=== PATIENT | male | born 1945 | race Caucasian/White ===

== ENCOUNTER 2020-10-23 10:10 | Emergency (ER) | payer MEDICARE, OTHER, SELFPAY ==
[2020-10-23 10:20] VITALS: BP 107/53; PULSE 76; RESP 18; TEMP 35.8; O2SAT 99
--- NOTE | 2020-10-23 10:57 | ED.EXTPRO ---
HPI - Extremity Problem General Chief complaint: Extremity Problem,Nontraumatic Stated complaint: rt foot toenail pain Time Seen by Provider: 10/23/20 10:32 Source: patient and RN notes reviewed Mode of arrival: ambulatory Limitations: no limitations History of Present Illness HPI Narrative: Patient presents today complaining of an injury to his right great toenail. States he noticed it bleeding this morning for a long period of time. He got into the shower and got it to stop bleeding. States his wrapped it and he came in for evaluation as she had told him that it had been torn mostly all the way off. States he believes he needs the toenail removed the rest of the way. When patient removes his socks, since he cannot reach his feet, he places his left heel on his right toes and pulls his right foot out of his sock. Since he has neuropathy, he cannot feel his feet, nor the amount of pressure he is placing on his toes. Patient also has history of diabetes. Related Data Home Medications Medication Instructions Recorded Confirmed aspirin [Aspirin Low Dose] 81 mg PO DAILY 01/21/19 01/21/19 atorvastatin 40 mg PO DAILY 01/21/19 01/21/19 cetirizine 10 mg PO DAILY 01/21/19 01/21/19 cholestyramine-aspartame 9 g PO DAILY 01/21/19 01/21/19 [Cholestyramine Light] furosemide 60 mg PO BID 01/21/19 01/21/19 gabapentin 300 mg PO TID 01/21/19 01/21/19 insulin glargine [Lantus U-100 45 unit SUBCUT HS 01/21/19 01/21/19 Insulin] insulin lispro [Humalog U-100 1 sliding scale dose SUBCUT 01/21/19 01/21/19 Insulin] USEASDIRECTD levothyroxine 75 mcg PO DAILY 01/21/19 01/21/19 lidocaine [Lidocaine Pain Relief] 1 patch TOPICAL BID 01/21/19 01/21/19 lisinopril 10 mg PO DAILY 01/21/19 01/21/19 metformin 1,000 mg PO BID 01/21/19 01/21/19 metoprolol tartrate 25 mg PO BID 01/21/19 01/21/19 taedirvg-kta-zhjrb-vit K-lycop 1 tablet PO DAILY 01/21/19 01/21/19 [Men's Multivitamin] nitroglycerin [Nitrostat] 0.4 mg SUBLINGUAL Q5-15M PRN 01/21/19 01/21/19 potassium chloride 20 meq PO DAILY 01/21/19 01/21/19 levothyroxine [Synthroid] 10/23/20 tramadol mg 10/23/20 Allergies Allergy/AdvReac Type Severity Reaction Status Date / Time No Known Allergies Allergy Verified 04/18/16 09:57 Review of Systems Review of Systems: CONSTITUTIONAL: Denies body aches, fever, chills, or sweats. EYES: Denies visual changes, redness, or discharge. ENT: Denies rhinorrhea, congestion, sore throat, or otalgia. CARDIOVASCULAR: Denies chest pain, palpitations, or edema. RESPIRATORY: Denies cough or dyspnea. GASTROINTESTINAL: Denies abdominal pain, nausea, vomiting, or diarrhea. GENITOURINARY: Denies dysuria or hematuria. SKIN: Denies rash, itching, or wounds. Right great toenail injury MUSCULOSKELETAL: Denies back pain, joint pain, or myalgia. NEUROLOGIC: Denies headache, numbness, tingling, or weakness. PSYCH: Denies depression or anxiety. [facility] Past Medical History Medical History (Updated 10/23/20 @ 12:30 by Hannah Gamboa, [facility], ) Diabetes Diabetic neuropathy Hypothyroidism Surgical History Surgical History (Updated 10/23/20 @ 12:30 by Hannah Gamboa, [facility], ) Hx of CABG Family History Family History (Updated 01/21/19 @ 11:55 by Mia Bustillo RN) Father Acute myocardial infarction Sibling Diabetes mellitus Sibling Diabetes mellitus Social History Social History Smoking status: Former smoker Tobacco type: cigarettes Second hand tobacco smoke exposure: No Alcohol intake: current Gender identity (if verbalized by the patient): Male Comments At time of signature, I have reviewed and agree with nursing past medical, surgical, social and family history unless otherwise noted. Please see nursing chart for further information. There is no relevant family history pertinent to the presenting complaint Exam Narrative: GENERAL: Well-appearing, well-nourished, and in no acute distress. HEAD: Normocephalic, atraum
== END 2020-10-23 11:23 | disposition home or self-care (01) ==
PROVIDERS: Emergency Provider Nurse Practitioner; PCP Emergency Medicine
DX: S99.921A Unspecified injury of right foot, initial encounter (principal); X58.XXXA Exposure to other specified factors, initial encounter; E11.42 Type 2 diabetes mellitus with diabetic polyneuropathy; E03.9 Hypothyroidism, unspecified
CPT/HCPCS: 99213; G0463

== ENCOUNTER 2020-12-18 14:26 | Emergency (ER) | payer MEDICARE, OTHER, SELFPAY ==
[2020-12-18 14:32] VITALS: BP 128/47; PULSE 101; RESP 16; TEMP 36.2; O2SAT 96
[2020-12-18 14:39] VITALS: BP 128/47; PULSE 101; RESP 16; TEMP 36.2; O2SAT 96
--- NOTE | 2020-12-18 14:47 | ED.ANIMALBIT ---
HPI - Animal Bite General Chief Complaint: Animal Bite Stated Complaint: dog bite Time Seen by Provider: 12/18/20 14:38 Source: patient, family and RN notes reviewed Mode of arrival: ambulatory Limitations: no limitations History of Present Illness HPI narrative: Patient presents today with a dog bite to his right hand 2 weeks ago. The puncture wound was to the dorsum of the hand, overlying the base of the right third finger. States he has the area covered and had been applying Neosporin. States the area was draining quite a bit of purulent discharge. He had been on several days of an antibiotic for his toe infection and reports that when he was on the antibiotic his hand had been improving, but since finishing the course, he feels that his hand is becoming worse and more reddened. Denies numbness or tingling in the hand or fingers. Increased pain with making a fist. MD complaint: animal bite Related Data Home Medications Medication Instructions Recorded Confirmed aspirin [Aspirin Low Dose] 81 mg PO DAILY 01/21/19 01/21/19 atorvastatin 40 mg PO DAILY 01/21/19 01/21/19 cetirizine 10 mg PO DAILY 01/21/19 01/21/19 cholestyramine-aspartame 9 g PO DAILY 01/21/19 01/21/19 [Cholestyramine Light] furosemide 60 mg PO BID 01/21/19 01/21/19 gabapentin 300 mg PO TID 01/21/19 01/21/19 insulin glargine [Lantus U-100 45 unit SUBCUT HS 01/21/19 01/21/19 Insulin] insulin lispro [Humalog U-100 1 sliding scale dose SUBCUT 01/21/19 01/21/19 Insulin] USEASDIRECTD levothyroxine 75 mcg PO DAILY 01/21/19 01/21/19 lidocaine [Lidocaine Pain Relief] 1 patch TOPICAL BID 01/21/19 01/21/19 lisinopril 10 mg PO DAILY 01/21/19 01/21/19 metformin 1,000 mg PO BID 01/21/19 01/21/19 metoprolol tartrate 25 mg PO BID 01/21/19 01/21/19 xjkizllb-ntv-ozpkn-vit K-lycop 1 tablet PO DAILY 01/21/19 01/21/19 [Men's Multivitamin] nitroglycerin [Nitrostat] 0.4 mg SUBLINGUAL Q5-15M PRN 01/21/19 01/21/19 potassium chloride 20 meq PO DAILY 01/21/19 01/21/19 levothyroxine [Synthroid] 10/23/20 tramadol mg 10/23/20 Allergies Allergy/AdvReac Type Severity Reaction Status Date / Time No Known Allergies Allergy Verified 04/18/16 09:57 Review of Systems Review of Systems: CONSTITUTIONAL: Denies body aches, fever, chills, or sweats. EYES: Denies visual changes, redness, or discharge. ENT: Denies rhinorrhea, congestion, sore throat, or otalgia. CARDIOVASCULAR: Denies chest pain, palpitations, or edema. RESPIRATORY: Denies cough or dyspnea. GASTROINTESTINAL: Denies abdominal pain, nausea, vomiting, or diarrhea. GENITOURINARY: Denies dysuria or hematuria. SKIN: Denies rash, itching. + Dog bite to right hand MUSCULOSKELETAL: Denies back pain, joint pain, or myalgia. NEUROLOGIC: Denies headache, numbness, tingling, or weakness. PSYCH: Denies depression or anxiety. [facility] Past Medical History Medical History Diabetes Diabetic neuropathy Hypothyroidism Surgical History Surgical History Hx of CABG Family History Family History Father Acute myocardial infarction Sibling Diabetes mellitus Sibling Diabetes mellitus Social History Social History Smoking status: Former smoker Tobacco type: cigarettes Second hand tobacco smoke exposure: No Alcohol intake: current Gender identity (if verbalized by the patient): Male Comments At time of signature, I have reviewed and agree with nursing past medical, surgical, social and family history unless otherwise noted. Please see nursing chart for further information. There is no relevant family history pertinent to the presenting complaint Exam Narrative: GENERAL: Well-appearing, well-nourished, and in no acute distress. HEAD: Normocephalic, atraumatic. EYES: EO
== END 2020-12-18 14:53 | disposition home or self-care (01) ==
PROVIDERS: Emergency Provider Nurse Practitioner
DX: L02.511 Cutaneous abscess of right hand (principal); S61.432A Puncture wound without foreign body of left hand, initial encounter; L08.9 Local infection of the skin and subcutaneous tissue, unspecified; W54.0XXA Bitten by dog, initial encounter; E11.42 Type 2 diabetes mellitus with diabetic polyneuropathy; E03.9 Hypothyroidism, unspecified; Z87.891 Personal history of nicotine dependence
CPT/HCPCS: 99213; G0463

== ENCOUNTER 2024-10-25 10:52 | Inpatient (IN) | payer MEDICARE, OTHER, SELFPAY ==
--- OUTSIDE RECORDS SUMMARY | 2020-09-19 06:20 | XMS_ITS | Continuity of Care Document ---
Author Organization [facility] Address [id number] [place] [address] [address] [place] [address] Phone Care Team Providers Care Camera Systems Engineer Name Role Phone Real FAIR MD, Jim fonseca Allergies, Adverse Reactions, Alerts Substance Reaction Status Criticality No Known Allergies Active No Inform ation Medications Medication Instructions Dosage Effective Dates (start - stop) Status Comments Restasis 0.05 % eye drops in a dropperette instill 1 gtt by opthalmic route into both eyes twice a day - Active Lantus 100 unit/mL subcutaneous solution inject by subcutaneous route as per insulin protocol 0.00 - Active Tirosint 75 mcg capsule take 1 capsule by oral route every day 75 MCG - Active Gralise 300 mg tablet,extended release TID - Active lidocaine BUCCAL ADH. PATCH every 12 hours - Active metformin 1,000 mg tablet take 1 tablet by oral route 2 times every day with morning and evening meals 1000 MG - Active lisinopril 10 mg tablet take 1 tablet by oral route every day 10 MG - Active HUMALOG KWIKPEN U-200 (unknown strength) inject by subcutaneous route per prescriber's instructions. Insulin dosing requires individualization. Not Available - Active TRAMADOL HCL ER (unknown strength) take 1 capsule by oral route every day Not Available - Active 325 Aspir-81 81 mg tablet,delayed release take 1 tablet by oral route every day - Active atorvastatin 40 mg tablet take 1 tablet by oral route every day 40 MG - Active cetirizine 10 mg tablet take 1 tablet by oral route every day 10 MG - Active METOPROLOL TARTRATE (unknown strength) inject 5 milliliter by intravenous route every 2 minutes for 3 doses Not Available - Active 25mg furosemide 40 mg tablet take 1 tablet by oral route every day 40 MG - Active POTASSIUM (unknown strength) Not Available - Active cholestyramine (bulk) powder - Active One-A-Day Men's Multivitamin 400 mcg-20 mcg-300 mcg tablet - Active nitroglycerin 0.4 mg/hr transdermal 24 hour patch apply 1 patch by transdermal route every day remove at night for 10-12 hours 1.00 patch - Active Procedures Procedure Date AFTER CATARACT LASER SURGERY OFFICE/OUTPATIENT VISIT, EST POSTOP FOLLOW-UP VISIT POSTOP FOLLOW-UP VISIT CATARACT SURG W/IOL, 1 STAGE POSTOP FOLLOW-UP VISIT GDX Retina POSTOP FOLLOW-UP VISIT CATARACT SURG W/IOL, 1 STAGE EYE EXAM, NEW PATIENT REFRACTION MEDICARE DILATED EXAM RIGHT EYE DILATED EXAM LEFT EYE OPHTHALMIC BIOMETRY OPHTHAL[facility] BIOMET[facility] PHARMACY 2 EYES OFFICE/OUTPATIENT VISIT, NEW DILATED EXAM RIGHT EYE DILATED EXAM LEFT EYE Advance Directives Directive Yes / No Effective Date File Name No Information Encounters Encounter Description Practice Location Reason(s) For Visit Diagnoses Date Provider Providers Copied on Encounter [facility], [address] [place] [address], [id number], [place] tel:[phone] [facility] No Information 1 Real Fernandez. [address], [place], [place], [id number], [place]. tel:[phone] Referring Provider: Jim Noble MD P, [address], [place], [address] . tel:[phone] OFFICE/OUTPA TIENT VISIT, EST [facility], [address] [place] [address], [id number], tel:[phone] [facility] MCNAMARA blurry vision (chief complaint) Type II DM (chief complaint) Proliferative diabetic retinopathy of both eyes with macular edema associated with type 2 diabetes mellitusPseudoa phakiaOther secondary cataract, left eyeOther vitreous opacities, right eyeDry eye syndrome of bilateral lacrimal glands 1 Derheimer OD Shira. [address], [address], [place], [place], [id number], [place]. tel:[phone] Referring Provider: Shira Joonalistair OD, [address], [place], [address] . tel:[phone] [facility], [address] [place] [address], [id number], tel:[phone] [facility] MC[facility] postop (chief complaint) Pseudoaphakia 9 Derheimer OD Shira. [address], [address], [address], [place]. tel:[phone] Referring Provider: Shira Joonalistair OD, [address], [place], [address] . tel:[phone] [facility], [address] [place] [address], [id number], tel:[phone] [facility] MCNAMARA Post-Op (chief complaint) Pseudoaphakia 9 Derheimer OD Shira. [address], [address], [place], [address], [place]. tel:[phone] Referring Provider: Shira Joonalistair OD, [address], [place], [address] . tel:[phone] [facility], [address] [place] [address], [id number], tel:[phone] [facility] [place] No Information 9 Karuna Odonnell. [address], [address], [place], [address], [place]. tel:[phone] Referring Provider: Blas Potter, [address], [place], [address] . tel:[phone] [facility], [address] [place] [address], [id number], tel:[phone] [facility] MCNAMARA Post-Op (chief complaint) Pseudoaphakia 9 Derheimer OD Shira. [address], [address], [id number], [place]. tel:[phone] Referring Provider: Shira Perry OD, [address], [place], [address] . tel:[phone] [facility], [address] [place] [address], [id number], tel:[phone] [facility] No Information 9 Karuna Odonnell. [address], [address], [address], [place]. tel:[phone] [facility], [address] [place] [address], [id number], tel:[phone] [facility] MCNAMARA Post-Op (chief complaint) Pseudoaphakia 9 Derheimer OD Shira. [address], [address], [place], [address], [place]. tel:[phone] Referring Provider: Shira Perry OD, [address], [place], [address] . tel:[phone] [facility], [address] [place] [address], [id number], tel:[phone] [facility] [place] No Information 9 Karuna Odonnell. [address], [address], [place], [address], [place]. tel:[phone] Referring Provider: Blas Beckman MD P, [address], [place], [address] . tel:[phone] [facility], [address] [place] [address], [id number], tel:[phone] [facility] MCNAMARA cataract eval (chief complaint) DM check (chief complaint) Age-related nuclear cataract, bilateralDermat ochalasis of right upper eyelidDermatoch alasis of left upper eyelidKeratocon junct sicca, not specified as Sjogren's, bilateralOther vitreous opacities, bilateralType 2 diab with severe nonp rtnop without macular edema, bi 9 Karuna Odonnell. [address], [address], [place], [place], [address], [place]. tel:[phone] Referring Provider: Blas Potter, [address], [place], [address] . tel:[phone] OFFICE/OUTPA TIENT VISIT, [facility], [address] [place] [address], [place], [place], [id number], tel:[phone] [facility] MCNAMARA Floater (chief complaint) Severe nonproliferativ e diabetic retinopathy without macular edema, associated with type 2 diabetes mellitusRetinal hemorrhage, leftSenile nuclear sclerosis, bilateralVitreo us floaters, bilateral 5 Vicky OD Shira. [address], [address], [place], [place], [address], [place]. tel:[phone] Referring Provider: Shira Perry OD, [address], [place], [address] . tel:[phone] Family History Family Member Type Diagnosis Age At Onset Problem No family history of Macular degeneration Problem No family history of Hyperte nsion Problem No family history of Diabete s mellitus Problem No family history of Glaucom a Payers Payer name Insurance type Covered constitution party ID Authoriza tion(s) [place] [id number] [facility] [id number] Social History Type Description Quantity Date Captured Comments Sex Male Smoking Status No Information Chief Complaint And Reason For Visit No Information Reason For Referral Reason For Referral No Information Plan Of Treatment Date Type Action Status Referral Ordered: Referrals: Ophthalmology ordered History Of Present Illness Encounter Date Complaint History Of Prese nt Illness blurry vision The 75 year old male presents for evaluation of blurry vision OS. Patient has been seeing [facility] for h/o PDR OU s/p PRP OU, with a h/o DME OU (persistent and recurrent OS) for which he has rec'd Focal laser/Avastin and more recently Kenalog (08/30/20). Pt has been referred back by [facility] for a PCO consultation OS. Patient reports vision OS keeps getting worse, especially OS, over the last month in particular. Pt has a h/o VH OS and he states he's noticed that the blurriness doesn't appear to be from blood, but the actual vision itself. Pt states vision OU was great immediately after surgery. s/p PC IOL OU (St, dist) summer 2018 Type II DM Patient has a lo ng h/o type II DM. Pt is managed on insulin and oral meds by Dr. Melendrez (PCP). A1c was recently 6.9, which is the lowest it's been in many years. postop Pt states vision is improved and happy with +2.00 OTC readers. Minimal discomfort, improves with sx gtts.Stand/Dist OURef by Dr. Zuluaga.Pt has an appt with Dr. Zuluaga in 2 weeks.h/o PDR w/ VH OS, NPDR OD and DME OUPt compliant with compound gtts. Post-Op The status of th e patient has improved. The patient reports no pain. Additional information: STND DVRef by Dr. Zuluaga.h/o PDR w/ VH OS, NPDR OD and DME OU. Post-Op Additional infor mation: Pt presents for a 1 week PC IOL (st, dist) PO OS. Patient reports vision OS seems to be improving since last exam. No pain or irritation. Compliant w/ compound gtts and AFT's. OD scheduled 07/30/18.Ref by Dr. Zuluaga.h/o PDR w/ VH OS, NPDR OD and DME OU. Mac OCT ordered today OU. Post-Op The status of th e patient has improved. The patient reports no pain. Additional information: 1st eye OS cat surg 07/16/18 with Gira. STND DIST IOL. 2nd eye scheduled 07/30/[address] Zuluaga- h/o PDR OS, NPDR OD, DME OU, and VH OS. cataract eval The 73 year old male presents for evaluation of cataract eval in the left > right. It started about 3 year(s) ago. The symptom is constant. The condition is significant. The pt was recently released by [facility] for cataract surgery. He states he wanted to update his glasses, but was advised to have his cataracts evaluated. DM check The patient is p resent for evaluation of DM check in the right eye and left eye. It started about 1 year(s) ago. The symptom is constant. The condition is significant. The pt is followed by Dr Salazar, Last A1C was 7.2, 04/2018, AVG AM BS: 70+Followed and Tx by [facility]. Floater The 69 year old male presents for evaluation of Floater in the left eye. It started about 1 day(s) ago. The onset was sudden. It affects OS. The symptom is constant. The condition is moderate. Pt reports yesterday evening he developed a blurry floater in vision OS distorted blurred iroquois. denies any flashes of light OU. [facility] maroon shade per patientH/O Diabetes, pt reports his BS runs high 200's, did not check BS today. Functional Status Date Functional Assessmen t No Information Instructions Date Instruction Additional Infor mation Impression/Plan Related to Proli ferative diabetic retinopathy of both eyes with macular edema associated with type 2 diabetes mellitus Impression/Plan Related to Pseud oaphakia Impression/Plan Related to Other secondary cataract, left eye Impression/Plan Related to Dry e ye syndrome of bilateral lacrimal glands Impression/Plan Related to Other vitreous opacities, right eye Impression/Plan Related to Pseud oaphakia Impression/Plan Related to Pseud oaphakia Impression/Plan Related to Pseud oaphakia Impression/Plan Related to Pseud oaphakia Impression/Plan Related to Type 2 diab with severe nonp rtnop without macular edema, bi Impression/Plan Related to Age-r elated nuclear cataract, bilateral Impression/Plan Related to [place] tochalasis of right upper eyelid Impression/Plan Related to [place] tochalasis of left upper eyelid Impression/Plan Related to Kerat oconjunct sicca, not specified as Sjogren's, bilateral Impression/Plan Related to Other vitreous opacities, bilateral Impression/Plan - Di scussed signs and symptoms of retinal detachment. Discussed signs and symptoms of PVD/floaters. Related to Vitreous floaters, bilateral Impression/Plan - Se condary to diabetic retinopathy. Discussed dx with pt today. Will refer patient for a retinal consult for further evaluation/treatment. Related to Retinal hemorrhage, left Impression/Plan - No treatment currently recommended. The patient will monitor vision changes and contact us with any decrease in vision. Related to Senile nuclear sclerosis, bilateral Impression/Plan - Di abetes type II: severe background diabetic retinopathy, with pre retinal heme OS. Will refer patient for a retinal consult for furthur evaluation and treatment. Discussed ocular and systemic benefits of maintaining blood sugar control. Related to Severe nonproliferative diabetic retinopathy without macular edema, associated with type 2 diabetes mellitus Assessments Type Assessment Date No Information Patient Care Teams Name Effective Dates (start - stop) Status Members No Information
--- OUTSIDE RECORDS SUMMARY | 2020-09-19 06:20 | XMS_ITS | Continuity of Care Document ---
Author Organization [facility] Address [id number] [place] [address] [address] [place] [address] Phone Care Team Providers Care Job Developer For Deaf Adults Name Role Phone Real FAIR MD, Jim [...] Providers Copied on Encounter [facility], [address] [place] [address], [id number], [place] tel:[phone] [facility] No Information 1 Real Fernandez. [address], [place], [place], [address], [place]. tel:[phone] Referring Provider: Jim Noble MD P, [address], [place], [address] . tel:[phone] OFFICE/OUTPA TIENT VISIT, EST [facility], [address] [place] [address], [id number], tel:[phone] [facility] MCNAMARA blurry vision (chief complaint) Type II DM (chief complaint) Proliferative diabetic retinopathy of both eyes with macular edema associated with type 2 diabetes mellitusPseudoa phakiaOther secondary cataract, left eyeOther vitreous opacities, right eyeDry eye syndrome of bilateral lacrimal glands 1 Derheimer OD Shira. [address], [place], [place], [address], [place]. tel:[phone] Referring Provider: Shira Joonalistair OD, [address], [place], [address] . tel:[phone] [facility], [address] [place] [address], [id number], tel:[phone] [facility] MCNAMARA postop (chief complaint) Pseudoaphakia 9 Derheimer OD Shira. [address], [address], [address], [place]. tel:[phone] Referring Provider: Shira Joonalistair OD, [address], [place], [address] . tel:[phone] [facility], [address] [place] [address], [id number], tel:[phone] [facility] LUIS MCNAMARA Post-Op (chief complaint) Pseudoaphakia 9 Derheimer OD Shira. [address], [address], [address], [place]. tel:[phone] Referring Provider: Shira Joonalistair OD, [address], [place], [address] . tel:[phone] [facility], [address] [place] [address], [id number], tel:[phone] [facility] [place] No Information 9 Karuna Odonnell. [address], [address], [address], [place]. tel:[phone] Referring Provider: Blas Potter, [address], [address] . tel:[phone] [facility], [address] [place] [address], [id number], tel:[phone] [facility] LUIS MCNAMARA Post-Op (chief complaint) Pseudoaphakia 9 Derheimer OD Shira. [address], [address], [address], [place]. tel:[phone] Referring Provider: Shira Perry OD, [address], [address] . tel:[phone] [facility], [address] [place] [address], [id number], tel:[phone] [facility] No Information 9 Karuna Odonnell. [address], [address], [address], [place]. tel:[phone] [facility], [address] [place] [address], [id number], tel:[phone] OPH CONSULT LUIS MCNAMARA Post-Op (chief complaint) Pseudoaphakia 9 Derheimer OD Shira. [address], [address], [address], [place]. tel:[phone] Referring Provider: Shira Perry OD, [address], [address] . tel:[phone] [facility], [address] [place] [address], [id number], tel:[phone] [facility] [place] No Information 9 Karuna Odonnell. [address], [address], [address], [place]. tel:[phone] Referring Provider: Blas Beckman MD P, [address], [place], [address] . tel:[phone] [facility], [address] [place] [address], [id number], tel:[phone] OPH CONSULT LUIS MCNAMARA cataract eval (chief complaint) DM check (chief complaint) Age-related nuclear cataract, bilateralDermat ochalasis of right upper eyelidDermatoch alasis of left upper eyelidKeratocon junct sicca, not specified as Sjogren's, bilateralOther vitreous opacities, bilateralType 2 diab with severe nonp rtnop without macular edema, bi 9 Karuna Odonnell. [address], [place], [place], [address], [place]. tel:[phone] Referring Provider: Blas Potter, [address], [place], [address] . tel:[phone] OFFICE/OUTPA TIENT VISIT, [facility], [address] [place] [address], [place], [place], [id number], tel:[phone] OPH CONSULT LUIS MCNAMARA Floater (chief complaint) Severe nonproliferativ e diabetic retinopathy without macular edema, associated with type 2 diabetes mellitusRetinal hemorrhage, leftSenile nuclear sclerosis, bilateralVitreo us floaters, bilateral 5 Vicky OD Shira. [address], [place], [place], [address], [place]. tel:[phone] Referring Provider: Shira Perry OD, [address], [place], [address] . tel:[phone] Family History Family Member Type Diagnosis Age At Onset Problem No family history of Macular degeneration Problem No family history of Hyperte nsion Problem No family history of Diabete s mellitus Problem No family history of Glaucom a Payers Payer name Insurance type Covered democrat ID Authoriza tion(s) [place] MB [id number] [facility] [id number] Social History Type Description Quantity Date Captured [...] blurry floater in vision OS distorted blurred ramona. denies any flashes of light OU. [facility] is maroon shade per patientH/O Diabetes, pt reports his BS runs high 200's, did not check BS today. Functional Status Date Functional Assessmen t No Information Instructions Date Instruction Additional Infor mation Impression/Plan Related to Other vitreous opacities, right eye Impression/Plan Related to Dry e ye syndrome of bilateral lacrimal glands Impression/Plan Related to Other secondary cataract, left eye Impression/Plan Related to Pseud oaphakia Impression/Plan Related to Proli ferative diabetic retinopathy of both eyes with macular edema associated with type 2 diabetes mellitus Impression/Plan Related to Pseud oaphakia Impression/Plan Related to Pseud oaphakia Impression/Plan Related to Pseud oaphakia Impression/Plan Related to Pseud oaphakia Impression/Plan Related to Other vitreous opacities, bilateral Impression/Plan Related to Kerat oconjunct sicca, not specified as Sjogren's, bilateral Impression/Plan Related to [place] tochalasis of left upper eyelid Impression/Plan Related to [place] tochalasis of right upper eyelid Impression/Plan Related to Age-r elated nuclear cataract, bilateral Impression/Plan Related to Type 2 diab with severe nonp rtnop without macular edema, bi Impression/Plan - Di abetes type II: severe background diabetic retinopathy, with pre retinal heme OS. Will refer patient for a retinal consult for furthur evaluation and treatment. Discussed ocular and systemic benefits of maintaining blood sugar control. Related to Severe nonproliferative diabetic retinopathy without macular edema, associated with type 2 diabetes mellitus Impression/Plan - No treatment currently recommended. The patient will monitor vision changes and contact us with any decrease in vision. Related to Senile nuclear sclerosis, bilateral Impression/Plan - Se condary to diabetic retinopathy. Discussed dx with pt today. Will refer patient for a retinal consult for further evaluation/treatment. Related to Retinal hemorrhage, left Impression/Plan - Di scussed signs and symptoms of retinal detachment. Discussed signs and symptoms of PVD/floaters. Related to Vitreous floaters, bilateral Assessments Type Assessment Date No Information Patient Care Teams Name Effective Dates (start - stop) Status Members No Information
--- OUTSIDE RECORDS SUMMARY | 2020-09-19 06:20 | XMS_ITS | Continuity of Care Document ---
Author Organization [facility] Address [id number] [place] [address] [address] [place] [address] Phone Care Team Providers Care Sports Book Server Name Role Phone Real FAIR MD, Jim [...] Providers Copied on Encounter [facility], [address] [place] [address], [id number], [place] tel:[phone] [facility] No Information 1 Real Fernandez. [address], [address], [place], [place], [id number], [place]. tel:[phone] Referring Provider: Jim Noble MD P, [address], [place], [address] . tel:[phone] OFFICE/OUTPA TIENT VISIT, EST [facility], [address] [place] [address], [id number], tel:[phone] [facility] LUIS MCNAMARA blurry vision (chief complaint) Type II DM (chief complaint) Proliferative diabetic retinopathy of both eyes with macular edema associated with type 2 diabetes mellitusPseudoa phakiaOther secondary cataract, left eyeOther vitreous opacities, right eyeDry eye syndrome of bilateral lacrimal glands 1 Derheimer OD Shira. [address], [address], [place], [place], [id number], [place]. tel:[phone] Referring Provider: Shira Joonalistair OD, [address], [place], [address] . tel:[phone] [facility], [address] [place] [address], [id number], tel:[phone] [facility] MCNAMARA postop (chief complaint) Pseudoaphakia 9 Derheimer OD Shira. [address], [address], [place], [id number], [place]. tel:[phone] Referring Provider: Shira Joonalistair OD, [address], [place], [address] . tel:[phone] [facility], [address] [place] [address], [id number], tel:[phone] [facility] LUIS MCNAMARA Post-Op (chief complaint) Pseudoaphakia 9 Derheimer OD Shira. [address], [address], [place], [id number], [place]. tel:[phone] Referring Provider: Shira Joonalistair OD, [address], [place], [address] . tel:[phone] [facility], [address] [place] [address], [id number], tel:[phone] [facility] [place] No Information 9 Karuna Odonnell. [address], [address], [place], [id number], [place]. tel:[phone] Referring Provider: Blas Potter, [address], [place], [address] . tel:[phone] [facility], [address] [place] [address], [id number], tel:[phone] [facility] LUIS MCNAMARA Post-Op (chief complaint) Pseudoaphakia 9 Derheimer OD Shira. [address], [address], [place], [id number], [place]. tel:[phone] Referring Provider: Shira Perry OD, [address], [place], [address] . tel:[phone] [facility], [address] [place] [address], [id number], tel:[phone] [facility] LUIS MCNAMARA No Information 9 Karuna Odonnell. [address], [address], [place], [id number], [place]. tel:[phone] [facility], [address] [place] [address], [id number], tel:[phone] [facility] LUIS MCNAMARA Post-Op (chief complaint) Pseudoaphakia 9 Derheimer OD Shira. [address], [address], [place], [id number], [place]. tel:[phone] Referring Provider: Shira Perry OD, [address], [place], [address] . tel:[phone] [facility], [address] [place] [address], [id number], tel:[phone] [facility] [place] No Information 9 Karuna Odonnell. [address], [address], [id number], [place]. tel:[phone] Referring Provider: Blas Beckman MD P, [address], [place], [address] . tel:[phone] [facility], [address] [place] [address], [id number], tel:[phone] [facility] LUIS MCNAMARA cataract eval (chief complaint) DM check (chief complaint) Age-related nuclear cataract, bilateralDermat ochalasis of right upper eyelidDermatoch alasis of left upper eyelidKeratocon junct sicca, not specified as Sjogren's, bilateralOther vitreous opacities, bilateralType 2 diab with severe nonp rtnop without macular edema, bi 9 Karuna Odonnell. [address], [address], [place], [place], [id number], [place]. tel:[phone] Referring Provider: Blas Potter, [address], [place], [address] . tel:[phone] OFFICE/OUTPA TIENT VISIT, [facility], [address] [place] [address], [place], [place], [id number], tel:[phone] [facility] LUIS MCNAMARA Floater (chief complaint) Severe nonproliferativ e diabetic retinopathy without macular edema, associated with type 2 diabetes mellitusRetinal hemorrhage, leftSenile nuclear sclerosis, bilateralVitreo us floaters, bilateral 5 Vicky OD Shira. [address], [address], [place], [place], [address], [place]. tel:[phone] Referring Provider: Shira Perry OD, [address], [place], [address] . tel:[phone] Family History Family Member Type Diagnosis Age At Onset Problem No family history of Macular degeneration Problem No family history of Hyperte nsion Problem No family history of Diabete s mellitus Problem No family history of [place] a Payers Payer name Insurance type Covered green party ID Authoriza tion(s) [place] MB [id number] [facility] [id number] Social History Type Description Quantity Date Captured [...] blurry floater in vision OS distorted blurred [place]. denies any flashes of light [facility]. [place] [...] elated nuclear cataract, bilateral Impression/Plan Related to [place] tochalasis of right upper eyelid Impression/Plan Related to [place] tochalasis of left upper eyelid Impression/Plan Related [...]
--- OUTSIDE RECORDS SUMMARY | 2024-10-23 14:12 | XMS_ITS | Encounter Summary ---
Author Organization [facility] Healthcare Address [address] [place] [address] Care Team Providers Care Education Dean Name Role Phone Yuli Ibarra MD Primary Care Provider [phone] Reason for Referral * MRI/CAT/PET Scan (Routine) - Closed Specialty Diagnoses / Procedures Referred By Barbaraac markus Referred To Contact Radiology Diagnoses Pain in joint involving right ankle and foot Procedures CT [place] [address] [place] [address] Phone: tel: fax: [facility] Referral ID Status Reason Start Date Expiration Date Visits Re quested Visits Authorized [id number] Closed 10/14/2024 11/13/2025 1 1 Reason for Visit * MRI/CAT/PET Scan (Routine) - Closed Specialty Diagnoses / Procedures Referred By Giovanni aparicio Referred To Contact Radiology Diagnoses Pain in joint involving right ankle and foot Procedures CT [place]le [place] [address] [place] [address] Phone: tel: fax: [facility] Referral ID Status Reason Start Date Expiration Date Visits Re quested Visits Authorized [id number] Closed 10/14/2024 11/13/2025 1 1 Encounter Details Date Type Department Care Team (Latest Contact Info) Description 10/23/2024 2:12 PM CDT - 10/23/2024 11:59 PM CDT Hospital Encounter [facility] Radiology at [facility] [address] [place] [address] Pain in joint involving right ankle and foot Discharge Disposition: Discharge to home or self care Social History Tobacco Use Types Packs/Day Years Used Date Smoking Tobacco: Former Cigarettes 1 12.1 0 07/30/1961 - 09/02/1973 Smokeless Tobacco: Never AUDIT-C Answer Date Recorded Q1: How often do you have a drink containing alc ohol? Monthly or less 06/26/2024 Q2: How many drinks containi ng alcohol do you have on a typical day when you are drinking? 1 or 2 06/26/2024 Q3: How often do you have si x or more drinks on one occasion? Never 06/26/2024 Personal Safety Answer Date Recorded Have you ever been in or are you currently in a harmful physical or emotional relationship or is someone making you feel afraid or unsafe? 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 Gender Identity Not on file Sexual Orientation Not on file documented as of this encounter Medications at Time of Discharge acetaminophen 500 mg capsule Take 2 capsules (1,000 mg total) by mouth every 8 (eight) hours 08/19/2024 albuterol HFA (PROVENTIL HFA,VENTOLIN HFA,PROAIR HFA) 90 mcg/actuation inhaler Inhale 2 puffs every 6 (six) hours as needed for wheezing aspirin 81 mg enteric coated tablet Take 1 tablet (81 mg total) by mouth daily atorvastatin (Lipitor) 40 mg tablet Take 1 tablet (40 mg total) by mouth daily bumetanide (BUMEX) 1 mg tablet Take 1 tablet (1 mg total) by mouth 3 (three) times a week 09/07/2024 cetirizine (ZyrTEC) 10 mg tablet Take 0.5 tablets (5 mg total) by mouth as needed for allergies 08/19/2024 cholestyramine (QUESTRAN) 4 gram packet Indications: Diarrhea MIX 1 PACKET AND DRINK DAILY NEEDED (USUALLY MID-DAY) 09/04/2024 dapagliflozin propanediol (FARXIGA) 10 mg tablet Take 1 tablet (10 mg total) by mouth daily 03/21/2024 dicyclomine (BENTYL) 10 mg capsule TAKE ONE CAPSULE BY MOUTH THREE TIMES DAILY NEEDED FOR CHANGE IN BOWEL HABITS famotidine (PEPCID) 40 mg tablet 06/30/2024 gabapentin (NEURONTIN) 600 mg tablet Take 1 tablet (600 mg total) by mouth 3 (three) times a day 08/19/2024 insulin glargine (LANTUS) 100 unit/mL (3 mL) pen for injection Inject 15 Units under the skin daily insulin lispro (HumaLOG, ADMELOG) 100 unit/mL vial for injection Inject 2-10 units under the skin 3 (three) times a day with meals. Blood glucose mg/dL 150-199: 2 units, 200-249: 4 units, 250-299: 6 units, 300-349: 8 units, 350 or greater: 10 units. Notify provider for blood glucose greater than 299 mg/dL. Refer to After Visit Summary for Sliding Scale Insulin Instructions. 08/19/2024 insulin lispro (HumaLOG, ADMELOG) 100 unit/mL vial for injection Inject 0-5 Units under the skin 3 (three) times a day with meals 08/19/2024 levothyroxine (Synthroid) 50 mcg tablet Take 1 tablet (50 mcg total) by mouth daily loperamide (IMODIUM) 2 mg capsuleIndications:d iarrhea Take 2 capsules (4 mg total) by mouth 4 (four) times a day 08/19/2024 metoprolol tartrate (LOPRESSOR) 25 mg immediate release tablet Take 0.5 tablets (12.5 mg total) by mouth 2 (two) times a day 02/25/2024 gjnknthf-hiu-yoglk-v it K-lycop 400-20-300 mcg tablet Take 1 tablet by mouth daily mupirocin (BACTROBAN) 2 % ointment APPLY TOPICALLY TO THE AFFECTED AREA DAILY FOR 7 DAYS 09/08/2024 nitroglycerin (NITROSTAT) 0.[address] 1 tablet (0.4 mg total) under the tongue every 5 (five) minutes as needed for chest pain 09/24/2023 ondansetron ODT (ZOFRAN-ODT) 4 mg disintegrating tablet Take 1 tablet (4 mg total) by mouth every 6 (six) hours as needed for nausea or vomiting oxyCODONE (ROXICODONE) 5 mg immediate release tabletIndications:Pa in Take 1 tablet (5 mg total) by mouth every 4 (four) hours as needed for pain 08/19/2024 oxyCODONE-acetaminop hen (PERCOCET) 5-325 mg per tablet Take 1 tablet by mouth 2 (two) times a day as needed 09/07/2024 sacubitriL-valsartan (ENTRESTO) 24-26 mg tablet Take 1 tablet by mouth 2 (two) times a day 09/07/2024 tamsulosin (FLOMAX) 0.4 mg extended release capsule Take 1 capsule (0.4 mg total) by mouth nightly 02/25/2024 documented as of this encounter Discharge Disposition Disposition Code Departure Means Destination Discharge to home or self care documented in this encounter Plan of Treatment Not on file documented as of this encounter Procedures Procedure Name Priority Date/Time Associated Diagnosis Comments CT ANKLE RIGHT WO CONTRAST Schedule Routine, Read Routine (OP Routine) 10/23/2024 2:56 PM CDT Pain in joint involving right ankle and foot documented in this encounter Results * CT Ankle Right WO Contrast (10/23/2024 2:56 PM CDT) Anatomical Region Laterality Modality Ankle Right Computed Tomogra phy 10/23/2024 3:45 PM CDT Impressions 10/23/2024 4:05 PM CDT Severe right Charcot arthropathy with progressive fragmentation, collapse and distraction of the right talar and distal tibial and fibular fractures and progressive valgus deformity at the ankle. Dictated by: Marko Scales MD The radiology attending physician has personally reviewed this study, and had reviewed and/or edited this written report and agrees with it. Electronically signed by: Aung Gregorio MD Narrative 10/23/2024 4:05 PM CDT EXAMINATION: CT ANKLE RIGHT WO CONTRAST HISTORY: Right ankle pain TECHNIQUE: Transaxial computed tomographic images of the right ankle were obtained without intravenous contrast. COMPARISON: Radiographs dated 10/05/2024, and CT 08/13/2024. FINDINGS: Progressive displacement of a comminuted distal right fibular fracture, with intra-articular extension. There is progressive bone loss involving the horizontally oriented fracture through the anterior tibial plafond. There is progressive ankle valgus and comminution of the talar dome fracture, with further destruction of the dominant fracture fragments, and extension into the posterior aspect of the talus. There is significant incongruity at the talar articulating surface, with multiple loose bodies within the talocrural space. There is extension of the fracture plane through the tibiotalar, and subtalar joint, with further comminution of the dominant talar fragments. Multiple loose bodies are seen within the joint space. There is severe osteopenia the imaged extremity. Further disruption of the subtalar joint. There is a large joint effusion, with synovitis. There is extensive nonbridging callus formation. The imaged tendons are intact. There is extensive soft tissue edema throughout the imaged extremity. There is Achilles tendinopathy without tear. There are severe atherosclerotic calcification. There is symmetric and intrinsic muscles. Calcaneal heel spur noted. Procedure Note Aung Gregorio MD - 10/23/2024 EXAMINATION: CT ANKLE RIGHT WO CONTRAST HISTORY: Right ankle pain TECHNIQUE: Transaxial computed tomographic images of the right ankle were obtained without intravenous contrast. COMPARISON: Radiographs dated 10/05/2024, and CT 08/13/2024. FINDINGS: Progressive displacement of a comminuted distal right fibular fracture, with intra-articular extension. There is progressive bone loss involving the horizontally oriented fracture through the anterior tibial plafond. There is progressive ankle valgus and comminution of the talar dome fracture, with further destruction of the dominant fracture fragments, and extension into the posterior aspect of the talus. There is significant incongruity at the talar articulating surface, with multiple loose bodies within the talocrural space. There is extension of the fracture plane through the tibiotalar, and subtalar joint, with further comminution of the dominant talar fragments. Multiple loose bodies are seen within the joint space. There is severe osteopenia the imaged extremity. Further disruption of the subtalar joint. There is a large joint effusion, with synovitis. There is extensive nonbridging callus formation. The imaged tendons are intact. There is extensive soft tissue edema throughout the imaged extremity. There is Achilles tendinopathy without tear. There are severe atherosclerotic calcification. There is symmetric and intrinsic muscles. Calcaneal heel spur noted. IMPRESSION: Severe right Charcot arthropathy with progressive fragmentation, collapse and distraction of the right talar and distal tibial and fibular fractures and progressive valgus deformity at the ankle. Dictated by: Marko Scales MD The radiology attending physician has personally reviewed this study, and had reviewed and/or edited this written report and agrees with it. Electronically signed by: Aung Gregorio MD Carlos Atwood MD IMG CT PROCEDURES Lashanda l Result documented in this encounter Visit Diagnoses Diagnosis Pain in joint involving right ankle and foot documented in this encounter Care Teams Education Dean Relationship Specialty Start Date End Date Yuli Ibarra MD [address] [place] [address] PCP - General Internal Medicine 06/25/24 documented as of this encounter
--- OUTSIDE RECORDS SUMMARY | 2024-10-23 14:12 | XMS_ITS | Encounter Summary ---
Author Organization [facility] Healthcare Address [address] [place] [address] Care Team Providers Care First Sampler Name Role Phone Yuli Ibarra MD Primary Care Provider [phone] Reason for Referral * MRI/CAT/PET Scan (Routine) - Closed Specialty Diagnoses / Procedures Referred By Barbaraac markus Referred To Contact Radiology Diagnoses Pain in joint involving right ankle and foot Procedures CT [place] [address] [place] [address] Phone: tel: fax: [facility] Referral ID Status Reason Start Date Expiration Date Visits Re quested Visits Authorized [id number] Closed 10/14/2024 11/13/2025 1 1 Reason for Visit * MRI/CAT/PET Scan (Routine) - Closed Specialty Diagnoses / Procedures Referred By Giovanni aparicio Referred To Contact Radiology Diagnoses Pain in joint involving right ankle and foot Procedures CT [place] [address] [place] [address] Phone: tel: fax: [facility] Referral ID Status Reason Start Date Expiration Date Visits Re quested Visits Authorized [id number] Closed 10/14/2024 11/13/2025 1 1 Encounter Details Date Type Department Care Team (Latest Contact Info) Description 10/23/2024 2:12 PM CDT - 10/23/2024 11:59 PM CDT Hospital Encounter 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
--- OUTSIDE RECORDS SUMMARY | 2024-10-23 14:12 | XMS_ITS | Encounter Summary ---
Author Organization [facility] Healthcare Address [address] [place] [address] Care Team Providers Care Glass Cleaning Machine Tender Name Role Phone Yuli Ibarra MD Primary Care Provider [phone] Reason for Referral * MRI/CAT/PET Scan (Routine) - Closed Specialty Diagnoses / Procedures Referred By Barbaraac markus Referred To Contact Radiology Diagnoses Pain in joint involving right ankle and foot Procedures CT [place] [address] [place] [address] Phone: tel: fax: [facility] Referral ID Status Reason Start Date Expiration Date Visits Re quested Visits Authorized [id number] Closed 10/14/2024 11/13/2025 1 1 Reason for Visit * MRI/CAT/PET Scan (Routine) - Closed Specialty Diagnoses / Procedures Referred By Giovanni aparicio Referred To Contact Radiology Diagnoses Pain in joint involving right ankle and foot Procedures CT [place] [address] [place] [address] Phone: tel: fax: [facility] Referral ID Status Reason Start Date Expiration Date Visits Re quested Visits Authorized [id number] Closed 10/14/2024 11/13/2025 1 1 Encounter Details Date Type Department Care Team (Latest Contact Info) Description 10/23/2024 2:12 PM CDT - 10/23/2024 11:59 PM CDT Hospital Encounter [facility] Radiology at [facility] [address] [place] [address] Pain in joint involving right ankle and [...] on file 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
[2024-10-25] VITALS (8 sets, daily range): BP systolic 120–158; BP diastolic 47–95; PULSE 74–83; RESP 18–27; TEMP 36.4; O2SAT 97–100; BMI 34.9
--- NOTE | ~2024-10-25 | XR_ITS ---
EXAMINATION: XR foot RT min 3V, 10/25/2024 13:00 CDT HISTORY: R foot diabetic ulcer COMPARISON: No comparisons available. Findings: Severe osteopenia limits evaluation. There are destructive changes questioned of the fifth metatarsal head and the proximal phalanx fifth digit. Age- indeterminate fracture proximal phalanx fifth digit. Moderate to severe degenerative changes also noted of the ankle joint, the talus appears abnormal, underlying osteonecrosis or osteomyelitis is not excluded. Soft tissues unremarkable. Impression: Osteomyelitis detailed above. Contrast-enhanced MRI is suggested to further evaluate. Reviewed, dictated and finalized at location A. Impression: Osteomyelitis detailed above. Contrast-enhanced MRI is suggested to further isabelle dayna.
--- OUTSIDE RECORDS SUMMARY | 2024-10-25 10:56 | XMS_ITS | Encounter Summary ---
Author Organization [facility] Address [address] [place] [address] Care Team Providers Care Newscast Director Name Role Phone Bereket Oquendo MD Unavailable [phone] Bettina Bansal PharmD Unavailable [phone] Yuli Ibarra MD Primary Care Provider [phone] Cesar Zuluaga MD Unavailable [phone] Alcides Molina MD Unavailable Unavailable LuisanaJim bowen MD Unavailable [phone] Olivia Olguin RN Unavailable [phone] Jose Espinal MD Unavailable Tayla Tolbert RN Unavailable [phone] Jaqueline Burden MD Unavailable [phone] Encounter Details Date Type Department Care Team (Latest Contact Info) Description 11/04/2020 MyCMetagenomixt Message Enc [facility] Medical Group Multispecialty Care - [address] [place] [address] Yuli Ibarra MD [address] [place] [address] [address] [place] [address] lab and medication change Social History Tobacco Use Types Packs/Day Years Used Date Smoking Tobacco: Former Cigarettes Smokeless Tobacco: Never Comments:smoked socially for 40 years Alcohol Use Standard Drinks/Week Comments No 0 (1 standard drink = 0.6 oz pur e alcohol) rare AUDIT-C Answer Date Recorded Frequency of Alcohol Consumption Never 01/06/2018 Average Number of Drinks Not on file 018 Frequency of Binge Drinking Not on file 12/19 PHQ-2 Answer Date Recorded PHQ-2 Score - If the patient scores above 3, please move on to questions 3-9 1 11/03/2020 Sex and Gender Information Value Date Recorded Sex Assigned at Male 07/01/2019 11:12 AM CDT Legal Sex Male 1:25 PM CDT Gender Identity Male 07/01/2019 11:12 AM CDT Sexual Orientation Straight 01/06/2018 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 No / Unsure 11/03/2020 8:04 AM CDT documented as of this encounter Plan of Treatment Upcoming Encounters Date Type Department Care Team (Late st Contact Info) Description 11/19/2024 9:40 AM CDT Office Visit [facility] [address] [facility], [address] [place] [address] Jamie Herrera DO [address] [facility] [address] [place] [address] 01/04/2025 10:30 AM UNIT REACTOR OPERATOR [facility] [address] [place] [address] Bereket Oquendo MD [facility] [place] [address] 02/01/2025 2:40 PM UNIT REACTOR OPERATOR Office Visit [facility] Multispecialty Care - [address] [place] [address] [address] [place] [address] [place] [address] [place] [address] documented as of this encounter Visit Diagnoses Not on filedocumented in this encounter Additional Health Concerns Infection Onset Date Last Indicated Resolved Time COVID-19 Rule Out 02/06/2024 02/06/2024 02/06/2024 2:41 PM UNIT REACTOR OPERATOR COVID-19 Confirmed 02/06/2024 02/06/2024 12:32 AM UNIT REACTOR OPERATOR Assessment Noted Time PHQ-9 Depression Total Score: 3 11/04/19 21 9:40 AM CDT documented as of this encounter Care Teams Newscast Director Relationship Specialty Start Date End Date Yuli Ibarra MD [address] [place] [address] PCP - General INTERNAL MEDICINE 11/03/20 Bereket Oquendo MD [facility] [address] [place], [place] [id number] [place] Nursing Support Worker CARDIOVASCULAR DISEASE 08/15/16 Bettina Bansal, PharmD [address] [place], [place] [id number] Pharmacist Pharmacist 02/28/18 01/10/21 Cesar Zuluaga MD [address] [address] Retina Ophthalmology 01/11/21 Alcides Molina MD [address] [address] Consulting Physician UROLOGY 01/11/21 04/29/22 [place] [address] [place] [address] [address] [address] SURGERY 01/11/21 Olivia Olguin RN [address] [place] [address] Senior Quality Engineer (Ambulatory) REGISTERED NURSE 03/14/22 03/28/22 Jose Espinal MD [address] [place] [address] Consulting Physician RADIATION ONCOLOGY 03/06/24 Tayla Tolbert RN [address] [place] [address] Senior Quality Engineer (Ambulatory) REGISTERED NURSE 07/20/24 09/20/24 Jaqueline Burden MD [address] [facility] [address] [place] [address] Referring Physician GASTROENTEROLOGY 07/28/24 documented as of this encounter
--- OUTSIDE RECORDS SUMMARY | 2024-10-25 10:56 | XMS_ITS | Encounter Summary ---
Author Organization [facility] Address [address] [place] [address] Care Team Providers Care Headmaster/Mistress Name Role Phone Onur Melendrez MD Primary Care Provider [phone] Bereket Oquendo MD Unavailable [phone] Bettina Bansal PharmD Unavailable [phone] Yuli Ibarra MD Primary Care Provider [phone] Cesar Zuluaga MD Unavailable [phone] Alcides Molina MD Unavailable Unavailable LuisanaJim MD Unavailable [phone] Olivia Olguin RN Unavailable [phone] Jose Espinal MD Unavailable Tayla Tolbert RN Unavailable [phone] Jaqueline Burden MD Unavailable [phone] Encounter Details Date Type Department Care Team (Late st Contact Info) Description 08/24/2016 Abstract [facility] AT [address] [id number] Cherelle Avila MA Social History Tobacco Use Types Packs/Day Years Used Date Smoking Tobacco: Former Cigarettes Smokeless Tobacco: Never Comments:smoked socially for 40 years Alcohol Use Standard Drinks/Week Comments Yes 0 (1 standard drink = 0.6 oz pur e alcohol) socially Sex and Gender Information Value Date Recorded Sex Assigned at Male 07/01/2019 11:12 AM CDT Legal Sex Male 1:25 PM CDT Gender Identity Male 07/01/2019 11:12 AM CDT Sexual Orientation Straight 01/06/2018 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 Occupation Industry Job Start Date Job End Date Not on file Not on file Not on file Not on file documented as of this encounter Plan of Treatment Upcoming Encounters Date Type Department Care Team (Late st Contact Info) Description 11/19/2024 9:40 AM CDT [facility] [address] [place] [address] Jamie Herrera DO [address] [place] [address] 01/04/2025 10:30 AM LASTING MACHINE OPERATOR [facility] [address] [place] [address] Bereket Oquendo MD [address] [facility] [address] [place] [address] 02/01/2025 2:40 PM LASTING MACHINE OPERATOR [facility] [place] [address] [address] [place] [address] [place] [address] [place] [address] [address] [place] [address] documented as of this encounter Procedures Procedure Name Priority Date/Time Associated Diagnosis Comments COMPREHENSIVE METABOLIC PANEL Routine 07/10/2017 CBC (OUTSIDE LAB) Routine 06/27/2017 HEMOGLOBIN, GLYCOSYLATED Routine 06/27/2017 CBC (OUTSIDE LAB) Routine 11/26/2016 COMPREHENSIVE METABOLIC PANEL Routine 11/26/2016 BASIC METABOLIC PANEL Routine 10/10/2016 HEPATIC FUNCTION PANEL Routine 10/10/2016 CBC (OUTSIDE LAB) Routine 10/08/2016 CBC (OUTSIDE LAB) Routine 08/07/2016 BNP Routine 08/07/2016 COMPREHENSIVE METABOLIC PANEL Routine 08/07/2016 MAGNESIUM Routine 08/07/2016 CK (CPK) Routine 08/07/2016 CBC (OUTSIDE LAB) Routine 07/09/2016 COMPREHENSIVE METABOLIC PANEL Routine 07/09/2016 documented in this encounter Results * (ABNORMAL) COMPREHENSIVE METABOLIC PANEL (07/10/2017) SODIUM S/P/B 145 POTASSIUM S/P/B 4.6 CO2 33.3 CHLORIDE S/P/B 108 GLUCOSE 82 mg/dL CALCIUM S/P/B 8.7 BUN 18 CREATININE S/P/B 0.84 0.7 - 1.3 EGFR AFR. AMER. >90 EGFR NON-AFR. AMER. 89 <=90 ALKALINE PHOSPHATASE S/P/B 61 ALT 30 AST 23 BILIRUBIN TOTAL S/P/B 0.5 ALBUMIN S/P/B 3.1(A) 3.5 - 5.0 TOTAL PROTEIN S/P/B 6.7 07/10/2017 [facility] Final Result * CBC (OUTSIDE LAB) (06/27/2017) WBC 8.1 HGB 12.4 HCT 38.8 PLT 256 06/27/2017 [facility] Abstract LAB-OUTSIDE/ABSTRACTED Final Result * HEMOGLOBIN, GLYCOSYLATED (06/27/2017) HGB A1C 7.8 06/27/2017 [facility] Final Result * COMPREHENSIVE METABOLIC PANEL (11/26/2016) SODIUM S/P/B 142 POTASSIUM S/P/B 4.4 CO2 25 CHLORIDE S/P/B 106 GLUCOSE 158 mg/dL CALCIUM S/P/B 8.9 BUN 17 CREATININE S/P/B 0.80 0.7 - 1.3 EGFR NON-AFR. AMER. >60 <=90 ALKALINE PHOSPHATASE S/P/B 78 ALT 22 AST 25 BILIRUBIN TOTAL S/P/B 0.6 ALBUMIN S/P/B 3.7 3.5 - 5.0 TOTAL PROTEIN S/P/B 6.6 11/26/2016 [facility] Edited Resul t - Final * CBC (OUTSIDE LAB) (11/26/2016) Pathologist [facility] WBC 9.5 HGB 12.1 HCT 38 PLT 290 11/26/2016 us Doc [facility] Abstract LAB-OUTSIDE/ABSTRACTED Edite d Result - Final * (ABNORMAL) BASIC METABOLIC PANEL (10/10/2016) SODIUM S/P/B 131 POTASSIUM S/P/B 4.5 CO2 25 CHLORIDE S/P/B 97 GLUCOSE 118 mg/dL CALCIUM S/P/B 7.7 BUN 19 CREATININE S/P/B 0.59(A) 0.7 - 1.3 EGFR AFR. AMER. >60 EGFR NON-AFR. AMER. >60 <=90 10/10/2016 us Doc [facility] Final Result * (ABNORMAL) HEPATIC FUNCTION PANEL (10/10/2016) Pathologist [facility] ALBUMIN S/P/B 2.9(A) 3.5 - 5.0 ALKALINE PHOSPHATASE S/P/B 58 ALT 24 AST 35 BILIRUBIN DIRECT S/P/B <0.20 BILIRUBIN TOTAL S/P/B 0.6 TOTAL PROTEIN S/P/B 5.4 10/10/2016 us Doc [facility] Final Result * CBC (OUTSIDE LAB) (10/08/2016) Pathologist [facility] WBC 11.8 HGB 10.5 HCT 31.6 PLT 284 10/08/2016 us Doc [facility] Abstract LAB-OUTSIDE/ABSTRACTED Final Result * BNP (08/07/2016) [facility] B TYPE NATRIURETIC PEPTIDE 84 08/07/2016 us Doc [facility] Final Result * CK (CPK) (08/07/2016) Pathologist [facility] CPK 147 08/07/2016 us Doc [facility] Final Result * MAGNESIUM (08/07/2016) Pathologist [facility] MAGNESIUM 1.8 08/07/2016 us Doc [facility] Final Result * COMPREHENSIVE METABOLIC PANEL (08/07/2016) Pathologist [facility] SODIUM S/P/B 137 POTASSIUM S/P/B 4.3 CO2 29 CHLORIDE S/P/B 100 GLUCOSE 105 mg/dL CALCIUM S/P/B 9.0 BUN 15 CREATININE S/P/B 0.83 0.7 - 1.3 EGFR NON-AFR. AMER. >60 <=90 ALKALINE PHOSPHATASE S/P/B 63 ALT 55 AST 49 BILIRUBIN TOTAL S/P/B 0.7 ALBUMIN S/P/B 3.8 3.5 - 5.0 TOTAL PROTEIN S/P/B 7.3 08/07/2016 [facility] Doc [facility] Final Result * CBC (OUTSIDE LAB) (08/07/2016) WBC 8.9 HGB 15.1 HCT 44.2 PLT 260 08/07/2016 us Doc [facility] Abstract LAB-OUTSIDE/ABSTRACTED Edite d Result - Final * COMPREHENSIVE METABOLIC PANEL (07/09/2016) SODIUM S/P/B 139 POTASSIUM S/P/B 4.6 CO2 31 CHLORIDE S/P/B 102 GLUCOSE 154 BUN 17 CREATININE S/P/B 0.74 0.7 - 1.3 EGFR NON-AFR. AMER. >60 <=90 ALKALINE PHOSPHATASE S/P/B 58 ALT 44 AST 39 BILIRUBIN TOTAL S/P/B 0.6 ALBUMIN S/P/B 3.8 3.5 - 5.0 TOTAL PROTEIN S/P/B 6.5 07/09/2016 us Doc [facility] Final Result * CBC (OUTSIDE LAB) (07/09/2016) WBC 8.3 HGB 14.4 HCT 43.7 PLT 249 07/09/2016 us Doc [facility] Abstract LAB-OUTSIDE/ABSTRACTED Final Result documented in this encounter Visit Diagnoses Not on filedocumented in this encounter Additional Health Concerns Infection Onset Date Last Indicated Resolved Time COVID-19 Rule Out 02/06/2024 02/06/2024 02/06/2024 2:41 PM LASTING MACHINE OPERATOR COVID-19 Confirmed 02/06/2024 02/06/2024 12:32 AM LASTING MACHINE OPERATOR documented as of this encounter Care Teams Headmaster/Mistress Relationship Specialty Start Date End Date Onur Melendrez MD PCP - General INTERNAL MEDICINE 07/19/16 11/02/20 Yuli Ibarra MD [address] [facility] [address] [place], [place] [id number] PCP - General INTERNAL MEDICINE 11/03/20 Bereket Oquendo MD Three [address] [address] [place] [employer] Hand CARDIOVASCULAR DISEASE 08/15/16 Bettina Bansal, PharmD [address] [place] [address] Pharmacist Pharmacist 02/28/18 01/10/21 Cesar Zuluaga MD [address] [place] [address] Retina Ophthalmology 01/11/21 Alcides Molina MD [address] [place] [address] Consulting Physician UROLOGY 01/11/21 04/29/22 Jim Lieberman MD [address] [place] [address] SURGERY 01/11/21 Olivia Olguin, RN [address] [place] [address] Electrical Repairer (Ambulatory) REGISTERED NURSE 03/14/22 03/28/22 Jose Espinal MD [address] [place] [address] Consulting Physician RADIATION ONCOLOGY 03/06/24 Tayla Tolbert, RN [address] [place] [address] Electrical Repairer (Ambulatory) REGISTERED NURSE 07/20/24 09/20/24 Jaqueline Burden MD [facility] [facility] [address] [place] [address] Referring Physician GASTROENTEROLOGY 07/28/24 documented as of this encounter
--- OUTSIDE RECORDS SUMMARY | 2024-10-25 10:56 | XMS_ITS | Clinical Summary ---
Author Organization [facility] Address [facility] [place] [address] Care Team Providers Care Printing Engineer Name Role Phone Bereket Oquendo MD Unavailable [phone] Yuli Ibarra MD Primary Care Provider [phone] Cesar Zuluaga MD Unavailable Jim Lieberman MD Unavailable [phone] Jose Espinal MD Unavailable Jaqueline Burden MD Unavailable [phone] Allergies No known active allergies Medications aspirin EC 81 MG EC tabletIndications: anticoag Take 1 tablet (81 mg total) by mouth daily. Indications: anticoag 10/30/19 17 Active Multiple Vitamin (ONE-A-DAY MENS) TabIndications:sup plememt Take 1 tablet by mouth daily. 90 tablet 1 07/12/19 21 Active nitroglycerin (NITROSTAT) 0.4 MG SL tabletIndications: heart Place 1 tablet (0.4 mg total) under the tongue every 5 (five) minutes as needed for Chest Pain (If taking the 3rd dose call 911). 25 tablet 1 09/24/19 24 Active albuterol sulfate HFA 108 (90 Base) MCG/ACT inhalerIndications :sob Inhale 2 puffs into the lungs every 4 (four) hours as needed. Indications: sob 02/18/20 24 Active insulin lispro, 1 Unit Dial, (HUMALOG KWIKPEN) 100 UNIT/ML injection (PEN)Indications:d m INJECT UNDER THE SKIN THREE TIMES A DAY FOLLOWS (10 UNITS WITH SMALL MEALS, 15 UNITS WITH LARGE MEALS) 15 mL 10 02/24/19 25 Active ondansetron (ZOFRAN-ODT) 4 MG disintegrating tabletIndications: nausea Take 1 tablet (4 mg total) by mouth every 6 (six) hours as needed for Nausea. 20 tablet 06/21/19 25 Active tamsulosin (FLOMAX) 0.4 MG CapIndications:uri nary TAKE 1 CAPSULE NIGHTLY 90 capsule 3 07/01/19 25 Active metoprolol tartrate (LOPRESSOR) 25 MG tabletIndications: htn Take 0.5 tablets (12.5 mg total) by mouth 2 (two) times daily. 180 tablet 2 07/01/19 25 Active levothyroxine (SYNTHROID) 50 MCG tabletIndications: thyroid Take 1 tablet (50 mcg total) by mouth every morning. 90 tablet 3 07/01/19 25 Active atorvastatin (LIPITOR) 40 MG tabletIndications: hld Take 1 tablet (40 mg total) by mouth nightly at bedtime. 90 tablet 3 07/01/19 25 Active Alcohol Swabs (ALCOHOL PREP) PadsIndications:Co ncomitant Disease-Modifying Anti-Rheumatic Drug Therapy Indications: DMARD Added to Enhance other treatment Use daily to wipe fingers prior to checking blood sugar 3 times daily 200 each 11 07/30/19 25 Active gabapentin (NEURONTIN) 600 MG tabletIndications: Neuropathy Take 1 tablet (600 mg total) by mouth 2 (two) times daily. Indications: Nerve Disease 180 tablet 1 07/30/19 25 Active loperamide (IMODIUM) 2 MG capsuleIndications :diarrhea Take 1 capsule by mouth 4 (four) times daily as needed for Diarrhea. Indications: diarrhea Active cholestyramine (QUESTRAN) 4 G packetIndications: Diarrhea Indications: Diarrhea MIX 1 PACKET AND DRINK DAILY NEEDED (USUALLY MID-DAY) 365 packet 3 09/05/19 25 Active cetirizine (ZYRTEC) 10 MG tabletIndications: allergies Take 1 tablet (10 mg total) by mouth daily. Indications: allergies 90 tablet 3 09/05/19 25 Active oxyCODONE-acetamin ophen (PERCOCET) 5-325 MG tabletIndications: Chronic Pain Take 1 tablet by mouth 2 (two) times daily as needed for Pain. Indications: Chronic Pain 60 tablet 09/08/19 25 Active dicyclomine (BENTYL) 10 MG capsuleIndications :Change in Bowel Habits Take 1 capsule (10 mg total) by mouth 3 (three) times daily as needed. Indications: Change in Bowel Habits 360 capsule 1 09/08/19 25 Active famotidine (PEPCID) 40 MG tablet 07/01/19 25 Active dapagliflozin (FARXIGA) 10 MG tabletIndications: dm Take 1 tablet (10 mg total) by mouth daily. Indications: dm 90 tablet 2 10/01/19 25 Active insulin glargine (LANTUS SOLOSTAR) 100 UNIT/ML injection (PEN)Indications:d m Inject 5 Units into the skin every morning. Indications: dm 5 Pen 1 10/01/19 25 Active ENTRESTO 24-26 MG tabletIndications: CHF Take 1 tablet by mouth 2 (two) times daily. Indications: CHF 90 tablet 1 10/13/19 25 Active insulin glargine (LANTUS SOLOSTAR) 100 UNIT/ML injection (PEN)Indications:d m Inject 15 Units into the skin every morning. MAY USE 2 UNITS TO PRIME BEFORE EACH INJECTION 5 Pen 1 02/24/19 25 025 Discontin ued(Reord er) bumetanide (BUMEX) 1 MG tabletIndications: edema Take 1 tablet (1 mg total) by mouth 3 (three) times a week. Indications: edema On // 270 tablet 1 09/08/19 25 025 Discontin ued(Order ing Physician ) sacubitril-valsart an (ENTRESTO) 24-26 MG tabletIndications: CHF Take 1 tablet by mouth 2 (two) times daily. Indications: CHF 90 tablet 1 09/08/19 25 025 Discontin ued(Reord er) dapagliflozin (FARXIGA) 10 MG tabletIndications: dm Take 1 tablet (10 mg total) by mouth daily. Indications: dm 90 tablet 2 09/12/19 25 025 Discontin ued(Reord er) ENTRESTO 24-26 MG tabletIndications: CHF Take 1 tablet by mouth 2 (two) times daily. Indications: CHF 90 tablet 1 10/01/19 25 025 Discontin ued(Reord er) ENTRESTO 24-26 MG tabletIndications: CHF Take 1 tablet by mouth 2 (two) times daily. Indications: CHF 90 tablet 1 10/13/19 25 025 Discontin ued(Reord er) Active Problems Problem Noted Date Diagnosed Date CHF (congestive heart failure) ([facility]) 07/19/2024 Diarrhea, unspecified type 06/19/2024 Acute on chronic diastolic c ongestive heart failure ([facility]) 03/26/2023 Congestive heart failure, un specified HF chronicity, unspecified heart failure type ([facility]) 03/26/2023 Severe aortic valve stenosis 03/01/2022 Assessment & Plan (05/04/2022 1:07 PM CDT): He is status post transfemoral TAVR. Continue antibiotic prophylaxis prior to dental procedures. His echocardiogram was not performed prior to today's visit and I will review it. He will need an echo in 1 year. Assessment & Plan (03/23/2022 10:51 AM EXCEPTIONAL STUDENT EDUCATION AIDE): He underwent Successful transcatheter aortic valve replacement with Medtronic Evolut Pro FX #29 mm on 03/14/22 Post op echo revealed mean gradient of 18mmHg Asa 81mg daily continued abx prior to any dental cleaning or procedure discussed Plan on repeating echo in 1 month with appt following Assessment & Plan (03/01/2022 8:17 AM EXCEPTIONAL STUDENT EDUCATION AIDE): He has symptomatic severe aortic valve stenosis. Since he has had prior bypass surgery, I recommended that he undergo transcatheter aortic valve replacement. We will discuss with radiation oncology regarding timing of aortic valve replacement. I did discuss the procedure of transcatheter aortic valve replacement to the patient. I explained the procedure in detail including transfemoral access with placement of a balloon mounted valve inside the existing aortic valve. I explained the risks and benefits that include but are not limited to: bleeding, infection, vascular complication (10%), cerebrovascular accident (3 to 5%), permanent pacemaker placement (10%), myocardial infarction (1 to 2%), aortic root rupture (1 2%), valve embolization (1-2%) and even (1 to 2%). I did explain to the patient that if we were to proceed with transcatheter aortic valve replacement, we would have to proceed with the TAVR work-up that includes cardiac catheterization, CT scan and surgical evaluation. Prostate cancer ([facility]) 02/23/2022 Chronic kidney disease, stage III (moderate) 07/2021 Pseudophakia of both eyes 03/12/2020 Onychogryphosis 04/07/2018 Assessment & Plan (05/04/2018 6:56 AM CDT): Recommend regular visits with podiatry for management of nails. Dusky feet 04/07/2018 Assessment & Plan (05/04/2018 6:57 AM CDT): Patient with known cardiovascular disease, with asymmetric duskiness of the right lower extremity. Will obtain vascular studies to rule out any significant peripheral vascular disease warranting intervention. 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 Continue current treatment. Acquired external rotation of foot 11/26/2016 Impairment of balance 11/26/2016 Gait abnormality 11/26/2016 Atherosclerotic heart diseas e of [place] coronary artery with other forms of angina pectoris 10/29/2016 Overview (11/03/2020): - stable - continue with ASA 81 mg daily - continue with Atorvastatin 40 mg daily - nitroglycerin as needed - manage DM and HTN - follow with cardiology Assessment & Plan (05/04/2022 1:07 PM CDT): He is not describing anginal symptoms. Continue medical management of coronary artery disease. He is status post bypass surgery. Assessment & Plan (03/01/2022 8:17 AM EXCEPTIONAL STUDENT EDUCATION AIDE): He has a history of coronary artery disease and is status post coronary artery bypass grafting. I recommended that he undergo cardiac catheterization. Continue medical management of coronary artery disease. Assessment & Plan (11/03/2020 1:28 PM CDT): - stable - continue with ASA 81 mg daily - continue with Atorvastatin 40 mg daily - nitroglycerin as needed - manage DM and HTN - follow with cardiology Assessment & Plan (05/04/2018 6:55 AM CDT): Stable, without anginal symptoms. Follows regularly with cardiology monitoring. Nitroglycerin tablets available as needed but not needing to use at this time. Assessment & Plan (03/06/2018 8:54 AM EXCEPTIONAL STUDENT EDUCATION AIDE): Patient with stable cardiovascular disease, with routine follow-up per cardiology. Has been using non-steroidal anti-inflammatory drugs for pain control. Encouraged to separate his antiplatelet therapy (ASA) in time from his non-steroidal anti-inflammatory drug use, so as to maintain the effectiveness of the former. S/P CABG (coronary artery bypass graft) 10/30/19 17 Dyslipidemia 09/25/2016 Assessment & Plan (05/04/2018 6:59 AM CDT): Patient due for repeat fasting lipid panel, his last was done in 2016. Taking medications without side effects or intolerances. Obtain fasting lipids today. Assessment & Plan (03/06/2018 9:10 AM EXCEPTIONAL STUDENT EDUCATION AIDE): Well-controlled at last fasting lipid panel 10/04. Continues on atorvastatin and cholestyramine without side effects or intolerances. Should get a repeat fasting lipid panel with next visit. Spondyloarthropathy 07/11/2016 Postlaminectomy syndrome of lumbar region 2016 Assessment & Plan (03/06/2018 9:13 AM EXCEPTIONAL STUDENT EDUCATION AIDE): Chronic low back pain relatively stable on current treatment. Seeing Dr. Son, using tramadol with reasonable effect. [place] Prescription Monitoring Program website reviewed, no indication of misuse or abuse. Myofascial pain 07/11/2016 Vitreous hemorrhage, left eye 05/18/2016 Overview (11/03/2020): Annotation - 18May2016: Lizandro Florez MD - [id number] Regular follow up with ophthalmology Stable proliferative diabeti c retinopathy of both eyes associated with type 2 diabetes mellitus ([facility]) 05/18/2016 Overview (11/03/2020): Cesar Zuluaga MD - [facility] Type 2 diabetes mellitus with proliferative diabetic retinopathy with macular edema, bilaterally Long-term use of insulin Other secondary cataract, left eye Vitreous hemorrhage, left eye [id number] 2-month follow-up. Diabetes controlled on insulin and metformin Following regularly with ophthalmology Neuropathic pain syndrome (non-herpetic) 017 Assessment & Plan (05/04/2018 6:53 AM CDT): Stable, on current dosing of gabapentin, as well as tramadol. No change to present treatment. Chronic pain 05/11/2016 Sensory peripheral neuropathy 03/13/2016 Controlled type 2 diabetes m ellitus with retinopathy, with long-term current use of insulin ([facility]) 02/14/2016 Overview (11/03/2020): - controlled - diabetic diet encouraged; exercise as tolerated with guarded fall precautions discussed - continue with Lantus 20 units daily and Humalog 10-15 units 3x daily - continue with metformin 1000 mg twice daily - Yearly Ophthalmology exam and follow up Assessment & Plan (05/04/2018 7:01 AM CDT): Continued improvement, with hemoglobin A1c basically in controlled range, given patient's comorbidities. Nevertheless, if he does tolerate it, improving to the target range of 6-7 is warranted. Foot exam today. Attempted to obtain urine microalbumin for assessment of renal impact. The patient has been unable to produce a specimen. Will obtain with his next visit. Due for eye exam this year. Morbid obesity with body mas s index (BMI) of 40.0 to 44.9 in adult 01/06/2016 Overview (11/03/2020): Lifestyle modification including dietary changes to include less saturated fats, lean meat, more vegetables and exercise at least 30 min every day. Male erectile disorder of organic origin 016 Chronic lower back pain 01/05/2016 Assessment & Plan (05/04/2018 6:54 AM CDT): Continues with consistent use of gabapentin, tramadol and follow-up with interventional pain management for injection therapy. Stable at present. Continue current treatment. Medication management 01/05/2016 Assessment & Plan (05/04/2018 7:02 AM CDT): Checking routine labs today (see orders) for ongoing medication monitoring. Assessment & Plan (03/06/2018 9:13 AM EXCEPTIONAL STUDENT EDUCATION AIDE): Checking routine labs at follow-up for ongoing medication monitoring. Allergic rhinitis 01/05/2016 Posterior vitreous detachment 02/01/2015 Acquired hypothyroidism 09/07/2013 Assessment & Plan (05/04/2018 6:59 AM CDT): No signs or symptoms of over or under replacement of thyroid hormone. Check TSH today and adjust medication as indicated. Assessment & Plan (03/06/2018 9:12 AM EXCEPTIONAL STUDENT EDUCATION AIDE): Mildly elevated thyroid stimulating hormone at last check, in 06/05. Repeat at follow-up. No overt signs or symptoms of over or under replacement. STACIE on CPAP Essential hypertension Assessment & Plan (05/04/2018 6:55 AM CDT): Well-controlled on present dosing of Toprol and metoprolol. Continues on furosemide as well for lower extremity edema. Check routine lab work today. No treatment change. Resolved Problems Problem Noted Date Diagnosed Date Resolved Date Status post incision and drainage 04/20/2019 07/01/2019 Perianal abscess 04/20/2019 07/01/2019 Wears glasses 07/10/2017 10/30/2019 Chronic gastritis without bl eeding, unspecified gastritis type 06/25/2017 03/12/2020 Overview (01/02/2018): Description: esophagastroduodenoscopy with biopsy; [id number] GERD (gastroesophageal reflux disease) 02/01/2017 06/27/2020 Assessment & Plan (03/06/2018 8:56 AM EXCEPTIONAL STUDENT EDUCATION AIDE): Diet-controlled at this time. Continue to monitor. Edema of right lower extremity 11/26/2016 03/12/2020 Arteriosclerotic cardiovascular disease 10/23/2016 07/13/2019 Abnormal EKG 09/25/2016 10/29/2016 Hernia of anterior abdominal wall 04/09/2013 06/27/2020 Encounters Date Type Department Care Team Description 10/12/2024 Telephone [facility] [address] [place] [address] Yuli Ibarra MD Medication Request 10/12/2024 Telephone [facility] [address] [facility] [place] [address] Yuli Ibarra MD Medication Information 10/09/2024 Telephone [facility] [place] [id number] [place] [address] Yuli Ibarra MD Medication 10/09/2024 Telephone [facility] [address] [facility] [facility] [place] [address] Luis Angel Mccurdy MD FYI 10/07/2024 Results Follow-Up [facility] [place] [address] [place] [address] Yuli Ibarra MD BASIC METABOLIC PANEL, CBC W/DIFF AUTOMATED, BASIC METABOLIC PANEL 10/06/2024 2:00 PM CDT Laboratory Only [facility] [place] [id number] [facility] [address] [place] [address] Yuli Ibarra MD 10/06/2024 Travel 10/05/2024 Scan [facility] SRVCS Scanned, [facility] 10/01/2024 12:15 PM CDT Telemedicine [facility] [address] [place] [id number] Bettina Marinelli, AVIONICS INSTALLER CHF; Hospital Follow Up 09/30/2024 11:00 AM CDT [facility]icine [facility] [address] [place] [address] [address] [place] [address] Yuli Ibarra MD Follow Up (Pt is having trouble getting farxiga, pt is requesting 90 days go to [facility]. Also states he needs pain meds. ); Diabetes (States ); Sleep Problem; Prostate Cancer; Diarrhea; Hyperlipidemia; Hypertension; CHF; Back Pain 09/30/2024 Orders Only [facility] [place] [id number] [address] [address] [place] [address] Yuli Ibarra MD 09/30/2024 Telephone [facility] [place] [address] [address] [address] [place] [address] Yuli Ibarra MD Medication Information 09/24/2024 Telephone [facility] [place] [address] [address] [address] [place] [address] Yuli Ibarra MD Information 09/23/2024 10:30 AM CDT Home Care Visit [facility] Home Care [address] [place] [address] [place] [address] Annabella Bernard LPN SN HOME VISIT 09/22/2024 Scan [facility] INFO SRVCS Scanned, [facility] 09/21/2024 Telephone [place] [address] [address] [place] [address] Yuli Ibarra MD Called To Cancel Office Appt. 09/21/2024 Patient Outreach [place] [address] [address] [address] [place] [address] Tayla Tolbert, SYD Hospital Follow Up (TCM #1) 09/15/2024 Scan [facility] INFO SRVCS Scanned, [facility] 09/14/2024 11:00 AM CDT Home Care Visit [address] [place] [address] [place] [address] Dyana Whatley RN SN HOME VISIT 09/10/2024 Telephone [place] [address] [address] [place] [address] Yuli Ibarra MD Medication 09/10/[address], [address] [place] [id number] Luis Angel Mccurdy MD Prior Authorization (Colonoscopy [id number]) 09/09/2024 Scan [facility] INFO SRVCS Scanned, [facility] 09/08/2024 Results Follow-Up [place] [address] [address] [place] [address] Yuli Ibarra MD COMPREHENSIVE METABOLIC PANEL, CBC W/DIFF AUTOMATED 09/07/2024 4:20 PM CDT Office Visit [place] [address] [address] [place] [address] Yuli Ibarra MD TCM (Needs refill on Dapagliflozin, norco, Zyrtec, Dicyclomine, tramadol) 09/07/2024 8:45 AM CDT Home Care Visit [facility] [address] [place] [address] [place] [address] Karla Love, SYD SN OASIS RESUMPTION OF CARE 09/07/2024 Travel 09/07/2024 Plan of Care Documentation [facility] [address] [place] [address] [place] [address] 09/04/2024 Telephone [place] [address] [place] [address] Yuli Ibarra MD Medication; Follow Up Call 09/04/2024 Patient Outreach [place] [address] [place] [address] Tayla Tolbert, SYD [facility] ([facility] 08/12-08/19, [facility] 08/19-09/03) 09/03/2024 Telephone [place] [address] [address] [place] [address] Yuli Ibarra MD Error 09/02/2024 Patient Outreach [place] [address] [place] [address] Tayla Tolbert, RN Hospital Follow Up 08/26/2024 Scan [facility] INFO SRVCS Scanned, [facility] 08/25/2024 Patient Outreach [place] [address] [address] [place] [address] Tayla Tolbert, RN Hospital Follow Up 08/20/2024 Patient Outreach [place] [address] [address] [address] [address] [place] [address] Tayla Tolbert, RN Hospital Follow Up (Admit to [facility]. ) 08/19/2024 Scan [facility] Between SRVCS Scanned, Doc Med Group 08/19/2024 [facility] [address] [address] [address] [place] [address] Tayla Tolbert, SYD Hospital Follow Up 08/19/2024 Home Care Visit [address] [place] [address] [place] [address] Zohra Rosas RN SN OASIS TRANSFER W/OUT DC 08/17/2024 10:15 AM CDT Home Care Visit [facility] [address] [place] [address] [place] [address] Krista Cesar CASE COMMUNICATION 08/13/2024 1:00 PM CDT Home Care Visit [address] [place] [address] [place] [address] Carissa Mtz, TRANSPORTATION BROKER CASE COMMUNICATION 08/12/2024 Scan [facility] INFO SRVCS Scanned, [facility] 08/10/2024 9:00 AM CDT Home Care Visit [facility] [address] [place] [address] [place] [address] Carissa Mtz, TRANSPORTATION BROKER AIDE HOME VISIT 08/07/2024 10:00 AM CDT Home Care Visit [facility] [address] [place] [address] [place] [address] Negra Gandhi LPN SN HOME VISIT 08/06/2024 2:00 PM CDT Home Care Visit [facility] [address] [place] [address] [place] [address] Carissa Mtz, TRANSPORTATION BROKER AIDE HOME VISIT 08/05/2024 Telephone [facility] Medical [facility] - [place] [address] [facility] [address] [place] [address] Yuli Ibarra MD Leg Pain 08/05/2024 Patient Outreach [facility] Medical [facility] - [place] [address] [facility] [address] [place] [address] Tayla Tolbert, RN Hospital Follow Up (TCM #1) 08/04/2024 12:00 PM CDT Home Care Visit [facility] Home Care [address] [place] [address] [place] [address] Dyana Whatley, RN SN HOME VISIT 08/03/2024 3:00 PM CDT Home Care Visit [facility] Home Care [address] [place] [address] [place] [address] aJyne Wick, PT PT INITIAL EVALUATION 08/03/2024 2:00 PM CDT Home Care Visit [facility] Home Care [address] [place] [address] [place] [address] Lyubov Camacho, OT OT INITIAL EVALUATION 08/03/2024 11:15 AM CDT Home Care Visit [facility] [address] [place] [address] [place] [address] Carissa Mtz, TRANSPORTATION BROKER AIDE HOME VISIT 08/03/2024 Telephone [facility] Medical Group Multispecialty Care - [address] [place] [address] Yuli Ibarra MD Results 07/31/2024 1:15 PM CDT Home Care Visit [facility] [address] [place] [address] [place] [address] Carissa Mtz, TRANSPORTATION BROKER AIDE HOME VISIT 07/31/2024 Telephone [facility], [address] [address] Bettina Marinelli, AVIONICS INSTALLER Follow Up; Results 07/30/2024 12:48 PM CDT - 07/30/2024 11:59 PM CDT Hospital Encounter [facility] [address] [place] [address] Bereket Oquendo MD Discharge Disposition: Home or Self Care (Routine Discharge) 07/30/2024 12:15 PM CDT Office Visit [facility] [address] [place] [address] Bettina Marinelli FNP Hospital Follow Up (syncope); Coronary Artery Disease; CHF 07/30/2024 Telephone [facility] [place] [address] [place] [address] [address] [place] [address] Yuli Ibarra MD Follow Up Call 07/30/2024 Results Follow-Up [facility] [place] [address] [address] [address] [place] [address] Yuli Ibarra MD CBC W/DIFF AUTOMATED, COMPREHENSIVE METABOLIC PANEL, C-REACTIVE PROTEIN, MAGNESIUM 07/30/2024 Plan of Care Documentation [facility] Home Care [address] [place] [address] [place] [address] 07/29/2024 2:00 PM CDT Office Visit [facility] [place] [address] [place] [address] Yuli Ibarra MD TCM (Pts has a question about diarrhea medication ) 07/29/2024 11:00 AM CDT Home Care Visit [address] [place] [address] [place] [address] Dyana Whatley RN SN OASIS START OF CARE 07/29/2024 Travel 07/29/2024 Telephone [facility] [place] [address] [place] [address] [place] [id number] Yuli Ibarra MD Follow Up Call 07/28/2024 Telephone [facility] Home [address] [place] [address] [place] [address] Yuli Ibarra MD Advise 07/28/2024 Telephone [facility] [place] [address] [place] [address] Yuli Ibarra MD Appointment Request 07/28/2024 Telephone [facility] [place] [address] [place] [address] [address] [place] [address] Yuli Ibarra MD Orders 07/28/2024 Telephone [facility] - [place] [address] [address] [facility] [address] [place] [address] Yuli Ibarra MD Referral 07/27/2024 Telephone [facility] [place] [address] [address] [facility] [address] [place] [address] Yuli Ibarra MD [facility] 07/27/2024 Telephone [facility] [place] [address] [address] [facility] [address] [place] [address] Yuli Ibarra MD Appointment Request 07/27/2024 Patient Outreach [facility] - [place] [address] [address] [facility] [address] [place] [address] Tayla Tolbert RN TCM ([facility] 07/19-07/25) 07/27/2024 Telephone [facility] [place] [address] [address] [facility] [address] [place] [address] Yuli Ibarra MD Follow Up Call 07/19/2024 3:54 PM CDT - 07/25/2024 12:46 PM CDT Hospital Encounter [facility] Med/Surg [address] [place] [address] Zack Christina MD Harris, Michael, MD Dodt, LISBETH Hughes Darcy L, Lalit Martínez MD Weakness; Syncope Discharge Disposition: Home or Self Care (Routine Discharge) from Last 3 Months Immunizations Immunization Administration Dates Next Due Abrysvo Respiratory Syncytia l Virus (RSV) 0.5 mL, PF 12/04/2023 Arexvy Respiratory Syncytial Virus (RSV, adjuvanted) 0.5 mL, PF 11/27/2023 Fluzone High Dose - >Age 65 (Prefilled Syringe) 11/23/2022,11/21/2021,11/03/2020,2019,11/19/2018,11/30/2017,11/26/2016 Influenza (Generic) 02/18/2014 Influenza Adult (Generic) 12/04/2023,11/30/2017, 01/20/2013 MODERNA COVID-19 (12+) MRNA, LNP-S, PF, 100 MCG/ 0.5 ML DOSE 04/29/2020,04/01/2020 MODERNA COVID-19 (GRAPPLER NATALIA ASTRID), MRNA, LNP-S, PF, 50 MCG/ 0.25 ML DOSE 10/13/2021,02/28/2021 Pneumococcal (Pneumovax 23) 08/07/2021, 3 Pneumococcal (Prevnar 13) 11/26/2016 Pneumococcal (Prevnar 20) 11/27/2023 Shingrix 12/06/2021,08/08/2021 Tdap (Adacel) 01/04/2021 Family History Medical History Relation Comments Cancer Brother prostate cancer Diabetes Brother Prostate Cancer Brother Early Father Heart Disease Father Alzheimer's Mother No Known Problems Sister 1 No Known Problems Sister 2 Relation Status Comments Brother Alive Daughter Alive Father Mother (Age 97) of old a ge Other Alive Sister 1 Alive Sister 2 Alive Son 1 Alive Son 2 Alive Social History Tobacco Use Types Packs/Day Years Used Date Smoking Tobacco: Former Cigarettes 0.5 8 1 972 - 1985 Smokeless Tobacco: Never Tobacco Cessation:Counseling Given: Yes Comments:smoked socially for 40 years; counseled by Dr Ibarra Alcohol Use Standard Drinks/Week Comments Not Currently 0 (1 standard drink = 0.6 oz pur e alcohol) rare, 2 drinks a year OASIS D0700: Social Isolation Answer Da te Recorded Frequency of experiencing loneliness or isolatio n Never 09/07/2024 OASIS A1250: Transportation Answer Date Recorded Lack of Transportation (Medical) No 09/07/2024 Lack of Transportation (Non-Medical) No 09/07/2024 Patient Unable or Declines to Respond No 09/07/2024 OASIS B1300: Health Literacy Answer El e Recorded Frequency of needing help to read materials from doctor or pharmacy Never 09/07/2024 [facility] Utilities Answer Date Recorded In the past 12 months has th e [employer], gas, oil, or water [employer] ([employer]) threatened to shut off services in your home? No 07/19/2024 Humiliation, Afraid, Rape, and Kick questionnair e Answer Date Recorded Within the last year, have y ou been afraid of your partner or ex-partner? No 07/19/2024 Within the last year, have y ou been humiliated or emotionally abused in other ways by your partner or ex-partner? No Within the last year, have y ou been kicked, hit, slapped, or otherwise physically hurt by your partner or ex-partner? No 07/19/2024 Within the last year, have y ou been raped or forced to have any kind of sexual activity by your partner or ex-partner? No 07/19/2024 AUDIT-C Answer Date Recorded Frequency of Alcohol Consumption Never 01/06/2018 Average Number of Drinks Not on file 018 Frequency of Binge Drinking Not on file 12/19 Overall Financial Resource Strain (CARDIA) Answe r Date Recorded How hard is it for you to pa y for the very basics like food, housing, medical care, and heating? Not hard at all 07/19/2024 PHQ-2 Answer Date Recorded Patient Health Questionnaire-2 Score 0 06/19/2024 Hunger Vital Sign Answer Date Recorded Within the past 12 months, y ou worried that your food would run out before you got the money to buy more. Never true 07/20/19 Within the past 12 months, t he food you bought just didn't last and you didn't have money to get more. Never true 07/19/2024 PRAPARE - Transportation Answer Date Re corded In the past 12 months, has l ack of transportation kept you from medical appointments or from getting medications? No 02/2024 In the past 12 months, has l ack of transportation kept you from meetings, work, or from getting things needed for daily living? No 07/19/2024 Housing Stability Vital Sign Answer El e Recorded In the last 12 months, was t here a time when you were not able to pay the mortgage or rent on time? No 03/14/2022 In the last 12 months, how many places have you lived? 1 03/14/2022 In the last 12 months, was t here a time when you did not have a steady place to sleep or slept in a long term (including now)? No 03/14/2022 Housing Stability Vital Sign Answer El e Recorded In the last 12 months, was t here a time when you were not able to pay the mortgage or rent on time? No 07/19/2024 In the past 12 months, how m any times have you moved where you were living? 0 07/19/2024 At any time in the past 12 m [facility], were you homeless or living in a long term (including now)? No 07/19/2024 Sex and Gender Information Value Date Recorded Sex Assigned at Male 07/01/2019 11:12 AM CDT Legal Sex Male 1:25 PM CDT Gender Identity Male 07/01/2019 11:12 AM CDT Sexual Orientation Straight 01/06/2018 12 :04 PM EXCEPTIONAL STUDENT EDUCATION AIDE Occupation Industry Job Start Date Job End Date Not on file Not on file Not on file Not on file Last Filed Vital Signs Vital Sign Reading Time Taken Comments Blood Pressure 160/90 10/01/2024 12:22 PM CDT Pulse 79 10/01/2024 12:22 PM CDT Temperature 36.4 C (97.5 F) 09/23/2024 11:11 AM CDT Respiratory Rate 17 09/23/2024 11:11 AM CDT Oxygen Saturation 96% 09/23/2024 11:11 AM CDT Inhaled Oxygen Concentration - - Weight 111.1 kg (245 lb) 10/01/2024 12:22 PM CDT Height 170.2 cm (5' 7) 10/01/2024 12:22 PM CDT Body Mass Index 38.37 10/01/2024 12:22 PM CDT Plan of Treatment Upcoming Encounters Date Type Department Care Team (Late st Contact Info) Description 11/19/2024 9:40 AM CDT Office Visit [facility] - [facility] [address] [place] [phone] Jamie Herrera DO [address] [facility] [address] [place], [place] [id number] 01/04/2025 10:30 AM EXCEPTIONAL STUDENT EDUCATION AIDE Office Visit [facility] [address] [place] [id number] Bereket Oquendo MD [facility]. [address] [address] 02/01/2025 2:40 PM EXCEPTIONAL STUDENT EDUCATION AIDE Office Visit [facility] [place] [address] [place] [address] [address] [place] [address] Yuli Ibarra MD [address] [facility] [address] [place], [place] [id number] Health Maintenance Due Date Last Done Comments COVID-19 Vaccine ( season) 2024 10/13/2021, 02/28/2021, 04/29/2020, Additional history exists Diabetes: Retinopathy Eye Exam 02/04/2025 02/05/2024, 01/24/2022, 12/21/2020, Additional history exists Hemoglobin A1C 02/11/2025 08/12/2024, 06/03/2024, 2024, Additional history exists Kidney Health Evaluation 2025 2024 Annual Medicare Wellness Visit 07/14/2025 01/11/2021 Postponed from 01/12/2022 (Patient Refused) Lipid Panel 07/21/2025 07/21/2024, 08/0 07/2023, 03/26/2023, Additional history exists DTaP, Tdap and Td Vaccines (2 - Td or Tdap) 01/04/2031 01/04/2021 Hepatitis C Completed 11/03/2020, 11/19/2018 Zoster Vaccines Completed 12/06/2021, 08/08/2021 Pneumococcal Vaccine: 50+ Years Completed 11/27/2023, 08/07/2021, 11/26/2016, Additional history exists RSV Immunization or 60+ Years Completed 12/04/2023, 11/27/2023 PHQ-2 (Physician Douglas) Completed 06/19/2024 Colorectal Cancer Screening Colonoscopy (10 Years) Discontinued 06/26/2024, 06/26/2024, 06/11/2017, Additional history exists Meningococcal B Vaccine Aged Out No l onger eligible based on patient's age to complete this topic Meningococcal Vaccine Aged Out No opal aristeo eligible based on patient's age to complete this topic RSV Immunizations Under 20 Months Aged Out No longer eligible based on patient's age to complete this topic Medical Devices Implanted Type Area Technical Support Representative Device Identifier Shelf Expiration Date Model / Serial / Lot Aortic Valve 29mm (Tavr) Implant-03/14 Implanted:Qt y: 1 on 03/14/2022 by Jeremy Pastor MD Valve Implant Aorta [employer] 10/10/2023 [id number] / [id number] / Space Oar Lewis System Implanted:Qt y: 1 on 01/12/2022 by Alban Cervantes MD at [facility] N/A: Prostate [employer] [id number] 06/08/2023 [id number] / / [id number] Visicoil Mr Gypsum Fudicial Marker Implanted:Qt y: 3 on 01/12/2022 by Alban Cervantes MD at [facility] N/A: Prostate [employer] [id number] 09/17/[id number] / / [id number] Procedures Procedure Name Priority Date/Time Associated Diagnosis Comments BASIC METABOLIC PANEL Routine 10/13/2024 1:33 PM CDT Drug therapy COLLECTION VENOUS BLOOD VENIPUNCTURE Routine 10/06/2024 2:11 PM CDT Acute on chronic diastolic congestive heart failure (CMS/HCC HHS/HCC) Prostate cancer (CMS/HCC HHS/HCC) CBC W/DIFF AUTOMATED Routine 10/06/2024 1:50 PM CDT Stage 3a chronic kidney disease (CMS/HCC) BASIC METABOLIC PANEL Routine 10/06/2024 1:50 PM CDT Stage 3a chronic kidney disease (CMS/HCC) COLLECTION VENOUS BLOOD VENIPUNCTURE Routine 09/30/2024 11:43 AM CDT Stage 3a chronic kidney disease (CMS/HCC) CBC W/DIFF AUTOMATED Routine 09/07/2024 5:28 PM CDT Stage 3a chronic kidney disease (CMS/HCC) COMPREHENSIVE METABOLIC PANEL Routine 09/07/2024 5:28 PM CDT Stage 3a chronic kidney disease (CMS/HCC) COLLECTION VENOUS BLOOD VENIPUNCTURE Routine 09/07/2024 5:14 PM CDT Stage 3a chronic kidney disease (CMS/HCC) XR CHEST PA+LAT Routine 07/30/2024 1:17 PM CDT Cough, unspecified type MAGNESIUM Routine 07/29/2024 2:48 PM CDT Drug therapy C-REACTIVE PROTEIN Routine 07/29/2024 2: 48 PM CDT Drug therapy COMPREHENSIVE METABOLIC PANEL Routine 07/29/2024 2:48 PM CDT Drug therapy CBC W/DIFF AUTOMATED Routine 07/29/2024 2:48 PM CDT Drug therapy COLLECTION VENOUS BLOOD VENIPUNCTURE Routine 07/29/2024 2:43 PM CDT Drug therapy POCT GLUCOSE - DOCKED DEVICE Routine 07/25/2024 7:33 AM CDT BASIC METABOLIC PANEL Routine 07/25/2024 7:12 AM CDT CBC W/DIFF AUTOMATED Routine 07/25/2024 7:12 AM CDT LIPID PANEL Routine 07/21/2024 5:26 AM CDT HEMOGLOBIN, GLYCOSYLATED Routine 07/20/2024 5:28 AM CDT COLONOSCOPY GENERIC (SCAN ORDER) 06/26/2024 DIABETIC RETINOPATHY EXAM (POSITIVE)(SCAN ORDER) Routine 02/05/2024 HEPATITIS C ANTIBODY Routine 11/03/2020 9:09 AM CDT Encounter to establish care Encounter for hepatitis C screening test for low risk patient from Last 3 Months or Most Recently Relevant to Health Maintenance Results * (ABNORMAL) BASIC METABOLIC PANEL (10/13/2024 1:33 PM CDT) Only the most recent of3 resultswithin the time period is included. GLUCOSE 214(H) 65 - 99 mg/dL [facility] [place] Comment: Fasting reference interval For someone without known diabetes, a glucose value >125 mg/dL indicates that they may have diabetes and this should be confirmed with a follow-up test. BUN 24 7 - 25 mg/dL [facility] [place] CREATININE S/P/B 1.24 0.70 - 1.28 mg/dL [facility] [place] GFR ESTIMATE 60 > OR = 60 mL/min/1.7 3m2 [facility] [place] BUN CREATININE RATIO SEE NOTE: 6 - 22 (calc) [facility] [place] Comment: Not Reported: BUN and Creatinine are within reference range. SODIUM S/P/B 142 135 - 146 mmol/L [facility] [place] POTASSIUM S/P/B 4.9 3.5 - 5.3 mmol/L [facility] [place] CHLORIDE S/P/B 105 98 - 110 mmol/L [facility] [place] CO2 30 20 - 32 mmol/L [facility] [place] CALCIUM S/P/B 8.9 8.6 - 10.3 mg/dL [facility] [place] 10/13/2024 1:33 PM CDT 10/13/2024 1:33 PM CDT Narrative Resulting Agency Comment Performing Organization Information: Site ID: [place] Name: [facility] Address: [address] [place] [address] Director: Oumou Cheek us Yuli Ibarra MD LABORATORY Final Result [facility] [place] [employer], [place] [address] [place] [address], * (ABNORMAL) CBC W/DIFF AUTOMATED (10/06/2024 1:50 PM CDT) Only the most recent of4 resultswithin the time period is included. WBC 5.7 3.8 - 10.8 Thousand/ uL [facility] RBC 4.53 4.20 - 5.80 Million/u L [facility] HGB 12.4(L) 13.2 - 17.1 g/dL [facility] HCT 40.5 38.5 - 50.0 % [facility] MCV 89.4 80.0 - 100.0 fL [facility] MCH 27.4 27.0 - 33.0 pg [facility] MCHC 30.6(L) 32.0 - 36.0 g/dL [facility] Comment: For adults, a slight decrease in the calculated MCHC value (in the range of 30 to 32 g/dL) is most likely not clinically significant; however, it should be interpreted with caution in correlation with other red cell parameters and the patient's clinical condition. RDW 14.7 11.0 - 15.0 % [facility] PLT 114(L) 140 - 400 Thousand/ uL [facility] MPV 12.7(H) 7.5 - 12.5 fL [facility] ABS. NEUTROPHILS 3,232 1,500 - 7,800 cells/uL [facility] ABS. LYMPHOCYTES 1,784 850 - 3,900 cells/uL [facility] ABS. MONOCYTES 467 200 - 950 cells/uL [facility] ABS. EOSINOPHILS 177 15 - 500 cells/uL [facility] ABS. BASOPHILS 40 0 - 200 cells/uL [facility] SEG NEUTROPHILS 56.7 % [facility] LYMPHOC[facility]TES 31.3 % [facility] MONOCYTES 8.2 % [facility] EOSINOPHILS 3.1 % [facility] BASOPHILS 0.7 % [facility] 10/06/2024 1:50 PM CDT 10/07/2024 4:08 AM CDT Narrative Resulting Agency Comment Performing Organization Information: Site ID: [place] Name: [facility] Address: [address] [place] [address] [place] [address] Director: Oumou Cheek MD Yuli Ibarra MD LABORATORY Final Result [facility] [place] [facility] [address] [place] [address], * (ABNORMAL) COMPREHENSIVE METABOLIC PANEL (09/07/2024 5:28 PM CDT) Only the most recent of2 resultswithin the time period is included. GLUCOSE 118(H) 65 - 99 mg/dL [facility] Comment: Fasting reference interval For someone without known diabetes, a glucose value between 100 and 125 mg/dL is consistent with prediabetes and should be confirmed with a follow-up test. BUN 38(H) 7 - 25 mg/dL [facility] [place] CREATININE S/P/B 1.59(H) 0.70 - 1.28 mg/dL [facility] GFR ESTIMATE 44(L) > OR = 60 mL/min/1. 73m2 [facility] BUN CREATININE RATIO 24(H) 6 - 22 (calc) [facility] SODIUM S/P/B 140 135 - 146 mmol/L [facility] POTASSIUM S/P/B 4.5 3.5 - 5.3 mmol/L [facility] CHLORIDE S/P/B 104 98 - 110 mmol/L [facility] CO2 27 20 - 32 mmol/L [facility] CALCIUM S/P/B 8.4(L) 8.6 - 10.3 mg/dL [facility] TOTAL PROTEIN S/P/B 5.8(L) 6.1 - 8.1 g/dL [facility] ALBUMIN S/P/B 3.4(L) 3.6 - 5.1 g/dL [facility] GLOBULIN 2.4 1.9 - 3.7 g/dL (calc) [facility] ALBUMIN/GLOBULIN RATIO 1.4 1.0 - 2.5 (calc) [facility] BILIRUBIN TOTAL S/P/B 1.1 0.2 - 1.2 mg/dL [facility] ALKALINE PHOSPHATASE S/P/B 122 35 - 144 U/L [facility] AST 20 10 - 35 U/L [facility] [place] ALT 12 9 - 46 U/L [facility] 09/07/2024 5:28 PM CDT 09/08/2024 6:30 AM CDT Narrative Resulting Agency Comment Performing Organization Information: Site ID: [id number] Name: [facility] Address: [address] [address] Director: Oumou Cheek MD Yuli Ibarra MD LABORATORY Final Result [facility] [place] [address] [place] [address], [place] * XR CHEST PA+LAT (07/30/2024 1:17 PM CDT) Anatomical Region Laterality Modality Chest Radiographic Criselda ging 07/30/2024 1:39 PM CDT Impressions 07/30/2024 1:39 PM CDT IMPRESSION: No acute findings Ordered By: BETTINA MARINELLI Interpreted By: Terrance Murdock MD, 07/30/2024 1:39 PM Narrative 07/30/2024 1:39 PM CDT [address] [place] [address] 2 VIEWS OF THE CHEST Clinical history: Dry cough Comparison: July 19, 2024 2 views of the chest demonstrate the cardiac silhouette to be mildly enlarged but stable. Sternotomy changes are again noted. Elevation of the right hemidiaphragm is unchanged. The Lungs are clear. No consolidations or effusions are seen. Procedure Note Terrance Murdock MD - 07/30/[address] [place] [id number] VIEWS OF THE CHEST Clinical history: Dry cough Comparison: July 19, 2024 2 views of the chest demonstrate the cardiac silhouette to be mildlyenlarged but stable. Sternotomy changes are again noted. Elevation of theright hemidiaphragm is unchanged. The Lungs are clear. No consolidationsor effusions are seen. IMPRESSION: No acute findings Ordered By: BETTINA MARINELLI Interpreted By: Terrance Murdock MD, 07/30/2024 1:39 PM Bettina Marinelli [facility] Final Result * (ABNORMAL) C-REACTIVE PROTEIN (07/29/2024 2:48 PM CDT) C-REACTIVE PROTEIN 10.4(H) <8.0 mg/L [facility] 07/29/2024 2:48 PM CDT 07/30/2024 4:24 AM CDT Narrative Resulting Agency Comment Performing Organization Information: Site ID: [id number] Name: [facility] Address: [address] [place] [id number] Director: Oumou Cheek MD Yuli Ibarra MD LABORATORY Final Result Performing Organization Address City/[facility]/[place] Co de Phone Number [employer] [facility] [employer] [address] [address], * MAGNESIUM (07/29/2024 2:48 PM CDT) [facility] MAGNESIUM 1.9 1.5 - 2.5 mg/dL [facility] 07/29/2024 2:48 PM CDT 07/30/2024 4:24 AM CDT Narrative Resulting Agency Comment Performing Organization Information: Site ID: [id number] Name: [facility] Address: [address] [place] [id number] Director: Oumou Cheek MD Yuli Ibarra MD LABORATORY Final Result Performing Organization Address [facility]/[place] Co de Phone Number [employer] [facility] [employer] [phone] [place] [address] * POCT glucose (07/25/2024 7:33 AM CDT) Pathologist [facility] GLUCOSE POC 103 70 - 110 mg/dL 07/25/2024 7:57 AM CDT [facility] 07/25/2024 7:33 AM CDT us Lalit Najera MD POCT ORDERABLES - DEVICE Fin al Result [facility] [address] [place] [address], * LIPID PANEL (07/21/2024 5:26 AM CDT) CHOLESTEROL 88 <200.0 MG/DL 07/21/2024 6:27 AM CDT [facility] TRIGLYCERIDES 42 <150 MG/DL 07/21/2024 6:27 AM CDT [facility] HDL 43 >40.0 MG/DL 07/21/2024 6:27 AM T [facility] LDL (CALCULATED) 37 <100 MG/DL 07/22/19 6:27 AM T [facility] NON HDL CHOLESTEROL 45 <130 MG/DL 07/21 6:27 AM T [facility] CHOL/HDL RATIO 2.0 0.0 - 4.5 07/21/2024 6:27 AM T [facility] VLDL CALCULATION 8 5 - 55 MG/DL 07/21/2024 6:27 AM T [facility] LIPID INTERPRETATION 07/21/2024 6:27 AM T [facility] Comment: NIH CONCENSUS REPORT RECOMMENDATIONS: ADULT CHILD LOW RISK: CHOLESTEROL <200 <170 TRIGLYCERIDE <150 --- HDL >=60 --- LDL <100 <110 BORDERLINE: CHOLESTEROL 200-239 170-199 TRIGLYCERIDE 150-199 --- HDL 40-59 --- LDL 100-159 110-129 HIGH RISK: CHOLESTEROL >=240 >=200 TRIGLYCERIDE >=200 --- HDL <40 --- LDL >=160 >=130 07/21/2024 5:26 AM CDT Eriberto Ricardo APRN LABORATORY Final Result Performing Organization Address City/[facility]/[place] Co de Phone Number [facility] [address] [facility] [place] [id number], * COLONOSCOPY GENERIC (SCAN ORDER) (06/26/2024) 06/26/2024 [facility] Scanned SCANNING Final Resu lt * DIABETIC RETINOPATHY EXAM (POSITIVE) (02/05/2024) [facility] Scanned SCANNING Final Resu lt Performing Organization Address [facility]/[place] Co de Phone Number [facility] * HEPATITIS C ANTIBODY (11/03/2020 9:09 AM CDT) HEPATITIS C AB NON-REACTI VE NON-REACT PARAS 11/03/2020 7:10 PM CDT [facility] Comment: ANTIBODIES TO HCV NOT DETECTED. DOES NOT EXCLUDE THE POSSIBILITY OF EXPOSURE TO HCV. 11/03/2020 9:09 AM CDT Yuli Ibarra MD LABORATORY Final Result Performing Organization Address City/[facility]/[place] Co de Phone Number [facility] [address] [place] [address], [place] [phone] [id number] from Last 3 Months or Most Recently Relevant to Health Maintenance [facility] MEDICARE Member Subscriber Plan / Payer (Ef fective 2012-Present) Name:John Mtz Relation to Subscriber:Self Name:John Mtz Payer ID:Not on file Group ID:Not on file Type:Indemnity Address: ATTN CLAIMS [address] Advance Directives * Full Code (Latest Code Status on File) Date Activated Date Inactivated Comments 08/25/2024 11:14 AM * Full Code Date Activated Date Inactivated Comments 07/19/2024 11:21 PM 07/25/2024 2:46 PM * Full Code Date Activated Date Inactivated Comments 03/14/2022 1:32 PM 03/15/2022 4:34 PM * Full Code Date Activated Date Inactivated Comments 03/14/2022 6:35 AM 03/14/2022 1:32 PM * Full Code Date Activated Date Inactivated Comments 03/01/2022 10:33 AM 03/01/2022 5:55 PM Care Teams Printing Engineer Relationship Specialty Start Date End Date Yuli Ibarra MD [address] [facility] [address] [place] [address] PCP - General INTERNAL MEDICINE 11/03/20 Bereket Oquendo MD Three [facility] [address] [place] [address] [employer] Reinstatement Clerk CARDIOVASCULAR DISEASE 08/15/16 Cesar Zuluaga MD [address] [place] [address] Retina Ophthalmology 01/11/21 Jim Lieberman MD [address] [facility] [address] [address] SURGERY 01/11/21 Jose Espinal MD [address] [place] [address] Consulting Physician RADIATION ONCOLOGY 03/06/24 Jaqueline Burden MD [address] [facility] [address] [place] [address] Referring Physician GASTROENTEROLOGY 07/28/24
--- OUTSIDE RECORDS SUMMARY | 2024-10-25 10:56 | XMS_ITS | Encounter Summary ---
Author Organization [facility] Address [address] [place] [address] Care Team Providers Care Director Of Special Events Name Role Phone Bereket Oquendo MD Unavailable [phone] Yuli Ibarra MD Primary Care Provider [phone] Cesar Zuluaga MD Unavailable [phone] Jim Lieberman MD Unavailable [phone] Jose Espinal MD Unavailable Tayla Tolbert RN Unavailable [phone] Jaqueline Burden MD Unavailable [phone] Encounter Details Date Type Department Care Team (Late st Contact Info) Description 06/26/2022 [employer] Message Enc [facility] - [address] [place] [address] Johanny, [facility] Provider lab results Social History Tobacco Use Types Packs/Day Years Used Date Smoking Tobacco: Former Cigarettes 0.5 8 1 972 - 1979 Smokeless Tobacco: Never Comments:smoked socially for 40 years; counseled by Dr Ibarra Alcohol Use Standard Drinks/Week Comments Yes 0 (1 standard drink = 0.6 oz pur e alcohol) rare, 2 drinks a year Humiliation, Afraid, Rape, and Kick questionnair e Answer Date Recorded Within the last year, have y ou been afraid of your partner or ex-partner? No 03/14/2022 Within the last year, have y ou been humiliated or emotionally abused in other ways by your partner or ex-partner? No Within the last year, have y ou been kicked, hit, slapped, or otherwise physically hurt by your partner or ex-partner? No 03/14/2022 Within the last year, have y ou been raped or forced to have any kind of sexual activity by your partner or ex-partner? No 03/14/2022 AUDIT-C Answer Date Recorded Frequency of Alcohol Consumption Never 01/06/2018 Average Number of Drinks Not on file 018 Frequency of Binge Drinking Not on file 12/19 Overall Financial Resource Strain (CARDIA) Answe r Date Recorded How hard is it for you to pa y for the very basics like food, housing, medical care, and heating? Not hard at all 03/14/2022 PHQ-2 Answer Date Recorded Patient Health Questionnaire-2 Score 0 03/22/2022 Hunger Vital Sign Answer Date Recorded Within the past 12 months, y ou worried that your food would run out before you got the money to buy more. Never true 03/14/19 23 Within the past 12 months, t he food you bought just didn't last and you didn't have money to get more. Never true 03/14/2022 PRAPARE - Transportation Answer Date Re corded In the past 12 months, has l ack of transportation kept you from medical appointments or from getting medications? No 02/19 In the past 12 months, has l ack of transportation kept you from meetings, work, or from getting things needed for daily living? No 03/14/2022 Housing Stability Vital Sign Answer [...] place to sleep or slept in a halfway (including now)? No 03/14/2022 Sex and Gender Information Value Date Recorded Sex Assigned at Male 07/01/2019 11:12 AM CDT Legal Sex Male 1:25 PM CDT Gender Identity Male 07/01/2019 11:12 AM CDT Sexual Orientation Straight 01/06/2018 12 :04 PM RADIO HOST Occupation Industry Job Start Date Job End Date Not on file Not on file Not on file Not on file COVID-19 Exposure Response Date Recorded In the last 10 days, have yo u been in contact with someone who was confirmed or suspected to have Coronavirus/COVID-19? No / Unsure 06/22/2022 10:54 AM CDT documented as of this encounter Functional Status * RETIRED Are you deaf or do you have serious difficulty hearing Answer Date of Assessment Author Status No 03/14/2022 4:27 PM RADIO HOST Activ e * RETIRED Are you blind or do you have serious difficulty seeing, even when wearing glasses? Answer Date of Assessment Author Status No 03/14/2022 4:27 PM RADIO HOST Activ e * Do you have serious difficulty walking or climbing stairs? Answer Date of Assessment Author Status Yes 03/14/2022 4:27 PM RADIO HOST Renetta Lama R N Active * Do you have difficulty dressing or bathing? Answer Date of Assessment Author Status No 03/14/2022 4:27 PM RADIO HOST Renetta Lama R N Active * Because of a physical, mental, or emotional condition, do you have difficulty doing errands alone such as visiting a doctor's office or shopping? Answer Date of Assessment Author Status Yes 03/14/2022 4:27 PM RADIO HOST Renetta Lama R N Active documented as of this encounter Mental Status * Because of a physical, mental, or emotional condition, do you have serious difficulty concentrating, remembering, or making decisions? Answer Entry Date Author Status No 03/14/2022 4:27 PM RADIO HOST Renetta Lama R N Active documented in this encounter Plan of Treatment Upcoming Encounters Date Type Department Care Team (Late st Contact Info) Description 11/19/2024 9:40 AM CDT Office Visit [facility] - [facility] [address] [facility] [place] [id number] Jamie Herrera DO [address] [facility] [address] [place] [address] 01/04/2025 10:30 AM RADIO HOST [facility] [address] [place] [address] Bereket Oquendo MD [address] [facility] [place] [address] 02/01/2025 2:40 PM RADIO HOST Office Visit [facility] Care - [place] [address] [address] [place] [address] Yuli Ibarra MD [address] [place] [address] documented as of this encounter Visit Diagnoses Not on filedocumented in this encounter Additional Health Concerns Infection Onset Date Last Indicated Resolved Time COVID-19 Rule Out 02/06/2024 02/06/2024 02/06/2024 2:41 PM RADIO HOST COVID-19 Confirmed 02/06/2024 02/06/2024 12:32 AM RADIO HOST Assessment Noted Time PHQ-9 Depression Total Score: 0 04/05/19 22 9:32 AM RADIO HOST documented as of this encounter Care Teams Director Of Special Events Relationship Specialty Start Date End Date Yuli Ibarra MD [address] [place] [address] PCP - General INTERNAL MEDICINE 11/03/20 Bereket [facility]quendo MD [address] [facility] [address] [place] [address] [employer] Laboratory Engineer CARDIOVASCULAR DISEASE 08/15/16 Cesar [place]ulu[place] [address] [place] [address] Retina Ophthalmology 01/11/21 Jim Lieberman MD [address] [facility] [address] [place] [address] SURGERY 01/11/21 oJse Espinal MD 1 [place] [address] Consulting Physician RADIATION ONCOLOGY 03/06/24 Tayla Tolbert, RN [address] [place] [address] Fax Machine Operator (Ambulatory) REGISTERED NURSE 07/20/24 09/20/24 Jaqueline Burden MD [address] [facility] [address] [place] [address] Referring Physician GASTROENTEROLOGY 07/28/24 documented as of this encounter
--- OUTSIDE RECORDS SUMMARY | 2024-10-25 10:56 | XMS_ITS | Encounter Summary ---
Author Organization [facility] Address [address] [place] [address] Care Team Providers Care Customer Account Technician Name Role Phone Bereket Oquendo MD Unavailable [phone] Yuli Ibarra MD Primary Care Provider [phone] Cesar Zuluaga MD Unavailable [phone] Alcides Molina MD Unavailable Unavailable Jim Lieberman MD Unavailable [phone] Olivia Olguin RN Unavailable [phone] Jose Espinal MD Unavailable Tayla Tolbert RN Unavailable [phone] Jaqueline Burden MD Unavailable [phone] Encounter Details Date Type Department Care Team (Late st Contact Info) Description 08/10/[address] [facility] Multispecialty Care - [address] [place] [address] Johanny [facility] Provider medication Social History Tobacco Use Types Packs/Day Years Used Date Smoking Tobacco: Former Cigarettes 0.5 8 1 972 - 1980 Smokeless Tobacco: Never Comments:smoked socially for 40 years Alcohol Use Standard Drinks/Week Comments Yes 0 (1 standard drink = 0.6 oz pur e alcohol) rare, 2 drinks a year AUDIT-C Answer Date Recorded Frequency of Alcohol Consumption Never 01/06/2018 Average Number of Drinks Not on file 018 Frequency of Binge Drinking Not on file 12/19 PHQ-2 Answer Date Recorded PHQ-2 Score - If the patient scores above 3, please move on to questions 3-9 0 07/05/2021 Sex and Gender Information Value Date Recorded Sex Assigned at Male 07/01/2019 11:12 AM CDT Legal Sex Male 1:25 PM CDT Gender Identity Male 07/01/2019 11:12 AM CDT Sexual Orientation Straight 01/06/2018 12 :04 PM [employer]SET EDGER Occupation Industry Job Start Date Job End Date Not on file Not on file Not on file Not on file COVID-19 Exposure Response Date Recorded In the last 10 days, have yo u been in contact with someone who was confirmed or suspected to have Coronavirus/COVID-19? Unable to assess 08/09/2021 12:08 PM CDT documented as of this encounter Plan of Treatment Upcoming Encounters Date Type Department Care Team (Late st Contact Info) Description 11/19/2024 9:40 AM CDT [facility] [address] [facility] [place] [phone] Jamie Herrera DO [address] [facility] [address] [place] [address] 01/04/2025 10:30 AM GUSSET EDGER [facility] [address] [place] [phone] Bereket Oquendo MD [address] [facility] [address] [place] [address] 02/01/2025 2:40 PM GUSSET EDGER Office Visit [facility] Multispecialty Care - [place] [address] [address] [place], [place] [phone] Yuli Ibarra MD [address] [place] [address] [address] [place] [address] documented as of this encounter Visit Diagnoses Not on filedocumented in this encounter Additional Health Concerns Infection Onset Date Last Indicated Resolved Time COVID-19 Rule Out 02/06/2024 02/06/2024 02/06/2024 2:41 PM GUSSET EDGER COVID-19 Confirmed 02/06/2024 02/06/2024 12:32 AM GUSSET EDGER Assessment Noted Time PHQ-9 Depression Total Score: 0 04/05/19 22 9:32 AM GUSSET EDGER documented as of this encounter Care Teams Customer Account Technician Relationship Specialty Start Date End Date Yuli Ibarra MD [address] [facility] [address] [place] [address] PCP - General INTERNAL MEDICINE 11/03/20 Bereket Oquendo MD [address] [address] [place] Deputy Sheriff Building Guard CARDIOVASCULAR DISEASE 08/15/16 Cesar Zuluaga MD [address] [place] [address] Retina Ophthalmology 01/11/21 Alcides Molina MD [address] [place] [address] Consulting Physician UROLOGY 01/11/21 04/29/22 Jim Lieberman MD [address] [facility] [address] [place] [address] SURGERY 01/11/21 Olivia Olguin, RN [address] [place] [address] Cytologist (Ambulatory) REGISTERED NURSE 03/14/22 03/28/22 Jose Espinal MD 1 [place] [address] Consulting Physician RADIATION ONCOLOGY 03/06/24 Tayla Tolbert, RN [address] [place] [address] Cytologist (Ambulatory) REGISTERED NURSE 07/20/24 09/20/24 Jaqueline Burden MD [address] [facility] [address] [place] [address] Referring Physician GASTROENTEROLOGY 07/28/24 documented as of this encounter
--- OUTSIDE RECORDS SUMMARY | 2024-10-25 10:56 | XMS_ITS ---
Author Organization [facility] - [facility] Address [address] [place] [address] Care Team Providers Care Medical Microbiologist Name Role Phone Bereket Oquendo MD Unavailable [phone] Yuli Ibarra MD Primary Care Provider [phone] Cesar Zuluaga MD Unavailable [phone] Jim Lieberman MD Unavailable [phone] Jose Espinal MD Unavailable Jaqueline Burden MD Unavailable [phone] Active Problems Problem Noted Date Diagnosed Date CHF (congestive heart failure) ([facility]) 07/19/2024 Diarrhea, unspecified type 06/19/2024 Acute on chronic diastolic c ongestive heart failure ([facility]) 03/26/2023 Congestive heart failure, un specified HF chronicity, unspecified heart failure type ([facility]) 03/26/2023 Severe aortic valve stenosis 03/01/2022 Assessment & Plan (05/04/2022 1:07 PM CDT): He is status post transfemoral TAVR. Continue antibiotic prophylaxis prior to dental procedures. His echocardiogram was not performed prior to today's visit and I will review it. He will need an echo in 1 year. Assessment & Plan (03/23/2022 10:51 AM LOGGING CONTRACTOR): He underwent Successful transcatheter aortic valve replacement with Medtronic Evolut Pro FX #29 mm on 03/14/22 Post op echo revealed mean gradient of 18mmHg Asa 81mg daily continued abx prior to any dental cleaning or procedure discussed Plan on repeating echo in 1 month with appt following Assessment & Plan (03/01/2022 8:17 AM LOGGING CONTRACTOR): He has symptomatic severe aortic valve stenosis. [...] CT scan and surgical evaluation. Prostate cancer ([facility]) 02/23/2022 Chronic kidney disease, stage III (moderate) [...] with circu latory disorder causing erectile dysfunction ([facility]) 07/17/2017 Overview (11/03/2020): - controlled - diabetic diet encouraged; exercise as tolerated with guarded fall precautions discussed - continue with Lantus 20 units daily and Humalog 10-15 units 3x daily - continue with metformin 1000 mg twice daily 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 Continue current treatment. Acquired external rotation of foot 11/26/2016 Impairment of balance 11/26/2016 Gait abnormality 11/26/2016 Atherosclerotic heart diseas e of [place] coronary artery with other forms of angina [...] surgery. Assessment & Plan (03/01/2022 8:17 AM LOGGING CONTRACTOR): He has a history of coronary artery [...] time. Assessment & Plan (03/06/2018 8:54 AM LOGGING CONTRACTOR): Patient with stable cardiovascular disease, with routine [...] lipid panel, his last was done in 2017. Taking medications without side effects or intolerances. Obtain fasting lipids today. Assessment & Plan (03/06/2018 9:10 AM LOGGING CONTRACTOR): Well-controlled at last fasting lipid panel 10/04. Continues on atorvastatin and cholestyramine without side effects or intolerances. Should get a repeat fasting lipid panel with next visit. 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 Seeing Dr. Son, using tramadol with reasonable effect. [place] Prescription Monitoring Program website reviewed, no indication of misuse or abuse. Myofascial pain 07/11/2016 Vitreous hemorrhage, left eye 05/18/2016 Overview (11/03/2020): Annotation - 18May2016: Lizandro Florez MD - [id number] Regular follow up with ophthalmology Stable proliferative diabeti c retinopathy of both eyes associated with type 2 diabetes mellitus ([facility]CC) 05/18/2016 Overview (11/03/2020): Cesar Zuluaga MD - [facility] Type 2 diabetes mellitus with proliferative diabetic retinopathy with macular edema, bilaterally Long-term use of insulin Other secondary cataract, left eye Vitreous hemorrhage, left eye [id number] 2-month follow-up. Diabetes controlled on insulin and metformin Following regularly with ophthalmology Neuropathic pain syndrome (non-herpetic) 017 Assessment & Plan (05/04/2018 6:53 AM CDT): Stable, on current dosing of gabapentin, as well as tramadol. No change to present treatment. Chronic pain 05/11/2016 Sensory peripheral neuropathy 03/13/2016 Controlled type 2 diabetes m kate with retinopathy, with long-term current use of insulin ([facility]) 02/14/2016 Overview (11/03/2020): - controlled - diabetic [...] monitoring. Assessment & Plan (03/06/2018 9:13 AM LOGGING CONTRACTOR): Checking routine labs at follow-up for ongoing medication monitoring. Allergic rhinitis 01/05/2016 Posterior vitreous detachment 02/01/2015 Acquired hypothyroidism 09/07/2013 Assessment & Plan (05/04/2018 6:59 AM CDT): No signs or symptoms of over or under replacement of thyroid hormone. Check TSH today and adjust medication as indicated. Assessment & Plan (03/06/2018 9:12 AM LOGGING CONTRACTOR): Mildly elevated thyroid stimulating hormone at last check, in 06/05. Repeat at follow-up. No overt signs or symptoms of over or under replacement. STACIE on CPAP Essential hypertension Assessment & Plan (05/04/2018 6:55 AM CDT): Well-controlled on present dosing of Toprol and metoprolol. Continues on furosemide as well for lower extremity edema. Check routine lab work today. No treatment change. Current Treatment and Therapy Plans No current plan information found. Past Treatment and Therapy Plans No past plan information found. Radiation Treatments * Course C1 02/01/2022 - 03/21/2022 Treatment Period Energy Fraction Dose Fractions Total Dose Plans Planned Prostate 02/01/2022 - 03/21/2022 28 of 28 / Reference Points Delivered Prostate 02/01/2022 - 03/21/2022 70 Treatment Summaries Prostate cancer ([facility])* Images from the original note were not included. Survivorship Care Plan Patient Name John Mtz Date of 1945 Plan Completed By Yasmin VELARDE on 08/16/[address] Molina [phone] Lowery [phone] Primary Care Physician YULI IBARRA MD [phone] Nurse Navigator Yasmin VELARDE [phone] Diagnosis Prostate cancer ([facility]) Age at diagnosis 76-year-old Pertinent past medical history Past Medical History: Diagnosis Date Allergic rhinitis Aortic stenosis, moderate Chronic gastritis without bleeding, unspecified gastritis type 06/25/2017 Description: esophagastroduodenoscopy with biopsy; [id number] Chronic kidney disease (CKD), stage III (moderate) (CMS/HCC) Chronic lower back pain Coronary artery disease Diabetes mellitus type 2, uncontrolled, with complications Dyslipidemia Dyspepsia Edema of right lower extremity 11/26/2016 Elevated PSA Essential hypertension GERD (gastroesophageal reflux disease) Hypothyroidism Male erectile dysfunction 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 (CMS/HCC) Morbid obesity (CMS/HCC) STACIE on CPAP Perianal abscess 04/20/2019 Proliferative diabetic retinopathy of left eye (CMS/HCC) Prostate cancer (CMS/HCC) 2021 s/p radiation PVD (peripheral vascular disease) (CMS/HCC) Sensory peripheral neuropathy Varicella Vitreous hemorrhage, left eye (CMS/HCC) Wears glasses Diagnostic Procedures PSA on 11/03/20 MRI Pelvis on 03/13/21 Surgery Biopsy of Prostate on 06/15/21 Family History Family History Problem Relation Name Age of Onset Other (Alzheimer's) Mother Diabetes Brother Antonio Cancer Brother Antonio prostate cancer Prostate Cancer Brother Antonio Early Father 73 Heart Disease Father 73 No Known Problems Sister Ynes No Known Problems Sister [place] Chemotherapy and Other Treatments N/A Treatment on clinical trial? No Pre-operative chemotherapy administered? No Radiation Treatment Site: Prostate Total Dose: 7000 cGy Treatment Dates: 02/01/22- 03/21/22 Ongoing Toxicities and Side Effects Potential long-term effects associated with radiation treatment Radiation bladder inflammation <5% Radiation Rectal inflammation <5% Urethral stenosis ( narrowing of passage way) requiring dilatation <1% Fistula formation <1% Small bowel obstruction Secondary malignancy Persistent erectile dysfunction After completing external beam radiation treatment for prostate carcinoma, the acute effects of treatment such as increased urinary and stool frequency as well as fatigue should resolve within 2-4 weeks after completion. superintendent terminal side effects may include a mild increase in stool and urinary frequency and potentially urgency. These symptoms are often intermittent and occur in 25-30% of men who receive radiation treatment for prostate carcinoma. In frequent prison side effects can include blood in the stool or urine. If you develop these symptoms you should notify your urologist or primary care provider. The risk of severe side effects such as urinary incontinence is remote, Some studies indicate a very slight increase in the risk of secondary cancers such as colon, rectal or bladder carcinoma in patients who receive radiation for prostate carcinoma. No additional screening tests are indicated as the actual risk is very low. Common Issues and Needs Men Have After Prostate Cancer Treatments You may need support for treatments that you have already had including surgery, hormone treatmentsand chemotherapy. After prostate cancer treatments common issues that may arise include: physical symptoms including incontinence, urinary retention or voiding difficulties and bladder outlet obstruction, pain and fatigue erectile dysfunction, ejaculation dysfunction and impotence as a result of treatment rectal complications emotional distress arising from fear of disease recurrence, changes in body image, returning to work, anxiety/depression, interpersonal problems and sexuality concerns a need for increased community supports as patients recover from treatment financial and employment issues (such as loss of income and assistance with returning to work and the cost of treatment, travel and accommodation) legal issues (including advance care planning, appointing a power of real estate attorney and completing a will) Please discuss on going needs and concerns with your primary care physician and with follow up visits with your urologist. Most men experience some form of adjustments during recovery from prostate cancer treatment. Some issues that may continue to need to be addressed in follow up visits include: urinary and bowel function sexual function managing cancer-related fatigue Recommended health practices: A number of lifestyle/behaviors can affect your ongoing health, including the risk for the cancer coming back or developing another cancer. Recommended health practices: Maintenance of body weight as weight gain is associated with recurrence Regular physical activity (e.g., walking 20 minutes daily) Avoidance of smoking/smoking cessation counseling, if appropriate Limitation of alcohol intake to less than 1 drink, 2-3x per week NCCN Guidelines for Follow UP Visit your urologist for routine follow care with PSA every 6-12 months for 5 years and then every year. Digital rectal exam every year but may be omitted if PSA undetectable. Every 3 month PSA may be necessary to clarify disease status. Preventive Measures per Primary Care Physician Bone marissa- Bone density testing as appropriate Cholesterol monitoring and management Diet Exercise Hypertenson control Mental Health monitoring Smoking cessation Vaccines- Annual Influenza vaccination -Pneumococcal vaccination with revaccination Weight management Maintenance of body weight as weight gain is associated with recurrence Body Mass Index or BMI is one way to determine if a person???s weight places them at risk for disease such as diabetes, heart disease and cancer. Below 18.5-underweight 18.5-24.9-normal or healthy weight 25-29.9-overweight 30-39.9-obese 40 and above-morbidly obese Your Body mass index is 38.69 kg/m??. Routine cancer screening as indicated If over 50 years: Colonoscopy every 10 years if first one is normal, every year if abnormal. Additional Web Resources National USTOO for Prostate cancer https://www.ustoo.org https://www.cancer.org/cancer/prostate-cancer/about/vuuy-st-aeajtroq-cancer.html Go to Our Services on this site, then Support You can join a Phone Support group Join an Online Support Group Get one to one support Helpline Financial assistance help National Comprehensive Cancer Network https://www.cancer.org/cancer/prostate-cancer/about/rpjs-fz-rabsytbc-cancer.html Prostate cancer National Comprehensive Cancer Network https://www.nccn.org/patients/guidelines/prostate/index.html National Cancer Eleva www.cancer.gov [place] Society of Clinical Oncology (ASCO) www.cancer.net National Coalition for Cancer Survivorship (NCCS) www.canceradvocacy.org Needy Meds www.Gizmox.InfoVista Urology http://urologyhealth.org/educational-materials Visit Cancer.Net's survivorship section provides helpful information for cancer survivors and theirfriends and family. Download the ASCO Answers Guide to Cancer Survivorship for free as a printable pdf National Coalition for Cancer Survivorship (NCCS) www.canceradvocacy.org Survivorship: What Happens After Active Treatment Ends (View Video) https://youtu.be/EDNz7Ir6K7n Guidelines for Prostate cancer Treatment Patient Booklet https://www.nccn.org/patients/guidelines/prostate/index.html Urology http://urologyhealth.org/educational-materials www.Gymtrackation.org Traveler | VIP Information and resources, and suport,plus access to helpful forums and chat rooms. www.TravelTriangle Aging and Disability Resource Center https://www.dhs.[place].gov/adrc/consumer/index.htm (ADRC) [place] Cancer Society www.cancer.org Cancer Care, Inc www.cancercare.org Cancer Support Community www.cancersupportcommunity.org Livestrong http://www.livestrong.org/what-we-do/our-actions/livestrong-programs/ymca/ Resolved Problems Problem Noted Date Diagnosed Date Resolved Date Status post incision and drainage 04/20/2019 07/01/2019 Perianal abscess 04/20/2019 07/01/2019 Wears glasses 07/10/2017 10/30/2019 Chronic gastritis without bl eeding, unspecified gastritis type 06/25/2017 03/12/2020 Overview (01/02/2018): Description: esophagastroduodenoscopy with biopsy; [id number] GERD (gastroesophageal reflux disease) 02/01/2017 06/27/2020 Assessment & Plan (03/06/2018 8:56 AM LOGGING CONTRACTOR): Diet-controlled at this time. Continue to monitor. Edema of right lower extremity 11/26/2016 03/12/2020 Arteriosclerotic cardiovascular disease 10/23/2016 07/13/2019 Abnormal EKG 09/25/2016 10/29/2016 Hernia of anterior abdominal wall 04/09/2013 06/27/2020"
--- OUTSIDE RECORDS SUMMARY | 2024-10-25 10:56 | XMS_ITS | Encounter Summary ---
Author Organization [facility] - [facility] Address [address] [place] [address] Care Team Providers Care Quality Control Inspector Name Role Phone Bereket Oquendo MD Unavailable [phone] Yuli Ibarra MD Primary Care Provider [phone] Cesar Zuluaga MD Unavailable [phone] Alcides Molina MD Unavailable Unavailable LuisanaJim bowen MD Unavailable [phone] Olivia Olguin RN Unavailable [phone] Jose Epsinal MD Unavailable Tayla Tolbert RN Unavailable [phone] Jaqueline Burden MD Unavailable [phone] Encounter Details Date Type Department Care Team (Late st Contact Info) Description 05/23/2021 ProBindert Message Enc [facility] - [place] [address] [address] [place] [address] [place] [address] [place] [address] [address] [place] [address] Refill Social History Tobacco Use Types Packs/Day Years Used Date Smoking Tobacco: Former Cigarettes 0.5 8 1 972 - 3232 Smokeless Tobacco: Never Comments:smoked socially for 40 [...] please move on to questions 3-9 0 04/05/2021 Sex and Gender Information Value Date Recorded Sex Assigned at Male 07/01/2019 11:12 AM CDT Legal Sex Male 1:25 PM CDT Gender Identity Male 07/01/2019 11:12 AM CDT Sexual Orientation Straight 01/06/2018 12 :04 PM DRUM HANDLER Occupation Industry Job Start Date Job End Date Not on file Not on file Not on file Not on file COVID-19 Exposure Response Date Recorded In the last 10 days, have yo u been in contact with someone who was confirmed or suspected to have Coronavirus/COVID-19? No / Unsure 05/22/2021 8:35 AM CDT documented as of this encounter Plan of Treatment Upcoming Encounters Date Type Department Care Team (Late st Contact Info) Description 11/19/2024 9:40 AM CDT [facility] [address] [facility] [place] [address] Jamie Herrera DO [address] [facility] [address] [place] [address] 01/04/2025 10:30 AM DRUM HANDLER Office Visit [facility] [address] [place] [address] Bereket Oquendo MD [facility] [place] [address] 02/01/2025 2:40 PM DRUM HANDLER Office Visit [facility] Care - [address] [place] [address] Yuli Ibarra MD [address] [facility] [address] [place] [address] documented as of this encounter Visit Diagnoses Not on filedocumented in this encounter Additional Health Concerns Infection Onset Date Last Indicated Resolved Time COVID-19 Rule Out 02/06/2024 02/06/2024 02/06/2024 2:41 PM DRUM HANDLER COVID-19 Confirmed 02/06/2024 02/06/2024 12:32 AM DRUM HANDLER Assessment Noted Time PHQ-9 Depression Total Score: 0 04/05/19 9:32 AM DRUM HANDLER documented as of this encounter Care Teams Quality Control Inspector Relationship Specialty Start Date End Date Yuli Ibarra MD [address] [facility] [address] [place] [address] PCP - General INTERNAL MEDICINE 11/03/20 Bereket Oquendo MD [address] [address] [place] [employer] CARDIOVASCULAR DISEASE 08/15/16 Cesar Zuluaga MD [address] [place] [address] Retina Ophthalmology 01/11/21 Alcides Molina MD [address] [place] [address] Consulting Physician UROLOGY 01/11/21 04/29/22 Jim Lieberman MD [address] [facility] [address] [address] SURGERY 01/11/21 Olivia Olguin RN [address] [place] [address] Measurement Psychologist (Ambulatory) REGISTERED NURSE 03/14/22 03/28/22 Jose Espinal MD [address] [place] [address] Consulting Physician RADIATION ONCOLOGY 03/06/24 Tayla Tolbert RN [address] [place] [address] Measurement Psychologist (Ambulatory) REGISTERED NURSE 07/20/24 09/20/24 Jaqueline Burden MD [address] [facility] [address] [place] [address] Referring Physician GASTROENTEROLOGY 07/28/24 documented as of this encounter
--- OUTSIDE RECORDS SUMMARY | 2024-10-25 10:56 | XMS_ITS | Clinical Summary ---
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 Name Role Phone Yuli Ibarra MD Primary Care Provider [phone] Allergies No known active allergies Medications aspirin 81 mg enteric coated tablet Take 1 tablet (81 mg total) by mouth daily Active atorvastatin (Lipitor) 40 mg tablet Take 1 tablet (40 mg total) by mouth daily Active insulin glargine (LANTUS) 100 unit/mL (3 mL) pen for injection Inject 15 Units under the skin daily Active levothyroxine (Synthroid) 50 mcg tablet Take 1 tablet (50 mcg total) by mouth daily Active metoprolol tartrate (LOPRESSOR) 25 mg immediate release tablet Take 0.5 tablets (12.5 mg total) by mouth 2 (two) times a day 5 Active dapagliflozin propanediol (FARXIGA) 10 mg tablet Take 1 tablet (10 mg total) by mouth daily 5 Active tamsulosin (FLOMAX) 0.4 mg extended release capsule Take 1 capsule (0.4 mg total) by mouth nightly 5 Active nitroglycerin (NITROSTAT) 0.[address] 1 tablet (0.4 mg total) under the tongue every 5 (five) minutes as needed for chest pain 4 Active albuterol HFA (PROVENTIL HFA,VENTOLIN HFA,PROAIR HFA) 90 mcg/actuation inhaler Inhale 2 puffs every 6 (six) hours as needed for wheezing Active miebffjl-qtc-dfvrd -vit K-lycop 400-20-300 mcg tablet Take 1 tablet by mouth daily Active ondansetron ODT (ZOFRAN-ODT) 4 mg disintegrating tablet Take 1 tablet (4 mg total) by mouth every 6 (six) hours as needed for nausea or vomiting Active acetaminophen 500 mg capsule Take 2 capsules (1,000 mg total) by mouth every 8 (eight) hours 5 Active loperamide (IMODIUM) 2 mg capsuleIndications :diarrhea Take 2 capsules (4 mg total) by mouth 4 (four) times a day 5 Active oxyCODONE (ROXICODONE) 5 mg immediate release tabletIndications: Pain Take 1 tablet (5 mg total) by mouth every 4 (four) hours as needed for pain 5 Active gabapentin (NEURONTIN) 600 mg tablet Take 1 tablet (600 mg total) by mouth 3 (three) times a day 5 08/20/19 26 Active insulin lispro (HumaLOG, ADMELOG) 100 unit/mL vial for injection Inject 2-10 units under the skin 3 (three) times a day with meals. Blood glucose mg/dL 150-199: 2 units, 200-249: 4 units, 250-299: 6 units, 300-349: 8 units, 350 or greater: 10 units. Notify provider for blood glucose greater than 299 mg/dL. Refer to After Visit Summary for Sliding Scale Insulin Instructions. 5 Active insulin lispro (HumaLOG, ADMELOG) 100 unit/mL vial for injection Inject 0-5 Units under the skin 3 (three) times a day with meals 5 Active cetirizine (ZyrTEC) 10 mg tablet Take 0.5 tablets (5 mg total) by mouth as needed for allergies 5 Active bumetanide (BUMEX) 1 mg tablet Take 1 tablet (1 mg total) by mouth 3 (three) times a week 5 Active cholestyramine (QUESTRAN) 4 gram packet Indications: Diarrhea MIX 1 PACKET AND DRINK DAILY NEEDED (USUALLY MID-DAY) 5 Active dicyclomine (BENTYL) 10 mg capsule TAKE ONE CAPSULE BY MOUTH THREE TIMES DAILY NEEDED FOR CHANGE IN BOWEL HABITS Active famotidine (PEPCID) 40 mg tablet 5 Active mupirocin (BACTROBAN) 2 % ointment APPLY TOPICALLY TO THE AFFECTED AREA DAILY FOR 7 DAYS 5 Active oxyCODONE-acetamin ophen (PERCOCET) 5-325 mg per tablet Take 1 tablet by mouth 2 (two) times a day as needed 5 Active sacubitriL-valsart an (ENTRESTO) 24-26 mg tablet Take 1 tablet by mouth 2 (two) times a day 5 Active Active Problems Problem Noted Date Diagnosed Date Cellulitis of right lower extremity 08/13/2024 Assessment & Plan (08/19/2024 6:42 AM CDT): - Possible cellulitis associated with T2DM and neuropathy Plan: - Vanc/cefe/metronidazole (08/12 - 08/17) - 08/16: hold vanc iso elevated trough - 08/17: discontinue abx Assessment & Plan (08/18/2024 6:33 AM CDT): - Possible cellulitis associated with T2DM and neuropathy Plan: - Vanc/cefe/metronidazole (08/12 - 08/17) - 08/16: hold vanc iso elevated trough - 08/17: discontinue abx Assessment & Plan (08/17/2024 11:20 AM CDT): - Possible cellulitis associated with T2DM and neuropathy Plan: - Vanc/cefe/metronidazole (08/12 - 08/17) - 08/16: hold vanc iso elevated trough - 08/17: discontinue abx Assessment & Plan (08/16/2024 10:44 AM CDT): - Possible cellulitis associated with T2DM and neuropathy Plan: - Vanc/cefe/metronidazole (08/12 - 08/17) - 08/16: hold vanc iso elevated trough, recheck 2300 - 08/17: discontinue abx Assessment & Plan (08/15/2024 8:41 AM CDT): - Possible cellulitis associated with T2DM and neuropathy Plan: - Vanc/cefe/metronidazole Assessment & Plan (08/14/2024 4:06 PM CDT): No DVT. Likely multifactorial: active problems (possible RLE cellulitis, subacute fracture) on chronic (contributions from CHF, CKD, Charcot arthropathy). On chart review: remote hx of swelling after CABG 2016, possible venous insufficiency from vein graft. Ortho consulted, appreciate recs: Planning hindfoot fusion nail after Charcot abates, likely o/p Diuresis: 40mg IV lasix 08/13, 08/14 Strict I/O's, daily BMP, Mg, P IV vancomycin, cefepime, metronidazole to cover polymicrobial source given T2DM Pain control: APAP 1000mg TID, oxycodone 5mg q4h prn Assessment & Plan (08/13/2024 6:55 PM CDT): No DVT. Likely multifactorial: active problems (possible RLE cellulitis, subacute fracture) on chronic (contributions from CHF, CKD, Charcot arthropathy). On chart review: remote hx of swelling after CABG 2017, possible venous insufficiency from vein graft. Ortho consulted, appreciate recs: Planning hindfoot fusion nail after Charcot abates, likely o/p Given 40mg IV lasix 08/13/24 1437; no UOP Given T2DM, covering for polymicrobial infection, smiley Pseudomonas IV vancomycin IV cefepime Pain control: APAP 1000mg TID, oxycodone 5mg q4h prn Swelling of lower leg 08/13/2024 Assessment & Plan (08/19/2024 6:42 AM CDT): - US DVT negative - Most likely due to HFrEF, venous insuficiency after CABG vein harvesting - Management as elsewhere Assessment & Plan (08/18/2024 6:33 AM CDT): - US DVT negative - Most likely due to HFrEF, venous insuficiency after CABG vein harvesting - Management as elsewhere Assessment & Plan (08/17/2024 7:11 AM CDT): - US DVT negative - Most likely due to HFrEF, venous insuficiency after CABG vein harvesting - Management as elsewhere Assessment & Plan (08/16/2024 10:44 AM CDT): - US DVT negative - Most likely due to HFrEF, venous insuficiency after CABG vein harvesting - Management as elsewhere Assessment & Plan (08/15/2024 8:41 AM CDT): - US DVT negative - Most likely due to HFrEF, venous insuficiency after CABG vein harvesting - Management as elsewhere Assessment & Plan (08/14/2024 4:06 PM CDT): No DVT. Likely multifactorial: active problems (possible RLE cellulitis, subacute fracture) on chronic (contributions from CHF, CKD, Charcot arthropathy). On chart review: remote hx of swelling after CABG 2016, possible venous insufficiency from vein graft. Ortho consulted, appreciate recs: Planning hindfoot fusion nail after Charcot abates, likely o/p Diuresis: 40mg IV lasix 08/13, 08/14 Strict I/O's, daily BMP, Mg, P IV vancomycin, cefepime, metronidazole to cover polymicrobial source given T2DM Pain control: APAP 1000mg TID, oxycodone 5mg q4h prn Assessment & Plan (08/13/2024 6:55 PM CDT): No DVT. Likely multifactorial: active problems (possible RLE cellulitis, subacute fracture) on chronic (contributions from CHF, CKD, Charcot arthropathy). On chart review: remote hx of swelling after CABG 2016, possible venous insufficiency from vein graft. Ortho consulted, appreciate recs: Planning hindfoot fusion nail after Charcot abates, likely o/p Given 40mg IV lasix 08/13/24 1437; no UOP Given T2DM, covering for polymicrobial infection, smiley Pseudomonas IV vancomycin IV cefepime Pain control: APAP 1000mg TID, oxycodone 5mg q4h prn Charcot arthropathy 08/13/2024 Assessment & Plan (08/19/2024 9:14 AM CDT): - Ortho eval: outpatient follow-up Plan: - Tylenol 1000 mg TID - Oxycodone 5 mg q4h PRN - boot for right heel protection from compensation Assessment & Plan (08/18/2024 10:34 AM CDT): - Ortho eval: outpatient follow-up and possible intervention Plan: - Tylenol 1000 mg TID - Oxycodone 5 mg q4h PRN - boot for right heel protection from compensation Assessment & Plan (08/17/2024 2:52 PM CDT): - Ortho eval: outpatient follow-up and possible intervention Plan: - Tylenol 1000 mg TID - Oxycodone 5 mg q4h PRN - Messaged PT regarding potential exercises/measures to alleviate pain from LLE compensation Assessment & Plan (08/16/2024 10:44 AM CDT): - Ortho eval: outpatient follow-up and possible intervention Plan: - Tylenol 1000 mg TID - Oxycodone 5 mg q4h PRN Assessment & Plan (08/15/2024 8:41 AM CDT): - Ortho eval: outpatient follow-up and possible intervention Plan: - Tylenol 1000 mg TID - Oxycodone 5 mg q4h PRN Assessment & Plan (08/14/2024 4:06 PM CDT): No DVT. Likely multifactorial: active problems (possible RLE cellulitis, subacute fracture) on chronic (contributions from CHF, CKD, Charcot arthropathy). On chart review: remote hx of swelling after CABG 2017, possible venous insufficiency from vein graft. Ortho consulted, appreciate recs: Planning hindfoot fusion nail after Charcot abates, likely o/p Diuresis: 40mg IV lasix 08/13, 08/14 Strict I/O's, daily BMP, Mg, P IV vancomycin, cefepime, metronidazole to cover polymicrobial source given T2DM Pain control: APAP 1000mg TID, oxycodone 5mg q4h prn Assessment & Plan (08/13/2024 6:55 PM CDT): No DVT. Likely multifactorial: active problems (possible RLE cellulitis, subacute fracture) on chronic (contributions from CHF, CKD, Charcot arthropathy). On chart review: remote hx of swelling after CABG 2016, possible venous insufficiency from vein graft. Ortho consulted, appreciate recs: Planning hindfoot fusion nail after Charcot abates, likely o/p Given 40mg IV lasix 08/13/24 1437; no UOP Given T2DM, covering for polymicrobial infection, smiley Pseudomonas IV vancomycin IV cefepime Pain control: APAP 1000mg TID, oxycodone 5mg q4h prn HTN (hypertension) 08/13/2024 Assessment & Plan (08/19/2024 10:30 AM CDT): - Home farxiga 10 mg daily, HCTZ 12.5 mg daily, metoprolol 12.5 mg BID - TTE Jul 21 EF 35-40% - NM MPI SPECT Jul 23 with possible ischemia - Most likely due to ischemic cardiomyopathy Plan: - 950 UOP with 2mg PO bumex BID -Cr has risen to 2.0. Possible that intravascularly depleted and lower extremity edema is 2/2 venous insufficiency. Will hold bumex for today and reassess tomorrow. - Continue dapaglifozin 10 mg daily - Continue metoprolol 12.5 mg BID - Will start Entresto at discharge - Consider GLP-1 agonist outpatient - Strict IO, daily weights, K > 4 Mg > 2 Assessment & Plan (08/18/2024 10:34 AM CDT): - Home farxiga 10 mg daily, HCTZ 12.5 mg daily, metoprolol 12.5 mg BID - TTE Wil 3 EF 35-40% - NM MPI SPECT Wil 5 with possible ischemia - Most likely due to ischemic cardiomyopathy Plan: -1500 UOP with furosemide 80mg IV BID, will need to be off IV lasix for 24 hours prior to discharge to [facility] -Will switch to bumex 2mg PO PID - Continue dapaglifozin 10 mg daily - Continue metoprolol 12.5 mg BID - Pending masters check Entresto - Consider GLP-1 agonist outpatient - Strict IO, daily weights, K > 4 Mg > 2 Assessment & Plan (08/17/2024 11:20 AM CDT): - Home farxiga 10 mg daily, HCTZ 12.5 mg daily, metoprolol 12.5 mg BID - TTE Wil 3 EF 35-40% - NM MPI SPECT Wil 5 with possible ischemia - Most likely due to ischemic cardiomyopathy Plan: - Will increase to furosemide 80 mg IV BID, assess UOP - Continue dapaglifozin 10 mg daily - Continue metoprolol 12.5 mg BID - Pending masters check Entresto - Consider GLP-1 agonist outpatient - Strict IO, daily weights, K > 4 Mg > 2 Assessment & Plan (08/16/2024 10:44 AM CDT): - Home farxiga 10 mg daily, HCTZ 12.5 mg daily, metoprolol 12.5 mg BID - TTE Wil 3 EF 35-40% - NM MPI SPECT Wil 5 with possible ischemia - Most likely due to ischemic cardiomyopathy Plan: - Try furosemide 40mg IV BID; assess UOP and compare with 80mg IV once - Continue dapaglifozin 10 mg daily - Continue metoprolol 12.5 mg BID - Pending masters check Entresto - Consider GLP-1 agonist outpatient - Strict IO, daily weights, K > 4 Mg > 2 Assessment & Plan (08/15/2024 1:27 PM CDT): - Home farxiga 10 mg daily, HCTZ 12.5 mg daily, metoprolol 12.5 mg BID - TTE Wil 3 EF 35-40% - NM MPI SPECT Wil 5 with possible ischemia - Most likely due to ischemic cardiomyopathy Plan: - Furosemide 80 mg IV - Dapaglifozin 10 mg daily - Metoprolol 12.5 mg BID - Masters check Entresto - Consider GLP-1 agonist outpatient - Strict IO, daily weights, K > 4 Mg > 2 Assessment & Plan (08/14/2024 8:28 AM CDT): HCTZ 12.5mg Assessment & Plan (08/13/2024 6:55 PM CDT): HCTZ 12.5mg BPH (benign prostatic hyperplasia) 08/13/2024 Assessment & Plan (08/19/2024 6:42 AM CDT): Home tamsulosin 0.4mg daily Assessment & Plan (08/18/2024 6:33 AM CDT): Home tamsulosin 0.4mg daily Assessment & Plan (08/17/2024 7:11 AM CDT): Home tamsulosin 0.4mg daily Assessment & Plan (08/16/2024 6:41 AM CDT): Home tamsulosin 0.4mg daily Assessment & Plan (08/15/2024 8:41 AM CDT): Home tamsulosin 0.4mg daily Assessment & Plan (08/14/2024 8:28 AM CDT): Tamsulosin 0.4mg daily Assessment & Plan (08/13/2024 6:55 PM CDT): Tamsulosin 0.4mg daily Neuropathy 08/13/2024 Assessment & Plan (08/19/2024 6:42 AM CDT): Home gabapentin 600 mg PO TID - continue Assessment & Plan (08/18/2024 6:33 AM CDT): Home gabapentin 600 mg PO TID - continue Assessment & Plan (08/17/2024 7:11 AM CDT): Home gabapentin 600 mg PO TID - continue Assessment & Plan (08/16/2024 6:41 AM CDT): Home gabapentin 600 mg PO TID - continue Assessment & Plan (08/15/2024 8:41 AM CDT): Home gabapentin 600 mg PO TID - continue Assessment & Plan (08/14/2024 8:28 AM CDT): SSI GBP 600mg PO TID Assessment & Plan (08/13/2024 6:55 PM CDT): SSI GBP 600mg PO TID CAD (coronary artery disease) 08/13/2024 Assessment & Plan (08/19/2024 6:42 AM CDT): Home atorvastatin 50mg PO daily, aspirin 81mg daily Assessment & Plan (08/18/2024 6:33 AM CDT): Home atorvastatin 50mg PO daily, aspirin 81mg daily Assessment & Plan (08/17/2024 7:11 AM CDT): Home atorvastatin 50mg PO daily, aspirin 81mg daily Assessment & Plan (08/16/2024 6:41 AM CDT): Home atorvastatin 50mg PO daily, aspirin 81mg daily Assessment & Plan (08/15/2024 8:41 AM CDT): Home atorvastatin 50mg PO daily, aspirin 81mg daily Assessment & Plan (08/14/2024 8:28 AM CDT): Metoprolol tartrate 12.5mg PO BID Atorvastatin 50mg PO daily Aspirin 81mg daily Assessment & Plan (08/13/2024 6:55 PM CDT): Metoprolol tartrate 12.5mg PO BID Atorvastatin 50mg PO daily Aspirin 81mg daily HFrEF (heart failure with reduced ejection fract ion) 08/13/2024 Assessment & Plan (08/19/2024 10:30 AM CDT): - Home farxiga 10 mg daily, HCTZ 12.5 mg daily, metoprolol 12.5 mg BID - TTE Wil 3 EF 35-40% - NM MPI SPECT Wil 5 with possible ischemia - Most likely due to ischemic cardiomyopathy Plan: - 950 UOP with 2mg PO bumex BID -Cr has risen to 2.0. Possible that intravascularly depleted and lower extremity edema is 2/2 venous insufficiency. Will hold bumex for today and reassess tomorrow. - Continue dapaglifozin 10 mg daily - Continue metoprolol 12.5 mg BID - Will start Entresto at discharge - Consider GLP-1 agonist outpatient - Strict IO, daily weights, K > 4 Mg > 2 Assessment & Plan (08/18/2024 10:34 AM CDT): - Home farxiga 10 mg daily, HCTZ 12.5 mg daily, metoprolol 12.5 mg BID - TTE Wil 3 EF 35-40% - NM MPI SPECT Wli 5 with possible ischemia - Most likely due to ischemic cardiomyopathy Plan: -1500 UOP with furosemide 80mg IV BID, will need to be off IV lasix for 24 hours prior to [facility] -Will switch to bumex 2mg PO PID - Continue dapaglifozin 10 mg daily - Continue metoprolol 12.5 mg BID - Pending masters check Entresto - Consider GLP-1 agonist outpatient - Strict IO, daily weights, K > 4 Mg > 2 Assessment & Plan (08/17/2024 11:20 AM CDT): - Home farxiga 10 mg daily, HCTZ 12.5 mg daily, metoprolol 12.5 mg BID - TTE Wil 3 EF 35-40% - NM MPI SPECT Wil 5 with possible ischemia - Most likely due to ischemic cardiomyopathy Plan: - Will increase to furosemide 80 mg IV BID, assess UOP - Continue dapaglifozin 10 mg daily - Continue metoprolol 12.5 mg BID - Pending masters check Entresto - Consider GLP-1 agonist outpatient - Strict IO, daily weights, K > 4 Mg > 2 Assessment & Plan (08/16/2024 10:44 AM CDT): - Home farxiga 10 mg daily, HCTZ 12.5 mg daily, metoprolol 12.5 mg BID - TTE Wil 3 EF 35-40% - NM MPI SPECT Wil 5 with possible ischemia - Most likely due to ischemic cardiomyopathy Plan: - Try furosemide 40mg IV BID; assess UOP and compare with 80mg IV once - Continue dapaglifozin 10 mg daily - Continue metoprolol 12.5 mg BID - Pending masters check Entresto - Consider GLP-1 agonist outpatient - Strict IO, daily weights, K > 4 Mg > 2 Assessment & Plan (08/15/2024 1:27 PM CDT): - Home farxiga 10 mg daily, HCTZ 12.5 mg daily, metoprolol 12.5 mg BID - TTE Jul 3 EF 35-40% - NM MPI SPECT Jul 23 with possible ischemia - Most likely due to ischemic cardiomyopathy Plan: - Furosemide 80 mg IV - Dapaglifozin 10 mg daily - Metoprolol 12.5 mg BID - Masters check Entresto - Consider GLP-1 agonist outpatient - Strict IO, daily weights, K > 4 Mg > 2 Assessment & Plan (08/14/2024 8:28 AM CDT): Farxiga 10mg PO daily Assessment & Plan (08/13/2024 6:55 PM CDT): Farxiga 10mg PO daily Chronic diarrhea 08/13/2024 Assessment & Plan (08/19/2024 6:42 AM CDT): - Chronic with subacute worsening - EGD and colonoscopy unremarkable - C diff negative - Anti-gliadin IgA IgG negative -Cryptosporidium & Giardia antigen stool assay negative Plan: - Fecal calprotectin pending - Stool electrolyte and osmolality gap pending Assessment & Plan (08/18/2024 6:33 AM CDT): - Chronic with subacute worsening - EGD and colonoscopy unremarkable - C diff negative - Anti-gliadin IgA IgG negative -Cryptosporidium & Giardia antigen stool assay negative Plan: - Fecal calprotectin pending - Stool electrolyte and osmolality gap pending Assessment & Plan (08/17/2024 11:20 AM CDT): - Chronic with subacute worsening - EGD and colonoscopy unremarkable - C diff negative - Anti-gliadin IgA IgG negative -Cryptosporidium & Giardia antigen stool assay negative Plan: - Fecal calprotectin pending - Stool electrolyte and osmolality gap pending Assessment & Plan (08/16/2024 10:44 AM CDT): - Chronic with subacute worsening - EGD and colonoscopy unremarkable - C diff negative - Anti-gliadin IgA IgG negative Plan: - Cryptosporidium & Giardia antigen stool assay pending - Fecal calprotectin pending - Stool electrolyte and osmolality gap pending Assessment & Plan (08/15/2024 8:41 AM CDT): - Chronic with subacute worsening - EGD and colonoscopy unremarkable - C diff negative - Anti-gliadin IgA IgG negative Plan: - Cryptosporidium & Giardia antigen stool assay pending - Fecal calprotectin pending - Stool electrolyte and osmolality gap pending Assessment & Plan (08/14/2024 8:28 AM CDT): New chronic diarrhea that began 2 months ago and is markedly more frequent Denies any recent travel outside of country Pt's baseline diarrhea began after cholecystectomy ~1999; has tried cholestyramine to varying success Worked with outpatient GI doctor and PCP in 06/2024 to get EGD and colonoscopy; largely unremarkable Recently finished PO vanc; states no diarrhea during course, but symptoms resumed afterwards Plan: GI work-up: C. Diff PCR Cryptosporidium & Giardia antigen stool assay Gliadin IgG, IgA for celiac Fecal calprotectin for IBD Stool electrolyte and osmolality gap - sent as misc lab test to [facility] for processing CTM volume status Assessment & Plan (08/13/2024 7:05 PM CDT): New chronic diarrhea that began 2 months ago and is markedly more frequent Denies any recent travel outside of country Pt's baseline diarrhea began after cholecystectomy ~1999; has tried cholestyramine to varying success Worked with outpatient GI doctor and PCP in 06/2024 to get EGD and colonoscopy; largely unremarkable Recently finished PO vanc; states no diarrhea during course, but symptoms resumed afterwards Plan: GI work-up: C. Diff PCR Cryptosporidium & Giardia antigen stool assay Gliadin IgG, IgA for celiac Fecal calprotectin for IBD Stool electrolyte and osmolality gap - sent as misc lab test to [facility] for processing CTM volume status Fibula fracture 08/13/2024 Assessment & Plan (08/19/2024 9:14 AM CDT): - Ortho eval: outpatient follow-up Plan: - Tylenol 1000 mg TID - Oxycodone 5 mg q4h PRN - boot for right heel protection from compensation Assessment & Plan (08/18/2024 10:34 AM CDT): - Ortho eval: outpatient follow-up and possible intervention Plan: - Tylenol 1000 mg TID - Oxycodone 5 mg q4h PRN - boot for right heel protection from compensation Assessment & Plan (08/17/2024 2:52 PM CDT): - Ortho eval: outpatient follow-up and possible intervention Plan: - Tylenol 1000 mg TID - Oxycodone 5 mg q4h PRN - Messaged PT regarding potential exercises/measures to alleviate pain from LLE compensation Assessment & Plan (08/16/2024 10:44 AM CDT): - Ortho eval: outpatient follow-up and possible intervention Plan: - Tylenol 1000 mg TID - Oxycodone 5 mg q4h PRN Assessment & Plan (08/15/2024 8:41 AM CDT): - Ortho eval: outpatient follow-up and possible intervention Plan: - Tylenol 1000 mg TID - Oxycodone 5 mg q4h PRN Assessment & Plan (08/14/2024 4:06 PM CDT): No DVT. Likely multifactorial: active problems (possible RLE cellulitis, subacute fracture) on chronic (contributions from CHF, CKD, Charcot arthropathy). On chart review: remote hx of swelling after CABG 2017, possible venous insufficiency from vein graft. Ortho consulted, appreciate recs: Planning hindfoot fusion nail after Charcot abates, likely o/p Diuresis: 40mg IV lasix 08/13, 08/14 Strict I/O's, daily BMP, Mg, P IV vancomycin, cefepime, metronidazole to cover polymicrobial source given T2DM Pain control: APAP 1000mg TID, oxycodone 5mg q4h prn Assessment & Plan (08/13/2024 6:55 PM CDT): No DVT. Likely multifactorial: active problems (possible RLE cellulitis, subacute fracture) on chronic (contributions from CHF, CKD, Charcot arthropathy). On chart review: remote hx of swelling after CABG 2016, possible venous insufficiency from vein graft. 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 Postlaminectomy syndrome of lumbar region 2016 Myofascial pain 07/11/2016 Pain of upper abdomen 05/11/2016 Neuropathic pain syndrome (non-herpetic) 017 Chronic pain 05/11/2016 Steatosis of liver 09/07/2013 Obesity with body mass index 30 or greater 09/07 T2DM (type 2 diabetes mellitus) 09/07/2013 Assessment & Plan (08/19/2024 6:42 AM CDT): Plan: - SSI Assessment & Plan (08/18/2024 6:33 AM CDT): Plan: - SSI Assessment & Plan (08/17/2024 7:11 AM CDT): Plan: - SSI Assessment & Plan (08/16/2024 10:44 AM CDT): Plan: - SSI Assessment & Plan (08/15/2024 8:41 AM CDT): Plan: - SSI Assessment & Plan (08/14/2024 8:28 AM CDT): SSI GBP 600mg PO TID Assessment & Plan (08/13/2024 6:55 PM CDT): SSI GBP 600mg PO TID Hypothyroidism, unspecified 09/07/2013 Assessment & Plan (08/19/2024 6:42 AM CDT): Home LT4 50mcg PO daily Assessment & Plan (08/18/2024 6:33 AM CDT): Home LT4 50mcg PO daily Assessment & Plan (08/17/2024 7:11 AM CDT): Home LT4 50mcg PO daily Assessment & Plan (08/16/2024 6:41 AM CDT): Home LT4 50mcg PO daily Assessment & Plan (08/15/2024 8:41 AM CDT): Home LT4 50mcg PO daily Assessment & Plan (08/14/2024 8:28 AM CDT): LT4 50mcg PO daily Assessment & Plan (08/13/2024 6:55 PM CDT): LT4 50mcg PO daily Lumbago 09/07/2013 Hernia of anterior abdominal wall 04/09/2013 Right upper quadrant abdominal pain 04/09/2013 Encounters Date Type Department Care Team Description 10/23/2024 2:12 PM CDT - 10/23/2024 11:59 PM CDT Hospital Encounter [facility] Radiology at [facility] [address] [place] [address] Pain in joint involving right ankle and foot Discharge Disposition: Discharge to home or self care 10/15/2024 9:00 AM CDT Office Visit [facility] Medicine Orthopaedic Surgery [address] [facility] 2nd Floor [address] [place] [address] Soraya Wong NP Pain in right foot (Primary Dx); Charcot's joint of right ankle 10/14/[address] [facility] Medicine Orthopaedic Surgery [address] [facility] 1st Floor [address] [place] [address] Carlos Atwood MD Pain in joint involving right ankle and foot (Primary Dx) 10/06/[address] [facility] Medicine Orthopaedic Surgery [address] [facility] [address] [place] [address] Deb Todd RMA 10/05/2024 12:34 PM CDT - 10/05/2024 11:59 PM CDT Hospital Encounter [facility] [address] [place] [id number] Pain in joint involving right ankle and foot Discharge Disposition: Discharge to home or self care 10/05/2024 12:30 PM CDT - 10/05/2024 11:59 PM CDT Hospital Encounter [facility] [address] [place] [id number] Pain in right foot Discharge Disposition: Discharge to home or self care 10/05/2024 12:20 PM CDT Office Visit [facility] Medicine Orthopaedic Surgery [address] [place] [address] 2[address] Floor [address] [place] [phone] Carlos Atwood MD Pain in joint involving right ankle and foot (Primary Dx); Pain in right foot 09/22/2024 2:45 PM CDT Office Visit [facility] Orth[facility] [address] [place] [address] 2nd Floor [address] [place] [phone] Soraya Wong NP Charcot's joint of right ankle (Primary Dx) 09/09/2024 8:40 AM CDT Office Visit [facility] Medicine Orthopaedic Surgery [address] [place] [address] 2nd Floor [address] [place] [address] Carlos Atwood MD Charcot joint of right foot (Primary Dx) 08/26/2024 10:15 AM CDT Office Visit [facility] Medicine Orthopaedic Surgery [address] [facility] Medical Office Building 4 [address] [place] [address] Drake Ariza NP Pain in joint involving right ankle and foot (Primary Dx) 08/14/[address] [facility] Medicine Orthopaedic Surgery [address] Medical Office Building [address] [place] [phone] Kelley Devine RN 08/13/2024 11:40 AM CDT Ancillary Procedure [facility] IP [address] [facility] [address] [place] [address] 08/13/2024 Orders Only [facility] Orthopaedic Surgery [address] [facility] 6th [place] [address] [place] [phone] Annabella Barrera MD Charcot joint of right foot (Primary Dx) 08/12/2024 8:33 PM CDT - 08/19/2024 6:30 PM CDT Hospital Encounter [facility] [address] [place] [address] Dany Parker MD Serpe, MD Asa Menjivar, MD Fadumo Nolen, MD Naveen Levin, MD Jamar Luna, Flornetino Vu MD Cellulitis of right lower extremity (Primary Dx); Closed fracture of distal end of right fibula, unspecified fracture morphology, initial encounter Discharge Disposition: Discharge to an IP Rehab facility from Last 3 Months Immunizations Immunization Administration Dates Next Due Influenza, Trivalent, Preservative Free, Intramu scular 02/18/2014 Pneumococcal Polysaccharide PPV23 02/19/2012 Surgical History Surgery Date Site/Laterality Comments BACK SURGERY Back Surgery - (Added by TW Conv) [place] UNLISTED PROCEDURE ABDOME N PERITONEUM & OMENTUM 1999 11 inches of colon removed, cyst formed and removed. [place] CHOLECYSTECTOMY Cholecystectomy - (Added by TW Conv) CHOLECYSTECTOMY Jul 1999 Cholecystectomy - (Added by TW Conv) HERNIA REPAIR Oct 1997 Hernia Repair - (Added by TW Conv)- mesh replaced AORTIC VALVE REPLACEMENT 2022 BYPASS GRAFT CYST REMOVAL Anal cyst removed 2000 COLON SURGERY Jul 1999 VASECTOMY Mar 1973 CARDIAC VALVE REPLACEMENT Nov 07 Medical History Medical History Date Comments Chronic diarrhea Coronary artery disease Type 2 diabetes mellitus Sleep apnea Aug 2014 Heart disease Nov 2012 Family History Medical History Relation Name Comments Colon cancer Brother Diabetes type II Brother Family hist ory of type 2 diabetes mellitus - (Added by TW Conv) Heart disease Father Family history of cardiac disorder - (Added by TW Conv) Diabetes type II Other 1 Type 2 Diab etes Mellitus - (Added by TW Conv) Stroke Other 2 Stroke Syndrome - (Added by TW Conv) Relation Name Status Comments Brother Father Other 1 Other 2 Social History Tobacco Use Types Packs/Day Years Used Date Smoking Tobacco: Former Cigarettes 1 12.1 0 07/30/1961 - 09/02/1973 Smokeless Tobacco: Never Tobacco Cessation:Counseling Given: Not Answered AUDIT-C Answer Date Recorded Q1: How often [...] on file Legal Sex Male 6:32 AM [employer] Gender Identity Not on file Sexual Orientation Not on file Obstetrics History Last Filed Vital Signs Vital Sign Reading Time Taken Comments Blood Pressure 105/49 08/19/2024 4:44 PM CDT Pulse 79 08/19/2024 4:44 PM CDT Temperature 36.3 C (97.3 F) 08/19/2024 4:44 PM CDT Respiratory Rate 17 08/19/2024 4:44 PM CDT Oxygen Saturation 99% 08/19/2024 4:44 PM CDT Inhaled Oxygen Concentration - - Weight 117.9 kg (260 lb) 09/22/2024 2:49 PM CDT Height 170.2 cm (5' 7) 09/22/2024 2:49 PM CDT Body Mass Index 40.72 09/22/2024 2:49 PM CDT Plan of Treatment Health Maintenance Due Date Last Done Comments Albumin Creatinine Ratio, Urine 1947 Depression Screening 1945 Dilated Eye Exam 1947 Foot Exam 1947 Hepatitis B Screening 1965 Well Visit 65+ 2012 Covid-19 Vaccine (2024-2 6 season) 2024 10/13/2021, 02/28/2021, 04/29/2020, Additional history exists Influenza Vaccine (#1) 2024 , 11/23/2022, 11/21/2021, Additional history exists Hemoglobin A1C 02/12/2025 08/13/2024, 08/12/2024 Lipid Panel 08/12/2025 08/12/2024, 06/0 04/2024, 09/24/2023, Additional history exists eGFR 08/18/2025 08/18/2024, 07/21, 08/16/2024, Additional history exists Fall Risk Assessment 08/19/2025 08/19/2024 DTaP/Tdap/Td Vaccine (2 - Td or Tdap) 01/04/2031 01/04/2021 Hepatitis C Screening Completed 09/07/2013 Zoster Vaccine Completed 12/06/2021, 08/08/2021 Pneumococcal vaccine 65+ Completed 024, 08/07/2021, 11/26/2016, Additional history exists Colon Cancer Screening-CT Colonography Discontinued 06/26/2024 Colon Cancer Screening-Colonoscopy Discontinued 06/26/2024 Colon Cancer Screening-DNA Stool Discontinued 06/27/19 Colon Cancer Screening-FIT Discontinued 06/26/2024 Colon Cancer Screening-FOBT Discontinued 06/26/2024 Colon Cancer Screening-Sigmoidoscopy Discontinued 06/26/2024 Colorectal Cancer Screening Discontinued Procedures Procedure Name Priority Date/Time Associated Diagnosis Comments CT ANKLE RIGHT WO CONTRAST Schedule Routine, Read Routine (OP Routine) 10/23/2024 2:56 PM CDT Pain in joint involving right ankle and foot ORTHO CASTING/SPLINTING Routine 10/15/2024 10:07 AM CDT Pain in right foot [place] CAST SUP SHRT LEG FIBERGLASS Routine 10/05/2024 1:44 PM CDT Pain in joint involving right ankle and foot [place] APPLICATION RIGID TOTAL CONTACT LEG CAST Routine 10/05/2024 1:44 PM CDT Pain in joint involving right ankle and foot XR FOOT RIGHT 3 OR MORE VIEWS Schedule Routine, Read Routine (OP Routine) 10/05/2024 12:55 PM CDT Pain in right foot XR ANKLE RIGHT 3 OR MORE VIEWS Schedule Routine, Read Routine (OP Routine) 10/05/2024 12:55 PM CDT Pain in joint involving right ankle and foot [place] CAST SUP SHRT LEG FIBERGLASS Routine 09/22/2024 6:56 PM CDT Charcot's joint of right ankle [place] APPLICATION RIGID TOTAL CONTACT LEG CAST Routine 09/22/2024 6:56 PM CDT Charcot's joint of right ankle [place] CAST SUP SHRT LEG FIBERGLASS Routine 09/09/2024 10:06 AM CDT Charcot joint of right foot [place] APPLICATION RIGID TOTAL CONTACT LEG CAST Routine 09/09/2024 10:06 AM CDT Charcot joint of right foot [place] CAST SUP SHT LEG SPLNT PLSTR Routine 08/26/2024 11:00 AM CDT Pain in joint involving right ankle and foot [place] APPLICATION SHORT LEG SPLINT CALF FOOT Routine 08/26/2024 11:00 AM CDT Pain in joint involving right ankle and foot POCT GLUCOSE DEVICE Routine 08/19/2024 1 1:54 AM CDT POCT GLUCOSE DEVICE Routine 08/19/2024 7 :55 AM CDT EGFR Routine 08/18/2024 8:28 PM CDT DIFFERENTIAL AUTO Routine 08/18/2024 8:2 8 PM CDT CBC WITH AUTO DIFFERENTIAL Routine 08/18/2024 8:28 PM CDT BASIC METABOLIC PANEL Routine 08/18/2024 8:28 PM CDT POCT GLUCOSE DEVICE Routine 08/18/2024 7 :56 PM CDT POCT GLUCOSE DEVICE Routine 08/18/2024 5 :10 PM CDT POCT GLUCOSE DEVICE Routine 08/18/2024 1 1:45 AM CDT POCT GLUCOSE DEVICE Routine 08/18/2024 7 :31 AM CDT MAGNESIUM Routine 08/17/2024 8:30 PM CDT EGFR Routine 08/17/2024 8:30 PM CDT DIFFERENTIAL AUTO Routine 08/17/2024 8:3 0 PM CDT CBC WITH AUTO DIFFERENTIAL Routine 08/17/2024 8:30 PM CDT BASIC METABOLIC PANEL Routine 08/17/2024 8:30 PM CDT POCT GLUCOSE DEVICE Routine 08/17/2024 7 :52 PM CDT POCT GLUCOSE DEVICE Routine 08/17/2024 4 :58 PM CDT POCT GLUCOSE DEVICE Routine 08/17/2024 1 1:49 AM CDT POCT GLUCOSE DEVICE Routine 08/17/2024 7 :43 AM CDT CRITICAL RESULT CALLBACK CHEMISTRY Routine 08/16/2024 9:26 PM CDT VANCOMYCIN LEVEL TROUGH Routine 08/16/2024 9:26 PM CDT MAGNESIUM Routine 08/16/2024 9:26 PM CDT EGFR Routine 08/16/2024 9:26 PM CDT DIFFERENTIAL AUTO Routine 08/16/2024 9:2 6 PM CDT CBC WITH AUTO DIFFERENTIAL Routine 08/16/2024 9:26 PM CDT BASIC METABOLIC PANEL Routine 08/16/2024 9:26 PM CDT POCT GLUCOSE DEVICE Routine 08/16/2024 8 :05 PM CDT POCT GLUCOSE DEVICE Routine 08/16/2024 4 :38 PM CDT POCT GLUCOSE DEVICE Routine 08/16/2024 1 1:21 AM CDT POCT GLUCOSE DEVICE Routine 08/16/2024 8 :07 AM CDT EGFR Routine 08/15/2024 11:08 PM CDT CRITICAL RESULT CALLBACK CHEMISTRY Timed 08/15/2024 11:08 PM CDT DIFFERENTIAL AUTO Routine 08/15/2024 11: 08 PM CDT VANCOMYCIN LEVEL TROUGH Timed 08/15/2024 11:08 PM CDT CBC WITH AUTO DIFFERENTIAL Routine 08/15/2024 11:08 PM CDT BASIC METABOLIC PANEL Routine 08/15/2024 11:08 PM CDT POCT GLUCOSE DEVICE Routine 08/15/2024 7 :55 PM CDT POCT GLUCOSE DEVICE Routine 08/15/2024 4 :35 PM CDT CALPROTECTIN, FECAL Routine 08/15/2024 3 :49 PM CDT CRYPTOSPORIDIUM AND GIARDIA ANTIGEN ASSAY Routine 08/15/2024 3:49 PM CDT POCT GLUCOSE DEVICE Routine 08/15/2024 1 2:05 PM CDT POCT GLUCOSE DEVICE Routine 08/15/2024 8 :19 AM CDT EGFR Routine 08/15/2024 3:56 AM CDT DIFFERENTIAL AUTO Routine 08/15/2024 3:5 6 AM CDT BASIC METABOLIC PANEL Routine 08/15/2024 3:56 AM CDT CBC WITH AUTO DIFFERENTIAL Routine 08/15/2024 3:56 AM CDT SODIUM, URINE, RANDOM Timed 08/15/2024 3:56 AM CDT POCT GLUCOSE DEVICE Routine 08/14/2024 8 :20 PM CDT POCT GLUCOSE DEVICE Routine 08/14/2024 6 :09 PM CDT POCT GLUCOSE DEVICE Routine 08/14/2024 2 :08 PM CDT POCT GLUCOSE DEVICE Routine 08/14/2024 8 :22 AM CDT EGFR Routine 08/13/2024 8:24 PM CDT DIFFERENTIAL AUTO Routine 08/13/2024 8:2 4 PM CDT GLIADIN ANTIBODY, IGG Routine 08/13/2024 8:24 PM CDT GLIADIN ANTIBODY, IGA Routine 08/13/2024 8:24 PM CDT BASIC METABOLIC PANEL Routine 08/13/2024 8:24 PM CDT CBC WITH AUTO DIFFERENTIAL Routine 08/13/2024 8:24 PM CDT POCT GLUCOSE DEVICE Routine 08/13/2024 8 :05 PM CDT C. DIFFICILE TESTING Routine 08/13/2024 6:32 PM CDT POCT GLUCOSE DEVICE Routine 08/13/2024 4 :43 PM CDT POCT GLUCOSE DEVICE Routine 08/13/2024 1 :10 PM CDT US VEIN DUPLEX LOWER EXTREMITY BILATERAL COMPLETE IP Routine 08/13/2024 12:54 PM CDT ERYTHROCYTE SEDIMENTATION RATE Timed 08/13/2024 9:30 AM CDT CRP (ACUTE PHASE) Timed 08/13/2024 9:3 0 AM CDT POCT GLUCOSE DEVICE Routine 08/13/2024 8 :31 AM CDT POCT GLUCOSE DEVICE Routine 08/13/2024 5 :06 AM CDT XR ANKLE RIGHT 3 OR MORE VIEWS ED 08/13/2024 2:07 AM CDT XR TIBIA FIBULA RIGHT2 VIEWS ED 08/13/2024 2:06 AM CDT POTASSIUM, WHOLE BLOOD STAT 12:26 AM CDT POCT GLUCOSE DEVICE Routine 08/13/2024 1 2:[address] ENTIRE LOWER EXTREMITY RIGHT W CONTRAST ED 08/13/2024 12:15 AM CDT XR FOOT RIGHT 3 OR MORE VIEWS ED 08/12/2024 11:41 PM CDT POCT CREATININE - DEVICE Routine 08/12/2024 11:33 PM CDT HEMOGLOBIN A1C STAT 08/12/2024 9:59 PM CDT LIPID PANEL STAT 08/12/2024 9:59 PM CDT EGFR STAT 08/12/2024 9:59 PM CDT DIFFERENTIAL AUTO STAT 08/12/2024 9:5 9 PM CDT COMPREHENSIVE METABOLIC PANEL STAT 08/12/2024 9:59 PM CDT CBC WITH AUTO DIFFERENTIAL STAT 08/12/2024 9:59 PM CDT POCT KETONE, BLOOD Routine 08/12/2024 9: 17 PM CDT POCT GLUCOSE DEVICE Routine 08/12/2024 8 :51 PM CDT COLONOSCOPY 06/26/2024 11:50 AM CDT SERUM HEPATITIS C AB Routine 09/07/2013 5:17 AM CDT from Last 3 Months or Most Recently Relevant to Health Maintenance Results * CT Ankle Right WO Contrast [...] MD IMG CT PROCEDURES Lashanda l Result * Ortho Casting/Splinting Documentation (10/15/2024 10:07 AM CDT) Narrative Juan Carlos Maciel BS - 10/15/2024 10:07 AM CDT Juan Carlos Maciel BS 10/15/2024 11:12 AM Ortho Casting/Splinting Documentation Date/Time: 10/15/2024 10:07 AM Performed by: Juan Carlos Maciel BS Authorized by: Soraya Wong NP Sensation: Normal Skin Condition: Clean, dry, and intact Cast Removed: Yes Location: Foot Foot: R foot Supplies: Cast removal only Capillary Refill: Normal Patient tolerance of procedure: Tolerated well, no immediate complications Soraya Wong WASTE AND BATTING WASTE CHOPPER IN CLINIC/BEDSIDE ORDERABLES F inal Result * [place] APPLICATION RIGID TOTAL CONTACT LEG CAST, [place] CAST SUP SHRT LEG FIBERGLASS (10/05/2024 1:44 PM CDT) Narrative Carlos Atwood MD - 10/05/2024 1:44 PM CDT Carlos Atwood MD 10/11/2024 10:17 PM Ortho Casting/Splinting Documentation Date/Time: 10/05/2024 1:44 PM Performed by: Jennifer Dean, MS Authorized by: Carlos Atwood MD Sensation: Normal Skin Condition: Clean, dry, and intact Gloria/Sutures Removed: No Pin Pulled: No Cast Removed: Yes Cast Applied: Yes Overwrap: No Location: Ankle Ankle: R ankle Cast type: Total contact non weightbearing cast Supplies: Fiberglass Additional Supplies: Cotton padding, cotton stocking/sleeve, felt malleolar pads and felt tibia pads Number of fiberglass rolls used: 6 Capillary Refill: Normal Patient tolerance of procedure: Tolerated well, no immediate complications us Carlos Atwood MD IN CLINIC/BEDSIDE NAMRATA TAYLOR Edited Result - Final * XR Foot Right 3+ View (10/05/2024 12:55 PM CDT) Anatomical Region Laterality Modality Lower Extremities, Foot Right Computed Radiography 10/05/2024 3:00 PM CDT Impressions 10/05/2024 3:03 PM CDT 1. Severe right ankle/hindfoot neuropathic arthropathy with severe pes planus and hindfoot valgus and articulation of the distal fibula and tibia with the lateral talus and calcaneus, with mildly displaced distal right fibular fracture in unchanged alignment and associated hypertrophic callus formation. The known comminuted fracture of the talus is better demonstrated on prior CT. 2. Unchanged medial clear space widening. Dictated by: Jim Rosas MD The radiology attending physician has personally reviewed this study, and had reviewed and/or edited this written report and agrees with it. Electronically signed by: Andres Lua M.D. Narrative 10/05/2024 3:03 PM CDT EXAMINATION: XR ANKLE RIGHT 3 OR MORE VIEWS, XR FOOT RIGHT 3 OR MORE VIEWS HISTORY: Right ankle and foot pain FINDINGS: Comparison is made with radiographs and CT dated 08/13/2024. There is a mildly displaced distal right fibular fracture, in unchanged alignment, with hypertrophic callus formation. Unchanged medial clear space widening measuring up to 1.0 cm. The known comminuted fracture of the talus is better demonstrated on prior CT. There are findings of severe right ankle/hindfoot neuropathic arthropathy with severe pes planus and hindfoot valgus. The distal fibula and tibia articulate with the lateral talus and calcaneus. No new acute fracture is identified. There is unchanged diffuse soft tissue swelling about the right ankle and foot. Extensive vascular atherosclerotic calcifications. Procedure Note Andres Lua MD PhD - 10/05/2024 EXAMINATION: XR ANKLE RIGHT 3 OR MORE VIEWS, XR FOOT RIGHT 3 OR MORE VIEWS HISTORY: Right ankle and foot pain FINDINGS: Comparison is made with radiographs and CT dated 08/13/2024. There is a mildly displaced distal right fibular fracture, in unchanged alignment, with hypertrophic callus formation. Unchanged medial clear space widening measuring up to 1.0 cm. The known comminuted fracture of the talus is better demonstrated on prior CT. There are findings of severe right ankle/hindfoot neuropathic arthropathy with severe pes planus and hindfoot valgus. The distal fibula and tibia articulate with the lateral talus and calcaneus. No new acute fracture is identified. There is unchanged diffuse soft tissue swelling about the right ankle and foot. Extensive vascular atherosclerotic calcifications. IMPRESSION: 1. Severe right ankle/hindfoot neuropathic arthropathy with severe pes planus and hindfoot valgus and articulation of the distal fibula and tibia with the lateral talus and calcaneus, with mildly displaced distal right fibular fracture in unchanged alignment and associated hypertrophic callus formation. The known comminuted fracture of the talus is better demonstrated on prior CT. 2. Unchanged medial clear space widening. Dictated by: Jim Rosas MD The radiology attending physician has personally reviewed this study, and had reviewed and/or edited this written report and agrees with it. Electronically signed by: Andres Lua M.D. Carlos Atwood MD IMG XR PROCEDURES Lashanda l Result * XR Ankle Right 3+ View (10/05/2024 12:55 PM CDT) Anatomical Region Laterality Modality Lower Extremities, Ankle Right Compute d Radiography 10/05/2024 3:00 PM CDT Impressions 10/05/2024 3:03 PM CDT 1. Severe right ankle/hindfoot neuropathic arthropathy with severe pes planus and hindfoot valgus and articulation of the distal fibula and tibia with the lateral talus and calcaneus, with mildly displaced distal right fibular fracture in unchanged alignment and associated hypertrophic callus formation. The known comminuted fracture of the talus is better demonstrated on prior CT. 2. Unchanged medial clear space widening. Dictated by: Jim Rosas MD The radiology attending physician has personally reviewed this study, and had reviewed and/or edited this written report and agrees with it. Electronically signed by: Andres Lua M.D. Narrative 10/05/2024 3:03 PM CDT EXAMINATION: XR ANKLE RIGHT 3 OR MORE VIEWS, XR FOOT RIGHT 3 OR MORE VIEWS HISTORY: Right ankle and foot pain FINDINGS: Comparison is made with radiographs and CT dated 08/13/2024. There is a mildly displaced distal right fibular fracture, in unchanged alignment, with hypertrophic callus formation. Unchanged medial clear space widening measuring up to 1.0 cm. The known comminuted fracture of the talus is better demonstrated on prior CT. There are findings of severe right ankle/hindfoot neuropathic arthropathy with severe pes planus and hindfoot valgus. The distal fibula and tibia articulate with the lateral talus and calcaneus. No new acute fracture is identified. There is unchanged diffuse soft tissue swelling about the right ankle and foot. Extensive vascular atherosclerotic calcifications. Procedure Note Andres Lua MD PhD - 10/05/2024 EXAMINATION: XR ANKLE RIGHT 3 OR MORE VIEWS, XR FOOT RIGHT 3 OR MORE VIEWS HISTORY: Right ankle and foot pain FINDINGS: Comparison is made with radiographs and CT dated 08/13/2024. There is a mildly displaced distal right fibular fracture, in unchanged alignment, with hypertrophic callus formation. Unchanged medial clear space widening measuring up to 1.0 cm. The known comminuted fracture of the talus is better demonstrated on prior CT. There are findings of severe right ankle/hindfoot neuropathic arthropathy with severe pes planus and hindfoot valgus. The distal fibula and tibia articulate with the lateral talus and calcaneus. No new acute fracture is identified. There is unchanged diffuse soft tissue swelling about the right ankle and foot. Extensive vascular atherosclerotic calcifications. IMPRESSION: 1. Severe right ankle/hindfoot neuropathic arthropathy with severe pes planus and hindfoot valgus and articulation of the distal fibula and tibia with the lateral talus and calcaneus, with mildly displaced distal right fibular fracture in unchanged alignment and associated hypertrophic callus formation. The known comminuted fracture of the talus is better demonstrated on prior CT. 2. Unchanged medial clear space widening. Dictated by: Jim Rosas MD The radiology attending physician has personally reviewed this study, and had reviewed and/or edited this written report and agrees with it. Electronically signed by: Andres Lua M.D. us Carlos Atwood MD IMG XR PROCEDURES Lashanda l Result * [place] APPLICATION RIGID TOTAL CONTACT LEG CAST, [place] CAST SUP SHRT LEG FIBERGLASS (09/22/2024 6:56 PM CDT) Narrative Zachary Barrera - 09/22/2024 6:56 PM CDT Zachary Barrera 09/22/2024 6:56 PM Ortho Casting/Splinting Documentation Date/Time: 09/22/2024 6:56 PM Performed by: Zachary Barrera Authorized by: Soraya Wong NP Sensation: Normal Skin Condition: Clean, dry, and intact Gloria/Sutures Removed: No Pin Pulled: No Cast Removed: Yes Cast Applied: Yes Location: Ankle Ankle: R ankle Cast type: Total contact non weightbearing cast Supplies: Fiberglass Additional Supplies: Cotton padding, cotton stocking/sleeve, felt tibia pads, felt malleolar pads and gauze Number of fiberglass rolls used: 5 Capillary Refill: Normal Patient tolerance of procedure: Tolerated well, no immediate complications us Soraya Wong NP IN CLINIC/BEDSIDE ORDERABLES F inal Result * [place] APPLICATION RIGID TOTAL CONTACT LEG CAST, [place] CAST SUP SHRT LEG FIBERGLASS (09/09/2024 10:06 AM CDT) Narrative Carlos Atwood MD - 09/09/2024 10:06 AM CDT Carlos Atwood MD 09/11/2024 1:11 AM Ortho Casting/Splinting Documentation Date/Time: 09/09/2024 10:06 AM Performed by: Gm Shaver Authorized by: Carlos Atwood MD Sensation: Normal Skin Condition: Clean, dry, and intact Gloria/Sutures Removed: No Pin Pulled: No Cast Removed: Yes Cast Applied: Yes Location: Ankle Ankle: R ankle Cast type: Total contact non weightbearing cast Supplies: Fiberglass Additional Supplies: Cotton padding, cotton stocking/sleeve and felt padding Number of fiberglass rolls used: 3 Capillary Refill: Normal Patient tolerance of procedure: Tolerated well, no immediate complications us Carlos Atwood MD IN CLINIC/BEDSIDE NAMRATA TAYLOR Edited Result - Final * [place] APPLICATION SHORT LEG SPLINT CALF FOOT, [place] CAST SUP SHT LEG SPLNT PLSTR (08/26/2024 11:00 AM CDT) Narrative Kishore Arevalo - 08/26/2024 11:00 AM CDT Kishore Arevalo 08/26/2024 11:02 AM Ortho Casting/Splinting Documentation Date/Time: 08/26/2024 11:00 AM Performed by: Kishore Arevalo Authorized by: Drake Ariza, WASTE AND BATTING WASTE CHOPPER Sensation: Normal Skin Condition: Clean, dry, and intact Gloria/Sutures Removed: No Pin Pulled: No Cast Removed: Yes (BULKY SANTOS) Overwrap: No Location: Ankle Ankle: R ankle Splint type: Bulky santos splint Supplies: Plaster Additional Supplies: Cotton padding, cotton stocking/sleeve and elastic bandage(s) Capillary Refill: Normal Patient tolerance of procedure: Tolerated well, no immediate complications Drake Ariza NP IN CLINIC/BEDSIDE ORDERABL ES Final Result * (ABNORMAL) POCT glucose (08/19/2024 11:54 AM CDT) Glucose, POC 208(H) 70 - 199 mg/dL Blood 08/19/2024 11:5 4 AM CDT 08/19/2024 11:54 AM CDT Florentino Roldan MD LAB POCT ORDERABLES - DEV ICE Final Result [facility] [place] [address] * POCT glucose (08/19/2024 7:55 AM CDT) Glucose, POC 135 70 - 199 mg/dL Blood 08/19/2024 7:55 AM CDT 08/19/2024 7:55 AM CDT Florentino Roldan MD LAB POCT ORDERABLES - DEV ICE Final Result Performing Organization Address [facility] Co de Phone Number [facility] Department [place] [address] * (ABNORMAL) eGFR (08/18/2024 8:28 PM CDT) eGFR 34(L) >=60 mL/min/1. 73 m2 Comment: Interpretive Data Reference Interval Normal >/= 90 mL/min/1.73m2 Mildly decreased* 60 - 89 mL/min/1.73m2 Mildly to moderately decreased 45 - 59 mL/min/1.73m2 Moderately to severely decreased 30 - 44 mL/min/1.73m2 Severely decreased 15 - 29 mL/min/1.73m2 Kidney Failure < 15 mL/min/1.73m2 *Relative to young adult level Estimated glomerular filtration rate is determined by the 2020 CKD-EPI equation recommended by the National Kidney Foundation (A Unifying Approach to GFR Estimation: Recommendations of the NKF-ASK Task Force on Reassessing the Inclusion of Race in Diagnosing Kidney Disease, JASN 2020). The CKD-EPI equation should not be used for patients with unstable renal function and has not been validated in children and those over 70. Current interpretive data was last reviewed 2020. Blood 08/18/2024 8:28 PM CDT 08/18/2024 9:18 PM CDT us Shira Hodge MD LAB BLOOD ORDERABLES Final Result Performing Organization Address City/[facility] Co de Phone Number [facility] [address] * Differential, auto (08/18/2024 8:28 PM CDT) Neutrophil abs 3.45 1.50 - 6.50 K/cumm Imm gran abs 0.06 0.00 - 0.10 K/cumm [facility] Lymphocyte abs 1.66 0.80 - 3.30 K/cumm [facility] Monocyte abs 0.70 0.20 - 0.80 K/cumm [facility] Eosinophil abs 0.30 0.00 - 0.50 K/cumm [facility] Basophil abs 0.05 0.00 - 0.10 K/cumm [facility] Neutrophil pct 55.4 % [facility] Comment: Interpretive Data Percent cell count reference ranges are not reported, since discordance with absolute values may lead to misinterpretation of CBC data. Current Interpretive Data was last revised on 2017. Imm gran pct 1.0 % [facility] Comment: Interpretive Data Percent cell count reference ranges are not reported, since discordance with absolute values may lead to misinterpretation of CBC data. Current Interpretive Data was last revised on 2017. Lymphocyte pct 26.7 % [facility] Comment: Interpretive Data Percent cell count reference ranges are not reported, since discordance with absolute values may lead to misinterpretation of CBC data. Current Interpretive Data was last revised on 2017. Monocyte pct 11.3 % [facility] Comment: Interpretive Data Percent cell count reference ranges are not reported, since discordance with absolute values may lead to misinterpretation of CBC data. Current Interpretive Data was last revised on 2017. Eosinophil pct 4.8 % [facility] Comment: Interpretive Data Percent cell count reference ranges are not reported, since discordance with absolute values may lead to misinterpretation of CBC data. Current Interpretive Data was last revised on 2017. Basophil pct 0.8 % [facility] Comment: Interpretive Data Percent cell count reference ranges are not reported, since discordance with absolute values may lead to misinterpretation of CBC data. Current Interpretive Data was last revised on 2017. Blood 08/18/2024 8:28 PM CDT 08/18/2024 9:18 PM CDT us Shira Hodge MD LAB BLOOD ORDERABLES Final Result TABATHA [facility] [place] [address] * (ABNORMAL) CBC with auto differential (08/18/2024 8:28 PM CDT) WBC 6.22 3.80 - 9.90 K/cumm Hgb 11.6(L) 13.0 - 17.5 g/dL [facility] Hct 37.5(L) 38.9 - 50.3 % [facility] Plt 183 150 - 400 K/cumm [facility] MPV 10.2 9.1 - 12.3 fL [facility] RBC 4.21(L) 4.30 - 5.80 M/cumm [facility] MCV 89.1 81.3 - 96.4 fL [facility] MCH 27.6 27.1 - 33.3 pg [facility] MCHC 30.9(L) 32.3 - 35.7 g/dL [facility] RDW CV 16.3(H) 11.1 - 14.9 % [facility] RDW SD 52.3(H) 35.7 - 48.1 fL [facility] NRBC abs 0.00 0.00 - 0.01 K/cumm [facility] Blood 08/18/2024 8:28 PM CDT 08/18/2024 9:18 PM CDT us Shira Hodge MD LAB BLOOD ORDERABLES Final Result [facility] Department [place] [address] * (ABNORMAL) Basic metabolic panel (08/18/2024 8:28 PM CDT) [facility] Sodium 140 135 - 145 mmol/L Potassium, pl 4.0 3.3 - 4.9 mmol/L [facility] Chloride 104 97 - 110 mmol/L [facility] CO2 26 22 - 32 mmol/L [facility] Anion gap 10 2 - 15 mmol/L [facility] BUN 33(H) 6 - 25 mg/dL [facility] Creatinine 2.00(H) 0.80 - 1.30 mg/dL [facility] Glucose 211(H) 70 - 199 mg/dL [facility] Comment: Interpretive Data Fasting glucose >/= 126 mg/dl is diagnostic for diabetes. Fasting is defined as no caloric intake for at least 8 hours. Fasting glucose between 100 mg/dl to 125 mg/dl is diagnostic of prediabetes. In a patient with classic symptoms of hyperglycemia or hyperglycemic crisis, a random glucose >/= 200 mg/dl is diagnostic for diabetes. In the absence of unequivocal hyperglycemia, results should be confirmed by repeat testing. The classification and Diagnosis of Diabetes Diabetes Care 2021; 46: S19-S40. Current interpretive data was last revised 2022. Calcium 8.7 8.5 - 10.3 mg/dL [facility] Blood 08/18/2024 8:28 PM CDT 08/18/2024 9:18 PM CDT Shira Hodge MD LAB BLOOD ORDERABLES Final Result Performing Organization Address [facility] de Phone Number [facility] [place] [address] * (ABNORMAL) POCT glucose (08/18/2024 7:56 PM CDT) Glucose, POC 226(H) 70 - 199 mg/dL Blood 08/18/2024 7:56 PM CDT 08/18/2024 7:56 PM CDT Florentino Roldan MD LAB POCT ORDERABLES - DEV ICE Final Result Performing Organization Address [facility] de Phone Number [facility] [place] [address] * POCT glucose (08/18/2024 5:10 PM CDT) Glucose, POC 153 70 - 199 mg/dL Blood 08/18/2024 5:10 PM CDT 08/18/2024 5:10 PM CDT Florentino Roldan MD LAB POCT ORDERABLES - DEV ICE Final Result Performing Organization Address [facility] Co de Phone Number TABATHA [facility] Department [place] [address] * POCT glucose (08/18/2024 11:45 AM CDT) Glucose, POC 184 70 - 199 mg/dL Blood 08/18/2024 11:4 5 AM CDT 08/18/2024 11:45 AM CDT Florentino Roldan MD LAB POCT ORDERABLES - DEV ICE Final Result Performing Organization Address City/[facility] Co de Phone Number TABATHA [facility] [place] [address] * POCT glucose (08/18/2024 7:31 AM CDT) Glucose, POC 145 70 - 199 mg/dL Blood 08/18/2024 7:31 AM CDT 08/18/2024 7:31 AM CDT Florentino Roldan MD LAB POCT ORDERABLES - DEV ICE Final Result Performing Organization Address City/[facility] Co de Phone Number TABATHA [facility] Department [place] [address] * (ABNORMAL) eGFR (08/17/2024 8:30 PM CDT) eGFR 35(L) >=60 mL/min/1. 73 m2 Comment: Interpretive Data Reference Interval Normal >/= 90 mL/min/1.73m2 Mildly decreased* 60 - 89 mL/min/1.73m2 Mildly to moderately decreased 45 - 59 mL/min/1.73m2 Moderately to severely decreased 30 - 44 mL/min/1.73m2 Severely decreased 15 - 29 mL/min/1.73m2 Kidney Failure < 15 mL/min/1.73m2 *Relative to young adult level Estimated glomerular filtration rate is determined by the 2020 CKD-EPI equation recommended by the National Kidney Foundation (A Unifying Approach to GFR Estimation: Recommendations of the NKF-ASK Task Force on Reassessing the Inclusion of Race in Diagnosing Kidney Disease, JASN 2020). The CKD-EPI equation should not be used for patients with unstable renal function and has not been validated in children and those over 70. Current interpretive data was last reviewed 2020. Blood 08/17/2024 8:30 PM CDT 08/17/2024 8:43 PM CDT us Shira Hodge MD LAB BLOOD ORDERABLES Final Result [facility] Department [place] [address] * Differential, auto (08/17/2024 8:30 PM CDT) Neutrophil abs 3.97 1.50 - 6.50 K/cumm Imm gran abs 0.04 0.00 - 0.10 K/cumm [facility] Lymphocyte abs 1.79 0.80 - 3.30 K/cumm [facility] Monocyte abs 0.67 0.20 - 0.80 K/cumm [facility] Eosinophil abs 0.29 0.00 - 0.50 K/cumm [facility] Basophil abs 0.07 0.00 - 0.10 K/cumm [facility] Neutrophil pct 58.2 % [facility] Comment: Interpretive Data Percent cell count reference ranges are not reported, since discordance with absolute values may lead to misinterpretation of CBC data. Current Interpretive Data was last revised on 2017. Imm gran pct 0.6 % [facility] Comment: Interpretive Data Percent cell count reference ranges are not reported, since discordance with absolute values may lead to misinterpretation of CBC data. Current Interpretive Data was last revised on 2017. Lymphocyte pct 26.2 % [facility] Comment: Interpretive Data Percent cell count reference ranges are not reported, since discordance with absolute values may lead to misinterpretation of CBC data. Current Interpretive Data was last revised on 2017. Monocyte pct 9.8 % [facility] Comment: Interpretive Data Percent cell count reference ranges are not reported, since discordance with absolute values may lead to misinterpretation of CBC data. Current Interpretive Data was last revised on 2017. Eosinophil pct 4.2 % [facility] Comment: Interpretive Data Percent cell count reference ranges are not reported, since discordance with absolute values may lead to misinterpretation of CBC data. Current Interpretive Data was last revised on 2017. Basophil pct 1.0 % [facility] Comment: Interpretive Data Percent cell count reference ranges are not reported, since discordance with absolute values may lead to misinterpretation of CBC data. Current Interpretive Data was last revised on 2017. Blood 08/17/2024 8:30 PM CDT 08/17/2024 8:45 PM CDT us Shira Hodge MD LAB BLOOD ORDERABLES Final Result [facility] Department [place] [address] * (ABNORMAL) CBC with auto differential (08/17/2024 8:30 PM CDT) WBC 6.83 3.80 - 9.90 K/cumm Hgb 11.5(L) 13.0 - 17.5 g/dL [facility] Hct 37.2(L) 38.9 - 50.3 % [facility] Plt 184 150 - 400 K/cumm [facility] MPV 9.9 9.1 - 12.3 fL [facility] RBC 4.12(L) 4.30 - 5.80 M/cumm [facility] MCV 90.3 81.3 - 96.4 fL [facility] MCH 27.9 27.1 - 33.3 pg [facility] MCHC 30.9(L) 32.3 - 35.7 g/dL [facility] RDW CV 16.1(H) 11.1 - 14.9 % [facility] RDW SD 52.6(H) 35.7 - 48.1 fL [facility] NRBC abs 0.00 0.00 - 0.01 K/cumm [facility] Blood 08/17/2024 8:30 PM CDT 08/17/2024 8:45 PM CDT Shira Hodge MD LAB BLOOD ORDERABLES Final Result Performing Organization Address City/[facility]/ZIP Co de Phone Number [facility] [place] [address] * Magnesium (08/17/2024 8:30 PM CDT) [facility] Magnesium 2.0 1.4 - 2.5 mg/dL Blood 08/17/2024 8:30 PM CDT 08/17/2024 8:43 PM CDT Shiar Hodge MD LAB BLOOD ORDERABLES Final Result Performing Organization Address [facility] de Phone Number [facility] [place] [address] * (ABNORMAL) Basic metabolic panel (08/17/2024 8:30 PM CDT) [facility] Sodium 141 135 - 145 mmol/L Potassium, pl 4.3 3.3 - 4.9 mmol/L [facility] Chloride 107 97 - 110 mmol/L [facility] CO2 26 22 - 32 mmol/L [facility] Anion gap 8 2 - 15 mmol/L [facility] BUN 33(H) 6 - 25 mg/dL [facility] Creatinine 1.92(H) 0.80 - 1.30 mg/dL [facility] Glucose 184 70 - 199 mg/dL [facility] Comment: Interpretive Data Fasting glucose >/= 126 mg/dl is diagnostic for diabetes. Fasting is defined as no caloric intake for at least 8 hours. Fasting glucose between 100 mg/dl to 125 mg/dl is diagnostic of prediabetes. In a patient with classic symptoms of hyperglycemia or hyperglycemic crisis, a random glucose >/= 200 mg/dl is diagnostic for diabetes. In the absence of unequivocal hyperglycemia, results should be confirmed by repeat testing. The classification and Diagnosis of Diabetes Diabetes Care 2021; 46: S19-S40. Current interpretive data was last revised 2022. Calcium 8.7 8.5 - 10.3 mg/dL [facility] Blood 08/17/2024 8:30 PM CDT 08/17/2024 8:43 PM CDT Shira Hodge MD LAB BLOOD ORDERABLES Final Result [facility] [place] [address] * POCT glucose (08/17/2024 7:52 PM CDT) Glucose, POC 178 70 - 199 mg/dL Blood 08/17/2024 7:52 PM CDT 08/17/2024 7:52 PM CDT us Shira Hodge MD LAB POCT ORDERABLES - DEVICE Final Result Performing Organization Address City/[facility]/ZIP Co de Phone Number [facility] [place] [address] * POCT glucose (08/17/2024 4:58 PM CDT) Glucose, POC 174 70 - 199 mg/dL Blood 08/17/2024 4:58 PM CDT 08/17/2024 4:58 PM CDT Shira Hodge MD LAB POCT ORDERABLES - DEVICE Final Result Performing Organization Address City/[facility] Co de Phone Number [facility] [place] [address] * POCT glucose (08/17/2024 11:49 AM CDT) Glucose, POC 142 70 - 199 mg/dL Blood 08/17/2024 11:4 9 AM CDT 08/17/2024 11:49 AM CDT us Shira Hodge MD LAB POCT ORDERABLES - DEVICE Final Result Performing Organization Address City/State/[facility] Co de Phone Number [facility] Department [place] [address] * POCT glucose (08/17/2024 7:43 AM CDT) Glucose, POC 112 70 - 199 mg/dL Blood 08/17/2024 7:43 AM CDT 08/17/2024 7:43 AM CDT Shira Hodge MD LAB POCT ORDERABLES - DEVICE Final Result Performing Organization Address [facility] de Phone Number [facility] Department [place] [address] * (ABNORMAL) eGFR (08/16/2024 9:26 PM CDT) eGFR 37(L) >=60 mL/min/1. 73 m2 Comment: Interpretive Data Reference Interval Normal >/= 90 mL/min/1.73m2 Mildly decreased* 60 - 89 mL/min/1.73m2 Mildly to moderately decreased 45 - 59 mL/min/1.73m2 Moderately to severely decreased 30 - 44 mL/min/1.73m2 Severely decreased 15 - 29 mL/min/1.73m2 Kidney Failure < 15 mL/min/1.73m2 *Relative to young adult level Estimated glomerular filtration rate is determined by the 2020 CKD-EPI equation recommended by the National Kidney Foundation (A Unifying Approach to GFR Estimation: Recommendations of the NKF-ASK Task Force on Reassessing the Inclusion of Race in Diagnosing Kidney Disease, JASN 2020). The CKD-EPI equation should not be used for patients with unstable renal function and has not been validated in children and those over 70. Current interpretive data was last reviewed 2020. Blood 08/16/2024 9:26 PM CDT 08/16/2024 9:47 PM CDT us Shira Hodge MD LAB BLOOD ORDERABLES Final Result [facility] Department [place] [address] * Differential, auto (08/16/2024 9:26 PM CDT) Neutrophil abs 4.52 1.50 - 6.50 K/cumm Imm gran abs 0.03 0.00 - 0.10 K/cumm [facility] Lymphocyte abs 1.55 0.80 - 3.30 K/cumm [facility] Monocyte abs 0.65 0.20 - 0.80 K/cumm [facility] Eosinophil abs 0.28 0.00 - 0.50 K/cumm [facility] Basophil abs 0.06 0.00 - 0.10 K/cumm [facility] Neutrophil pct 63.8 % [facility] Comment: Interpretive Data Percent cell count reference ranges are not reported, since discordance with absolute values may lead to misinterpretation of CBC data. Current Interpretive Data was last revised on 2017. Imm gran pct 0.4 % [facility] Comment: Interpretive Data Percent cell count reference ranges are not reported, since discordance with absolute values may lead to misinterpretation of CBC data. Current Interpretive Data was last revised on 2017. Lymphocyte pct 21.9 % [facility] Comment: Interpretive Data Percent cell count reference ranges are not reported, since discordance with absolute values may lead to misinterpretation of CBC data. Current Interpretive Data was last revised on 2017. Monocyte pct 9.2 % [facility] Comment: Interpretive Data Percent cell count reference ranges are not reported, since discordance with absolute values may lead to misinterpretation of CBC data. Current Interpretive Data was last revised on 2017. Eosinophil pct 3.9 % [facility] Comment: Interpretive Data Percent cell count reference ranges are not reported, since discordance with absolute values may lead to misinterpretation of CBC data. Current Interpretive Data was last revised on 2017. Basophil pct 0.8 % [facility] Comment: Interpretive Data Percent cell count reference ranges are not reported, since discordance with absolute values may lead to misinterpretation of CBC data. Current Interpretive Data was last revised on 2017. Blood 08/16/2024 9:26 PM CDT 08/16/2024 9:48 PM CDT Shira Hodge MD LAB BLOOD ORDERABLES Final Result Performing Organization Address [facility] Co de Phone Number [facility] [place] [address] * Critical Result Callback Chemistry (08/16/2024 9:26 PM CDT) Date Notified [id number] Time Notified 807 [facility] TestName Vancomycin Dirk [facility] Called/Read Back Anita [facility] Credentials RN [facility] Called [facility] Blood 08/16/2024 9:26 PM CDT 08/16/2024 9:47 PM CDT Shira Hodge MD LAB BLOOD ORDERABLES Final Result Performing Organization Address City/[facility] Co de Phone Number [facility] [place] [address] * (ABNORMAL) CBC with auto differential (08/16/2024 9:26 PM CDT) WBC 7.09 3.80 - 9.90 K/cumm Hgb 11.9(L) 13.0 - 17.5 g/dL [facility] Hct 39.6 38.9 - 50.3 % [facility] Plt 196 150 - 400 K/cumm [facility] MPV 10.3 9.1 - 12.3 fL [facility] RBC 4.35 4.30 - 5.80 M/cumm [facility] MCV 91.0 81.3 - 96.4 fL [facility] MCH 27.4 27.1 - 33.3 pg [facility] MCHC 30.1(L) 32.3 - 35.7 g/dL [facility] RDW CV 16.0(H) 11.1 - 14.9 % [facility] RDW SD 52.4(H) 35.7 - 48.1 fL [facility] NRBC abs 0.00 0.00 - 0.01 K/cumm [facility] Blood 08/16/2024 9:26 PM CDT 08/16/2024 9:48 PM CDT Shira Hodge MD LAB BLOOD ORDERABLES Final Result Performing Organization Address [facility] Co de Phone Number [facility] Department [place] [address] * Magnesium (08/16/2024 9:26 PM CDT) Magnesium 1.7 1.4 - 2.5 mg/dL Blood 08/16/2024 9:26 PM CDT 08/16/2024 9:47 PM CDT Shira Hodge MD LAB BLOOD ORDERABLES Final Result Performing Organization Address [facility] Co de Phone Number [facility] [place] [address] * (ABNORMAL) Vancomycin level trough (08/16/2024 9:26 PM CDT) Vancomycin trough 29.2(C) 10.0 - 20.0 mcg/mL Blood 08/16/2024 9:26 PM CDT 08/16/2024 9:47 PM CDT Shira Hodge MD LAB BLOOD ORDERABLES Final Result Performing Organization Address City/[facility] Co de Phone Number [facility] [place] [address] * (ABNORMAL) Basic metabolic panel (08/16/2024 9:26 PM CDT) [facility] Sodium 141 135 - 145 mmol/L Potassium, pl 4.7 3.3 - 4.9 mmol/L [facility] Comment:Hemolyzed; Potassium value may be falsely elevated by as much as 0.3-0.5 mmol/L. Suggest redraw and reanalysis. Chloride 107 97 - 110 mmol/L [facility] CO2 25 22 - 32 mmol/L [facility] Anion gap 9 2 - 15 mmol/L [facility] BUN 31(H) 6 - 25 mg/dL [facility] Creatinine 1.87(H) 0.80 - 1.30 mg/dL [facility] Glucose 145 70 - 199 mg/dL [facility] Comment: Interpretive Data Fasting glucose >/= 126 mg/dl is diagnostic for diabetes. Fasting is defined as no caloric intake for at least 8 hours. Fasting glucose between 100 mg/dl to 125 mg/dl is diagnostic of prediabetes. In a patient with classic symptoms of hyperglycemia or hyperglycemic crisis, a random glucose >/= 200 mg/dl is diagnostic for diabetes. In the absence of unequivocal hyperglycemia, results should be confirmed by repeat testing. The classification and Diagnosis of Diabetes Diabetes Care 202; 46: S19-S40. Current interpretive data was last revised 2022. Calcium 8.4(L) 8.5 - 10.3 mg/dL [facility] Blood 08/16/2024 9:26 PM CDT 08/16/2024 9:47 PM CDT us Shira Hodge MD LAB BLOOD ORDERABLES Final Result TAB[facility]HA [facility] [place] [address] * POCT glucose (08/16/2024 8:05 PM CDT) [facility] Glucose, POC 148 70 - 199 mg/dL Blood 08/16/2024 8:05 PM CDT 08/16/2024 8:05 PM CDT us Shira Hodge MD LAB POCT ORDERABLES - DEVICE Final Result Performing Organization Address [facility] de Phone Number [facility] [place] [address] * POCT glucose (08/16/2024 4:38 PM CDT) Glucose, POC 165 70 - 199 mg/dL Blood 08/16/2024 4:38 PM CDT 08/16/2024 4:38 PM CDT us Shira Hodge MD LAB POCT ORDERABLES - DEVICE Final Result Performing Organization Address [facility] de Phone Number [facility] [place] [address] * POCT glucose (08/16/2024 11:21 AM CDT) Glucose, POC 138 70 - 199 mg/dL Blood 08/16/2024 11:2 1 AM CDT 08/16/2024 11:21 AM CDT us Shira Hodge MD LAB POCT ORDERABLES - DEVICE Final Result Performing Organization Address [facility] [place] [address] * POCT glucose (08/16/2024 8:07 AM CDT) Glucose, POC 113 70 - 199 mg/dL Blood 08/16/2024 8:07 AM CDT 08/16/2024 8:07 AM CDT us Shira Hodge MD LAB POCT ORDERABLES - DEVICE Final Result Performing Organization Address City/[facility]/ZIP Co de Phone Number [facility] [address] * (ABNORMAL) eGFR (08/15/2024 11:08 PM CDT) Pathologist [facility] eGFR 37(L) >=60 mL/min/1. 73 m2 Comment: Interpretive Data Reference Interval Normal >/= 90 mL/min/1.73m2 Mildly decreased* 60 - 89 mL/min/1.73m2 Mildly to moderately decreased 45 - 59 mL/min/1.73m2 Moderately to severely decreased 30 - 44 mL/min/1.73m2 Severely decreased 15 - 29 mL/min/1.73m2 Kidney Failure < 15 mL/min/1.73m2 *Relative to young adult level Estimated glomerular filtration rate is determined by the 2020 CKD-EPI equation recommended by the National Kidney Foundation (A Unifying Approach to GFR Estimation: Recommendations of the NKF-ASK Task Force on Reassessing the Inclusion of Race in Diagnosing Kidney Disease, JASN 2020). The CKD-EPI equation should not be used for patients with unstable renal function and has not been validated in children and those over 70. Current interpretive data was last reviewed 2020. Blood 08/15/2024 11:0 8 PM CDT 08/16/2024 us Shira Hodge MD LAB BLOOD ORDERABLES Final Result Performing Organization Address City/[facility]/ZIP Co de Phone Number TABATHA POSEY [facility] Department [place] [address] * Differential, auto (08/15/2024 11:08 PM CDT) Neutrophil abs 3.92 1.50 - 6.50 K/cumm Imm gran abs 0.05 0.00 - 0.10 K/cumm [facility] Lymphocyte abs 1.86 0.80 - 3.30 K/cumm [facility] Monocyte abs 0.58 0.20 - 0.80 K/cumm [facility] Eosinophil abs 0.33 0.00 - 0.50 K/cumm [facility] Basophil abs 0.04 0.00 - 0.10 K/cumm [facility] Neutrophil pct 57.8 % [facility] Comment: Interpretive Data Percent cell count reference ranges are not reported, since discordance with absolute values may lead to misinterpretation of CBC data. Current Interpretive Data was last revised on 2017. Imm gran pct 0.7 % [facility] Comment: Interpretive Data Percent cell count reference ranges are not reported, since discordance with absolute values may lead to misinterpretation of CBC data. Current Interpretive Data was last revised on 2017. Lymphocyte pct 27.4 % [facility] Comment: Interpretive Data Percent cell count reference ranges are not reported, since discordance with absolute values may lead to misinterpretation of CBC data. Current Interpretive Data was last revised on 2017. Monocyte pct 8.6 % [facility] Comment: Interpretive Data Percent cell count reference ranges are not reported, since discordance with absolute values may lead to misinterpretation of CBC data. Current Interpretive Data was last revised on 2017. Eosinophil pct 4.9 % [facility] Comment: Interpretive Data Percent cell count reference ranges are not reported, since discordance with absolute values may lead to misinterpretation of CBC data. Current Interpretive Data was last revised on 2017. Basophil pct 0.6 % [facility] Comment: Interpretive Data Percent cell count reference ranges are not reported, since discordance with absolute values may lead to misinterpretation of CBC data. Current Interpretive Data was last revised on 2017. Blood 08/15/2024 11:0 8 PM CDT 08/16/2024 12:00 AM CDT us Shira Hodge MD LAB BLOOD ORDERABLES Final Result TABATHA EMANUEL [facility] Department [place] [address] * Critical Result Callback Chemistry (08/15/2024 11:08 PM CDT) Date Notified [id number] Time Notified 30 [facility] TestName Vancomycin [facility] Called/Read Back Lillian Maguire [facility] Credentials RN [facility] Called By JUDY [facility] Blood 08/15/2024 11:0 8 PM CDT 08/16/2024 us Shira Hodge MD LAB BLOOD ORDERABLES Final Result [facility] Department [place] [address] * (ABNORMAL) CBC with auto differential (08/15/2024 11:08 PM CDT) [facility] WBC 6.78 3.80 - 9.90 K/cumm Hgb 11.8(L) 13.0 - 17.5 g/dL [facility] Hct 38.6(L) 38.9 - 50.3 % [facility] Plt 198 150 - 400 K/cumm [facility] MPV 10.0 9.1 - 12.3 fL [facility] RBC 4.22(L) 4.30 - 5.80 M/cumm [facility] MCV 91.5 81.3 - 96.4 fL [facility] MCH 28.0 27.1 - 33.3 pg [facility] MCHC 30.6(L) 32.3 - 35.7 g/dL [facility] RDW CV 15.9(H) 11.1 - 14.9 % [facility] RDW SD 52.7(H) 35.7 - 48.1 fL [facility] NRBC abs 0.00 0.00 - 0.01 K/cumm [facility] Blood 08/15/2024 11:0 8 PM CDT 08/16/2024 12:00 AM CDT us Shira Hodge MD LAB BLOOD ORDERABLES Final Result [facility] [place] [address] * (ABNORMAL) Vancomycin level trough Draw before the next vancomycin dose. (08/15/2024 11:08 PM CDT) [facility] Vancomycin trough 25.6(C) 10.0 - 20.0 mcg/mL Blood 08/15/2024 11:0 8 PM CDT 08/16/2024 12:00 AM CDT Narrative [facility] - 08/16/2024 12:28 AM CDT Draw before the next vancomycin dose. us Shira Hodge MD LAB BLOOD ORDERABLES Final Result [facility] [place] [address] * (ABNORMAL) Basic metabolic panel (08/15/2024 11:08 PM CDT) [facility] Sodium 141 135 - 145 mmol/L Potassium, pl 4.0 3.3 - 4.9 mmol/L [facility] Chloride 106 97 - 110 mmol/L [facility] CO2 24 22 - 32 mmol/L [facility] Anion gap 11 2 - 15 mmol/L [facility] BUN 29(H) 6 - 25 mg/dL [facility] Creatinine 1.84(H) 0.80 - 1.30 mg/dL [facility] Glucose 140 70 - 199 mg/dL [facility] Comment: Interpretive Data Fasting glucose >/= 126 mg/dl is diagnostic for diabetes. Fasting is defined as no caloric intake for at least 8 hours. Fasting glucose between 100 mg/dl to 125 mg/dl is diagnostic of prediabetes. In a patient with classic symptoms of hyperglycemia or hyperglycemic crisis, a random glucose >/= 200 mg/dl is diagnostic for diabetes. In the absence of unequivocal hyperglycemia, results should be confirmed by repeat testing. The classification and Diagnosis of Diabetes Diabetes Care 202; 46: S19-S40. Current interpretive data was last revised 2022. Calcium 8.6 8.5 - 10.3 mg/dL [facility] Blood 08/15/2024 11:0 8 PM CDT 08/16/2024 12:00 AM CDT Shira Hodge MD LAB BLOOD ORDERABLES Final Result Performing Organization Address [facility] Co de Phone Number [facility] [place] [address] * POCT glucose (08/15/2024 7:55 PM CDT) Glucose, POC 140 70 - 199 mg/dL Blood 08/15/2024 7:55 PM CDT 08/15/2024 7:55 PM CDT Shira Hodge MD LAB POCT ORDERABLES - DEVICE Final Result Performing Organization Address [facility] Co de Phone Number [facility] Department [place] [address] * POCT glucose (08/15/2024 4:35 PM CDT) Glucose, POC 147 70 - 199 mg/dL Blood 08/15/2024 4:35 PM CDT 08/15/2024 4:35 PM CDT Result [facility] Shira Hodge MD LAB POCT ORDERABLES - DEVICE Final Result Performing Organization Address [facility] [place] [address] * (ABNORMAL) Calprotectin, fecal (08/15/2024 3:49 PM CDT) Calprotectin, fecal 63.6(H) <50.0 (Normal) mcg/g [facility] Comment: Interpretation: Borderline (50.0-120 mcg/g) Test Performed by: [facility] [place][Note 2] [address] [place] [address] Coper Hand: Liz Sarmiento Ph.D.; IA# [id number] Stool 08/15/2024 3:49 PM CDT 08/15/2024 5:42 PM CDT Vale Thorne MD LAB BODY FLUIDS AND STOOLS ORDERABLES Final Result Performing Organization Address City/[facility]/ZIP Co de Phone Number [facility] [place] [address] [facility] * Cryptosporidium and Giardia antigen assay Stool (08/15/2024 3:49 PM CDT) Giardia Ag Negative Negative Cryptosporidium Ag Negative Negative [facility] Comment: Interpretive data: Testing performed by the [facility] using an immunoassay that detects Cryptosporidium and Giardia antigens in stool specimens. If comprehensive examination for ova and parasites is required, please request Ova and Parasite Examination. Stool 08/15/2024 3:49 PM CDT 08/15/2024 5:17 PM CDT Vale Thorne MD LAB MICROBIOLOGY - GENERAL ORDERABLES Final Result Performing Organization Address [facility] Co de Phone Number [facility] [place] [address] * POCT glucose (08/15/2024 12:05 PM CDT) Glucose, POC 135 70 - 199 mg/dL Blood 08/15/2024 12:0 5 PM CDT 08/15/2024 12:05 PM CDT Shira Hodge MD LAB POCT ORDERABLES - [place] [address] * POCT glucose (08/15/2024 8:19 AM CDT) Glucose, POC 90 70 - 199 mg/dL Blood 08/15/2024 8:19 AM CDT 08/15/2024 8:19 AM CDT us Shira Hodge MD LAB POCT ORDERABLES - DEVICE Final Result Performing Organization Address City/[facility]/ZIP Co de Phone Number TABATHA [facility] Department [place] [address] * (ABNORMAL) eGFR (08/15/2024 3:56 AM CDT) eGFR 44(L) >=60 mL/min/1. 73 m2 Comment: Interpretive Data Reference Interval Normal >/= 90 mL/min/1.73m2 Mildly decreased* 60 - 89 mL/min/1.73m2 Mildly to moderately decreased 45 - 59 mL/min/1.73m2 Moderately to severely decreased 30 - 44 mL/min/1.73m2 Severely decreased 15 - 29 mL/min/1.73m2 Kidney Failure < 15 mL/min/1.73m2 *Relative to young adult level Estimated glomerular filtration rate is determined by the 2020 CKD-EPI equation recommended by the National Kidney Foundation (A Unifying Approach to GFR Estimation: Recommendations of the NKF-ASK Task Force on Reassessing the Inclusion of Race in Diagnosing Kidney Disease, JASN 2020). The CKD-EPI equation should not be used for patients with unstable renal function and has not been validated in children and those over 70. Current interpretive data was last reviewed 2020. Blood 08/15/2024 3:56 AM CDT 08/15/2024 4:21 AM CDT us Christy Bray MD LAB BLOOD ORDERABLES Fin al Result Performing Organization Address City/[facility]/ZIP Co de Phone Number TABATHA [facility] [place] [address] * Differential, auto (08/15/2024 3:56 AM CDT) Pathologist [facility] Neutrophil abs 3.36 1.50 - 6.50 K/cumm Imm gran abs 0.02 0.00 - 0.10 K/cumm [facility] Lymphocyte abs 2.34 0.80 - 3.30 K/cumm [facility] Monocyte abs 0.56 0.20 - 0.80 K/cumm [facility] Eosinophil abs 0.28 0.00 - 0.50 K/cumm [facility] Basophil abs 0.07 0.00 - 0.10 K/cumm [facility] Neutrophil pct 50.7 % [facility] Comment: Interpretive Data Percent cell count reference ranges are not reported, since discordance with absolute values may lead to misinterpretation of CBC data. Current Interpretive Data was last revised on 2017. Imm gran pct 0.3 % [facility] Comment: Interpretive Data Percent cell count reference ranges are not reported, since discordance with absolute values may lead to misinterpretation of CBC data. Current Interpretive Data was last revised on 2017. Lymphocyte pct 35.3 % [facility] Comment: Interpretive Data Percent cell count reference ranges are not reported, since discordance with absolute values may lead to misinterpretation of CBC data. Current Interpretive Data was last revised on 2017. Monocyte pct 8.4 % [facility] Comment: Interpretive Data Percent cell count reference ranges are not reported, since discordance with absolute values may lead to misinterpretation of CBC data. Current Interpretive Data was last revised on 2017. Eosinophil pct 4.2 % [facility] Comment: Interpretive Data Percent cell count reference ranges are not reported, since discordance with absolute values may lead to misinterpretation of CBC data. Current Interpretive Data was last revised on 2017. Basophil pct 1.1 % [facility] Comment: Interpretive Data Percent cell count reference ranges are not reported, since discordance with absolute values may lead to misinterpretation of CBC data. Current Interpretive Data was last revised on 2017. Blood 08/15/2024 3:56 AM CDT 08/15/2024 4:22 AM CDT us Christy Bray MD LAB BLOOD ORDERABLES Fin al Result Performing Organization Address [facility] de Phone Number [facility] Department [place] [address] * (ABNORMAL) CBC with auto differential (08/15/2024 3:56 AM CDT) [facility] WBC 6.63 3.80 - 9.90 K/cumm Hgb 12.0(L) 13.0 - 17.5 g/dL [facility] Hct 39.5 38.9 - 50.3 % [facility] Plt 195 150 - 400 K/cumm [facility] MPV 10.1 9.1 - 12.3 fL [facility] RBC 4.32 4.30 - 5.80 M/cumm [facility] MCV 91.4 81.3 - 96.4 fL [facility] MCH 27.8 27.1 - 33.3 pg [facility] MCHC 30.4(L) 32.3 - 35.7 g/dL [facility] RDW CV 15.9(H) 11.1 - 14.9 % [facility] RDW SD 52.1(H) 35.7 - 48.1 fL [facility] NRBC abs 0.00 0.00 - 0.01 K/cumm [facility] Blood 08/15/2024 3:56 AM CDT 08/15/2024 4:22 AM CDT Christy Bray MD LAB BLOOD ORDERABLES Fin al Result Performing Organization Address [facility] Co de Phone Number [facility] [place] [address] * Sodium, urine, random (08/15/2024 3:56 AM CDT) Pathologist [facility] Sodium, ur 126 mmol/L Comment: Interpretive Data No reference range established. Current interpretive data was last revised 2018. Urine 08/15/2024 3:56 AM CDT 08/15/2024 4:21 AM CDT Narrative [facility] - 08/15/2024 4:41 AM CDT Please draw 2 hours after administering IV Lasix Vale Thorne MD LAB URINE ORDERABLES Final Result Performing Organization Address [facility]/ZIP Co de Phone Number [facility] [place] [address] * (ABNORMAL) Basic metabolic panel (08/15/2024 3:56 AM CDT) [facility] Sodium 141 135 - 145 mmol/L Potassium, pl 4.1 3.3 - 4.9 mmol/L [facility] Chloride 109 97 - 110 mmol/L [facility] CO2 22 22 - 32 mmol/L [facility] Anion gap 10 2 - 15 mmol/L [facility] BUN 25 6 - 25 mg/dL [facility] Creatinine 1.61(H) 0.80 - 1.30 mg/dL [facility] Glucose 99 70 - 199 mg/dL [facility] Comment: Interpretive Data Fasting glucose >/= 126 mg/dl is diagnostic for diabetes. Fasting is defined as no caloric intake for at least 8 hours. Fasting glucose between 100 mg/dl to 125 mg/dl is diagnostic of prediabetes. In a patient with classic symptoms of hyperglycemia or hyperglycemic crisis, a random glucose >/= 200 mg/dl is diagnostic for diabetes. In the absence of unequivocal hyperglycemia, results should be confirmed by repeat testing. The classification and Diagnosis of Diabetes Diabetes Care 2021; 46: S19-S40. Current interpretive data was last revised 2022. Calcium 8.1(L) 8.5 - 10.3 mg/dL [facility] Blood 08/15/2024 3:56 AM CDT 08/15/2024 4:21 AM CDT us Christy Bray MD LAB BLOOD ORDERABLES Fin al Result Performing Organization Address [facility] Co de Phone Number [facility] [place] [address] * POCT glucose (08/14/2024 8:20 PM CDT) Glucose, POC 131 70 - 199 mg/dL Blood 08/14/2024 8:20 PM CDT 08/14/2024 8:20 PM CDT Shira Hodge MD LAB POCT ORDERABLES - DEVICE Final Result Performing Organization Address City/[facility] Co de Phone Number [facility] [place] [address] * POCT glucose (08/14/2024 6:09 PM CDT) Glucose, POC 115 70 - 199 mg/dL Blood 08/14/2024 6:09 PM CDT 08/14/2024 6:09 PM CDT Shira Hodge MD LAB POCT ORDERABLES - DEVICE Final Result Performing Organization Address [facility] Co de Phone Number [facility] [place] [address] * POCT glucose (08/14/2024 2:08 PM CDT) Glucose, POC 128 70 - 199 mg/dL Blood 08/14/2024 2:08 PM CDT 08/14/2024 2:08 PM CDT Vale Thorne MD LAB POCT ORDERABLES - DEVIC E Final Result Performing Organization Address City/[facility] Co de Phone Number [facility] [place] [address] * POCT glucose (08/14/2024 8:22 AM CDT) Glucose, POC 124 70 - 199 mg/dL Blood 08/14/2024 8:22 AM CDT 08/14/2024 8:22 AM CDT us Vale Thorne MD LAB POCT ORDERABLES - DEVIC E Final Result Performing Organization Address [facility] Co de Phone Number [facility] [place] [address] * (ABNORMAL) eGFR (08/13/2024 8:24 PM CDT) eGFR 49(L) >=60 mL/min/1. 73 m2 Comment: Interpretive Data Reference Interval Normal >/= 90 mL/min/1.73m2 Mildly decreased* 60 - 89 mL/min/1.73m2 Mildly to moderately decreased 45 - 59 mL/min/1.73m2 Moderately to severely decreased 30 - 44 mL/min/1.73m2 Severely decreased 15 - 29 mL/min/1.73m2 Kidney Failure < 15 mL/min/1.73m2 *Relative to young adult level Estimated glomerular filtration rate is determined by the 2020 CKD-EPI equation recommended by the National Kidney Foundation (A Unifying Approach to GFR Estimation: Recommendations of the NKF-ASK Task Force on Reassessing the Inclusion of Race in Diagnosing Kidney Disease, JASN 2020). The CKD-EPI equation should not be used for patients with unstable renal function and has not been validated in children and those over 70. Current interpretive data was last reviewed 2020. Blood 08/13/2024 8:24 PM CDT 08/13/2024 8:44 PM CDT us Christy Bray MD LAB BLOOD ORDERABLES Fin al Result Performing Organization Address City/[facility]/ZIP Co de Phone Number [facility] [place] [address] * Differential, auto (08/13/2024 8:24 PM CDT) Pathologist [facility] Neutrophil abs 4.18 1.50 - 6.50 K/cumm Imm gran abs 0.04 0.00 - 0.10 K/cumm [facility] Lymphocyte abs 0.95 0.80 - 3.30 K/cumm [facility] Monocyte abs 0.61 0.20 - 0.80 K/cumm [facility] Eosinophil abs 0.08 0.00 - 0.50 K/cumm [facility] Basophil abs 0.03 0.00 - 0.10 K/cumm [facility] Neutrophil pct 70.9 % [facility] Comment: Interpretive Data Percent cell count reference ranges are not reported, since discordance with absolute values may lead to misinterpretation of CBC data. Current Interpretive Data was last revised on 2017. Imm gran pct 0.7 % [facility] Comment: Interpretive Data Percent cell count reference ranges are not reported, since discordance with absolute values may lead to misinterpretation of CBC data. Current Interpretive Data was last revised on 2017. Lymphocyte pct 16.1 % [facility] Comment: Interpretive Data Percent cell count reference ranges are not reported, since discordance with absolute values may lead to misinterpretation of CBC data. Current Interpretive Data was last revised on 2017. Monocyte pct 10.4 % [facility] Comment: Interpretive Data Percent cell count reference ranges are not reported, since discordance with absolute values may lead to misinterpretation of CBC data. Current Interpretive Data was last revised on 2017. Eosinophil pct 1.4 % [facility] Comment: Interpretive Data Percent cell count reference ranges are not reported, since discordance with absolute values may lead to misinterpretation of CBC data. Current Interpretive Data was last revised on 2017. Basophil pct 0.5 % [facility] Comment: Interpretive Data Percent cell count reference ranges are not reported, since discordance with absolute values may lead to misinterpretation of CBC data. Current Interpretive Data was last revised on 2017. Blood 08/13/2024 8:24 PM CDT 08/13/2024 8:44 PM CDT us Christy Bray MD LAB BLOOD ORDERABLES Fin al Result [facility] [place] [address] * (ABNORMAL) CBC with auto differential (08/13/2024 8:24 PM CDT) [facility] WBC 5.89 3.80 - 9.90 K/cumm Hgb 10.9(L) 13.0 - 17.5 g/dL [facility] Hct 35.5(L) 38.9 - 50.3 % [facility] Plt 181 150 - 400 K/cumm [facility] MPV 9.9 9.1 - 12.3 fL [facility] RBC 3.90(L) 4.30 - 5.80 M/cumm [facility] MCV 91.0 81.3 - 96.4 fL [facility] MCH 27.9 27.1 - 33.3 pg [facility] MCHC 30.7(L) 32.3 - 35.7 g/dL [facility] RDW CV 15.9(H) 11.1 - 14.9 % [facility] RDW SD 52.6(H) 35.7 - 48.1 fL [facility] NRBC abs 0.00 0.00 - 0.01 K/cumm [facility] Blood 08/13/2024 8:24 PM CDT 08/13/2024 8:44 PM CDT us Christy Bray MD LAB BLOOD ORDERABLES Fin al Result [facility] [place] [address] * Gliadin antibody, IgG (08/13/2024 8:24 PM CDT) [facility] Anti-gliadin, IgG <0.4 <=14.9 units/mL Comment: Interpretive data Negative: <15 units/mL Positive: > or equal to 15 units/mL Current interpretive data was last revised on 2016. Blood 08/13/2024 8:24 PM CDT 08/13/2024 8:44 PM CDT us Vale Thorne MD LAB BLOOD ORDERABLES Final Result Performing Organization Address [facility] Co de Phone Number [facility] [place] [address] * Gliadin antibody, IgA (08/13/2024 8:24 PM CDT) Anti-gliadin, IgA <0.5 <=14.9 units/mL Comment: Interpretive data Negative: <15 units/mL Positive: > or equal to 15 units/mL Current interpretive data was last revised on 2016. Blood 08/13/2024 8:24 PM CDT 08/13/2024 8:44 PM CDT Vale Thorne MD LAB BLOOD ORDERABLES Final Result Performing Organization Address [facility] de Phone Number [facility] [place] [address] * (ABNORMAL) Basic metabolic panel (08/13/2024 8:24 PM CDT) Pathologist [facility] Sodium 143 135 - 145 mmol/L Potassium, pl 4.6 3.3 - 4.9 mmol/L [facility] Comment:Repeated and Verifie d Chloride 111(H) 97 - 110 mmol/L [facility] CO2 22 22 - 32 mmol/L [facility] Anion gap 10 2 - 15 mmol/L [facility] BUN 25 6 - 25 mg/dL [facility] Creatinine 1.47(H) 0.80 - 1.30 mg/dL [facility] Glucose 122 70 - 199 mg/dL [facility] Comment: Interpretive Data Fasting glucose >/= 126 mg/dl is diagnostic for diabetes. Fasting is defined as no caloric intake for at least 8 hours. Fasting glucose between 100 mg/dl to 125 mg/dl is diagnostic of prediabetes. In a patient with classic symptoms of hyperglycemia or hyperglycemic crisis, a random glucose >/= 200 mg/dl is diagnostic for diabetes. In the absence of unequivocal hyperglycemia, results should be confirmed by repeat testing. The classification and Diagnosis of Diabetes Diabetes Care 2021; 46: S19-S40. Current interpretive data was last revised 2022. Calcium 8.5 8.5 - 10.3 mg/dL [facility] Blood 08/13/2024 8:24 PM CDT 08/13/2024 8:44 PM CDT Christy Bray MD LAB BLOOD ORDERABLES Fin al Result Performing Organization Address City/[facility]/ZIP Co de Phone Number [facility] [place] [address] * POCT glucose (08/13/2024 8:05 PM CDT) Pathologist [facility] Glucose, POC 117 70 - 199 mg/dL Blood 08/13/2024 8:05 PM CDT 08/13/2024 8:05 PM CDT Vale Thorne MD LAB POCT ORDERABLES - DEVIC E Final Result Performing Organization Address [facility] de Phone Number [facility] [place] [address] * C. difficile testing Stool (08/13/2024 6:32 PM CDT) Pathologist [facility] Result Negative Negative Toxin Result Negative Negative [facility] C. diff result Negative, free toxin Negative, free toxin [facility] C. diff interp Negative for toxigenic Clostridioides (Clostridium) difficile. Analysis was performed using a glutamate dehydrogenase antigen detection assay combined with a C. difficile toxin detection assay. [facility] Stool 08/13/2024 6:32 PM CDT 08/13/2024 6:40 PM CDT Christy Bray MD LAB MICROBIOLOGY - GENER AL ORDERABLES Final Result Performing Organization Address [facility] Co de Phone Number [facility] [place] [address] * POCT glucose (08/13/2024 4:43 PM CDT) Glucose, POC 119 70 - 199 mg/dL Blood 08/13/2024 4:43 PM CDT 08/13/2024 4:43 PM CDT Vale Thorne MD LAB POCT ORDERABLES - DEVIC E Final Result Performing Organization Address [facility] [place] [address] * POCT glucose (08/13/2024 1:10 PM CDT) Glucose, POC 137 70 - 199 mg/dL Blood 08/13/2024 1:10 PM CDT 08/13/2024 1:10 PM CDT us Christy Bray MD LAB POCT ORDERABLES - DE VICE Final Result Performing Organization Address [facility] [place] [address] * US Vein Duplex Lower Extremity Bilateral Complete (08/13/2024 12:54 PM CDT) Anatomical Region Laterality Modality Vascular Bilateral Ultrasound 08/13/2024 12:0 0 PM CDT Narrative 08/13/2024 2:42 PM CDT [facility] - Department of Vascular Surgery, Vascular Laboratory [address] [place] [id number] Lower Extremity Venous Ultrasound Report Patient Name: JOHN MTZ : 1945 (79y 4m) Study Date: 08/13/2024 12:00:35 PM Gender: M Tech: TP Location: Ref Provider: CHRISTY BRAY Quality: Limited Order Provider: CHRISTY BRAY PROCEDURES: Vascular Report: Venous Duplex imaging was performed bilaterally in the lower extremities. The common femoral, femoral, popliteal, posterior tibial, peroneal veins were evaluated for patency, spontaneity and phasicity with Doppler, compression and augmentation maneuvers. Great saphenous vein proximal at the junction was evaluated with compression maneuvers. INDICATIONS: Localized edema. FINDINGS: Performing Diving Supervisor: Vesta Ventura RDMS, RVT. Bilateral: Venous Doppler signals in the bilateral lower extremity are pulsatile, this finding is consistent with increased intravascular pressure. No evidence of deep vein thrombus by duplex, proximal to the calf. Comments: Patient is unable to fully tolerate compression maneuvers - exam was modified in specific areas to include only color and doppler images. Limited assessment of the right calf due to extensive edema. CONCLUSIONS: 1. There is no evidence of acute deep vein thrombosis in the lower extremities bilaterally. Noninvasive venous studies cannot rule out isolated calf vein obstruction. 2. Pulsatile venous Doppler signals are consistent with increased intravascular volume. HISTORY: R ankle fracture. PREVIOUS STUDIES: Previous study performed on 07/21/24 - negative for DVT. DISCLAIMER: The study images and the final report will be retained in the patient chart by the Vascular Laboratory for the legally required time period. This chart constitutes the legal record of any testing performed. ATTESTATION: I have reviewed and interpreted the pertinent images and measurements of this study. I attest to the conclusions in the final report that is provided above. Electronically Signed By: Kishore Alvarenga MD [facility] [phone] 08/13/2024 1:28:32 PM CDT Procedure Note Kishore Alvarenga MD - 08/13/2024 [facility] - Department of Vascular Surgery,Vascular Laboratory [address] [place] [id number] Lower Extremity Venous Ultrasound Report Patient Name: JOHN MTZ : 1945 (79y 4m) Study Date: 08/13/2024 12:00:35 PM Gender: M Tech: Location: ED2- Ref Provider: CHRISTY BRAY Quality: Limited Order Provider: CHRISTY BRAY PROCEDURES: Vascular Report: Venous Duplex imaging was performed bilaterally in the lower extremities.The common femoral, femoral, popliteal, posterior tibial, peroneal veins wereevaluated for patency, spontaneity and phasicity with Doppler, compression and augmentationmaneuvers. Great saphenous vein proximal at the junction was evaluated with compressionmaneuvers. INDICATIONS: Localized edema. FINDINGS: Performing Diving Supervisor: Vesta Ventura RDMS, INDRA. Bilateral: Venous Doppler signals in the bilateral lower extremity are pulsatile,this finding is consistent with increased intravascular pressure. No evidence of deep veinthrombus by duplex, proximal to the calf. Comments: Patient is unable to fully tolerate compression maneuvers - exam wasmodified in specific areas to include only color and doppler images. Limited assessment of theright calf due to extensive edema. CONCLUSIONS: 1. There is no evidence of acute deep vein thrombosis in the lowerextremities bilaterally. Noninvasive venous studies cannot rule out isolated calf veinobstruction. 2. Pulsatile venous Doppler signals are consistent with increasedintravascular volume. HISTORY: R ankle fracture. PREVIOUS STUDIES: Previous study performed on 07/21/24 - negative for DVT. DISCLAIMER: The study images and the final report will be retained in the patientchart by the Vascular Laboratory for the legally required time period. This chartconstitutes the legal record of any testing performed. ATTESTATION: I have reviewed and interpreted the pertinent images and measurements ofthis study. I attest to the conclusions in the final report that is provided above. Electronically Signed By: Kishore Alvarenga MD [facility] [phone] 08/13/2024 1:28:32 PM CDT Christy Bray MD [facility] [place] PROCEDURES Final Result * (ABNORMAL) Erythrocyte sedimentation rate (08/13/2024 9:30 AM CDT) Erythrocyte sedimentation rate 21(H) 1 - 20 mm/hr Blood 08/13/2024 9:30 AM CDT 08/13/2024 9:44 AM CDT Christy Bray MD LAB BLOOD ORDERABLES [place] fl Result Performing Organization Address City/State/[facility] Co de Phone Number [facility] One [facility] [place] [address] * (ABNORMAL) CRP (acute phase) (08/13/2024 9:30 AM CDT) Pathologist [facility] CRP 43.6(H) <=10.0 mg/L Blood 08/13/2024 9:30 AM CDT 08/13/2024 9:44 AM CDT Christy Bray MD LAB BLOOD ORDERABLES Fin al Result Performing Organization Address [facility] Co de Phone Number [facility] [place] [address] * POCT glucose (08/13/2024 8:31 AM CDT) Glucose, POC 112 70 - 199 mg/dL Blood 08/13/2024 8:31 AM CDT 08/13/2024 8:31 AM CDT us Christy Bray MD LAB POCT ORDERABLES - DE VICE Final Result Performing Organization Address [facility] Co de Phone Number [facility] [place] [address] * POCT glucose (08/13/2024 5:06 AM CDT) Glucose, POC 116 70 - 199 mg/dL Blood 08/13/2024 5:06 AM CDT 08/13/2024 5:06 AM CDT us Luz Maria Vicente MD LAB POCT ORDERABLES - DEVICE Final Result Performing Organization Address [facility] Co de Phone Number [facility] [place] [address] * XR Ankle Right 3 or More Views (08/13/2024 2:07 AM CDT) Anatomical Region Laterality Modality Lower Extremities, Ankle Right Compute d Radiography 08/13/2024 3:50 AM CDT Impressions 08/13/2024 8:11 AM CDT Tibia and fibula: There is a mildly displaced fracture of the distal fibula. Vascular calcifications and soft tissue swelling are noted throughout the leg. Diffuse osteopenia is noted. Ankle: There is cortical irregularity and sclerosis surrounding the talus with medial subluxation, in keeping with neuropathic arthropathy. No additional discrete fracture is identified. Dictated by: Bassem Hussein MD The radiology attending physician has personally reviewed this study, and had reviewed and/or edited this written report and agrees with it. Electronically signed by: Carmela Mendoza M.D. Narrative 08/13/2024 8:11 AM CDT EXAMINATION: XR TIBIA FIBULA RIGHT2 VIEWS, XR ANKLE RIGHT 3 OR MORE VIEWS HISTORY: distal fibula fx COMPARISON: Same day CT Procedure Note Carmela Mendoza MD - 08/13/2024 EXAMINATION: XR TIBIA FIBULA RIGHT2 VIEWS, XR ANKLE RIGHT 3 OR MORE VIEWS HISTORY: distal fibula fx COMPARISON: Same day CT IMPRESSION: Tibia and fibula: There is a mildly displaced fracture of the distal fibula. Vascular calcifications and soft tissue swelling are noted throughout the leg. Diffuse osteopenia is noted. Ankle: There is cortical irregularity and sclerosis surrounding the talus with medial subluxation, in keeping with neuropathic arthropathy. No additional discrete fracture is identified. Dictated by: Bassem Hussein MD The radiology attending physician has personally reviewed this study, and had reviewed and/or edited this written report and agrees with it. Electronically signed by: Carmela Mendoza M.D. Iwona Goldberg MD IMG XR PROCEDURES Fin al Result * XR Tibia Fibula Right 2 Views (08/13/2024 2:06 AM CDT) Anatomical Region Laterality Modality Lower Extremities, Lower Leg Right Com puted Radiography 08/13/2024 3:50 AM CDT Impressions 08/13/2024 8:11 AM CDT Tibia and fibula: There is a mildly displaced fracture of the distal fibula. Vascular calcifications and soft tissue swelling are noted throughout the leg. Diffuse osteopenia is noted. Ankle: There is cortical irregularity and sclerosis surrounding the talus with medial subluxation, in keeping with neuropathic arthropathy. No additional discrete fracture is identified. Dictated by: Bassem Hussein MD The radiology attending physician has personally reviewed this study, and had reviewed and/or edited this written report and agrees with it. Electronically signed by: Carmela Mendoza M.D. Narrative 08/13/2024 8:11 AM CDT EXAMINATION: XR TIBIA FIBULA RIGHT2 VIEWS, XR ANKLE RIGHT 3 OR MORE VIEWS HISTORY: distal fibula fx COMPARISON: Same day CT Procedure Note Carmela Mendoza MD - 08/13/2024 EXAMINATION: XR TIBIA FIBULA RIGHT2 VIEWS, XR ANKLE RIGHT 3 OR MORE VIEWS HISTORY: distal fibula fx COMPARISON: Same day CT IMPRESSION: Tibia and fibula: There is a mildly displaced fracture of the distal fibula. Vascular calcifications and soft tissue swelling are noted throughout the leg. Diffuse osteopenia is noted. Ankle: There is cortical irregularity and sclerosis surrounding the talus with medial subluxation, in keeping with neuropathic arthropathy. No additional discrete fracture is identified. Dictated by: Bassem Hussein MD The radiology attending physician has personally reviewed this study, and had reviewed and/or edited this written report and agrees with it. Electronically signed by: Carmela Mendoza M.D. us Iwona Goldberg MD IMG XR PROCEDURES Fin al Result * Potassium, whole blood (08/13/2024 12:26 AM CDT) Potassium, bld 4.9 3.3 - 4.9 mmol/L Blood 08/13/2024 12:2 6 AM CDT 08/13/2024 12:34 AM CDT Iwona Goldberg MD LAB BLOOD ORDERABLES Final Result [facility] One [facility] [place] [address] * POCT glucose (08/13/2024 12:25 AM CDT) Glucose, POC 109 70 - 199 mg/dL Blood 08/13/2024 12:2 5 AM CDT 08/13/2024 12:25 AM CDT us Luz Maria Vicente MD LAB POCT ORDERABLES - DEVICE Final Result [facility] One [facility] [place] [address] * CT Entire Lower Extremity Right W Contrast (08/13/2024 12:15 AM CDT) Anatomical Region Laterality Modality Lower Extremities Right Computed Tomog naomi 08/13/2024 1:15 AM CDT Impressions 08/13/2024 6:32 AM CDT 1. Mildly displaced fracture of the distal fibula and comminuted fracture of the talus. Recommend dedicated ankle radiographs. 2. Skin thickening and soft tissue stranding throughout the right lower extremity possibly representing edema or cellulitis in the correct clinical context. No drainable fluid collection. Dictated by: Bassem Hussein MD The radiology attending physician has personally reviewed this study, and had reviewed and/or edited this written report and agrees with it. Electronically signed by: Jose Raymond M.D. Narrative 08/13/2024 6:32 AM CDT EXAMINATION: CT ENTIRE LOWER EXTREMITY RIGHT W CONTRAST HISTORY: Soft tissue infection TECHNIQUE: Transaxial computed tomographic images of the entire right lower extremity were obtained with intravenous contrast according to the standard protocol after the uneventful administration of 93 mL Opti-Ray 350 intravenous contrast. COMPARISON: None FINDINGS: There is a mildly displaced fracture of the distal fibula and comminuted fracture of the talus. Recommend dedicated ankle radiographs. There is skin thickening and soft tissue stranding throughout the right lower extremity, worst on the anterolateral aspect of the lower leg, possibly representing edema or cellulitis in the correct clinical context. No drainable fluid collection. There are vascular calcifications throughout the thigh. No lymphadenopathy. No suspicious osseous lesion. Procedure Note Jose Raymond MD - 08/13/2024 EXAMINATION: CT ENTIRE LOWER EXTREMITY RIGHT W CONTRAST HISTORY: Soft tissue infection TECHNIQUE: Transaxial computed tomographic images of the entire right lower extremity were obtained with intravenous contrast according to the standard protocol after the uneventful administration of 93 mL Opti-Ray 350 intravenous contrast. COMPARISON: None FINDINGS: There is a mildly displaced fracture of the distal fibula and comminuted fracture of the talus. Recommend dedicated ankle radiographs. There is skin thickening and soft tissue stranding throughout the right lower extremity, worst on the anterolateral aspect of the lower leg, possibly representing edema or cellulitis in the correct clinical context. No drainable fluid collection. There are vascular calcifications throughout the thigh. No lymphadenopathy. No suspicious osseous lesion. IMPRESSION: 1. Mildly displaced fracture of the distal fibula and comminuted fracture of the talus. Recommend dedicated ankle radiographs. 2. Skin thickening and soft tissue stranding throughout the right lower extremity possibly representing edema or cellulitis in the correct clinical context. No drainable fluid collection. Dictated by: Bassem Hussein MD The radiology attending physician has personally reviewed this study, and had reviewed and/or edited this written report and agrees with it. Electronically signed by: Jose Raymond M.D. Dany Parker MD IMG CT PROCEDURES Final R esult * XR Foot Right 3 or More Views (08/12/2024 11:41 PM CDT) Anatomical Region Laterality Modality Lower Extremities, Foot Right Computed Radiography 08/12/2024 11:4 7 PM CDT Impressions 08/13/2024 8:13 AM CDT Diffuse soft tissue swelling of the foot. Vascular calcifications are noted throughout the ankle. An osseous fragment is seen anterior to the tibia, favored to represent an old fracture or heterotopic ossification. No acute fracture is seen. Osseous alignment cannot be evaluated on these nonweightbearing films. Dictated by: Bassem Hussein MD The radiology attending physician has personally reviewed this study, and had reviewed and/or edited this written report and agrees with it. Electronically signed by: Carmela Mendoza M.D. Narrative 08/13/2024 8:13 AM CDT EXAMINATION: XR FOOT RIGHT 3 OR MORE VIEWS HISTORY: swollen, painful, erythematous right lower limb COMPARISON: None Procedure Note Carmela Mendoza MD - 08/13/2024 EXAMINATION: XR FOOT RIGHT 3 OR MORE VIEWS HISTORY: swollen, painful, erythematous right lower limb COMPARISON: None IMPRESSION: Diffuse soft tissue swelling of the foot. Vascular calcifications are noted throughout the ankle. An osseous fragment is seen anterior to the tibia, favored to represent an old fracture or heterotopic ossification. No acute fracture is seen. Osseous alignment cannot be evaluated on these nonweightbearing films. Dictated by: Bassem Hussein MD The radiology attending physician has personally reviewed this study, and had reviewed and/or edited this written report and agrees with it. Electronically signed by: Carmela Mendoza M.D. us Juliet Chin MD IMG XR PROCEDURES Final Result * POCT creatinine (08/12/2024 11:33 PM CDT) Creatinine POC 1.3 0.8 - 1.3 mg/dL Blood 08/12/2024 11:3 3 PM CDT 08/12/2024 11:33 PM CDT us Dany Parker MD LAB POCT ORDERABLES - DEV ICE Final Result [facility] One [facility] [place] [address] * (ABNORMAL) eGFR (08/12/2024 9:59 PM CDT) eGFR 50(L) >=60 mL/min/1. 73 m2 Comment: Interpretive Data Reference Interval Normal >/= 90 mL/min/1.73m2 Mildly decreased* 60 - 89 mL/min/1.73m2 Mildly to moderately decreased 45 - 59 mL/min/1.73m2 Moderately to severely decreased 30 - 44 mL/min/1.73m2 Severely decreased 15 - 29 mL/min/1.73m2 Kidney Failure < 15 mL/min/1.73m2 *Relative to young adult level Estimated glomerular filtration rate is determined by the 2020 CKD-EPI equation recommended by the National Kid[employer] (A Unifying Approach to GFR Estimation: Recommendations of the NKF-ASK Task Force on Reassessing the Inclusion of Race in Diagnosing Kidney Disease, JASN 202). The CKD-EPI equation should not be used for patients with unstable renal function and has not been validated in children and those over 70. Current interpretive data was last reviewed 2020. Blood 08/12/2024 9:59 PM CDT 08/12/2024 10:10 PM CDT us Juliet Chin MD LAB BLOOD ORDERABLES Fin al Result [facility] One [facility] [place] [address] * Differential, auto (08/12/2024 9:59 PM CDT) Neutrophil abs 5.44 1.50 - 6.50 K/cumm Imm gran abs 0.04 0.00 - 0.10 K/cumm [facility] Lymphocyte abs 1.48 0.80 - 3.30 K/cumm [facility] Monocyte abs 0.53 0.20 - 0.80 K/cumm [facility] Eosinophil abs 0.03 0.00 - 0.50 K/cumm [facility] Basophil abs 0.06 0.00 - 0.10 K/cumm [facility] Neutrophil pct 71.8 % [facility] Comment: Interpretive Data Percent cell count reference ranges are not reported, since discordance with absolute values may lead to misinterpretation of CBC data. Current Interpretive Data was last revised on 2017. Imm gran pct 0.5 % [facility] Comment: Interpretive Data Percent cell count reference ranges are not reported, since discordance with absolute values may lead to misinterpretation of CBC data. Current Interpretive Data was last revised on 2017. Lymphocyte pct 19.5 % [facility] Comment: Interpretive Data Percent cell count reference ranges are not reported, since discordance with absolute values may lead to misinterpretation of CBC data. Current Interpretive Data was last revised on 2017. Monocyte pct 7.0 % [facility] Comment: Interpretive Data Percent cell count reference ranges are not reported, since discordance with absolute values may lead to misinterpretation of CBC data. Current Interpretive Data was last revised on 2017. Eosinophil pct 0.4 % [facility] Comment: Interpretive Data Percent cell count reference ranges are not reported, since discordance with absolute values may lead to misinterpretation of CBC data. Current Interpretive Data was last revised on 2017. Basophil pct 0.8 % [facility] Comment: Interpretive Data Percent cell count reference ranges are not reported, since discordance with absolute values may lead to misinterpretation of CBC data. Current Interpretive Data was last revised on 2017. Blood 08/12/2024 9:59 PM CDT 08/12/2024 10:10 PM CDT us Juliet Chin MD LAB BLOOD ORDERABLES Fin al Result [facility] One [facility] [place] [address] * (ABNORMAL) CBC with auto differential (08/12/2024 9:59 PM CDT) WBC 7.58 3.80 - 9.90 K/cumm Hgb 12.4(L) 13.0 - 17.5 g/dL [facility] Hct 39.8 38.9 - 50.3 % [facility] Plt 249 150 - 400 K/cumm [facility] MPV 11.5 9.1 - 12.3 fL [facility] RBC 4.38 4.30 - 5.80 M/cumm [facility] MCV 90.9 81.3 - 96.4 fL [facility] MCH 28.3 27.1 - 33.3 pg [facility] MCHC 31.2(L) 32.3 - 35.7 g/dL [facility] RDW CV 15.9(H) 11.1 - 14.9 % [facility] RDW SD 52.3(H) 35.7 - 48.1 fL [facility] NRBC abs 0.00 0.00 - 0.01 K/cumm [facility] Blood 08/12/2024 9:59 PM CDT 08/12/2024 10:10 PM CDT us Juliet Chin MD LAB BLOOD ORDERABLES Fin al Result Performing Organization Address [facility] de Phone Number [facility] [place] [address] * (ABNORMAL) Hemoglobin A1c (08/12/2024 9:59 PM CDT) Hgb A1C 7.0(H) 4.0 - 5.6 % Estimated Average Glucose 154 mg/dL [facility] Comment: The ADA recommends reporting an estimated Average Glucose (eAG) with all Hemoglobin A1c results using the equation derived from a study of 507 normal and diabetic adults. Minority populations were underrepresented and children were not included. (Diabetes Care 2020; 43(S1): S66-S76). The eAG is not equivalent to a fasting glucose. Blood 08/12/2024 9:59 PM CDT 08/12/2024 10:14 PM CDT us Christy Bray MD LAB BLOOD ORDERABLES Fin al Result Performing Organization Address [facility] de Phone Number [facility] [place] [address] * (ABNORMAL) Lipid panel (08/12/2024 9:59 PM CDT) Cholesterol 70 30 - 199 mg/dL Comment: Interpretive Data Ages < or = 19 years Acceptable: <170 mg/dL Borderline high: 170-199 mg/dL High: >or= 200 mg/dL Ages > or = 20 years Desirable: <200 mg/dL Borderline high: 200-239 mg/dL High: >or= 240 mg/dL Literature References: 1. Expert Panel on Integrated Guidelines for Cardiovascular Health and Risk Reduction in Children and Adolescents. Pediatrics 2011;128:S213 2. NCEP Expert Panel. Circulation 2004;110:227 Current Interpretive Data was last revised on 2017. Triglycerides 77 <=149 mg/dL [facility] Comment: Hemolyzed; result may be falsely elevated Interpretive Data Ages < or = 9 years Acceptable: <75 mg/dL Borderline high: 75-99 mg/dL High: >or= 100 mg/dL Ages 10 to 20 years Acceptable: <90 mg/dL Borderline high: 90-129 mg/dL High: >or= 130 mg/dL Ages > or = 20 years Desirable: <150 mg/dL Borderline high: 150-199 mg/dL High: 200-499 mg/dL Very high: >or= 499 mg/dL Literature References: 1. Expert Panel on Integrated Guidelines for Cardiovascular Health and Risk Reduction in Children and Adolescents. Pediatrics 2011;128:S213 2. NCEP Expert Panel. Circulation 2004;110:227 Current Interpretive Data was last revised on 2017. HDL 38(L) >=40 mg/dL [facility] Comment: Interpretive Data Ages < or = 19 years Acceptable: >45 mg/dL Borderline low: 40-45 mg/dL Low: <40 mg/dL Ages > or = 20 years Desirable: >or= 60 mg/dL Low: <40 mg/dL Literature References: 1. Expert Panel on Integrated Guidelines for Cardiovascular Health and Risk Reduction in Children and Adolescents. Pediatrics 2011;128:S213 2. NCEP Expert Panel. Circulation 2004;110:227 Current Interpretive Data was last revised on 2017. LDL, calculated 16 <=129 mg/dL [facility] EMANU[facility] Comment: Interpretive Data Ages < or = 19 years Acceptable: <110 mg/dL Borderline high: 110-129 mg/dL High: >or= 130 mg/dL Ages > or = 20 years Optimal: <100 mg/dL Near optimal: 100-129 mg/dL Borderline high: 130-159 mg/dL High: >160 mg/dL Calculated using the Carlito LDL-C estimating equation. This equation was implemented on 2023. Prior to this date LDL-C was estimated using the Friedewald equation. Literature References: 1. Expert Panel on Integrated Guidelines for Cardiovascular Health and Risk Reduction in Children and Adolescents. Pediatrics 2011;128:S213 2. NCEP Expert Panel. Circulation 2004;110:227 3. Carlito Atkins et al. PREM Cardiol. 2020 June 18;5(5):540-548. doi: 10.1001/jamacardio.2020.0013 Current Interpretive Data was last revised on 2023. Non-HDL Cholesterol 32 mg/dL [facility] Comment: Interpretive Data Ages < or = 19 years Acceptable: <120 mg/dL Borderline high: 120-144 mg/dL High: >145 mg/dL Ages > or = 20 years When triglycerides are >200 mg/dL, Non-HDL cholesterol is a secondary target of therapy with treatment goals that are 30 mg/dL greater than the LDL cholesterol target. Literature References: 1. Expert Panel on Integrated Guidelines for Cardiovascular Health and Risk Reduction in Children and Adolescents. Pediatrics 2011;128:S213 2. NCEP Expert Panel. Circulation 2004;110:227 Current Interpretive Data was last revised on 2017. Chol/HDL ratio 2 [facility] Blood 08/12/2024 9:59 PM CDT 08/12/2024 10:10 PM CDT Christy Bray MD LAB BLOOD ORDERABLES Fin al Result [facility] One [facility] [place] [address] * (ABNORMAL) Comprehensive metabolic panel (08/12/2024 9:59 PM CDT) Sodium 141 135 - 145 mmol/L Potassium, pl See Comment 3.3 - 4.9 mmol/L [facility] Comment:Credited; Hemolyzed Specimen Chloride 110 97 - 110 mmol/L [facility] CO2 22 22 - 32 mmol/L [facility] Anion gap 9 2 - 15 mmol/L [facility] BUN 26(H) 6 - 25 mg/dL [facility] Creatinine 1.43(H) 0.80 - 1.30 mg/dL [facility] Glucose 121 70 - 199 mg/dL [facility] Comment: Interpretive Data Fasting glucose >/= 126 mg/dl is diagnostic for diabetes. Fasting is defined as no caloric intake for at least 8 hours. Fasting glucose between 100 mg/dl to 125 mg/dl is diagnostic of prediabetes. In a patient with classic symptoms of hyperglycemia or hyperglycemic crisis, a random glucose >/= 200 mg/dl is diagnostic for diabetes. In the absence of unequivocal hyperglycemia, results should be confirmed by repeat testing. The classification and Diagnosis of Diabetes Diabetes Care 202; 46: S19-S40. Current interpretive data was last revised 2022. Calcium 8.7 8.5 - 10.3 mg/dL [facility] Bilirubin, total 0.9 0.1 - 1.2 mg/dL [facility] Protein, pl 6.8 6.5 - 8.5 g/dL [facility] Albumin 3.5 3.5 - 5.0 g/dL [facility] Alk phos 148(H) 40 - 130 Units/L [facility] Comment:Hemolyzed; result ma y be falsely decreased ALT See Comment 7 - 55 Units/L [facility] Comment:Credited; Hemolyzed Specimen AST See Comment 10 - 50 Units/L [facility] Comment:Credited; Hemolyzed Specimen Blood 08/12/2024 9:59 PM CDT 08/12/2024 10:10 PM CDT us Juliet Chin MD LAB BLOOD ORDERABLES Fin al Result [facility] [place] [address] * (ABNORMAL) POCT ketone, blood (08/12/2024 9:17 PM CDT) Beta-Hydroxybut yrate, POC 2.3(H) 0.0 - 0.5 mmol/L Blood 08/12/2024 9:17 PM CDT 08/12/2024 9:17 PM CDT us Vale Thorne MD LAB POCT ORDERABLES - DEVIC E Final Result [facility] [place] [address] * POCT glucose (08/12/2024 8:51 PM CDT) Glucose, POC 113 70 - 199 mg/dL Blood 08/12/2024 8:51 PM CDT 08/12/2024 8:51 PM CDT us Notinfile Unknown LAB POCT ORDERABLES - DEVICE F inal Result [facility] Department [place] [address] * Colonoscopy (06/26/2024 11:50 AM CDT) Anatomical Region Laterality Modality Other Narrative Procedure Note Jaqueline Burden MD - 06/26/2024 11:50 AM CDT [facility] Patient Name: John Mtz Procedure Date: 06/26/2024 11:50 AM Date of : 1945 Admit Type: Outpatient Age: 79 Gender: Male Attending MD: Jaqueline Burden M.D. Room: [facility] ENDOSCOPY ROOM 05 Note Status: Finalized Procedure: Colonoscopy Indications: Chronic diarrhea Referring MD: Providers: Jaqueline Burden M.D. Medicines: See the Anesthesia note for documentation of the administered medications Complications: No immediate complications. Estimated Blood Loss: Estimated blood loss: none. Procedure: Pre-Anesthesia Assessment: - Prior to the procedure, a History and Physicalwas performed, and patient medications, allergies and sensitivities were reviewed. The patient'stolerance of previous anesthesia was reviewed. - The risks and benefits of the procedure and the sedation options and risks were discussed with the patient. All questions were answered and informed consent was obtained. The benefits, risks and alternatives of theprocedure and sedation were discussed and informed consentwas obtained. All questions were answered. Please referto the signed informed consent document in the medical record. The scope was passed under direct vision.The [id number]-ES408T colonoscope was introduced through theanus and advanced to the ileocolonic anastomosis. The colonoscopy was performed without difficulty. The patient tolerated the procedure well. The qualityof the bowel preparation was good. The rectum was photographed. Prep was administered in a singledose. Findings: The perianal and digital rectal examinations were normal. Pertinent negatives include normal sphincter tone. Many small-mouthed diverticula were found in the left colon. There was evidence of a prior end-to-side ileo-colonic anastomosis in the ascending colon. This was patent and was characterized by healthy appearing mucosa. Biopsies were taken with a cold forceps forhistology. The retroflexed view of the distal rectum and anal verge was normaland showed no anal or rectal abnormalities. Impression: - Diverticulosis in the left colon. - Patent end-to-side ileo-colonic anastomosis, characterized by healthy appearing mucosa.Biopsied. - The distal rectum and anal verge are normal on retroflexion view. Recommendation: - Resume previous diet. - Continue present medications. - Await pathology results. Jaqueline Burden M.D. Jaqueline Burden M.D. 06/26/2024 12:25:17 PM . Number of Addenda: 0 Note Initiated On: 06/26/2024 11:50 AM Recognized by the [employer] for promoting quality in endoscopy Jaqueline Burden MD ENDOSCOPY PROCEDURES Lashanda l Result * Serum Hepatitis C ab (09/07/2013 5:17 AM CDT) HCV ab Negative NEG HISTORICAL RESULTS Comment: Interpretive Data If confirmation is required, call Laboratory Customer Service to request sample to be sent to [facility] for Hepatitis C Virus (HCV) RNA Detection and Quantitation by Real-Time Reverse Production Superintendent-PCR (RT-PCR). Current interpretive data was last revised on 2011 Serum 09/07/2013 5:17 AM CDT Narrative HISTORICAL RESULTS - 09/08/2013 7:15 AM CDT Test performed at [facility], [address] [facility],, [place], [place], [facility], [address]. 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
--- OUTSIDE RECORDS SUMMARY | 2024-10-25 10:56 | XMS_ITS | Encounter Summary ---
Author Organization [facility] - [facility] Address [address] [place] [address] Care Team Providers Care Car Wash Manager Name Role Phone Bereket Oquendo MD Unavailable [phone] Yuli Ibarra MD Primary Care Provider [phone] Cesar Zuluaga MD Unavailable [phone] Alcides Molina MD Unavailable Unavailable LuisanaJim bowen MD Unavailable [phone] Olivia Olguin RN Unavailable [phone] Jose Espinal MD Unavailable Tayla Tolbert RN Unavailable [phone] Jaqueline Burden MD Unavailable [phone] Encounter Details Date Type Department Care Team (Latest Contact Info) Description 11/08/2021 Peakos Message Enc [facility] Medical Group Multispecialty Care - [place] [address] [address] [place] [address] [place] [address] [place] [address] [address] [place] [address] Medication refill Social History Tobacco Use Types Packs/Day Years Used Date Smoking Tobacco: Former Cigarettes 0.5 8 1 572 - 1908 Smokeless Tobacco: Never Comments:smoked socially for 40 [...] Sexual Orientation Straight 01/06/2018 12 :04 PM COMPOUND MIXER Occupation Industry Job Start Date Job End Date Not on file Not on file Not on file Not on file COVID-19 Exposure Response Date Recorded In the last 10 days, have yo u been in contact with someone who was confirmed or suspected to have Coronavirus/COVID-19? No / Unsure 10/24/2021 1:47 PM CDT documented as of this encounter Plan of Treatment Upcoming Encounters Date Type Department Care Team (Late st Contact Info) Description 11/19/2024 9:40 AM CDT [facility] - [facility] [address] [facility], [address] [place] [address] Jamie Herrera DO [address] [facility] [address] [place] [address] 01/04/2025 10:30 AM COMPOUND MIXER Office Visit [facility] [address] [place] [id number] Bereket Oquendo MD [address] [facility] [address] [place] [address] 02/01/2025 2:40 PM COMPOUND MIXER [facility] - [place] [address] [address] [place] [address] [place] [address] [place] [address] documented as of this encounter Visit Diagnoses Not on filedocumented in this encounter Additional Health Concerns Infection Onset Date Last Indicated Resolved Time COVID-19 Rule Out 02/06/2024 02/06/2024 02/06/2024 2:41 PM COMPOUND MIXER COVID-19 Confirmed 02/06/2024 02/06/2024 12:32 AM COMPOUND MIXER Assessment Noted Time PHQ-9 Depression Total Score: 0 04/05/19 22 9:32 AM COMPOUND MIXER documented as of this encounter Care Teams Car Wash Manager Relationship Specialty Start Date End Date Yuli Ibarra MD [address] [place] [address] PCP - General INTERNAL MEDICINE 11/03/20 Bereket Oquendo MD [facility] [address] [place] [address] [place] Sample Grinder CARDIOVASCULAR DISEASE 08/15/16 Cesar Zuluaga MD [address] [place] [address] Retina Ophthalmology 01/11/21 Alcides Molina MD [address] [place] [address] Consulting Physician UROLOGY 01/11/21 04/29/22 Jim Lieberman MD [address] [facility] [address] [place] [address] SURGERY 01/11/21 Olivia Olguin RN [address] [place] [address] Ethics Instructor (Ambulatory) REGISTERED NURSE 03/14/22 03/28/22 Jose Espinal MD 1 [place] [address] Consulting Physician RADIATION ONCOLOGY 03/06/24 Tayla Tolbert, RN [address] [place] [address] Ethics Instructor (Ambulatory) REGISTERED NURSE 07/20/24 09/20/24 Jaqueline Burden MD [address] [facility] [address] [place] [address] Referring Physician GASTROENTEROLOGY 07/28/24 documented as of this encounter
--- OUTSIDE RECORDS SUMMARY | 2024-10-25 10:56 | XMS_ITS | Encounter Summary ---
Author Organization [facility] Address [address] [place] [address] Care Team Providers Care Defensive Secondary Coach Name Role Phone Bereket Oquendo MD Unavailable [phone] Yuli Ibarra MD Primary Care Provider [phone] Cesar Zuluaga MD Unavailable [phone] Alcides Molina MD Unavailable Unavailable LuisanaJim bowen MD Unavailable [phone] Olivia Olguin RN Unavailable [phone] Jose Espinal MD Unavailable Tayla Tolbert RN Unavailable [phone] Jaqueline Burden MD Unavailable [phone] Encounter Details Date Type Department Care Team (Late st Contact Info) Description 12/12/2021 Squrl Message Enc [facility] [facility], [id number] [facility] Provider Blood pressure Social History Tobacco Use Types Packs/Day Years Used Date Smoking Tobacco: Former Cigarettes 0.5 8 1 972 - 7720 Smokeless Tobacco: Never Comments:smoked socially for 40 [...] please move on to questions 3-9 0 12/12/2021 Sex and Gender Information Value Date Recorded Sex Assigned at Male 07/01/2019 11:12 AM CDT Legal Sex Male 1:25 PM CDT Gender Identity Male 07/01/2019 11:12 AM CDT Sexual Orientation Straight 01/06/2018 12 :04 PM CARGO AND CONTAINER INSPECTOR Occupation Industry Job Start Date Job End Date Not on file Not on file Not on file Not on file COVID-19 Exposure Response Date Recorded In the last 10 days, have yo u been in contact with someone who was confirmed or suspected to have Coronavirus/COVID-19? No / Unsure 12/12/2021 2:44 PM CDT documented as of this encounter Plan of Treatment Upcoming Encounters Date Type Department Care Team (Late st Contact Info) Description 11/19/2024 9:40 AM CDT [facility] [address] [facility] [address] [place] [phone] Jamie Herrera DO [address] [facility] [address] [place] [address] 01/04/2025 10:30 AM CARGO AND CONTAINER INSPECTOR [facility] [address] [place] [address] Bereket Oquendo MD [address] [facility] [address] [place] [address] 02/01/2025 2:40 PM CARGO AND CONTAINER INSPECTOR Office Visit [facility] Multispecialty Care - [address] [place] [address] Yuli Ibarra MD [address] [facility] [address] [place] [address] documented as of this encounter Visit Diagnoses Not on filedocumented in this encounter Additional Health Concerns Infection Onset Date Last Indicated Resolved Time COVID-19 Rule Out 02/06/2024 02/06/2024 02/06/2024 2:41 PM CARGO AND CONTAINER INSPECTOR COVID-19 Confirmed 02/06/2024 02/06/2024 12:32 AM CARGO AND CONTAINER INSPECTOR Assessment Noted Time PHQ-9 Depression Total Score: 0 04/05/19 9:32 AM CARGO AND CONTAINER INSPECTOR documented as of this encounter Care Teams Defensive Secondary Coach Relationship Specialty Start Date End Date Yuli Ibarra MD [address] [address] PCP - General INTERNAL MEDICINE 11/03/20 Bereket Oquendo MD [facility] [address] [place] [address] [place] Director Of Software Development CARDIOVASCULAR DISEASE 08/15/16 Cesar Zuluaga MD [address] [place] [address] Retina Ophthalmology 01/11/21 Alcides Molina MD [address] [place] [address] Consulting Physician UROLOGY 01/11/21 04/29/22 Jim Lieberman MD [address] [facility] [address] [place] [address] SURGERY 01/11/21 Olivia Olguin, RN [address] [place] [address] Sales Service Rep (Ambulatory) REGISTERED NURSE 03/14/22 03/28/22 Jose Espinal MD 1 [place] [address] Consulting Physician RADIATION ONCOLOGY 03/06/24 Tayla Tolbert, RN [address] [place] [address] Sales Service Rep (Ambulatory) REGISTERED NURSE 07/20/24 09/20/24 Jaqueline Burden MD [address] [facility] [address] [place], [place] [address] Referring Physician GASTROENTEROLOGY 07/28/24 documented as of this encounter
--- OUTSIDE RECORDS SUMMARY | 2024-10-25 10:57 | XMS_ITS | Encounter Summary ---
Author Organization [facility] Address [address] [place] [address] Care Team Providers Care Hosiery Mater Name Role Phone Onur Melendrez MD Primary Care Provider [phone] Bereket Oquendo MD Unavailable [phone] Bettina Bansal PharmD Unavailable [phone] Yuli Ibarra MD Primary Care Provider [phone] Cesar Zuluaga MD Unavailable [phone] Alcides Molina MD Unavailable Unavailable LuisanaJim MD Unavailable [phone] Olivia Olguin RN Unavailable [phone] Jose Espinal MD Unavailable Tayla Tolbert RN Unavailable [phone] Jaqueline Burden MD Unavailable [phone] Reason for Referral * Surgical (Routine) - Closed Specialty Diagnoses / Procedures Referred By Giovanni t Referred To Contact Procedures Case request operating room: RADIOFREQUENCY LUMBAR l2, 3, 4 Aicha Son MD [facility] [address] [place] [address] Phone: tel: fax: Referral ID Status Reason Start Date Expiration Date Visits Re quested Visits Authorized [id number] Closed 10/18/2017 11/17/2018 1 1 Encounter Details Date Type Department Care Team (Late Contact Info) Description 10/18/2017 Prep for Procedure [facility] [address] [id number] Aicha Son MD [facility] [address] [place] [address] Social History Tobacco Use Types Packs/Day Years [...] Sexual Orientation Straight 01/06/2018 12 :04 PM TOOTH CLERK Occupation Industry Job Start Date Job End Date Not on file Not on file Not on file Not on file documented as of this encounter Plan of Treatment Upcoming Encounters Date Type Department Care Team (Late Contact Info) Description 11/19/2024 9:40 AM CDT Office Visit [facility] Multispecialty Care - [facility] [address] [facility] [address] [place] [address] Jamie Herrera DO [address] [facility] [address] [place] [address] 01/04/2025 10:30 AM TOOTH CLERK Office Visit [facility] [address] [place] [address] Bereket Oquendo MD [facility] [address] [place] [address] 02/01/2025 2:40 PM TOOTH CLERK Office Visit [facility] Multispecialty Care - [place] [address] [address] [place] [address] Yuli Ibarra MD [address] [address] Scheduled Orders Name Type Priority Associated Diagnoses Order Schedule Case request operating room: RADIOFREQUENCY LUMBAR l2, 3, 4 Case Request Routine Once for 1 Occurrences starting 10/18/2017 until 10/18/2017 documented as of this encounter Visit Diagnoses Not on filedocumented in this encounter Additional Health Concerns Infection Onset Date Last Indicated Resolved Time COVID-19 Rule Out 02/06/2024 02/06/2024 02/06/2024 2:41 PM TOOTH CLERK COVID-19 Confirmed 02/06/2024 02/06/2024 12:32 AM TOOTH CLERK documented as of this encounter Care Teams Hosiery Mater Relationship Specialty Start Date End Date Onur Melendrez MD PCP - General INTERNAL MEDICINE 07/19/16 11/02/20 Yuli Ibarra MD [address] [place] [address] PCP - General INTERNAL MEDICINE 11/03/20 Bereket Oquendo MD [address] [facility] [address] [place] [address] M[place]hon [place] Soaping Machine Operator CARDIOVASCULAR DISEASE 08/15/16 Bettina Bansal, PharmD [address] [place] [address] Pharmacist Pharmacist 02/28/18 01/10/21 Cesar Zuluaga MD [address] [place] [address] Retina Ophthalmology 01/11/21 Alcides Molina MD [address] [place] [place] [address] Consulting Physician UROLOGY 01/11/21 04/29/22 Jim Lieberman MD [address] [place] [address] SURGERY 01/11/21 Olivia Olguin RN [address] [place], [place] [address] Lugger (Ambulatory) REGISTERED NURSE 03/14/22 03/28/22 Jose Espinal MD 1 [place] [address] Consulting Physician RADIATION ONCOLOGY 03/06/24 Tayla Tolbert RN [address] [place] [address] Lugger (Ambulatory) REGISTERED NURSE 07/20/24 09/20/24 Jaqueline Burden MD [facility] [place] [address] Referring Physician GASTROENTEROLOGY 07/28/24 documented as of this encounter
--- OUTSIDE RECORDS SUMMARY | 2024-10-25 10:57 | XMS_ITS | Encounter Summary ---
Author Organization [facility] Address [address] [place] [address] Care Team Providers Care Male Impersonator Name Role Phone Bereket Oquendo MD Unavailable [phone] Yuli Ibarra MD Primary Care Provider [phone] Cesar Zuluaga MD Unavailable [phone] Alcides Molina MD Unavailable Unavailable LuisanaJim bowen MD Unavailable [phone] Olivia Olguin RN Unavailable [phone] Jose Espinal MD Unavailable Tayla Tolbert RN Unavailable [phone] Jaqueline Burden MD Unavailable [phone] Encounter Details Date Type Department Care Team (Late st Contact Info) Description 02/09/2022 Algorithmia Message Enc [facility] [address] [place] [id number] Bereket Oquendo MD [address] [address] Lisinopril Social History Tobacco Use Types Packs/Day Years Used Date Smoking Tobacco: Former Cigarettes 0.5 8 1 [phone] - 0759 Smokeless Tobacco: Never Comments:smoked socially for 40 years; counseled by Dr Ibarra Alcohol Use Standard Drinks/Week Comments Yes 0 (1 standard drink = 0.6 oz pur e alcohol) rare, 2 drinks a year AUDIT-C Answer Date Recorded Frequency of Alcohol Consumption Never 01/06/2018 Average Number of Drinks Not on file 018 Frequency of Binge Drinking Not on file 12/19 PHQ-2 Answer Date Recorded Patient Health Questionnaire-2 Score 0 01/29/2022 Sex and Gender Information Value Date Recorded Sex Assigned at Male 07/01/2019 11:12 AM CDT Legal Sex Male 1:25 PM CDT Gender Identity Male 07/01/2019 11:12 AM CDT Sexual Orientation Straight 01/06/2018 12 :04 PM [employer]CHMAN Occupation Industry Job Start Date Job End Date Not on file Not on file Not on file Not on file COVID-19 Exposure Response Date Recorded In the last 10 days, have yo u been in contact with someone who was confirmed or suspected to have Coronavirus/COVID-19? No / Unsure 02/02/2022 12:31 PM LAUNCHMAN documented as of this encounter Plan of Treatment Upcoming Encounters Date Type Department Care Team (Late st Contact Info) Description 11/19/2024 9:40 AM CDT [facility] [address] [facility] [address] [place] [address] Jamie Herrera DO [address] [facility] [place] [address] 01/04/2025 10:30 AM LAUNCHMAN Office Visit [facility] [address] [place] [phone] Bereket Oquendo MD [facility] [address] [place] [address] 02/01/2025 2:40 PM LAUNCHMAN Office Visit [facility] - [address] [place] [address] Yuli Ibarra MD [address] [address] documented as of this encounter Visit Diagnoses Not on filedocumented in this encounter Additional Health Concerns Infection Onset Date Last Indicated Resolved Time COVID-19 Rule Out 02/06/2024 02/06/2024 02/06/2024 2:41 PM LAUNCHMAN COVID-19 Confirmed 02/06/2024 02/06/2024 12:32 AM LAUNCHMAN Assessment Noted Time PHQ-9 Depression Total Score: 0 04/05/19 22 9:32 AM LAUNCHMAN documented as of this encounter Care Teams Male Impersonator Relationship Specialty Start Date End Date Yuli Ibarra MD [facility] [address] PCP - General INTERNAL MEDICINE 11/03/20 Bereket Oquendo MD [facility] [address] [place], [place] [address] [place] [employer] CARDIOVASCULAR DISEASE 08/15/16 Cesar Zuluaga MD [address] [place] [address] Retina Ophthalmology 01/11/21 Alcides Molina MD [address] [place] [address] Consulting Physician UROLOGY 01/11/21 04/29/22 Jim Lieberman MD [address] [facility] [address] [place] [address] SURGERY 01/11/21 Olivia Olguin RN [address] [place] [address] [place] (Ambulatory) REGISTERED NURSE 03/14/22 03/28/22 Jose Espinal MD [address] [place] [address] Consulting Physician RADIATION ONCOLOGY 03/06/24 Tayla Tolbert, RN [address] [place] [address] [place] (Ambulatory) REGISTERED NURSE 07/20/24 09/20/24 Jaqueline Burden MD [facility] [address] [place] [address] Referring Physician GASTROENTEROLOGY 07/28/24 documented as of this encounter
--- OUTSIDE RECORDS SUMMARY | 2024-10-25 10:57 | XMS_ITS | Clinical Summary ---
Author Organization [facility] Address [address] [facility] [place] [address] Care Team Providers Care Wildlife Refuge Manager Name Role Phone Unavailable Primary Care Provider Unavailabl e Source Comments [facility],non-owned Affiliates and Associated Physician Practices is amultiple site organization consisting of ambulatory clinics and hospital sitesin [place], [place], [place] and [place]. This disclosure is being madepursuant to the Care Everywhere program and may not contain all information available regarding this patient. Last updated 17.[facility] Immunizations Immunization Administration Dates Next Due INFLUENZA VACCINE, HIGH-DOSE , QUADR. (FLUZONE HIGH-DOSE QUADRIVALENT; 65Y+), 0.7 ML (HD-[id number]) 12/03/2019 Social History Tobacco Use Types Packs/Day Years Used Date Smoking Tobacco: Never Assessed Sex and Gender Information Value Date Recorded Sex Assigned at Not on file Legal Sex Male 6:22 AM JAVASCRIPT PROGRAMMER Gender Identity Not on file Sexual Orientation Not on file Plan of Treatment Health Maintenance Due Date Last Done Comments MEDICARE AWV 12 MONTHS 1945 DTAP/TDAP/TD VACCINES (1 - Tdap) 1966 PNEUMOCOCCAL VACCINE 50+ (1 of 1 - PCV) 1997 ZOSTER VACCINE (1 of 2) 1997 Respiratory Syncytial Virus (RSV) Vaccine Pt: or over 60 yrs (1 - 1-dose 75+ series) 2022 DEPRESSION SCREENING 02/19/2024 COVID-19 VACCINE ( - 2024- season) 2024 10/13/2021, 02/28/2021, 04/29/2020, Additional history exists INFLUENZA VACCINE (#1) 2024 , 12/03/2019, 11/30/2017, Additional history exists HEPATITIS C SCREENING Completed 11/03/2020 HEPATITIS B VACCINE Aged Out No longe r eligible based on patient's age to complete this topic HIB VACCINE Aged Out No longer eligi ble based on patient's age to complete this topic HPV VACCINE Aged Out No longer eligi ble based on patient's age to complete this topic MENINGOCOCCAL (Group B) VACCINE SHARED DECISION-MAKING Aged Out No longer eligible based on patient's age to complete this topic MENINGOCOCCAL GROUPS A/C/Y/W VACCINE Aged Out No longer eligible based on patient's age to complete this topic Insurance MEDICARE
--- OUTSIDE RECORDS SUMMARY | 2024-10-25 12:03 | XMS_ITS | Clinical Summary ---
Author Organization [facility] Address [address] [place] [address] Care Team Providers Care Accounts Payable Supervisor Name Role Phone Yuli Ibarra MD Primary Care Provider [phone] Allergies No known active allergies Medications aspirin [...] (six) hours as needed for wheezing Active ukgexkfe-acl-ooxhi -vit K-lycop 400-20-300 mcg tablet Take 1 [...] for 24 hours prior to discharge to [facility] -Will switch to bumex 2mg PO [...] [facility]Will switch to bumex 2mg PO [...] - sent as misc lab test to [facility] for processing CTM volume status Assessment & [...] - sent as misc lab test to [facility] for processing CTM volume status Fibula fracture [...] - 10/23/2024 11:59 PM CDT Hospital Encounter [facility] Radiology at [facility] [address] [place] [address] Pain in joint involving right ankle and foot Discharge Disposition: Discharge to home or self care 10/15/2024 9:00 AM CDT Office Visit [facility] Medicine Orthopaedic Surgery [address] 2nd Floor [address] [place] [address] Soraya Wong NP Pain in right foot (Primary Dx); Charcot's joint of right ankle 10/14/2024 Orders Only [facility] Medicine Orthopaedic Surgery [address] [facility] 1st Floor [address] [place] [address] Carlos Atwood MD Pain in joint involving right ankle and foot (Primary Dx) 10/06/2024 Orders Only [facility] Medicine Orthopaedic Surgery [address] [facility] 1[address] [place] [address] Deb Todd RMA 10/05/2024 12:34 PM CDT - 10/05/2024 11:59 PM CDT Hospital Encounter [facility] [address] [place] [address] Pain in joint involving right ankle and foot Discharge Disposition: Discharge to home or self care 10/05/2024 12:30 PM CDT - 10/05/2024 11:59 PM CDT Hospital Encounter [facility] [address] [place] [address] Pain in right foot Discharge Disposition: Discharge to home or self care 10/05/2024 12:20 PM CDT Office Visit [facility] Medicine Orthopaedic Surgery [address] [place] [address] 2nd Floor [address] [place] [address] Carlos Atwood MD Pain in joint involving right ankle and foot (Primary Dx); Pain in right foot 09/22/2024 2:45 PM CDT Office Visit [facility] Orthopaedic Surgery [address] [place] [address] 2nd Floor [address] [place] [phone] Soraya Wong NP Charcot's joint of right ankle (Primary Dx) 09/09/2024 8:40 AM CDT Office Visit [facility] Medicine Orthopaedic Surgery [address] [place] [address] 2nd Floor [address] [place] [address] Carlos Atwood MD Charcot joint of right foot (Primary Dx) 08/26/2024 10:15 AM CDT Office Visit [facility] Medicine Orthopaedic Surgery [address] [facility] Medical Office Building 4 [address] [place] [address] Drake Ariza NP Pain in joint involving right ankle and foot (Primary Dx) 08/14/2024 Telephone [facility] Medicine Orthopaedic Surgery [address] Medical Office Building [address] [place] [phone] Kelley Devine RN 08/13/2024 11:40 AM CDT Ancillary Procedure [facility] Vascular [facility] IP [address] [facility] [address] [place] [address] 08/13/2024 Orders Only [facility] Orthopaedic Surgery [address] [facility] 6th [place] [address] [place] [phone] Annabella Barrera MD Charcot joint of right foot (Primary Dx) 08/12/2024 8:33 PM CDT - 08/19/2024 6:30 PM CDT Hospital Encounter [facility] [address] [place] [address] Dany Parker MD Serpe, MD Asa Menjivar, MD Fadumo Nolen, MD Naveen Levin, MD Jamar Luna, Florentino Vu MD Cellulitis of right lower extremity [...] Back Surgery - (Added by TW Conv) [place] UNLISTED PROCEDURE ABDOME N PERITONEUM & OMENTUM 1999 11 inches of colon removed, cyst formed and removed. 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 Gender Identity Not on file Sexual Orientation [...] 10:07 AM CDT Pain in right foot [place] CAST SUP SHRT LEG FIBERGLASS Routine 10/05/2024 1:44 PM CDT Pain in joint involving right ankle and foot [place] APPLICATION RIGID TOTAL CONTACT LEG CAST Routine [...] in joint involving right ankle and foot [place] CAST SUP SHRT LEG FIBERGLASS Routine 09/22/2024 6:56 PM CDT Charcot's joint of right ankle [place] APPLICATION RIGID TOTAL CONTACT LEG CAST Routine 09/22/2024 6:56 PM CDT Charcot's joint of right ankle [place] CAST SUP SHRT LEG FIBERGLASS Routine 09/09/2024 10:06 AM CDT Charcot joint of right foot [place] APPLICATION RIGID TOTAL CONTACT LEG CAST Routine 09/09/2024 10:06 AM CDT Charcot joint of right foot [place] CAST SUP SHT LEG SPLNT PLSTR Routine 08/26/2024 11:00 AM CDT Pain in joint involving right ankle and foot [place] APPLICATION SHORT LEG SPLINT CALF FOOT Routine [...] Tolerated well, no immediate complications Soraya Wong PAYROLL EXAMINER IN CLINIC/BEDSIDE ORDERABLES F inal Result * [place] APPLICATION RIGID TOTAL CONTACT LEG CAST, [place] CAST SUP SHRT LEG FIBERGLASS (10/05/2024 1:44 [...] IMG XR PROCEDURES Lashanda l Result * [place] APPLICATION RIGID TOTAL CONTACT LEG CAST, [place] CAST SUP SHRT LEG FIBERGLASS (09/22/2024 6:56 [...] IN CLINIC/BEDSIDE ORDERABLES F inal Result * [place] APPLICATION RIGID TOTAL CONTACT LEG CAST, [place] CAST SUP SHRT LEG FIBERGLASS (09/09/2024 10:06 [...] NAMRATA TAYLOR Edited Result - Final * [place] APPLICATION SHORT LEG SPLINT CALF FOOT, [place] CAST SUP SHT LEG SPLNT PLSTR (08/26/2024 11:00 AM CDT) Narrative Kishore Arevalo - 08/26/2024 11:00 AM CDT Kishore Arevalo 08/26/2024 11:02 AM Ortho Casting/Splinting Documentation Date/Time: 08/26/2024 11:00 AM Performed by: Kishore Arevalo Authorized by: Drake Ariza, PAYROLL EXAMINER Sensation: Normal Skin Condition: Clean, dry, and [...] POCT ORDERABLES - DEV ICE Final Result [facility] Department [place] [address] * POCT glucose (08/19/2024 7:55 AM CDT) Glucose, POC 135 70 - 199 mg/dL Blood 08/19/2024 7:55 AM CDT 08/19/2024 7:55 AM CDT Florentino Roldan MD LAB POCT ORDERABLES - DEV ICE Final Result Performing Organization Address [facility] Co de Phone Number TAB[facility] Department [place] [address] * (ABNORMAL) eGFR (08/18/2024 8:28 PM CDT) [...] BLOOD ORDERABLES Final Result Performing Organization Address City/[facility] Co de Phone Number [facility] Department [place] [address] * Differential, auto (08/18/2024 8:28 PM CDT) Neutrophil abs 3.45 1.50 - 6.50 K/cumm Imm gran abs 0.06 0.00 - 0.10 K/cumm [facility] Lymphocyte abs 1.66 0.80 - 3.30 K/cumm [facility] Monocyte abs 0.70 0.20 - 0.80 K/cumm [facility] Eosinophil abs 0.30 0.00 - 0.50 K/cumm [facility] Basophil abs 0.05 0.00 - 0.10 K/cumm [facility] Neutrophil pct 55.4 % [facility] Comment: Interpretive Data Percent cell count reference ranges are not reported, since discordance with absolute values may lead to misinterpretation of CBC data. Current Interpretive Data was last revised on 2017. Imm gran pct 1.0 % [facility] Comment: Interpretive Data Percent cell count reference ranges are not reported, since discordance with absolute values may lead to misinterpretation of CBC data. Current Interpretive Data was last revised on 2017. Lymphocyte pct 26.7 % [facility] Comment: Interpretive Data Percent cell count reference ranges are not reported, since discordance with absolute values may lead to misinterpretation of CBC data. Current Interpretive Data was last revised on 2017. Monocyte pct 11.3 % [facility] Comment: Interpretive Data Percent cell count reference ranges are not reported, since discordance with absolute values may lead to misinterpretation of CBC data. Current Interpretive Data was last revised on 2017. Eosinophil pct 4.8 % [facility] Comment: Interpretive Data Percent cell count reference ranges are not reported, since discordance with absolute values may lead to misinterpretation of CBC data. Current Interpretive Data was last revised on 2017. Basophil pct 0.8 % [facility] Comment: Interpretive Data Percent cell count reference ranges are not reported, since discordance with absolute values may lead to misinterpretation of CBC data. Current Interpretive Data was last revised on 2017. Blood 08/18/2024 8:28 PM CDT 08/18/2024 9:18 PM CDT us Shira Hodge MD LAB BLOOD ORDERABLES Final Result [facility] Department [place] [address] * (ABNORMAL) CBC with auto differential (08/18/2024 8:28 PM CDT) WBC 6.22 3.80 - 9.90 K/cumm Hgb 11.6(L) 13.0 - 17.5 g/dL [facility] Hct 37.5(L) 38.9 - 50.3 % [facility] Plt 183 150 - 400 K/cumm [facility] MPV 10.2 9.1 - 12.3 fL [facility] RBC 4.21(L) 4.30 - 5.80 M/cumm [facility] MCV 89.1 81.3 - 96.4 fL [facility] MCH 27.6 27.1 - 33.3 pg [facility] MCHC 30.9(L) 32.3 - 35.7 g/dL [facility] RDW CV 16.3(H) 11.1 - 14.9 % [facility] RDW SD 52.3(H) 35.7 - 48.1 fL [facility] NRBC abs 0.00 0.00 - 0.01 K/cumm [facility] Blood 08/18/2024 8:28 PM CDT 08/18/2024 9:18 PM CDT us Shira Hodge MD LAB BLOOD ORDERABLES Final Result [facility] Department [place] [address] * (ABNORMAL) Basic metabolic panel (08/18/2024 8:28 PM CDT) [facility] Sodium 140 135 - 145 mmol/L Potassium, pl 4.0 3.3 - 4.9 mmol/L [facility] Chloride 104 97 - 110 mmol/L [facility] CO2 26 22 - 32 mmol/L [facility] Anion gap 10 2 - 15 mmol/L [facility] BUN 33(H) 6 - 25 mg/dL [facility] Creatinine 2.00(H) 0.80 - 1.30 mg/dL [facility] Glucose 211(H) 70 - 199 mg/dL [facility] Comment: Interpretive Data Fasting glucose >/= 126 [...] 2022. Calcium 8.7 8.5 - 10.3 mg/dL [facility] Blood 08/18/2024 8:28 PM CDT 08/18/2024 9:18 PM CDT Shira Hodge MD LAB BLOOD ORDERABLES Final Result Performing Organization Address [facility] de Phone Number [facility] Department [place] [address] * (ABNORMAL) POCT glucose (08/18/2024 7:56 PM CDT) Glucose, POC 226(H) 70 - 199 mg/dL Blood 08/18/2024 7:56 PM CDT 08/18/2024 7:56 PM CDT Florentino Roldan MD LAB POCT ORDERABLES - DEV ICE Final Result Performing Organization Address [facility] de Phone Number [facility] Department [place] [address] * POCT glucose (08/18/2024 5:10 PM CDT) Glucose, POC 153 70 - 199 mg/dL Blood 08/18/2024 5:10 PM CDT 08/18/2024 5:10 PM CDT Florentino Roldan MD LAB POCT ORDERABLES - DEV ICE Final Result Performing Organization Address [facility] Co de Phone Number [facility] Department [place] [address] * POCT glucose (08/18/2024 11:45 AM CDT) Glucose, POC 184 70 - 199 mg/dL Blood 08/18/2024 11:4 5 AM CDT 08/18/2024 11:45 AM CDT Florentino Roldan MD LAB POCT ORDERABLES - DEV ICE Final Result Performing Organization Address City/[facility] Co de Phone Number TABAT[facility] [place] [address] * POCT glucose (08/18/2024 7:31 AM CDT) Glucose, POC 145 70 - 199 mg/dL Blood 08/18/2024 7:31 AM CDT 08/18/2024 7:31 AM CDT Florentino Roldan MD LAB POCT ORDERABLES - DEV ICE Final Result Performing Organization Address City/[facility] Co de Phone Number [facility] Department [place] [address] * (ABNORMAL) eGFR (08/17/2024 8:30 PM CDT) [...] Hodge MD LAB BLOOD ORDERABLES Final Result [facility] Department [place] [address] * Differential, auto (08/17/2024 8:30 PM CDT) Neutrophil abs 3.97 1.50 - 6.50 K/cumm Imm gran abs 0.04 0.00 - 0.10 K/cumm [facility] Lymphocyte abs 1.79 0.80 - 3.30 K/cumm [facility] Monocyte abs 0.67 0.20 - 0.80 K/cumm [facility] Eosinophil abs 0.29 0.00 - 0.50 K/cumm [facility] Basophil abs 0.07 0.00 - 0.10 K/cumm [facility] Neutrophil pct 58.2 % [facility] Comment: Interpretive Data Percent cell count reference ranges are not reported, since discordance with absolute values may lead to misinterpretation of CBC data. Current Interpretive Data was last revised on 2017. Imm gran pct 0.6 % [facility] Comment: Interpretive Data Percent cell count reference ranges are not reported, since discordance with absolute values may lead to misinterpretation of CBC data. Current Interpretive Data was last revised on 2017. Lymphocyte pct 26.2 % [facility] Comment: Interpretive Data Percent cell count reference ranges are not reported, since discordance with absolute values may lead to misinterpretation of CBC data. Current Interpretive Data was last revised on 2017. Monocyte pct 9.8 % [facility] Comment: Interpretive Data Percent cell count reference ranges are not reported, since discordance with absolute values may lead to misinterpretation of CBC data. Current Interpretive Data was last revised on 2017. Eosinophil pct 4.2 % [facility] Comment: Interpretive Data Percent cell count reference ranges are not reported, since discordance with absolute values may lead to misinterpretation of CBC data. Current Interpretive Data was last revised on 2017. Basophil pct 1.0 % [facility] Comment: Interpretive Data Percent cell count reference ranges are not reported, since discordance with absolute values may lead to misinterpretation of CBC data. Current Interpretive Data was last revised on 2017. Blood 08/17/2024 8:30 PM CDT 08/17/2024 8:45 PM CDT us Shira Hodge MD LAB BLOOD ORDERABLES Final Result [facility] Department [place] [address] * (ABNORMAL) CBC with auto differential (08/17/2024 8:30 PM CDT) WBC 6.83 3.80 - 9.90 K/cumm Hgb 11.5(L) 13.0 - 17.5 g/dL [facility] Hct 37.2(L) 38.9 - 50.3 % [facility] Plt 184 150 - 400 K/cumm [facility] MPV 9.9 9.1 - 12.3 fL [facility] RBC 4.12(L) 4.30 - 5.80 M/cumm [facility] MCV 90.3 81.3 - 96.4 fL [facility] MCH 27.9 27.1 - 33.3 pg [facility] MCHC 30.9(L) 32.3 - 35.7 g/dL [facility] RDW CV 16.1(H) 11.1 - 14.9 % [facility] RDW SD 52.6(H) 35.7 - 48.1 fL [facility] NRBC abs 0.00 0.00 - 0.01 K/cumm [facility] Blood 08/17/2024 8:30 PM CDT 08/17/2024 8:45 PM CDT Shira Hodeg MD LAB BLOOD ORDERABLES Final Result Performing Organization Address City/[facility]/ZIP Co de Phone Number [facility] [place] [address] * Magnesium (08/17/2024 8:30 PM CDT) [facility] Magnesium 2.0 1.4 - 2.5 mg/dL Blood 08/17/2024 8:30 PM CDT 08/17/2024 8:43 PM CDT Shira Hodge MD LAB BLOOD ORDERABLES Final Result Performing Organization Address [facility] de Phone Number [facility] [place] [address] * (ABNORMAL) Basic metabolic panel (08/17/2024 8:30 PM CDT) [facility] Sodium 141 135 - 145 mmol/L Potassium, pl 4.3 3.3 - 4.9 mmol/L [facility] Chloride 107 97 - 110 mmol/L [facility] CO2 26 22 - 32 mmol/L [facility] Anion gap 8 2 - 15 mmol/L [facility] BUN 33(H) 6 - 25 mg/dL [facility] Creatinine 1.92(H) 0.80 - 1.30 mg/dL [facility] Glucose 184 70 - 199 mg/dL [facility] Comment: Interpretive Data Fasting glucose >/= 126 [...] 2022. Calcium 8.7 8.5 - 10.3 mg/dL [facility] Blood 08/17/2024 8:30 PM CDT 08/17/2024 8:43 PM CDT Shira Hodge MD LAB BLOOD ORDERABLES Final Result [facility] [place] [address] * POCT glucose (08/17/2024 7:52 PM CDT) Glucose, POC 178 70 - 199 mg/dL Blood 08/17/2024 7:52 PM CDT 08/17/2024 7:52 PM CDT us Shira Hodge MD LAB POCT ORDERABLES - DEVICE Final Result Performing Organization Address City/[facility]/ZIP Co de Phone Number [facility] [place] [address] * POCT glucose (08/17/2024 4:58 PM CDT) Glucose, POC 174 70 - 199 mg/dL Blood 08/17/2024 4:58 PM CDT 08/17/2024 4:58 PM CDT Shira Hodge MD LAB POCT ORDERABLES - DEVICE Final Result Performing Organization Address City/[facility] Co de Phone Number [facility] [place] [address] * POCT glucose (08/17/2024 11:49 AM CDT) Glucose, POC 142 70 - 199 mg/dL Blood 08/17/2024 11:4 9 AM CDT 08/17/2024 11:49 AM CDT us Shira Hodge MD LAB POCT ORDERABLES - DEVICE Final Result Performing Organization Address City/State/[facility] Co de Phone Number [facility] Department [place] [address] * POCT glucose (08/17/2024 7:43 AM CDT) Glucose, POC 112 70 - 199 mg/dL Blood 08/17/2024 7:43 AM CDT 08/17/2024 7:43 AM CDT Shira Hodge MD LAB POCT ORDERABLES - DEVICE Final Result Performing Organization Address [facility] de Phone Number [facility] Department [place] [address] * (ABNORMAL) eGFR (08/16/2024 9:26 PM CDT) [...] Hodge MD LAB BLOOD ORDERABLES Final Result [facility] [place] [address] * Differential, auto (08/16/2024 9:26 PM CDT) Neutrophil abs 4.52 1.50 - 6.50 K/cumm Imm gran abs 0.03 0.00 - 0.10 K/cumm [facility] Lymphocyte abs 1.55 0.80 - 3.30 K/cumm [facility] Monocyte abs 0.65 0.20 - 0.80 K/cumm [facility] Eosinophil abs 0.28 0.00 - 0.50 K/cumm [facility] Basophil abs 0.06 0.00 - 0.10 K/cumm [facility] Neutrophil pct 63.8 % [facility] Comment: Interpretive Data Percent cell count reference ranges are not reported, since discordance with absolute values may lead to misinterpretation of CBC data. Current Interpretive Data was last revised on 2017. Imm gran pct 0.4 % [facility] Comment: Interpretive Data Percent cell count reference ranges are not reported, since discordance with absolute values may lead to misinterpretation of CBC data. Current Interpretive Data was last revised on 2017. Lymphocyte pct 21.9 % [facility] Comment: Interpretive Data Percent cell count reference ranges are not reported, since discordance with absolute values may lead to misinterpretation of CBC data. Current Interpretive Data was last revised on 2017. Monocyte pct 9.2 % [facility] Comment: Interpretive Data Percent cell count reference ranges are not reported, since discordance with absolute values may lead to misinterpretation of CBC data. Current Interpretive Data was last revised on 2017. Eosinophil pct 3.9 % [facility] Comment: Interpretive Data Percent cell count reference ranges are not reported, since discordance with absolute values may lead to misinterpretation of CBC data. Current Interpretive Data was last revised on 2017. Basophil pct 0.8 % [facility] Comment: Interpretive Data Percent cell count reference ranges are not reported, since discordance with absolute values may lead to misinterpretation of CBC data. Current Interpretive Data was last revised on 2017. Blood 08/16/2024 9:26 PM CDT 08/16/2024 9:48 PM CDT Shira Hodge MD LAB BLOOD ORDERABLES Final Result Performing Organization Address [facility] Co de Phone Number [facility] [place] [address] * Critical Result Callback Chemistry (08/16/2024 9:26 PM CDT) Date Notified [id number] Time Notified 807 [facility] TestName Vancomycin Dirk [facility] Called/Read Back Anita [facility] Credentials RN [facility] Called By TP [facility] Blood 08/16/2024 9:26 PM CDT 08/16/2024 9:47 PM CDT Shira Hodge MD LAB BLOOD ORDERABLES Final Result Performing Organization Address City/[facility] Co de Phone Number [facility] [place] [address] * (ABNORMAL) CBC with auto differential (08/16/2024 9:26 PM CDT) WBC 7.09 3.80 - 9.90 K/cumm Hgb 11.9(L) 13.0 - 17.5 g/dL [facility] Hct 39.6 38.9 - 50.3 % [facility] Plt 196 150 - 400 K/cumm [facility] MPV 10.3 9.1 - 12.3 fL [facility] RBC 4.35 4.30 - 5.80 M/cumm [facility] MCV 91.0 81.3 - 96.4 fL [facility] MCH 27.4 27.1 - 33.3 pg [facility] MCHC 30.1(L) 32.3 - 35.7 g/dL [facility] RDW CV 16.0(H) 11.1 - 14.9 % [facility] RDW SD 52.4(H) 35.7 - 48.1 fL [facility] NRBC abs 0.00 0.00 - 0.01 K/cumm [facility] Blood 08/16/2024 9:26 PM CDT 08/16/2024 9:48 PM CDT Shira Hodge MD LAB BLOOD ORDERABLES Final Result Performing Organization Address [facility] Co de Phone Number [facility] [place] [address] * Magnesium (08/16/2024 9:26 PM CDT) Magnesium 1.7 1.4 - 2.5 mg/dL Blood 08/16/2024 9:26 PM CDT 08/16/2024 9:47 PM CDT Shira Hodge MD LAB BLOOD ORDERABLES Final Result Performing Organization Address [facility] Co de Phone Number [facility] [place] [address] * (ABNORMAL) Vancomycin level trough (08/16/2024 9:26 PM CDT) Vancomycin trough 29.2(C) 10.0 - 20.0 mcg/mL Blood 08/16/2024 9:26 PM CDT 08/16/2024 9:47 PM CDT Shira Hodge MD LAB BLOOD ORDERABLES Final Result Performing Organization Address City/[facility] Co de Phone Number CERNER [facility] [place] [address] * (ABNORMAL) Basic metabolic panel (08/16/2024 9:26 PM CDT) [facility] Sodium 141 135 - 145 mmol/L Potassium, pl 4.7 3.3 - 4.9 mmol/L [facility] Comment:Hemolyzed; Potassium value may be falsely elevated by as much as 0.3-0.5 mmol/L. Suggest redraw and reanalysis. Chloride 107 97 - 110 mmol/L [facility] CO2 25 22 - 32 mmol/L [facility] Anion gap 9 2 - 15 mmol/L [facility] BUN 31(H) 6 - 25 mg/dL [facility] Creatinine 1.87(H) 0.80 - 1.30 mg/dL [facility] Glucose 145 70 - 199 mg/dL [facility] Comment: Interpretive Data Fasting glucose >/= 126 [...] 2022. Calcium 8.4(L) 8.5 - 10.3 mg/dL [facility] Blood 08/16/2024 9:26 PM CDT 08/16/2024 9:47 PM CDT us Shira Hodge MD LAB BLOOD ORDERABLES Final Result TABATHA [facility] Department [place] [address] * POCT glucose (08/16/2024 8:05 PM CDT) [facility] Glucose, POC 148 70 - 199 mg/dL Blood 08/16/2024 8:05 PM CDT 08/16/2024 8:05 PM CDT us Shira Hodge MD LAB POCT ORDERABLES - DEVICE Final Result Performing Organization Address [facility] de Phone Number [facility] [place] [address] * POCT glucose (08/16/2024 4:38 PM CDT) Glucose, POC 165 70 - 199 mg/dL Blood 08/16/2024 4:38 PM CDT 08/16/2024 4:38 PM CDT us Shira Hodge MD LAB POCT ORDERABLES - DEVICE Final Result Performing Organization Address [facility] de Phone Number [facility] [place] [address] * POCT glucose (08/16/2024 11:21 AM CDT) Glucose, POC 138 70 - 199 mg/dL Blood 08/16/2024 11:2 1 AM CDT 08/16/2024 11:21 AM CDT us Shira Hodge MD LAB POCT ORDERABLES - DEVICE Final Result Performing Organization Address [facility] [place] [address] * POCT glucose (08/16/2024 8:07 AM CDT) Glucose, POC 113 70 - 199 mg/dL Blood 08/16/2024 8:07 AM CDT 08/16/2024 8:07 AM CDT us Shira Hodge MD LAB POCT ORDERABLES - DEVICE Final Result Performing Organization Address City/[facility]/ZIP Co de Phone Number [facility] [place] [address] * (ABNORMAL) eGFR (08/15/2024 11:08 PM CDT) Pathologist [facility] eGFR 37(L) >=60 mL/min/1. 73 m2 Comment: [...] BLOOD ORDERABLES Final Result Performing Organization Address City/[facility]/ZIP Co de Phone Number TABATHA POSEY [facility] Department [place] [address] * Differential, auto (08/15/2024 11:08 PM CDT) Neutrophil abs 3.92 1.50 - 6.50 K/cumm Imm gran abs 0.05 0.00 - 0.10 K/cumm [facility] Lymphocyte abs 1.86 0.80 - 3.30 K/cumm [facility] Monocyte abs 0.58 0.20 - 0.80 K/cumm [facility] Eosinophil abs 0.33 0.00 - 0.50 K/cumm [facility] Basophil abs 0.04 0.00 - 0.10 K/cumm [facility] Neutrophil pct 57.8 % [facility] Comment: Interpretive Data Percent cell count reference ranges are not reported, since discordance with absolute values may lead to misinterpretation of CBC data. Current Interpretive Data was last revised on 2017. Imm gran pct 0.7 % [facility] Comment: Interpretive Data Percent cell count reference ranges are not reported, since discordance with absolute values may lead to misinterpretation of CBC data. Current Interpretive Data was last revised on 2017. Lymphocyte pct 27.4 % [facility] Comment: Interpretive Data Percent cell count reference ranges are not reported, since discordance with absolute values may lead to misinterpretation of CBC data. Current Interpretive Data was last revised on 2017. Monocyte pct 8.6 % [facility] Comment: Interpretive Data Percent cell count reference ranges are not reported, since discordance with absolute values may lead to misinterpretation of CBC data. Current Interpretive Data was last revised on 2017. Eosinophil pct 4.9 % [facility] Comment: Interpretive Data Percent cell count reference ranges are not reported, since discordance with absolute values may lead to misinterpretation of CBC data. Current Interpretive Data was last revised on 2017. Basophil pct 0.6 % [facility] Comment: Interpretive Data Percent cell count reference ranges are not reported, since discordance with absolute values may lead to misinterpretation of CBC data. Current Interpretive Data was last revised on 2017. Blood 08/15/2024 11:0 8 PM CDT 08/16/2024 12:00 AM CDT us Shira Hodge MD LAB BLOOD ORDERABLES Final Result TABATHA EMANUEL [facility] Department [place] [address] * Critical Result Callback Chemistry (08/15/2024 11:08 PM CDT) Date Notified [id number] Time Notified 30 [facility] TestName Vancomycin Dirk [facility] Called/Read Back Lillian Maguire [facility] Credentials RN [facility] Called By JUDY [facility] Blood 08/15/2024 11:0 8 PM CDT 08/16/2024 us Shira Hodge MD LAB BLOOD ORDERABLES Final Result [facility] Department [place] [address] * (ABNORMAL) CBC with auto differential (08/15/2024 11:08 PM CDT) [facility] WBC 6.78 3.80 - 9.90 K/cumm Hgb 11.8(L) 13.0 - 17.5 g/dL [facility] Hct 38.6(L) 38.9 - 50.3 % [facility] Plt 198 150 - 400 K/cumm [facility] MPV 10.0 9.1 - 12.3 fL [facility] RBC 4.22(L) 4.30 - 5.80 M/cumm [facility] MCV 91.5 81.3 - 96.4 fL [facility] MCH 28.0 27.1 - 33.3 pg [facility] MCHC 30.6(L) 32.3 - 35.7 g/dL [facility] RDW CV 15.9(H) 11.1 - 14.9 % [facility] RDW SD 52.7(H) 35.7 - 48.1 fL [facility] NRBC abs 0.00 0.00 - 0.01 K/cumm [facility] Blood 08/15/2024 11:0 8 PM CDT 08/16/2024 12:00 AM CDT us Shira Hodge MD LAB BLOOD ORDERABLES Final Result [facility] Department [place] [address] * (ABNORMAL) Vancomycin level trough Draw before the next vancomycin dose. (08/15/2024 11:08 PM CDT) [facility] Vancomycin trough 25.6(C) 10.0 - 20.0 mcg/mL Blood 08/15/2024 11:0 8 PM CDT 08/16/2024 12:00 AM CDT Narrative [facility] - 08/16/2024 12:28 AM CDT Draw before the next vancomycin dose. us Shira Hodge MD LAB BLOOD ORDERABLES Final Result [facility] Department [place] [address] * (ABNORMAL) Basic metabolic panel (08/15/2024 11:08 PM CDT) [facility] Sodium 141 135 - 145 mmol/L Potassium, pl 4.0 3.3 - 4.9 mmol/L [facility] Chloride 106 97 - 110 mmol/L [facility] CO2 24 22 - 32 mmol/L [facility] Anion gap 11 2 - 15 mmol/L [facility] BUN 29(H) 6 - 25 mg/dL [facility] Creatinine 1.84(H) 0.80 - 1.30 mg/dL [facility] Glucose 140 70 - 199 mg/dL [facility] Comment: Interpretive Data Fasting glucose >/= 126 [...] 2022. Calcium 8.6 8.5 - 10.3 mg/dL [facility] Blood 08/15/2024 11:0 8 PM CDT 08/16/2024 12:00 AM CDT Shira Hodge MD LAB BLOOD ORDERABLES Final Result Performing Organization Address [facility] Co de Phone Number [facility] [place] [address] * POCT glucose (08/15/2024 7:55 PM CDT) Glucose, POC 140 70 - 199 mg/dL Blood 08/15/2024 7:55 PM CDT 08/15/2024 7:55 PM CDT Shira Hodge MD LAB POCT ORDERABLES - DEVICE Final Result Performing Organization Address [facility] Co de Phone Number [facility] Department [place] [address] * POCT glucose (08/15/2024 4:35 PM CDT) Glucose, POC 147 70 - 199 mg/dL Blood 08/15/2024 4:35 PM CDT 08/15/2024 4:35 PM CDT Result [facility] Shira Hodge MD LAB POCT ORDERABLES - DEVICE Final Result Performing Organization Address [facility] [place] [address] * (ABNORMAL) Calprotectin, fecal (08/15/2024 3:49 PM CDT) Calprotectin, fecal 63.6(H) <50.0 (Normal) mcg/g [facility] Comment: Interpretation: Borderline (50.0-120 mcg/g) Test Performed by: [facility] [address] [place] [address] Laundry Helper: Liz Sarmiento Ph.D.; IA# [id number] Stool 08/15/2024 3:49 PM CDT 08/15/2024 5:42 PM CDT Vale Thorne MD LAB BODY FLUIDS AND STOOLS ORDERABLES Final Result Performing Organization Address City/[facility]/ZIP Co de Phone Number [facility] [place] [address] [facility]ly [facility] * Cryptosporidium and Giardia antigen assay Stool (08/15/2024 3:49 PM CDT) Giardia Ag Negative Negative Cryptosporidium Ag Negative Negative [facility] Comment: Interpretive data: Testing performed by the [facility] using an immunoassay that detects Cryptosporidium and Giardia antigens in stool specimens. If comprehensive examination for ova and parasites is required, please request Ova and Parasite Examination. Stool 08/15/2024 3:49 PM CDT 08/15/2024 5:17 PM CDT Vale Thorne MD LAB MICROBIOLOGY - GENERAL ORDERABLES Final Result Performing Organization Address [facility] Co de Phone Number [facility] [place] [address] * POCT glucose (08/15/2024 12:05 PM CDT) Glucose, POC 135 70 - 199 mg/dL Blood 08/15/2024 12:0 5 PM CDT 08/15/2024 12:05 PM CDT Shira Hodge MD LAB POCT ORDERABLES - [place] [address] * POCT glucose (08/15/2024 8:19 AM CDT) Glucose, POC 90 70 - 199 mg/dL Blood 08/15/2024 8:19 AM CDT 08/15/2024 8:19 AM CDT us Shira Hodge MD LAB POCT ORDERABLES - DEVICE Final Result Performing Organization Address City/[facility]/ZIP Co de Phone Number TABATHA [facility] Department [place] [address] * (ABNORMAL) eGFR (08/15/2024 3:56 AM CDT) [...] ORDERABLES Fin al Result Performing Organization Address City/[facility]/ZIP Co de Phone Number TABATHA [facility] Department [place] [address] * Differential, auto (08/15/2024 3:56 AM CDT) Pathologist [facility] Neutrophil abs 3.36 1.50 - 6.50 K/cumm Imm gran abs 0.02 0.00 - 0.10 K/cumm [facility] Lymphocyte abs 2.34 0.80 - 3.30 K/cumm [facility] Monocyte abs 0.56 0.20 - 0.80 K/cumm [facility] Eosinophil abs 0.28 0.00 - 0.50 K/cumm [facility] Basophil abs 0.07 0.00 - 0.10 K/cumm [facility] Neutrophil pct 50.7 % [facility] Comment: Interpretive Data Percent cell count reference ranges are not reported, since discordance with absolute values may lead to misinterpretation of CBC data. Current Interpretive Data was last revised on 2017. Imm gran pct 0.3 % [facility] Comment: Interpretive Data Percent cell count reference ranges are not reported, since discordance with absolute values may lead to misinterpretation of CBC data. Current Interpretive Data was last revised on 2017. Lymphocyte pct 35.3 % [facility] Comment: Interpretive Data Percent cell count reference ranges are not reported, since discordance with absolute values may lead to misinterpretation of CBC data. Current Interpretive Data was last revised on 2017. Monocyte pct 8.4 % [facility] Comment: Interpretive Data Percent cell count reference ranges are not reported, since discordance with absolute values may lead to misinterpretation of CBC data. Current Interpretive Data was last revised on 2017. Eosinophil pct 4.2 % [facility] Comment: Interpretive Data Percent cell count reference ranges are not reported, since discordance with absolute values may lead to misinterpretation of CBC data. Current Interpretive Data was last revised on 2017. Basophil pct 1.1 % [facility] Comment: Interpretive Data Percent cell count reference ranges are not reported, since discordance with absolute values may lead to misinterpretation of CBC data. Current Interpretive Data was last revised on 2017. Blood 08/15/2024 3:56 AM CDT 08/15/2024 4:22 AM CDT us Christy Bray MD LAB BLOOD ORDERABLES Fin al Result Performing Organization Address [facility] de Phone Number [facility] [place] [address] * (ABNORMAL) CBC with auto differential (08/15/2024 3:56 AM CDT) [facility] WBC 6.63 3.80 - 9.90 K/cumm Hgb 12.0(L) 13.0 - 17.5 g/dL [facility] Hct 39.5 38.9 - 50.3 % [facility] Plt 195 150 - 400 K/cumm [facility] MPV 10.1 9.1 - 12.3 fL [facility] RBC 4.32 4.30 - 5.80 M/cumm [facility] MCV 91.4 81.3 - 96.4 fL [facility] MCH 27.8 27.1 - 33.3 pg [facility] MCHC 30.4(L) 32.3 - 35.7 g/dL [facility] RDW CV 15.9(H) 11.1 - 14.9 % [facility] RDW SD 52.1(H) 35.7 - 48.1 fL [facility] NRBC abs 0.00 0.00 - 0.01 K/cumm [facility] Blood 08/15/2024 3:56 AM CDT 08/15/2024 4:22 AM CDT Christy Bray MD LAB BLOOD ORDERABLES Fin al Result Performing Organization Address [facility] Co de Phone Number [facility] [place] [address] * Sodium, urine, random (08/15/2024 3:56 AM CDT) Pathologist [facility] Sodium, ur 126 mmol/L Comment: Interpretive Data No reference range established. Current interpretive data was last revised 2018. Urine 08/15/2024 3:56 AM CDT 08/15/2024 4:21 AM CDT Narrative [facility] - 08/15/2024 4:41 AM CDT Please draw 2 hours after administering IV Lasix Vale Thorne MD LAB URINE ORDERABLES Final Result Performing Organization Address [facility]/ZIP Co de Phone Number [facility] [place] [address] * (ABNORMAL) Basic metabolic panel (08/15/2024 3:56 AM CDT) [facility] Sodium 141 135 - 145 mmol/L Potassium, pl 4.1 3.3 - 4.9 mmol/L [facility] Chloride 109 97 - 110 mmol/L [facility] CO2 22 22 - 32 mmol/L [facility] Anion gap 10 2 - 15 mmol/L [facility] BUN 25 6 - 25 mg/dL [facility] Creatinine 1.61(H) 0.80 - 1.30 mg/dL [facility] Glucose 99 70 - 199 mg/dL [facility] Comment: Interpretive Data Fasting glucose >/= 126 [...] 2022. Calcium 8.1(L) 8.5 - 10.3 mg/dL [facility] Blood 08/15/2024 3:56 AM CDT 08/15/2024 4:21 AM CDT us Christy Bray MD LAB BLOOD ORDERABLES Fin al Result Performing Organization Address [facility] Co de Phone Number [facility] [place] [address] * POCT glucose (08/14/2024 8:20 PM CDT) Glucose, POC 131 70 - 199 mg/dL Blood 08/14/2024 8:20 PM CDT 08/14/2024 8:20 PM CDT Shira Hodge MD LAB POCT ORDERABLES - DEVICE Final Result Performing Organization Address City/[facility] Co de Phone Number [facility] [place] [address] * POCT glucose (08/14/2024 6:09 PM CDT) Glucose, POC 115 70 - 199 mg/dL Blood 08/14/2024 6:09 PM CDT 08/14/2024 6:09 PM CDT Shira Hodge MD LAB POCT ORDERABLES - DEVICE Final Result Performing Organization Address [facility] Co de Phone Number [facility] [place] [address] * POCT glucose (08/14/2024 2:08 PM CDT) Glucose, POC 128 70 - 199 mg/dL Blood 08/14/2024 2:08 PM CDT 08/14/2024 2:08 PM CDT Vale Thorne MD LAB POCT ORDERABLES - DEVIC E Final Result Performing Organization Address City/[facility] Co de Phone Number [facility] [place] [address] * POCT glucose (08/14/2024 8:22 AM CDT) Glucose, POC 124 70 - 199 mg/dL Blood 08/14/2024 8:22 AM CDT 08/14/2024 8:22 AM CDT us Vale Thorne MD LAB POCT ORDERABLES - DEVIC E Final Result Performing Organization Address [facility] Co de Phone Number [facility] Department [place] [address] * (ABNORMAL) eGFR (08/13/2024 8:24 PM CDT) [...] ORDERABLES Fin al Result Performing Organization Address City/[facility]/ZIP Co de Phone Number [facility] [place] [address] * Differential, auto (08/13/2024 8:24 PM CDT) Pathologist [facility] Neutrophil abs 4.18 1.50 - 6.50 K/cumm Imm gran abs 0.04 0.00 - 0.10 K/cumm [facility] Lymphocyte abs 0.95 0.80 - 3.30 K/cumm [facility] Monocyte abs 0.61 0.20 - 0.80 K/cumm [facility] Eosinophil abs 0.08 0.00 - 0.50 K/cumm [facility] Basophil abs 0.03 0.00 - 0.10 K/cumm [facility] Neutrophil pct 70.9 % [facility] Comment: Interpretive Data Percent cell count reference ranges are not reported, since discordance with absolute values may lead to misinterpretation of CBC data. Current Interpretive Data was last revised on 2017. Imm gran pct 0.7 % [facility] Comment: Interpretive Data Percent cell count reference ranges are not reported, since discordance with absolute values may lead to misinterpretation of CBC data. Current Interpretive Data was last revised on 2017. Lymphocyte pct 16.1 % [facility] Comment: Interpretive Data Percent cell count reference ranges are not reported, since discordance with absolute values may lead to misinterpretation of CBC data. Current Interpretive Data was last revised on 2017. Monocyte pct 10.4 % [facility] Comment: Interpretive Data Percent cell count reference ranges are not reported, since discordance with absolute values may lead to misinterpretation of CBC data. Current Interpretive Data was last revised on 2017. Eosinophil pct 1.4 % [facility] Comment: Interpretive Data Percent cell count reference ranges are not reported, since discordance with absolute values may lead to misinterpretation of CBC data. Current Interpretive Data was last revised on 2017. Basophil pct 0.5 % [facility] Comment: Interpretive Data Percent cell count reference ranges are not reported, since discordance with absolute values may lead to misinterpretation of CBC data. Current Interpretive Data was last revised on 2017. Blood 08/13/2024 8:24 PM CDT 08/13/2024 8:44 PM CDT us Christy Bray MD LAB BLOOD ORDERABLES Fin al Result [facility] [place] [address] * (ABNORMAL) CBC with auto differential (08/13/2024 8:24 PM CDT) [facility] WBC 5.89 3.80 - 9.90 K/cumm Hgb 10.9(L) 13.0 - 17.5 g/dL [facility] Hct 35.5(L) 38.9 - 50.3 % [facility] Plt 181 150 - 400 K/cumm [facility] MPV 9.9 9.1 - 12.3 fL [facility] RBC 3.90(L) 4.30 - 5.80 M/cumm [facility] MCV 91.0 81.3 - 96.4 fL [facility] MCH 27.9 27.1 - 33.3 pg [facility] MCHC 30.7(L) 32.3 - 35.7 g/dL [facility] RDW CV 15.9(H) 11.1 - 14.9 % [facility] RDW SD 52.6(H) 35.7 - 48.1 fL [facility] NRBC abs 0.00 0.00 - 0.01 K/cumm [facility] Blood 08/13/2024 8:24 PM CDT 08/13/2024 8:44 PM CDT us Christy Bray MD LAB BLOOD ORDERABLES Fin al Result [facility] [place] [address] * Gliadin antibody, IgG (08/13/2024 8:24 PM CDT) [facility] Anti-gliadin, IgG <0.4 <=14.9 units/mL Comment: Interpretive data Negative: <15 units/mL Positive: > or equal to 15 units/mL Current interpretive data was last revised on 2016. Blood 08/13/2024 8:24 PM CDT 08/13/2024 8:44 PM CDT us Vale Thorne MD LAB BLOOD ORDERABLES Final Result Performing Organization Address [facility] Co de Phone Number [facility] [place] [address] * Gliadin antibody, IgA (08/13/2024 8:24 PM CDT) Anti-gliadin, IgA <0.5 <=14.9 units/mL Comment: Interpretive data Negative: <15 units/mL Positive: > or equal to 15 units/mL Current interpretive data was last revised on 2016. Blood 08/13/2024 8:24 PM CDT 08/13/2024 8:44 PM CDT Vale Thorne MD LAB BLOOD ORDERABLES Final Result Performing Organization Address [facility] de Phone Number [facility] [place] [address] * (ABNORMAL) Basic metabolic panel (08/13/2024 8:24 PM CDT) Pathologist [facility] Sodium 143 135 - 145 mmol/L Potassium, pl 4.6 3.3 - 4.9 mmol/L [facility] Comment:Repeated and Verifie d Chloride 111(H) 97 - 110 mmol/L [facility] CO2 22 22 - 32 mmol/L [facility] Anion gap 10 2 - 15 mmol/L [facility] BUN 25 6 - 25 mg/dL [facility] Creatinine 1.47(H) 0.80 - 1.30 mg/dL [facility] Glucose 122 70 - 199 mg/dL [facility] Comment: Interpretive Data Fasting glucose >/= 126 [...] 2022. Calcium 8.5 8.5 - 10.3 mg/dL [facility] Blood 08/13/2024 8:24 PM CDT 08/13/2024 8:44 PM CDT Christy Bray MD LAB BLOOD ORDERABLES Fin al Result Performing Organization Address City/[facility]/ZIP Co de Phone Number [facility] [place] [address] * POCT glucose (08/13/2024 8:05 PM CDT) Pathologist [facility] Glucose, POC 117 70 - 199 mg/dL Blood 08/13/2024 8:05 PM CDT 08/13/2024 8:05 PM CDT Vale Thorne MD LAB POCT ORDERABLES - DEVIC E Final Result Performing Organization Address [facility] de Phone Number [facility] [place] [address] * C. difficile testing Stool (08/13/2024 6:32 PM CDT) Pathologist [facility] Result Negative Negative Toxin Result Negative Negative [facility] C. diff result Negative, free toxin Negative, free toxin [facility] C. diff interp Negative for toxigenic Clostridioides (Clostridium) difficile. Analysis was performed using a glutamate dehydrogenase antigen detection assay combined with a C. difficile toxin detection assay. [facility] Stool 08/13/2024 6:32 PM CDT 08/13/2024 6:40 PM CDT Christy Bray MD LAB MICROBIOLOGY - GENER AL ORDERABLES Final Result Performing Organization Address [facility] Co de Phone Number [facility] [place] [address] * POCT glucose (08/13/2024 4:43 PM CDT) Glucose, POC 119 70 - 199 mg/dL Blood 08/13/2024 4:43 PM CDT 08/13/2024 4:43 PM CDT Vale Thorne MD LAB POCT ORDERABLES - DEVIC E Final Result Performing Organization Address [facility] [place] [address] * POCT glucose (08/13/2024 1:10 PM CDT) Glucose, POC 137 70 - 199 mg/dL Blood 08/13/2024 1:10 PM CDT 08/13/2024 1:10 PM CDT us Christy Bray MD LAB POCT ORDERABLES - DE VICE Final Result Performing Organization Address [facility] [place] [address] * US Vein Duplex Lower Extremity Bilateral Complete (08/13/2024 12:54 PM CDT) Anatomical Region Laterality Modality Vascular Bilateral Ultrasound 08/13/2024 12:0 0 PM CDT Narrative 08/13/2024 2:42 PM CDT [facility] - Department of Vascular Surgery, Vascular Laboratory [address] [place] [address] Lower Extremity Venous Ultrasound Report Patient Name: [...] compression maneuvers. INDICATIONS: Localized edema. FINDINGS: Performing Commercial Or Institutional Cleaner: Vesta Ventura RDMS, RVT. Bilateral: Venous Doppler [...] above. Electronically Signed By: Kishore Alvarenga MD [facility] [phone] 08/13/2024 1:28:32 PM CDT Procedure Note Kishore Alvarenga MD - 08/13/2024 [facility] - Department of Vascular Surgery,Vascular Laboratory [address] [place] [id number] Lower Extremity Venous Ultrasound Report Patient Name: [...] with compressionmaneuvers. INDICATIONS: Localized edema. FINDINGS: Performing Commercial Or Institutional Cleaner: Vesta Ventura RDMS, INDRA. Bilateral: Venous Doppler [...] above. Electronically Signed By: Kishore Alvarenga MD [facility] [phone] 08/13/2024 1:28:32 PM CDT Christy Bray MD [facility] US PROCEDURES Final Result * (ABNORMAL) Erythrocyte sedimentation rate (08/13/2024 9:30 AM CDT) Erythrocyte sedimentation rate 21(H) 1 - 20 mm/hr Blood 08/13/2024 9:30 AM CDT 08/13/2024 9:44 AM CDT Christy Bray MD LAB BLOOD ORDERABLES Hunter pr Result Performing Organization Address City/State/[facility] Co de Phone Number [facility] [place] [address] * (ABNORMAL) CRP (acute phase) (08/13/2024 9:30 AM CDT) Pathologist [facility] CRP 43.6(H) <=10.0 mg/L Blood 08/13/2024 9:30 AM CDT 08/13/2024 9:44 AM CDT Christy Bray MD LAB BLOOD ORDERABLES Fin al Result Performing Organization Address [facility] Co de Phone Number [facility] [place] [address] * POCT glucose (08/13/2024 8:31 AM CDT) Glucose, POC 112 70 - 199 mg/dL Blood 08/13/2024 8:31 AM CDT 08/13/2024 8:31 AM CDT us Christy Bray MD LAB POCT ORDERABLES - DE VICE Final Result Performing Organization Address [facility] Co de Phone Number [facility] [place] [address] * POCT glucose (08/13/2024 5:06 AM CDT) Glucose, POC 116 70 - 199 mg/dL Blood 08/13/2024 5:06 AM CDT 08/13/2024 5:06 AM CDT us Luz Maria Vicente MD LAB POCT ORDERABLES - DEVICE Final Result Performing Organization Address [facility] Co de Phone Number [facility] [place] [address] * XR Ankle Right 3 or More [...] Electronically signed by: Carmela Mendoza M.D. Iwona Godlberg MD IMG XR PROCEDURES Fin al Result [...] Goldberg MD LAB BLOOD ORDERABLES Final Result [facility] [place] [address] * POCT glucose (08/13/2024 12:25 AM CDT) Glucose, POC 109 70 - 199 mg/dL Blood 08/13/2024 12:2 5 AM CDT 08/13/2024 12:25 AM CDT us Luz Maria Vicente MD LAB POCT ORDERABLES - DEVICE Final Result TABATHA POSEY [facility] [place] [address] * CT Entire Lower Extremity Right W [...] No suspicious osseous lesion. Procedure Note Jose Raymnod MD - 08/13/2024 EXAMINATION: CT ENTIRE LOWER [...] POCT ORDERABLES - DEV ICE Final Result [facility] [place] [address] * (ABNORMAL) eGFR (08/12/2024 9:59 PM CDT) [...] MD LAB BLOOD ORDERABLES Fin al Result [facility] [place] [address] * Differential, auto (08/12/2024 9:59 PM CDT) Neutrophil abs 5.44 1.50 - 6.50 K/cumm Imm gran abs 0.04 0.00 - 0.10 K/cumm [facility] Lymphocyte abs 1.48 0.80 - 3.30 K/cumm [facility] Monocyte abs 0.53 0.20 - 0.80 K/cumm [facility] Eosinophil abs 0.03 0.00 - 0.50 K/cumm [facility] Basophil abs 0.06 0.00 - 0.10 K/cumm [facility] Neutrophil pct 71.8 % [facility] Comment: Interpretive Data Percent cell count reference ranges are not reported, since discordance with absolute values may lead to misinterpretation of CBC data. Current Interpretive Data was last revised on 2017. Imm gran pct 0.5 % [facility] Comment: Interpretive Data Percent cell count reference ranges are not reported, since discordance with absolute values may lead to misinterpretation of CBC data. Current Interpretive Data was last revised on 2017. Lymphocyte pct 19.5 % [facility] Comment: Interpretive Data Percent cell count reference ranges are not reported, since discordance with absolute values may lead to misinterpretation of CBC data. Current Interpretive Data was last revised on 2017. Monocyte pct 7.0 % [facility] Comment: Interpretive Data Percent cell count reference ranges are not reported, since discordance with absolute values may lead to misinterpretation of CBC data. Current Interpretive Data was last revised on 2017. Eosinophil pct 0.4 % [facility] Comment: Interpretive Data Percent cell count reference ranges are not reported, since discordance with absolute values may lead to misinterpretation of CBC data. Current Interpretive Data was last revised on 2017. Basophil pct 0.8 % [facility] Comment: Interpretive Data Percent cell count reference ranges are not reported, since discordance with absolute values may lead to misinterpretation of CBC data. Current Interpretive Data was last revised on 2017. Blood 08/12/2024 9:59 PM CDT 08/12/2024 10:10 PM CDT us Juliet Chin MD LAB BLOOD ORDERABLES Fin al Result [facility] [place] [address] * (ABNORMAL) CBC with auto differential (08/12/2024 9:59 PM CDT) WBC 7.58 3.80 - 9.90 K/cumm Hgb 12.4(L) 13.0 - 17.5 g/dL [facility] Hct 39.8 38.9 - 50.3 % [facility] Plt 249 150 - 400 K/cumm [facility] MPV 11.5 9.1 - 12.3 fL [facility] RBC 4.38 4.30 - 5.80 M/cumm [facility] MCV 90.9 81.3 - 96.4 fL [facility] MCH 28.3 27.1 - 33.3 pg [facility] MCHC 31.2(L) 32.3 - 35.7 g/dL [facility] RDW CV 15.9(H) 11.1 - 14.9 % [facility] RDW SD 52.3(H) 35.7 - 48.1 fL [facility] NRBC abs 0.00 0.00 - 0.01 K/cumm [facility] Blood 08/12/2024 9:59 PM CDT 08/12/2024 10:10 PM CDT us Juliet Chin MD LAB BLOOD ORDERABLES Fin al Result Performing Organization Address [facility] de Phone Number [facility] [place] [address] * (ABNORMAL) Hemoglobin A1c (08/12/2024 9:59 PM CDT) Hgb A1C 7.0(H) 4.0 - 5.6 % Estimated Average Glucose 154 mg/dL [facility] Comment: The ADA recommends reporting an estimated [...] ORDERABLES Fin al Result Performing Organization Address [facility] de Phone Number [facility] [place] [address] * (ABNORMAL) Lipid panel (08/12/2024 9:59 PM [...] revised on 2017. Triglycerides 77 <=149 mg/dL [facility] Comment: Hemolyzed; result may be falsely elevated [...] revised on 2023. Non-HDL Cholesterol 32 mg/dL [facility] Comment: Interpretive Data Ages < or = [...] last revised on 2017. Chol/HDL ratio 2 [facility] Blood 08/12/2024 9:59 PM CDT 08/12/2024 10:10 PM CDT Christy Bray MD LAB BLOOD ORDERABLES Fin al Result [facility] [place] [address] * (ABNORMAL) Comprehensive metabolic panel (08/12/2024 9:59 PM CDT) Sodium 141 135 - 145 mmol/L Potassium, pl See Comment 3.3 - 4.9 mmol/L [facility] Comment:Credited; Hemolyzed Specimen Chloride 110 97 - 110 mmol/L [facility] CO2 22 22 - 32 mmol/L [facility] Anion gap 9 2 - 15 mmol/L [facility] BUN 26(H) 6 - 25 mg/dL [facility] Creatinine 1.43(H) 0.80 - 1.30 mg/dL [facility] Glucose 121 70 - 199 mg/dL [facility] Comment: Interpretive Data Fasting glucose >/= 126 [...] 2022. Calcium 8.7 8.5 - 10.3 mg/dL [facility] Bilirubin, total 0.9 0.1 - 1.2 mg/dL [facility] Protein, pl 6.8 6.5 - 8.5 g/dL [facility] Albumin 3.5 3.5 - 5.0 g/dL [facility] Alk phos 148(H) 40 - 130 Units/L [facility] Comment:Hemolyzed; result ma y be falsely decreased ALT See Comment 7 - 55 Units/L [facility] Comment:Credited; Hemolyzed Specimen AST See Comment 10 - 50 Units/L [facility] Comment:Credited; Hemolyzed Specimen Blood 08/12/2024 9:59 PM CDT 08/12/2024 10:10 PM CDT us Juliet Chin MD LAB BLOOD ORDERABLES Fin al Result [facility] [place] [address] * (ABNORMAL) POCT ketone, blood (08/12/2024 9:17 PM CDT) Beta-Hydroxybut yrate, POC 2.3(H) 0.0 - 0.5 mmol/L Blood 08/12/2024 9:17 PM CDT 08/12/2024 9:17 PM CDT us Vale Thorne MD LAB POCT ORDERABLES - DEVIC E Final Result [facility] [place] [address] * POCT glucose (08/12/2024 8:51 PM CDT) Glucose, POC 113 70 - 199 mg/dL Blood 08/12/2024 8:51 PM CDT 08/12/2024 8:51 PM CDT us Notinfile Unknown LAB POCT ORDERABLES - DEVICE F inal Result [facility] [place] [address] * Colonoscopy (06/26/2024 11:50 AM CDT) Anatomical Region Laterality Modality Other Narrative Procedure Note Jaqueline Burden MD - 06/26/2024 11:[address] [facility] GI ENDOSCOPY Patient Name: John Mtz Procedure Date: 06/26/2024 11:50 AM Date of : 1945 Admit Type: Outpatient Age: 79 Gender: Male Attending MD: Jaqueline Burden M.D. Room: [facility] ENDOSCOPY ROOM 05 Note Status: Finalized Procedure: [...] The scope was passed under direct vision.The [id number]-[id number] colonoscope was introduced through theanus and advanced [...] On: 06/26/2024 11:50 AM Recognized by the [employer] for promoting quality in endoscopy Jaqueline Burden MD ENDOSCOPY PROCEDURES Lashanda l Result * Serum Hepatitis C ab (09/07/2013 5:17 AM CDT) HCV ab Negative NEG HISTORICAL RESULTS Comment: Interpretive Data If confirmation is required, call Laboratory Customer Service to request sample to be sent to [facility] for Hepatitis C Virus (HCV) RNA Detection and Quantitation by [employer] Consultant-PCR (RT-PCR). Current interpretive data was last revised on 2011 Serum 09/07/2013 5:17 AM CDT Narrative HISTORICAL RESULTS - 09/08/2013 7:15 AM CDT Test performed at [facility], [address] [facility],, [place], [place], [facility], [address]. Chris Montemayor MD LAB BLOOD ORDERABLES F inal Result HISTORICAL RESULTS from Last 3 Months or Most Recently Relevant to Health Maintenance Insurance MEDICARE [employer] MEDICARE [facility] Address: [address] [address] [place] [address] FOR LIFE Advance Directives For more information, please contact: [phone] * Full Code (Latest Code Status on File) Date Activated Date Inactivated Comments 08/13/2024 12:51 PM 08/19/2024 10:37 PM Care Teams Accounts Payable Supervisor Relationship Specialty Start Date End Date Yuli Ibarra MD [address] [place] [address] PCP - General Internal Medicine 06/25/24
--- OUTSIDE RECORDS SUMMARY | 2024-10-25 12:03 | XMS_ITS | Encounter Summary ---
Author Organization [facility] Address [address] [place] [address] Care Team Providers Care Manager Fire Name Role Phone Bereket Oquendo MD Unavailable [phone] Yuli Ibarra MD Primary Care Provider [phone] Cesar Zuluaga MD Unavailable [phone] Jim Lieberman MD Unavailable [phone] Jose Espinal MD Unavailable Tayla Tolbert RN Unavailable [phone] Jaqueline Burden MD Unavailable [phone] Encounter Details Date Type Department Care Team (Late st Contact Info) Description 06/26/2022 [employer] Message Enc [facility] Medical [facility] Multispecialty Care - [address] [place] [address] Johanny, [facility] Provider lab results Social History Tobacco Use [...] place to sleep or slept in a detention (including now)? No 03/14/2022 Sex and Gender Information Value Date Recorded Sex Assigned at Male 07/01/2019 11:12 AM CDT Legal Sex Male 1:25 PM CDT Gender Identity Male 07/01/2019 11:12 AM CDT Sexual Orientation Straight 01/06/2018 12 :04 PM INFORMATICS COORDINATOR Occupation Industry Job Start Date Job End [...] Assessment Author Status No 03/14/2022 4:27 PM INFORMATICS COORDINATOR Activ e * RETIRED Are you blind or do you have serious difficulty seeing, even when wearing glasses? Answer Date of Assessment Author Status No 03/14/2022 4:27 PM INFORMATICS COORDINATOR Activ e * Do you have serious difficulty walking or climbing stairs? Answer Date of Assessment Author Status Yes 03/14/2022 4:27 PM INFORMATICS COORDINATOR Renetta Lama R N Active * Do you have difficulty dressing or bathing? Answer Date of Assessment Author Status No 03/14/2022 4:27 PM INFORMATICS COORDINATOR Renetta Lama R N Active * Because of a physical, mental, or emotional condition, do you have difficulty doing errands alone such as visiting a doctor's office or shopping? Answer Date of Assessment Author Status Yes 03/14/2022 4:27 PM INFORMATICS COORDINATOR Renetta Lama R N Active documented as of this encounter Mental Status * Because of a physical, mental, or emotional condition, do you have serious difficulty concentrating, remembering, or making decisions? Answer Entry Date Author Status No 03/14/2022 4:27 PM INFORMATICS COORDINATOR Renetta Lama R N Active documented in this encounter Plan of Treatment Upcoming Encounters Date Type Department Care Team (Late st Contact Info) Description 11/19/2024 9:40 AM CDT Office Visit [facility] Multispecialty Care - [facility] [address] [facility] [address] [place] [id number] Jamie Herrera DO [address] [facility] [address] [place] [address] 01/04/2025 10:30 AM INFORMATICS COORDINATOR [facility] [address] [place] [address] Bereket Oquendo MD [address] [facility] [place] [address] 02/01/2025 2:40 PM INFORMATICS COORDINATOR Office Visit [facility] Multispecialty Care - [address] [address] [address] [place] [address] Yuli Ibarra MD [address] [place] [address] documented as of this encounter Visit Diagnoses Not on filedocumented in this encounter Additional Health Concerns Infection Onset Date Last Indicated Resolved Time COVID-19 Rule Out 02/06/2024 02/06/2024 02/06/2024 2:41 PM INFORMATICS COORDINATOR COVID-19 Confirmed 02/06/2024 02/06/2024 12:32 AM INFORMATICS COORDINATOR Assessment Noted Time PHQ-9 Depression Total Score: 0 04/05/19 22 9:32 AM INFORMATICS COORDINATOR documented as of this encounter Care Teams Manager Fire Relationship Specialty Start Date End Date Yuli Ibarra MD [address] [place] [address] PCP - General INTERNAL MEDICINE 11/03/20 Bereket Oquendo MD [address] [facility] [place] [address] [place] Otolaryngology Surgeon CARDIOVASCULAR DISEASE 08/15/16 Cesar Zuluaga MD [address] [place] [address] Retina Ophthalmology 01/11/21 Jim Lieberman MD [address] [facility] [address] [place] [address] SURGERY 01/11/21 Jose Espinal MD 1 [place] [address] Consulting Physician RADIATION ONCOLOGY 03/06/24 Tayla Toblert, RN [address] [place] [address] Pharmacy Services Representative (Ambulatory) REGISTERED NURSE 07/20/24 09/20/24 Jaqueline Burden MD [address] [facility] [address] [place] [address] Referring Physician GASTROENTEROLOGY 07/28/24 documented as of this encounter
--- OUTSIDE RECORDS SUMMARY | 2024-10-25 12:03 | XMS_ITS | Encounter Summary ---
Author Organization [facility] Address [address] [place] [address] Care Team Providers Care Field Crew Chief Name Role Phone Bereket Oquendo MD Unavailable [phone] Yuli Ibarra MD Primary Care Provider [phone] Cesar Zuluaga MD Unavailable [phone] Alcides Molina MD Unavailable Unavailable LuisanaJim bowen MD Unavailable [phone] Olivia Olguin RN Unavailable [phone] Jose Espinal MD Unavailable Tayla Tolbert RN Unavailable [phone] Jaqueline Burden MD Unavailable [phone] Encounter Details Date Type Department Care Team (Late st Contact Info) Description 05/23/2021 [employer] Message Enc [facility] Multispecialty Care - [place] [address] [address] [place] [address] [place] [address] [place] [address] [address] [place] [address] Refill Social History Tobacco Use Types Packs/Day Years Used Date Smoking Tobacco: Former Cigarettes 0.5 8 1 972 - 4446 Smokeless Tobacco: Never Comments:smoked socially for 40 [...] Sexual Orientation Straight 01/06/2018 12 :04 PM CORNER BLOCK CUTTER Occupation Industry Job Start Date Job End [...] Description 11/19/2024 9:40 AM CDT [facility] [address] [facility] [place] [address] Jamie Herrera DO [address] [facility] [address] [place] [address] 01/04/2025 10:30 AM CORNER BLOCK CUTTER Office Visit [facility] [address] [place] [address] Bereket Oquendo MD [address] [facility] [place] [address] 02/01/2025 2:40 PM CORNER BLOCK CUTTER Office Visit [facility] Multispecialty Care - [address] [place] [address] Yuli Ibarra MD [address] [facility] [address] [place] [address] documented as of this encounter Visit Diagnoses Not on filedocumented in this encounter Additional Health Concerns Infection Onset Date Last Indicated Resolved Time COVID-19 Rule Out 02/06/2024 02/06/2024 02/06/2024 2:41 PM CORNER BLOCK CUTTER COVID-19 Confirmed 02/06/2024 02/06/2024 12:32 AM CORNER BLOCK CUTTER Assessment Noted Time PHQ-9 Depression Total Score: 0 04/05/19 9:32 AM CORNER BLOCK CUTTER documented as of this encounter Care Teams Field Crew Chief Relationship Specialty Start Date End Date Yuli Ibarra MD [address] [facility] [address] [place] [address] PCP - General INTERNAL MEDICINE 11/03/20 Bereket Oquendo MD [address] [address] [place] [employer] Teacher CARDIOVASCULAR DISEASE 08/15/16 Cesar Zuluaga MD [address] [place] [address] Retina Ophthalmology 01/11/21 Alcides Molina MD [address] [place] [address] Consulting Physician UROLOGY 01/11/21 04/29/22 Jim Lieberman MD [address] [facility] [address] [address] SURGERY 01/11/21 Olivia Olguin RN [address] [place] [address] Cello Teacher (Ambulatory) REGISTERED NURSE 03/14/22 03/28/22 Jose Espinal MD 1 [place] [address] Consulting Physician RADIATION ONCOLOGY 03/06/24 Tayla Tolbert RN [address] [place] [address] Cello Teacher (Ambulatory) REGISTERED NURSE 07/20/24 09/20/24 Jaqueline Burden MD [address] [facility] [address] [place] [address] Referring Physician GASTROENTEROLOGY 07/28/24 documented as of this encounter
--- OUTSIDE RECORDS SUMMARY | 2024-10-25 12:03 | XMS_ITS ---
Author Organization [facility] - [facility] Address [address] [place] [address] Care Team Providers Care Party Chief Name Role Phone Bereket Oquendo MD Unavailable [phone] Yuli Ibarra MD Primary Care Provider [phone] Cesar Zuluaga MD Unavailable [phone] Jim Lieberman MD Unavailable [phone] Jose Espinal MD Unavailable Jaqueline Burden MD Unavailable [phone] Active Problems Problem Noted Date Diagnosed Date CHF (congestive heart failure) ([facility]) 07/19/2024 Diarrhea, unspecified type 06/19/2024 Acute on chronic diastolic c ongestive heart failure ([facility]) 03/26/2023 Congestive heart failure, un specified HF chronicity, unspecified heart failure type ([facility]) 03/26/2023 Severe aortic valve stenosis 03/01/2022 Assessment & Plan (05/04/2022 1:07 PM CDT): He is status post transfemoral TAVR. Continue antibiotic prophylaxis prior to dental procedures. His echocardiogram was not performed prior to today's visit and I will review it. He will need an echo in 1 year. Assessment & Plan (03/23/2022 10:51 AM PREMIUM CARD CANCELLATION CLERK): He underwent Successful transcatheter aortic valve replacement with Medtronic Evolut Pro FX #29 mm on 03/14/22 Post op echo revealed mean gradient of 18mmHg Asa 81mg daily continued abx prior to any dental cleaning or procedure discussed Plan on repeating echo in 1 month with appt following Assessment & Plan (03/01/2022 8:17 AM PREMIUM CARD CANCELLATION CLERK): He has symptomatic severe aortic valve stenosis. [...] CT scan and surgical evaluation. Prostate cancer ([facility]) 02/23/2022 Chronic kidney disease, stage III (moderate) [...] with circu latory disorder causing erectile dysfunction ([facility]) 07/17/2017 Overview (11/03/2020): - controlled - diabetic diet encouraged; exercise as tolerated with guarded fall precautions discussed - continue with Lantus 20 units daily and Humalog 10-15 units 3x daily - continue with metformin 1000 mg twice daily 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 Continue current treatment. Acquired external rotation of foot 11/26/2016 Impairment of balance 11/26/2016 Gait abnormality 11/26/2016 Atherosclerotic heart diseas e of [place] coronary artery with other forms of angina [...] surgery. Assessment & Plan (03/01/2022 8:17 AM PREMIUM CARD CANCELLATION CLERK): He has a history of coronary artery [...] time. Assessment & Plan (03/06/2018 8:54 AM PREMIUM CARD CANCELLATION CLERK): Patient with stable cardiovascular disease, with routine [...] today. Assessment & Plan (03/06/2018 9:10 AM PREMIUM CARD CANCELLATION CLERK): Well-controlled at last fasting lipid panel 10/04. Continues on atorvastatin and cholestyramine without side effects or intolerances. Should get a repeat fasting lipid panel with next visit. 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 Seeing Dr. Son, using tramadol with reasonable effect. [place] Prescription Monitoring Program website reviewed, no indication of misuse or abuse. Myofascial pain 07/11/2016 Vitreous hemorrhage, left eye 05/18/2016 Overview (11/03/2020): Annotation - 18May2016: Lizandro Florez MD - [id number] Regular follow up with ophthalmology Stable proliferative diabeti c retinopathy of both eyes associated with type 2 diabetes mellitus ([facility]) 05/18/2016 Overview (11/03/2020): Cesar Zuluaga MD - [facility] Type 2 diabetes mellitus with proliferative diabetic retinopathy with macular edema, bilaterally Long-term use of insulin Other secondary cataract, left eye Vitreous hemorrhage, left eye [id number] 2-month follow-up. Diabetes controlled on insulin and metformin Following regularly with ophthalmology Neuropathic pain syndrome (non-herpetic) 017 Assessment & Plan (05/04/2018 6:53 AM CDT): Stable, on current dosing of gabapentin, as well as tramadol. No change to present treatment. Chronic pain 05/11/2016 Sensory peripheral neuropathy 03/13/2016 Controlled type 2 diabetes m kate with retinopathy, with long-term current use of insulin ([facility]) 02/14/2016 Overview (11/03/2020): - controlled - diabetic [...] monitoring. Assessment & Plan (03/06/2018 9:13 AM PREMIUM CARD CANCELLATION CLERK): Checking routine labs at follow-up for ongoing medication monitoring. Allergic rhinitis 01/05/2016 Posterior vitreous detachment 02/01/2015 Acquired hypothyroidism 09/07/2013 Assessment & Plan (05/04/2018 6:59 AM CDT): No signs or symptoms of over or under replacement of thyroid hormone. Check TSH today and adjust medication as indicated. Assessment & Plan (03/06/2018 9:12 AM PREMIUM CARD CANCELLATION CLERK): Mildly elevated thyroid stimulating hormone at last [...] - 03/21/2022 70 Treatment Summaries Prostate cancer ([facility]/HCC)* Images from the original note were not included. Survivorship Care Plan Patient Name John Mtz Date of 1945 Plan Completed By Yasmin VELARDE on 08/16/[address] Molina [phone] Lowery [phone] Primary Care Physician YULI IBARRA MD [phone] Nurse Navigator Yasmin VELARDE [phone] Diagnosis Prostate cancer ([facility]) Age at diagnosis 76-year-old Pertinent past medical history Past Medical History: Diagnosis Date Allergic rhinitis Aortic stenosis, moderate Chronic gastritis without bleeding, unspecified gastritis type 06/25/2017 Description: esophagastroduodenoscopy with biopsy; [id number] Chronic kidney disease (CKD), stage III (moderate) [...] should resolve within 2-4 weeks after completion. medical terminologist side effects may include a mild increase in stool and urinary frequency and potentially urgency. These symptoms are often intermittent and occur in 25-30% of men who receive radiation treatment for prostate carcinoma. In frequent intermediate side effects can include blood in the [...] advance care planning, appointing a power of patent prosecution attorney and completing a will) Please discuss [...] Resources National USTOO for Prostate cancer https://www.ustoo.org https://www.cancer.org/cancer/prostate-cancer/about/tlpw-wj-szpmydip-cancer.html Go to Our Services on this site, then Support You can join a Phone Support group Join an Online Support Group Get one to one support Helpline Financial assistance help National Comprehensive Cancer Network https://www.cancer.org/cancer/prostate-cancer/about/zgur-ya-aqpmjtph-cancer.html Prostate cancer National Comprehensive Cancer Network https://www.nccn.org/patients/guidelines/prostate/index.html National Cancer Homer www.cancer.gov Tr[place] Society of Clinical Oncology (ASCO) www.cancer.net National Coalition for Cancer Survivorship (NCCS) www.canceradvocacy.org Needy Meds www.InboxQ.Prifloat Urology http://urologyhealth.org/educational-materials Visit Cancer.Net's survivorship section provides helpful information for cancer survivors and theirfriends and family. Download the ASCO Answers Guide to Cancer Survivorship for free as a printable pdf National Coalition for Cancer Survivorship (NCCS) www.canceradvocacy.org Survivorship: What Happens After Active Treatment Ends (View Video) https://youtu.be/OUAp5Xh9Q1p Guidelines for Prostate cancer Treatment Patient Booklet https://www.nccn.org/patients/guidelines/prostate/index.html Urology http://urologyhealth.org/educational-materials www.WheelTek of Memphisation.org One Diary Information and resources, and suport,plus access to helpful forums and chat rooms. www.AppDevy Aging and Disability Resource Center https://www.dhs.[place].gov/adrc/consumer/index.htm (ADRC) Tr[place] Cancer Society www.cancer.org Cancer Care, Inc www.cancercare.org Cancer Support Community www.cancersupportcommunity.org Livestrong http://www.livestrong.org/what-we-do/our-actions/livestrong-programs/ymca/ Resolved Problems Problem Noted Date Diagnosed Date Resolved Date Status post incision and drainage 04/20/2019 07/01/2019 Perianal abscess 04/20/2019 07/01/2019 Wears glasses 07/10/2017 10/30/2019 Chronic gastritis without bl eeding, unspecified gastritis type 06/25/2017 03/12/2020 Overview (01/02/2018): Description: esophagastroduodenoscopy with biopsy; [id number] GERD (gastroesophageal reflux disease) 02/01/2017 06/27/2020 Assessment & Plan (03/06/2018 8:56 AM PREMIUM CARD CANCELLATION CLERK): Diet-controlled at this time. Continue to monitor. Edema of right lower extremity 11/26/2016 03/12/2020 Arteriosclerotic cardiovascular disease 10/23/2016 07/13/2019 Abnormal EKG 09/25/2016 10/29/2016 Hernia of anterior abdominal wall 04/09/2013 06/27/2020
--- OUTSIDE RECORDS SUMMARY | 2024-10-25 12:03 | XMS_ITS | Encounter Summary ---
Author Organization [facility] - [facility] Address [address] [place] [address] Care Team Providers Care Key Punch Teacher Name Role Phone Bereket Oquendo MD Unavailable [phone] Bettina Bansal PharmD Unavailable [phone] Yuli Ibarra MD Primary Care Provider [phone] Cesar Zuluaga MD Unavailable [phone] Alcides Molina MD Unavailable Unavailable LuisanaJim bowen MD Unavailable [phone] Olivia Olguin RN Unavailable [phone] Jose Espinal MD Unavailable Tayla Tolbert RN Unavailable [phone] Jaqueline Burden MD Unavailable [phone] Encounter Details Date Type Department Care Team (Latest Contact Info) Description 11/04/2020 MyCAtterocort Message Enc [facility] Multispecialty Care - [address] [place] [address] Yuli Ibarra MD [address] [place] [address] 157 [place] [address] lab and medication change Social [...] Sexual Orientation Straight 01/06/2018 12 :04 PM BERRY PLANTER Occupation Industry Job Start Date Job End [...] Description 11/19/2024 9:40 AM CDT Office Visit [facility] [address] [facility], [address] [place] [address] Jamie Herrera DO 3 [facility] [address] [place] [address] 01/04/2025 10:30 AM BERRY PLANTER [facility] [address] [place] [address] Bereket Oquendo MD Three [facility]. [address] [place] [address] 02/01/2025 2:40 PM BERRY PLANTER Office Visit [facility]pec[facility]ty Care - [place] [address] [address] [place] [address] [place] [address] [place] [address] documented as of this encounter Visit Diagnoses Not on filedocumented in this encounter Additional Health Concerns Infection Onset Date Last Indicated Resolved Time COVID-19 Rule Out 02/06/2024 02/06/2024 02/06/2024 2:41 PM BERRY PLANTER COVID-19 Confirmed 02/06/2024 02/06/2024 12:32 AM BERRY PLANTER Assessment Noted Time PHQ-9 Depression Total Score: 3 11/04/19 21 9:40 AM CDT documented as of this encounter Care Teams Key Punch Teacher Relationship Specialty Start Date End Date Yuli Ibarra MD [address] [place] [address] PCP - General INTERNAL MEDICINE 11/03/20 Bereket Oquendo MD [facility] [address] [place], [place] [id number] [place] [employer] Duplicating Machine Operator CARDIOVASCULAR DISEASE 08/15/16 Bettina Bansal, PharmD [address] [place], [place] [address] Pharmacist Pharmacist 02/28/18 01/10/21 Cesar Zuluaga MD [address] [place] [address] Retina Ophthalmology 01/11/21 Alcides Molina MD [address] [place] [address] Consulting Physician UROLOGY 01/11/21 04/29/22 [place] [address] [place] [address] [place] [address] SURGERY 01/11/21 Olivia Olguin RN [address] [place] [address] General Freight Agent (Ambulatory) REGISTERED NURSE 03/14/22 03/28/22 Jose Espinal MD 1 [place] [address] Consulting Physician RADIATION ONCOLOGY 03/06/24 Tayla Tolbert RN [address] [place] [address] General Freight Agent (Ambulatory) REGISTERED NURSE 07/20/24 09/20/24 Jaqueline Burden MD [address] [facility] [address] [place] [address] Referring Physician GASTROENTEROLOGY 07/28/24 documented as of this encounter
--- OUTSIDE RECORDS SUMMARY | 2024-10-25 12:04 | XMS_ITS | Encounter Summary ---
Author Organization [facility] Address [address] [place] [address] Care Team Providers Care Moss Picker Name Role Phone Bereket Oquendo MD Unavailable [phone] Yuli Ibarra MD Primary Care Provider [phone] Cesar Zuluaga MD Unavailable [phone] Alcides Molina MD Unavailable Unavailable LuisanaJim bowen MD Unavailable [phone] Olivia Olguin RN Unavailable [phone] Jose Espinal MD Unavailable Tayla Tolbert RN Unavailable [phone] Jaqueline Burden MD Unavailable [phone] Encounter Details Date Type Department Care Team (Late st Contact Info) Description 02/09/2022 Roadmunk Message Enc [facility] [address] [place] [address] Bereket Oquendo MD [address] [address] Lisinopril Social History Tobacco Use Types Packs/Day Years Used Date Smoking Tobacco: Former Cigarettes 0.5 8 1 972 - 4097 Smokeless Tobacco: Never Comments:smoked socially for 40 [...] Sexual Orientation Straight 01/06/2018 12 :04 PM BUILDING ESTIMATOR Occupation Industry Job Start Date Job End Date Not on file Not on file Not on file Not on file COVID-19 Exposure Response Date Recorded In the last 10 days, have yo u been in contact with someone who was confirmed or suspected to have Coronavirus/COVID-19? No / Unsure 02/02/2022 12:31 PM BUILDING ESTIMATOR documented as of this encounter Plan of Treatment Upcoming Encounters Date Type Department Care Team (Late st Contact Info) Description 11/19/2024 9:40 AM CDT [facility] 3 [facility] [address] [place] [address] Jamie Herrera DO [address] [facility] [address] [place] [address] 01/04/2025 10:30 AM BUILDING ESTIMATOR Office Visit [facility] [address] [place] [address] Bereket Oquendo MD Three [facility]. [address] [place] [address] 02/01/2025 2:40 PM BUILDING ESTIMATOR Office Visit [facility] Multispecialty [facility] - [address] [place] [address] Yuli Ibarra MD [address] [address] documented as of this encounter Visit Diagnoses Not on filedocumented in this encounter Additional Health Concerns Infection Onset Date Last Indicated Resolved Time COVID-19 Rule Out 02/06/2024 02/06/2024 02/06/2024 2:41 PM BUILDING ESTIMATOR COVID-19 Confirmed 02/06/2024 02/06/2024 12:32 AM BUILDING ESTIMATOR Assessment Noted Time PHQ-9 Depression Total Score: 0 04/05/19 22 9:32 AM BUILDING ESTIMATOR documented as of this encounter Care Teams Moss Picker Relationship Specialty Start Date End Date Yuli Ibarra MD [facility] [address] [address] PCP - General INTERNAL MEDICINE 11/03/20 Bereket Oquendo MD [facility] [address] [place], [place] [address] [place] [employer] Scientific Research CARDIOVASCULAR DISEASE 08/15/16 Cesar Zuluaga MD [address] [place] [address] Retina Ophthalmology 01/11/21 Alcides Molina MD [address] [place] [address] Consulting Physician UROLOGY 01/11/21 04/29/22 Jim Lieberman MD [address] [facility] [address] [place] [address] SURGERY 01/11/21 Olivia Olguin RN [address] [place] [address] Jewelry Designer (Ambulatory) REGISTERED NURSE 03/14/22 03/28/22 Jose Espinal MD 1 [place] [address] Consulting Physician RADIATION ONCOLOGY 03/06/24 Tayla Tolbert, RN [address] [place] [address] Jewelry Designer (Ambulatory) REGISTERED NURSE 07/20/24 09/20/24 Jaqueline Burden MD [facility] [address] [place] [address] Referring Physician GASTROENTEROLOGY 07/28/24 documented as of this encounter
--- OUTSIDE RECORDS SUMMARY | 2024-10-25 12:04 | XMS_ITS | Clinical Summary ---
Author Organization [facility] Address [address] [facility] [place] [address] Care Team Providers Care Document Photographer Name Role Phone Unavailable Primary Care Provider Unavailabl e Source Comments [facility],non-owned Affiliates and Associated Physician Practices is amultiple site organization consisting of ambulatory clinics and hospital sitesin [place], [place], [place] and [place]. This disclosure is being madepursuant to the Care Everywhere program and may not contain all information available regarding this patient. Last updated 17.[facility] Immunizations Immunization Administration Dates Next Due INFLUENZA VACCINE, HIGH-DOSE , QUADR. (FLUZONE HIGH-DOSE QUADRIVALENT; 65Y+), 0.7 ML (HD-IIV4) 12/03/2019 Social History Tobacco Use Types Packs/Day Years Used Date Smoking Tobacco: Never Assessed Sex and Gender Information Value Date Recorded Sex Assigned at Not on file Legal Sex Male 6:22 AM JOINT SEALER Gender Identity Not on file Sexual Orientation [...]
--- OUTSIDE RECORDS SUMMARY | 2024-10-25 12:04 | XMS_ITS | Encounter Summary ---
Author Organization [facility] Address [address] [place] [address] Care Team Providers Care Terrazzo Grinder Name Role Phone Onur Melendrez MD Primary Care Provider [phone] Bereket Oquendo MD Unavailable [phone] Bettina Bansal PharmD Unavailable [phone] Yuli Ibarra MD Primary Care Provider [phone] Cesar Zuluaga MD Unavailable [phone] Alcides Molina MD Unavailable Unavailable LuisanaJim MD Unavailable [phone] Olivia Olguin RN Unavailable [phone] Jose Espinal MD Unavailable Tayla Tolbert RN Unavailable [phone] Jaqueline Burden MD Unavailable [phone] Reason for Referral * Surgical (Routine) - Closed Specialty Diagnoses / Procedures Referred By Giovanni t Referred To Contact Procedures Case request operating room: RADIOFREQUENCY LUMBAR l2, 3, 4 Aicha Son MD Three [facility] [address] [place] [address] Phone: tel: fax: Referral ID Status Reason Start Date Expiration Date Visits Re quested Visits Authorized [id number] Closed 10/18/2017 11/17/2018 1 1 Encounter Details Date Type Department Care Team (Late Contact Info) Description 10/18/2017 Prep for Procedure [facility] Inter[facility] Management Center [facility] [place] [id number] Aicha Son MD Three [facility] [address] [place] [address] Social History Tobacco Use Types Packs/Day Years [...] Sexual Orientation Straight 01/06/2018 12 :04 PM RN ALLERGY Occupation Industry Job Start Date Job End Date Not on file Not on file Not on file Not on file documented as of this encounter Plan of Treatment Upcoming Encounters Date Type Department Care Team (Late Contact Info) Description 11/19/2024 9:40 AM CDT Office Visit [facility] Multispecialty Care - [facility] [address] [facility] [address] [place] [address] Jamie Herrera DO [facility] [address] [place] [address] 01/04/2025 10:30 AM RN ALLERGY Office Visit [facility] [address] [place] [address] Bereket Oquendo MD Three [facility]. [address] [place] [address] 02/01/2025 2:40 PM RN ALLERGY Office Visit [facility] Group Multispecialty Care - [place] [address] [address] [place] [address] Yuli Ibarra MD [address] [address] Scheduled Orders Name Type Priority Associated Diagnoses Order Schedule Case request operating room: RADIOFREQUENCY LUMBAR l2, 3, 4 Case Request Routine Once for 1 Occurrences starting 10/18/2017 until 10/18/2017 documented as of this encounter Visit Diagnoses Not on filedocumented in this encounter Additional Health Concerns Infection Onset Date Last Indicated Resolved Time COVID-19 Rule Out 02/06/2024 02/06/2024 02/06/2024 2:41 PM RN ALLERGY COVID-19 Confirmed 02/06/2024 02/06/2024 12:32 AM RN ALLERGY documented as of this encounter Care Teams Terrazzo Grinder Relationship Specialty Start Date End Date Onur Melendrez MD PCP - General INTERNAL MEDICINE 07/19/16 11/02/20 Yuli Ibarra MD [address] [place] [address] PCP - General INTERNAL MEDICINE 11/03/20 Bereket Oquendo MD [address] [facility] [address] [place] [address] [place] Janitor CARDIOVASCULAR DISEASE 08/15/16 Bettina Bansal, PharmD [address] [place] [address] Pharmacist Pharmacist 02/28/18 01/10/21 Cesar Zuluaga MD [address] [place] [address] Retina Ophthalmology 01/11/21 Alcides Molina MD [address] [place] [address] Consulting Physician UROLOGY 01/11/21 04/29/22 Jim Lieberman MD [address] [place] [address] SURGERY 01/11/21 Olivia Olguin RN [address] [place], [place] [address] Campus Dean (Ambulatory) REGISTERED NURSE 03/14/22 03/28/22 Jose Espinal MD 1 [place] [address] Consulting Physician RADIATION ONCOLOGY 03/06/24 Tayla Tolbert RN [address] [place] [address] Campus Dean (Ambulatory) REGISTERED NURSE 07/20/24 09/20/24 Jaqueline Burden MD [facility] [place] [address] Referring Physician GASTROENTEROLOGY 07/28/24 documented as of this encounter
--- OUTSIDE RECORDS SUMMARY | 2024-10-25 12:04 | XMS_ITS | Encounter Summary ---
Author Organization [facility] Address [address] [place] [address] Care Team Providers Care Dispatcher Chief Oil Name Role Phone Onur Melendrez MD Primary Care Provider + [phone] Bereket Oquendo MD Unavailable [phone] Bettina Bansal PharmD Unavailable [phone] Yuli Ibarra MD Primary Care Provider [phone] Cesar Zuluaga MD Unavailable [phone] Alcides Molina MD Unavailable Unavailable LuisanaJmi MD Unavailable [phone] Olivia Olguin RN Unavailable [phone] Jose Espinal MD Unavailable Tayla Tolbert RN Unavailable [phone] Jaqueline Burden MD Unavailable [phone] Encounter Details Date Type Department Care Team (Late st Contact Info) Description 08/24/2016 Abstract [facility] AT [address] [id number] Cherelle Avila MA Social History Tobacco Use [...] Sexual Orientation Straight 01/06/2018 12 :04 PM REGULATOR ASSEMBLER Occupation Industry Job Start Date Job End Date Not on file Not on file Not on file Not on file documented as of this encounter Plan of Treatment Upcoming Encounters Date Type Department Care Team (Late st Contact Info) Description 11/19/2024 9:40 AM CDT [facility] [address] [place] [address] Jamie Herrera DO [address] [place] [address] 01/04/2025 10:30 AM REGULATOR ASSEMBLER [facility] [address] [place] [address] Bereket Oquendo MD [address] [facility] [address] [place] [address] 02/01/2025 2:40 PM REGULATOR ASSEMBLER [facility] [place] [address] [address] [place] [address] [place] [address] [place] [address] [address] [place] [address] documented as of this encounter Procedures Procedure [...] Final * CBC (OUTSIDE LAB) (11/26/2016) Pathologist [facility] WBC 9.5 HGB 12.1 HCT 38 PLT [...] * (ABNORMAL) HEPATIC FUNCTION PANEL (10/10/2016) Pathologist [facility] ALBUMIN S/P/B 2.9(A) 3.5 - 5.0 ALKALINE PHOSPHATASE S/P/B 58 ALT 24 AST 35 BILIRUBIN DIRECT S/P/B <0.20 BILIRUBIN TOTAL S/P/B 0.6 TOTAL PROTEIN S/P/B 5.4 10/10/2016 us Doc [facility] Abstract LABORATORY Final Result * CBC (OUTSIDE LAB) (10/08/2016) Pathologist [facility] WBC 11.8 HGB 10.5 HCT 31.6 PLT 284 10/08/2016 us Doc [facility] Abstract LAB-OUTSIDE/ABSTRACTED Final Result * BNP (08/07/2016) [facility] B TYPE NATRIURETIC PEPTIDE 84 08/07/2016 us Doc [facility] Abstract LABORATORY Final Result * CK (CPK) (08/07/2016) Pathologist [facility] CPK 147 08/07/2016 us Doc [facility] Abstract LABORATORY Final Result * MAGNESIUM (08/07/2016) Pathologist [facility] MAGNESIUM 1.8 08/07/2016 us Doc [facility] Abstract LABORATORY Final Result * COMPREHENSIVE METABOLIC PANEL (08/07/2016) Pathologist [facility] SODIUM S/P/B 137 POTASSIUM S/P/B 4.3 CO2 [...] Rule Out 02/06/2024 02/06/2024 02/06/2024 2:41 PM REGULATOR ASSEMBLER COVID-19 Confirmed 02/06/2024 02/06/2024 12:32 AM REGULATOR ASSEMBLER documented as of this encounter Care Teams Dispatcher Chief Oil Relationship Specialty Start Date End Date Onur Melendrez MD PCP - General INTERNAL MEDICINE 07/19/16 11/02/20 Yuli Ibarra MD [address] [facility] [address] [place], [place] [id number] PCP - General INTERNAL MEDICINE 11/03/20 Bereket Oquendo MD Three [address] [address] [place] CARDIOVASCULAR DISEASE 08/15/16 Bettina Bansal, PharmD [address] [place] [address] Pharmacist Pharmacist 02/28/18 01/10/21 Cesar Zuluaga MD [address] [place] [address] Retina Ophthalmology 01/11/21 Alcides Molina MD [address] [place] [address] Consulting Physician UROLOGY 01/11/21 04/29/22 Jim Lieberman MD [address] [place] [address] SURGERY 01/11/21 Olivia Olguin, RN [address] [place] [address] Sheet Metal Superintendent (Ambulatory) REGISTERED NURSE 03/14/22 03/28/22 Jose Espinal MD [address] [place] [address] Consulting Physician RADIATION ONCOLOGY 03/06/24 Tayla Tolbert, RN [address] [place] [address] Sheet Metal Superintendent (Ambulatory) REGISTERED NURSE 07/20/24 09/20/24 Jaqueline Burden MD [facility] [address] [place] [address] Referring Physician GASTROENTEROLOGY 07/28/24 documented as of this encounter
--- OUTSIDE RECORDS SUMMARY | 2024-10-25 12:04 | XMS_ITS | Encounter Summary ---
Author Organization [facility] Address [address] [place] [address] Care Team Providers Care Analytical Data Scientist Name Role Phone Bereket Oquendo MD Unavailable [phone] Yuli Ibarra MD Primary Care Provider [phone] Cesar Zuluaga MD Unavailable [phone] Alcides Molina MD Unavailable Unavailable LuisanaJim bowen MD Unavailable [phone] Olivia Olguin RN Unavailable [phone] Jose Espinal MD Unavailable Tayla Tolbert RN Unavailable [phone] Jaqueline Burden MD Unavailable [phone] Encounter Details Date Type Department Care Team (Latest Contact Info) Description 11/08/2021 [employer] Message Enc [facility] - [place] [address] [address] [place] [address] [place] [address] [place] [address] [address] [place] [address] Medication refill Social History Tobacco Use Types Packs/Day Years Used Date Smoking Tobacco: Former Cigarettes 0.5 8 1 512 - 6587 Smokeless Tobacco: Never Comments:smoked socially for 40 [...] Sexual Orientation Straight 01/06/2018 12 :04 PM WELT SOLE LAYER Occupation Industry Job Start Date Job End [...] Description 11/19/2024 9:40 AM CDT [facility] [address] [facility] [place] [address] Jamie Herrera DO [address] [place] [address] 01/04/2025 10:30 AM WELT SOLE LAYER Office Visit [facility] [address] [place] [address] Bereket Oquendo MD [address] [facility] [address] [place] [address] 02/01/2025 2:40 PM WELT SOLE LAYER [facility] [place] [address] [address] [place] [address] [place] [address] [place] [address] documented as of this encounter Visit Diagnoses Not on filedocumented in this encounter Additional Health Concerns Infection Onset Date Last Indicated Resolved Time COVID-19 Rule Out 02/06/2024 02/06/2024 02/06/2024 2:41 PM WELT SOLE LAYER COVID-19 Confirmed 02/06/2024 02/06/2024 12:32 AM WELT SOLE LAYER Assessment Noted Time PHQ-9 Depression Total Score: 0 04/05/19 22 9:32 AM WELT SOLE LAYER documented as of this encounter Care Teams Analytical Data Scientist Relationship Specialty Start Date End Date Yuli Ibarra MD [address] [place] [address] PCP - General INTERNAL MEDICINE 11/03/20 Bereket Oquendo MD [facility] [address] [place] [address] [place] Stone Crusher Operator CARDIOVASCULAR DISEASE 08/15/16 Cesar Zuluaga MD [address] [place] [address] Retina Ophthalmology 01/11/21 Alcides Molina MD [address] [place] [address] Consulting Physician UROLOGY 01/11/21 04/29/22 Jim Lieberman MD [address] [facility] [address] [place] [address] SURGERY 01/11/21 Olivia Olguin RN [address] [place] [address] Maritime Pilot (Ambulatory) REGISTERED NURSE 03/14/22 03/28/22 Jose Espinal MD [address] [place] [address] Consulting Physician RADIATION ONCOLOGY 03/06/24 Tayla Tolbert, RN [address] [place] [address] Maritime Pilot (Ambulatory) REGISTERED NURSE 07/20/24 09/20/24 Jaqueline Burden MD [address] [facility] [address] [place] [address] Referring Physician GASTROENTEROLOGY 07/28/24 documented as of this encounter
--- OUTSIDE RECORDS SUMMARY | 2024-10-25 12:04 | XMS_ITS | Clinical Summary ---
Author Organization [facility] Address [facility] [place] [address] Care Team Providers Care Customer Engineer Name Role Phone Bereket Oquendo MD Unavailable [phone] Yuli Ibarra MD Primary Care Provider [phone] Cesar Zuluaga MD Unavailable [phone] Jim Lieberman MD Unavailable [phone] Jose Espinal MD Unavailable Jaqueline Burden MD Unavailable [phone] Allergies No known active allergies Medications [...] Date Diagnosed Date CHF (congestive heart failure) ([facility]) 07/19/2024 Diarrhea, unspecified type 06/19/2024 Acute on chronic diastolic c ongestive heart failure ([facility]) 03/26/2023 Congestive heart failure, un specified HF chronicity, unspecified heart failure type ([facility]) 03/26/2023 Severe aortic valve stenosis 03/01/2022 Assessment & Plan (05/04/2022 1:07 PM CDT): He is status post transfemoral TAVR. Continue antibiotic prophylaxis prior to dental procedures. His echocardiogram was not performed prior to today's visit and I will review it. He will need an echo in 1 year. Assessment & Plan (03/23/2022 10:51 AM ENGRAVER LETTERING): He underwent Successful transcatheter aortic valve replacement with Medtronic Evolut Pro FX #29 mm on 03/14/22 Post op echo revealed mean gradient of 18mmHg Asa 81mg daily continued abx prior to any dental cleaning or procedure discussed Plan on repeating echo in 1 month with appt following Assessment & Plan (03/01/2022 8:17 AM ENGRAVER LETTERING): He has symptomatic severe aortic valve stenosis. [...] CT scan and surgical evaluation. 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 Continue current treatment. 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 Assessment & Plan (03/01/2022 8:17 AM ENGRAVER LETTERING): He has a history of coronary artery [...] time. Assessment & Plan (03/06/2018 8:54 AM ENGRAVER LETTERING): Patient with stable cardiovascular disease, with routine [...] today. Assessment & Plan (03/06/2018 9:10 AM ENGRAVER LETTERING): Well-controlled at last fasting lipid panel 10/04. Continues on atorvastatin and cholestyramine without side effects or intolerances. Should get a repeat fasting lipid panel with next visit. 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 Seeing Dr. Son, using tramadol with reasonable effect. [place] Prescription Monitoring Program website reviewed, no indication of misuse or abuse. Myofascial pain 07/11/2016 Vitreous hemorrhage, left eye 05/18/2016 Overview (11/03/2020): Annotation - 18May2016: Lizandro Florez MD - [id number] Regular follow up with ophthalmology Stable proliferative diabeti c retinopathy of both eyes associated with type 2 diabetes mellitus ([facility]) 05/18/2016 Overview (11/03/2020): Cesar Zuluaga MD - [facility] Type 2 diabetes mellitus with proliferative diabetic retinopathy with macular edema, bilaterally Long-term use of insulin Other secondary cataract, left eye Vitreous hemorrhage, left eye [id number] 2-month follow-up. Diabetes controlled on insulin and metformin Following regularly with ophthalmology Neuropathic pain syndrome (non-herpetic) 017 Assessment & Plan (05/04/2018 6:53 AM CDT): Stable, on current dosing of gabapentin, as well as tramadol. No change to present treatment. Chronic pain 05/11/2016 Sensory peripheral neuropathy 03/13/2016 Controlled type 2 diabetes m ellitus with retinopathy, with long-term current use of insulin ([facility]) 02/14/2016 Overview (11/03/2020): - controlled - [...] monitoring. Assessment & Plan (03/06/2018 9:13 AM ENGRAVER LETTERING): Checking routine labs at follow-up for ongoing medication monitoring. Allergic rhinitis 01/05/2016 Posterior vitreous detachment 02/01/2015 Acquired hypothyroidism 09/07/2013 Assessment & Plan (05/04/2018 6:59 AM CDT): No signs or symptoms of over or under replacement of thyroid hormone. Check TSH today and adjust medication as indicated. Assessment & Plan (03/06/2018 9:12 AM ENGRAVER LETTERING): Mildly elevated thyroid stimulating hormone at last [...] 03/12/2020 Overview (01/02/2018): Description: esophagastroduodenoscopy with biopsy; [id number] GERD (gastroesophageal reflux disease) 02/01/2017 06/27/2020 Assessment & Plan (03/06/2018 8:56 AM ENGRAVER LETTERING): Diet-controlled at this time. Continue to monitor. Edema of right lower extremity 11/26/2016 03/12/2020 Arteriosclerotic cardiovascular disease 10/23/2016 07/13/2019 Abnormal EKG 09/25/2016 10/29/2016 Hernia of anterior abdominal wall 04/09/2013 06/27/2020 Encounters Date Type Department Care Team Description 10/12/2024 [facility]phone [facility] [address] [place] [address] Yuli Ibarra MD Medication Request 10/12/2024 [facility]phone [facility] [address] [facility] [address] [place] [address] Yuli Ibarra MD Medication Information 10/09/2024 Telephone [facility] [place] [address] [place] [address] Yuli Ibarra MD Medication 10/09/2024 Telephone [facility] [address] [facility] [place] [address] Luis Angel Mccurdy MD FYI 10/07/2024 Results [facility] [place] [address] [place] [address] Yuli Ibarra MD BASIC METABOLIC PANEL, CBC W/DIFF AUTOMATED, BASIC METABOLIC PANEL 10/06/2024 2:00 PM CDT Laboratory Only [facility] [place] [address] [facility] [address] [place] [address] Yuli Ibarra MD 10/06/2024 Travel 10/05/2024 Scan [facility] INFO SRVCS Scanned, Doc Med Group 10/01/2024 12:15 PM CDT Telemedicine [facility] [address] [place] [phone] Bettina Marinelli, TRANSACTIONAL PARALEGAL CHF; Hospital Follow Up 09/30/2024 11:00 AM CDT [facility]medicine [facility] [id number] [place] [address] [address] [place] [address] Yuli Ibarra MD Follow Up (Pt is having trouble getting farxiga, pt is requesting 90 days go to [facility]. Also states he needs pain meds. ); Diabetes (States ); Sleep Problem; Prostate Cancer; Diarrhea; Hyperlipidemia; Hypertension; CHF; Back Pain 09/30/2024 Orders Only [facility] [place] [address] [place] [address] [address] [place] [address] Yuli Ibarra MD 09/30/2024 Telephone [facility] [place] [address] [place] [address] [address] [address] [place] [address] Yuli Ibarra MD Medication Information 09/24/2024 Telephone [facility] [place] [address] [place] [address] [address] [place] [address] Yuli Ibarra MD Information 09/23/2024 10:30 AM CDT Home Care Visit [facility] Home Care [address] [place] [address] Annabella Bernard LPN SN HOME VISIT 09/22/2024 Scan [facility] INFO SRVCS Scanned, Doc Med [facility] 09/21/2024 Telephone [place] [address] [address] [place] [address] Yuli Ibarra MD Called To Cancel Office Appt. 09/21/2024 Patient Outreach [place] [address] [address] [address] [address] [place] [address] Tayla Tolbert, SYD Hospital Follow Up (TCM #1) 09/15/2024 Scan [facility] INFO SRVCS Scanned, Doc Med [facility] 09/14/2024 11:00 AM CDT Home Care Visit [address] [place] [address] Dyana Whatley RN SN HOME VISIT 09/10/2024 Telephone [place] [address] [address] [place] [address] Yuli Ibarra MD Medication 09/10/[address], [address] [place] [phone] Luis Angel Mccurdy MD Prior Authorization (Colonoscopy 83047) 09/09/2024 Scan [facility] INFO SRVCS Scanned, Doc Med [facility] 09/08/2024 Results Follow-Up [place] [address] [address] [place] [address] Yuli Ibarra MD COMPREHENSIVE METABOLIC PANEL, CBC W/DIFF AUTOMATED 09/07/2024 4:20 PM CDT Office Visit [place] [address] [address] [place] [address] Yuli Ibarra MD TCM (Needs refill on Dapagliflozin, norco, Zyrtec, Dicyclomine, tramadol) 09/07/2024 8:45 AM CDT Home Care Visit [facility] [address] [place] [address] [place] [address] Karla Love, SYD SN OASIS RESUMPTION OF CARE 09/07/2024 Travel 09/07/2024 Plan of Care Documentation [facility] [address] [place] [address] [place] [address] 09/04/2024 Telephone [place] [address] [place] [address] Yuli Ibarra MD Medication; Follow Up Call 09/04/2024 Patient Outreach [place] [address] [place] [address] Tayla Tolbert, SYD [facility] ([facility] 08/12-08/19, [facility] 08/19-09/03) 09/03/2024 Telephone [place] [address] [address] [place] [address] Yuli Ibarra MD Error 09/02/2024 Patient Outreach [place] [address] [place] [address] Tayla Tolbert, RN Hospital Follow Up 08/26/2024 Scan [facility] INFO SRVCS Scanned, Doc Med Group 08/25/2024 Patient Outreach [place] [address] [address] [place] [address] Tayla Tolbert, RN Hospital Follow Up 08/20/2024 Patient Outreach [place] [address] [address] [address] [address] [place] [address] Tayla Tolbert, RN Hospital Follow Up (Admit to [facility]. ) 08/19/2024 Scan [facility] [employer] SRVCS Scanned, Doc Med Group 08/19/2024 Patient Outreach [facility] [address] [address] [address] [address] [place] [address] Tayla Tolbert, SYD Hospital Follow Up 08/19/2024 Home Care Visit [address] [place] [address] [place] [address] Zohra Rosas RN SN OASIS TRANSFER W/OUT DC 08/17/2024 10:15 AM CDT Home Care Visit [facility] [address] [place] [address] [place] [address] Krista Cesar CASE COMMUNICATION 08/13/2024 1:00 PM CDT Home Care Visit [address] [place] [address] Carissa Mtz, RETAIL ACCOUNT EXECUTIVE CASE COMMUNICATION 08/12/2024 Scan [facility] INFO SRVCS Scanned, Doc Med Group 08/10/2024 9:00 AM CDT Home Care Visit [facility] [address] [place] [address] [place] [address] Carissa Mtz, RETAIL ACCOUNT EXECUTIVE AIDE HOME VISIT 08/07/2024 10:00 AM CDT Home Care Visit [facility] [address] [place] [address] [place] [address] Negra Gandhi LPN SN HOME VISIT 08/06/2024 2:00 PM CDT Home Care Visit [facility] [address] [place] [address] [place] [address] Carissa Mtz, RETAIL ACCOUNT EXECUTIVE AIDE HOME VISIT 08/05/2024 Telephone [facility] - [place] [address] [facility] [address] [place] [address] Yuli Ibarra MD Leg Pain 08/05/2024 Patient Outreach [facility] - [place] [address] [facility] [address] [place] [address] Tayla Tolbert, RN Hospital Follow Up (TCM #1) 08/04/2024 12:00 PM CDT Home Care Visit [facility] Home Care [address] [place] [address] [place] [address] Dyana Whatley, RN SN HOME VISIT 08/03/2024 3:00 PM CDT Home Care Visit [facility] Home Care [address] [place] [address] [place] [address] Jayne Wick, PT PT INITIAL EVALUATION 08/03/2024 2:00 PM CDT Home Care Visit [facility] Home Care [address] [place] [address] [place] [address] Lyubov Camacho, OT OT INITIAL EVALUATION 08/03/2024 11:15 AM CDT Home Care Visit [facility] [address] [place] [address] [place] [address] Carissa Mtz, RETAIL ACCOUNT EXECUTIVE AIDE HOME VISIT 08/03/2024 Telephone [facility] Medical Group Multispecialty Care - [address] [place] [address] Yuli Ibarra MD Results 07/31/2024 1:15 PM CDT Home Care Visit [facility] [address] [place] [address] [place] [address] Carissa Mtz, RETAIL ACCOUNT EXECUTIVE AIDE HOME VISIT 07/31/2024 Telephone [facility], [address] [address] Bettina Marinelli, TRANSACTIONAL PARALEGAL Follow Up; Results 07/30/2024 12:48 PM CDT - 07/30/2024 11:59 PM CDT Hospital Encounter Health system Diagnostic Imaging [address] [place] [address] Bereket Oquendo MD Discharge Disposition: Home or Self Care (Routine Discharge) 07/30/2024 12:15 PM CDT Office Visit [facility] [address] [place] [address] Bettina Marinelli FNP Hospital Follow Up (syncope); Coronary Artery Disease; CHF 07/30/2024 [facility]phone [facility] [place] [address] [address] [place] [address] [address] [place] [address] Yuli Ibarra MD Follow Up Call 07/30/2024 Results [facility] [place] [address] [address] [address] [address] [place] [address] Yuli Ibarra MD CBC W/DIFF AUTOMATED, COMPREHENSIVE METABOLIC PANEL, C-REACTIVE PROTEIN, MAGNESIUM 07/30/2024 Plan of Care Documentation [facility] Home Care [address] [place] [address] [place] [address] 07/29/2024 2:00 PM CDT [facility] [place] [address] [place] [address] [place] [address] Yuli Ibarra MD TCM (Pts has a question about diarrhea medication ) 07/29/2024 11:00 AM CDT Home Care Visit [address] [place] [address] Dynaa Whatley RN SN OASIS START OF CARE 07/29/2024 Travel 07/29/2024 [facility]phone [facility] [place] [address] [address] [place] [address] [place] [address] Yuli Ibarra MD Follow Up Call 07/28/2024 Telephone [facility] Home [address] [place] [address] [place] [address] Yuli Ibarra MD Advise 07/28/2024 Telephone [facility] [place] [address] [place] [address] [place] [address] Yuli Ibarra MD Appointment Request 07/28/2024 Telephone [facility] [place] [address] [address] [place] [address] [address] [place] [address] Yuli Ibarra MD Orders 07/28/2024 Telephone [facility] [place] [address] [facility] [address] [place] [address] Yuli Ibarra MD Referral 07/27/2024 Telephone [facility] [place] [address] [address] [facility] [address] [place] [address] Yuli Ibarra MD [facility] 07/27/2024 Telephone [facility] [place] [address] [address] [facility] [address] [place] [address] Yuli Ibarra MD Appointment Request 07/27/2024 Patient Outreach [facility] [place] [address] [address] [facility] [address] [place] [address] Tayla Tolbert RN TCM ([facility] 07/19-07/25) 07/27/2024 [facility]phone [facility] [place] [address] [facility] [address] [place] [address] Yuli Ibarra MD Follow Up Call 07/19/2024 3:54 PM CDT - 07/25/2024 12:46 PM CDT Hospital Encounter Health system Med/Surg [address] [place] [address] Zack Christina MD Harris, Michael, MD Dodt, [...] MCG/ 0.5 ML DOSE 04/29/2020,04/01/2020 [facility] COVID-19 (CONDUIT MECHANIC NATALIA ASTRID), MRNA, LNP-S, PF, 50 MCG/ [...] materials from doctor or pharmacy Never 09/07/2024 [facility] Utilities Answer Date Recorded In the past 12 months has th e [email or web address], gas, oil, or water [employer] threatened to shut off services in your [...] place to sleep or slept in a fdc (including now)? No 03/14/2022 Housing Stability Vital Sign Answer El e Recorded In the last 12 months, was t here a time when you were not able to pay the mortgage or rent on time? No 07/19/2024 In the past 12 months, how m any times have you moved where you were living? 0 07/19/2024 At any time in the past 12 m [facility], were you homeless or living in a fdc (including now)? No 07/19/2024 Sex and Gender Information Value Date Recorded Sex Assigned at Male 07/01/2019 11:12 AM CDT Legal Sex Male 1:25 PM CDT Gender Identity Male 07/01/2019 11:12 AM CDT Sexual Orientation Straight 01/06/2018 12 :04 PM ENGRAVER LETTERING Occupation Industry Job Start Date Job End [...] Description 11/19/2024 9:40 AM CDT Office Visit [facility] Medical Group Multispecialty Care - [facility] [address] [place] [phone] Jamie Herrera DO [address] [facility] [address] [place], [place] [address] 01/04/2025 10:30 AM ENGRAVER LETTERING Office Visit [facility] [address] [place] [phone] Bereket Oquendo MD [facility]. [address] [address] 02/01/2025 2:40 PM ENGRAVER LETTERING Office Visit [facility] Medical [facility] [place] [address] [place] [address] [address] [place] [address] Yuli Ibarra MD [address] [facility] [address] [place], [place] [address] Health Maintenance Due Date Last Done Comments [...] 60+ Years Completed 12/04/2023, 11/27/2023 PHQ-2 (Physician [place]) Completed 06/19/2024 Colorectal Cancer Screening Colonoscopy (10 [...] this topic Medical Devices Implanted Type Area General Claims Agent Device Identifier Shelf Expiration Date Model / Serial / Lot Aortic Valve 29mm (Tavr) Implant-03/14 Implanted:Qt y: 1 on 03/14/2022 by Jeremy Pastor MD Valve Implant Aorta [employer] 10/10/2023 [id number] -[id number] / [id number] / Space Oar Lewis System Implanted:Qt y: 1 on 01/12/2022 by Alban Cervantes MD at [facility] N/A: Prostate [employer] [id number] 06/08/2023 [id number] / / [id number] Visicoil Mr [place] Fudicial Marker Implanted:Qt y: 3 on 01/12/2022 by Alban Cervantes MD at [facility] N/A: Prostate [employer] [id number] 09/17/[id number] / / [id number] Procedures Procedure Name Priority Date/Time Associated Diagnosis [...] included. GLUCOSE 214(H) 65 - 99 mg/dL [place] [place] Comment: Fasting reference interval For someone without known diabetes, a glucose value >125 mg/dL indicates that they may have diabetes and this should be confirmed with a follow-up test. BUN 24 7 - 25 mg/dL [place] [place] CREATININE S/P/B 1.24 0.70 - 1.28 mg/dL [place] GFR ESTIMATE 60 > OR = 60 mL/min/1.7 3m2 [place] [place] BUN CREATININE RATIO SEE NOTE: 6 - 22 (calc) [place] [place] Comment: Not Reported: BUN and Creatinine are within reference range. SODIUM S/P/B 142 135 - 146 mmol/L [place] [place] POTASSIUM S/P/B 4.9 3.5 - 5.3 mmol/L [place] [place] CHLORIDE S/P/B 105 98 - 110 mmol/L [place] [place] CO2 30 20 - 32 mmol/L [place] [place] CALCIUM S/P/B 8.9 8.6 - 10.3 mg/dL [place] [place] 10/13/2024 1:33 PM CDT 10/13/2024 1:33 PM CDT Narrative Resulting Agency Comment Performing Organization Information: Site ID: [id number] Name: [facility] Address: [address] [place] [address] Director: Oumou Cheek us Yuli Ibarra MD LABORATORY Final Result [facility] [place] [employer] [place] [address] [place] [address], * (ABNORMAL) CBC W/DIFF AUTOMATED (10/06/2024 1:50 [...] Performing Organization Information: Site ID: [id number] Name: [facility] Address: [address] [place] [address] [place] [address] Director: Oumou Cheek MD Yuli Ibarra MD LABORATORY Final Result [facility] [place] [facility] [place] [address] [place] [address], * (ABNORMAL) COMPREHENSIVE METABOLIC PANEL (09/07/2024 5:28 PM CDT) Only the most recent of2 resultswithin the time period is included. GLUCOSE 118(H) 65 - 99 mg/dL [facility] [place] Comment: Fasting reference interval For someone without known diabetes, a glucose value between 100 and 125 mg/dL is consistent with prediabetes and should be confirmed with a follow-up test. BUN 38(H) 7 - 25 mg/dL [facility] [place] CREATININE S/P/B 1.59(H) 0.70 - 1.28 mg/dL [facility] [place] GFR ESTIMATE 44(L) > OR = 60 mL/min/1. 73m2 [facility] [place] BUN CREATININE RATIO 24(H) 6 - 22 (calc) [facility] [place] SODIUM S/P/B 140 135 - 146 mmol/L [facility] [place] POTASSIUM S/P/B 4.5 3.5 - [...] [place] AST 20 10 - 35 U/L [facility] [place] ALT 12 9 - 46 U/L [facility] [place] 09/07/2024 5:28 PM CDT 09/08/2024 6:30 AM CDT Narrative Resulting Agency Comment Performing Organization Information: Site ID: [id number] Name: [facility] Address: [address] [address] Director: Oumou Cheek MD Yuli Ibarra MD LABORATORY Final Result [facility] [place] [id number] [address], [place] * XR CHEST PA+LAT (07/30/2024 1:17 PM CDT) Anatomical Region Laterality Modality Chest Radiographic Criselda ging 07/30/2024 1:39 PM CDT Impressions 07/30/2024 1:39 PM CDT IMPRESSION: No acute findings Ordered By: BETTINA MARINELLI Interpreted By: Terrance Murdock MD, 07/30/2024 1:39 PM Narrative 07/30/2024 1:39 PM CDT [address] [place] [address] 2 VIEWS OF THE CHEST Clinical history: Dry cough Comparison: July 19, 2024 2 views of the chest demonstrate the cardiac silhouette to be mildly enlarged but stable. Sternotomy changes are again noted. Elevation of the right hemidiaphragm is unchanged. The Lungs are clear. No consolidations or effusions are seen. Procedure Note Terrance Murdock MD - 07/30/[address] [place] [id number] VIEWS OF THE CHEST Clinical history: [...] Murdock MD, 07/30/2024 1:39 PM Bettina Marinelli TRANSACTIONAL [facility] GENERAL IMAG[facility] Final Result * (ABNORMAL) C-REACTIVE PROTEIN (07/29/2024 2:48 PM CDT) C-REACTIVE PROTEIN 10.4(H) <8.0 mg/L [facility] 07/29/2024 2:48 PM CDT 07/30/2024 4:24 AM CDT Narrative Resulting Agency Comment Performing Organization Information: Site ID: [id number] [facility]: [facility] Address: [address] [place] [id number] Director: Oumou Cheek MD Yuli Ibarra MD LABORATORY Final Result Performing Organization Address City/[facility] Co de Phone Number [employer] [facility] [address] [address], * MAGNESIUM (07/29/2024 2:48 PM CDT) [facility] MAGNESIUM 1.9 1.5 - 2.5 mg/dL [facility] 07/29/2024 2:48 PM CDT 07/30/2024 4:24 AM CDT Narrative Resulting Agency Comment Performing Organization Information: Site ID: [id number] Name: [facility] Address: [address] [place] [id number] Director: Oumou Cheek MD Yuli Ibarra MD LABORATORY Final Result Performing Organization Address [facility] Co de Phone Number [employer] [facility] [id number] [place] [address] * POCT glucose (07/25/2024 7:33 AM CDT) Pathologist [facility] GLUCOSE POC 103 70 - 110 mg/dL 07/25/2024 7:57 AM CDT [facility] 07/25/2024 7:33 AM CDT us Lalit Najera MD POCT ORDERABLES - DEVICE Fin al Result [facility] [address] [place] [address], * LIPID PANEL (07/21/2024 5:26 AM CDT) CHOLESTEROL 88 <200.0 MG/DL 07/21/2024 6:27 AM CDT [facility] TRIGLYCERIDES 42 <150 MG/DL 07/21/2024 6:27 AM CDT [facility] HDL 43 >40.0 MG/DL 07/21/2024 6:27 AM T [facility] LDL (CALCULATED) 37 <100 MG/DL 07/22/19 6:27 AM T [facility] NON HDL CHOLESTEROL 45 <130 MG/DL 07/21 6:27 AM T [facility] CHOL/HDL RATIO 2.0 0.0 - 4.5 07/21/2024 6:27 AM T [facility] VLDL CALCULATION 8 5 - 55 MG/DL 07/21/2024 6:27 AM T [facility] LIPID INTERPRETATION 07/21/2024 6:27 AM T [facility] Comment: [facility] CONCENSUS REPORT RECOMMENDATIONS: ADULT CHILD LOW RISK: CHOLESTEROL <200 <170 TRIGLYCERIDE <150 --- HDL >=60 --- LDL <100 <110 BORDERLINE: CHOLESTEROL 200-239 170-199 TRIGLYCERIDE 150-199 --- HDL 40-59 --- LDL 100-159 110-129 HIGH RISK: CHOLESTEROL >=240 >=200 TRIGLYCERIDE >=200 --- HDL <40 --- LDL >=160 >=130 07/21/2024 5:26 AM CDT Eriberto Ricardo APRN LABORATORY Final Result Performing Organization Address City/[facility] Co de Phone Number [facility] [address] [facility] [phone], * COLONOSCOPY GENERIC (SCAN ORDER) (06/26/2024) 06/26/2024 [facility] Scanned SCANNING Final Resu lt * DIABETIC RETINOPATHY EXAM (POSITIVE) (02/05/2024) [facility] Scanned SCANNING Final Resu lt Performing Organization Address [facility] Co de Phone Number [facility] * HEPATITIS C ANTIBODY (11/03/2020 9:09 AM CDT) HEPATITIS C AB NON-REACTI VE NON-REACT PARAS 11/03/2020 7:10 PM CDT [facility] Comment: ANTIBODIES TO HCV NOT DETECTED. DOES NOT EXCLUDE THE POSSIBILITY OF EXPOSURE TO HCV. 11/03/2020 9:09 AM CDT Yuli Ibarra MD LABORATORY Final Result Performing Organization Address City/[facility] Co de Phone Number [facility] [address] [place] [address], [place] [phone] from Last 3 Months or Most Recently Relevant to Health Maintenance [facility] MED[facility] Member Subscriber Plan / Payer (Ef fective 2012-Present) Name:John Mtz Relation to Subscriber:Self Name:John Mtz Payer ID:Not on file Group ID:Not on file Type:Indemnity Address: ATTN CLAIMS [address] Advance Directives * Full Code (Latest [...] 10:33 AM 03/01/2022 5:55 PM Care Teams Customer Engineer Relationship Specialty Start Date End Date Yuli Ibarra MD [address] [facility] [address] [place] [address] PCP - General INTERNAL MEDICINE 11/03/20 Bereket Oquendo MD Three [facility] [address] [place] [address] [place] Continuity Manager CARDIOVASCULAR DISEASE 08/15/16 Cesar Zuluaga MD [address] [place] [address] Retina Ophthalmology 01/11/21 Jim Lieberman MD [address] [facility] [address] [address] SURGERY 01/11/21 Jose Espinal MD 1 [place] [address] Consulting Physician RADIATION ONCOLOGY 03/06/24 Jaqueline Burden MD [address] [facility] [address] [place] [address] Referring Physician GASTROENTEROLOGY 07/28/24
--- OUTSIDE RECORDS SUMMARY | 2024-10-25 12:04 | XMS_ITS | Encounter Summary ---
Author Organization [facility] Address [address] [place] [address] Care Team Providers Care Internal Communications Manager Name Role Phone Bereket Oquendo MD Unavailable [phone] Yuli Ibarra MD Primary Care Provider [phone] Cesar Zuluaga MD Unavailable [phone] Alcides Molina MD Unavailable Unavailable LuisanaJim bowen MD Unavailable [phone] Olivia Olguin RN Unavailable [phone] Jose Espinal MD Unavailable Tayla Tolbert RN Unavailable [phone] Jaqueline Burden MD Unavailable [phone] Encounter Details Date Type Department Care Team (Late st Contact Info) Description 12/12/2021 eParachute Message Enc [facility] THREE [facility], [address] [address] 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 [address] [facility] [address] [place] [phone] Jamie Herrera DO [address] [facility] [address] [place] [address] 01/04/2025 10:30 AM FOOD SERVICE HOTEL RUNNER [facility] [address] [place] [phone] Bereket Oquendo MD [address] [facility] [place] [address] [place] [address] 02/01/2025 2:40 PM FOOD SERVICE HOTEL RUNNER Office Visit [facility] Multispecialty Care - [address] [place] [address] Yuli Ibarra MD [address] [facility] [address] [place] [address] documented as of this encounter Visit Diagnoses Not on filedocumented in this encounter Additional Health Concerns Infection Onset Date Last Indicated Resolved Time COVID-19 Rule Out 02/06/2024 02/06/2024 02/06/2024 2:41 PM FOOD SERVICE HOTEL RUNNER COVID-19 Confirmed 02/06/2024 02/06/2024 12:32 AM FOOD SERVICE HOTEL RUNNER Assessment Noted Time PHQ-9 Depression Total Score: 0 04/05/19 9:32 AM FOOD SERVICE HOTEL RUNNER documented as of this encounter Care Teams Internal Communications Manager Relationship Specialty Start Date End Date Yuli Ibarra MD [address] [address] PCP - General INTERNAL MEDICINE 11/03/20 Bereket Oquendo MD [place] [address] [place] [address] [facility] [employer] Grinding Technician CARDIOVASCULAR DISEASE 08/15/16 Cesar Zuluaga MD [address] [place] [address] Retina Ophthalmology 01/11/21 Alcides Molina MD [address] [place] [address] Consulting Physician UROLOGY 01/11/21 04/29/22 Jim Lieberman MD [address] [facility] [address] [place] [address] SURGERY 01/11/21 lOivia Olguin, RN [address] [place] [address] Fine Arts Model (Ambulatory) REGISTERED NURSE 03/14/22 03/28/22 Jose Espinal MD 1 [place] [address] Consulting Physician RADIATION ONCOLOGY 03/06/24 Tayla Tolbert, RN [address] [place] [address] Fine Arts Model (Ambulatory) REGISTERED NURSE 07/20/24 09/20/24 Jaqueline Burden MD [address] [facility] [address] [place], [place] [id number] Referring Physician GASTROENTEROLOGY 07/28/24 documented as of this encounter
--- OUTSIDE RECORDS SUMMARY | 2024-10-25 12:04 | XMS_ITS | Encounter Summary ---
Author Organization [facility] Address [address] [place] [address] Care Team Providers Care Flavoring Machine Operator Name Role Phone Bereket Oquendo MD Unavailable [phone] Yuli Ibarra MD Primary Care Provider [phone] Cesar Zuluaga MD Unavailable [phone] Alcides Molina MD Unavailable Unavailable Jim Lieberman MD Unavailable [phone] Olivia Olguin RN Unavailable [phone] Jose Espinal MD Unavailable Tayla Tolbert RN Unavailable [phone] Jaqueline Burden MD Unavailable [phone] Encounter Details Date Type Department Care Team (Late st Contact Info) Description 08/10/2021 Collisionable Message Enc [facility] Multispecialty Care - [address] [place] [address] [facility] Provider medication Social History Tobacco Use [...] Sexual Orientation Straight 01/06/2018 12 :04 PM 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 [place] [address] [place] [address] 02/01/2025 2:40 PM STUDENT AMBASSADOR Office Visit [facility] Multispecialty Care - [place] [address] [address] [place], [place] [phone] Yuli Ibarra MD [address] [place] [address] [address] [place] [address] documented as of this encounter Visit Diagnoses Not on filedocumented in this encounter Additional Health Concerns Infection Onset Date Last Indicated Resolved Time COVID-19 Rule Out 02/06/2024 02/06/2024 02/06/2024 2:41 PM STUDENT AMBASSADOR COVID-19 Confirmed 02/06/2024 02/06/2024 12:32 AM STUDENT AMBASSADOR Assessment Noted Time PHQ-9 Depression Total Score: 0 04/05/19 22 9:32 AM STUDENT AMBASSADOR documented as of this encounter Care Teams Flavoring Machine Operator Relationship Specialty Start Date End Date Yuli Ibarra MD [address] [facility] [address] [place] [address] PCP - General INTERNAL MEDICINE 11/03/20 Bereket Oquendo MD [address] [address] [place] Shift Production Supervisor CARDIOVASCULAR DISEASE 08/15/16 Cesar Zuluaga MD [address] [place] [address] Retina Ophthalmology 01/11/21 Alcides Molina MD [address] [place] [address] Consulting Physician UROLOGY 01/11/21 04/29/22 Jim Lieberman MD [address] [facility] [address] [place] [address] SURGERY 01/11/21 Olivia Olguin, RN [address] [place] [address] Production Support Analyst (Ambulatory) REGISTERED NURSE 03/14/22 03/28/22 Jose Espinal MD 1 [place] [address] Consulting Physician RADIATION ONCOLOGY 03/06/24 Tayla Tolbert, RN [address] [place] [address] Production Support Analyst (Ambulatory) REGISTERED NURSE 07/20/24 09/20/24 Jaqueline Burden MD [address] [facility] [address] [place] [address] Referring Physician GASTROENTEROLOGY 07/28/24 documented as of this encounter
--- NOTE | 2024-10-25 12:13 | ECG_ITS ---
Test Date: 2024-10-25 12:41:01 Measurements Intervals [place] Rate: 72 P: 52 NM: 104 QRS: -38 QRSD: 109 T: 93 QT: 426 QTc: 469 Interpretive Statements SINUS RHYTHM WITH OCCASIONAL VENTRICULAR PREMATURE COMPLEXES LEFT AXIS DEVIATION [QRS AXIS < -30] NONSPECIFIC ST- T WAVE CHANGES No previous ECG available for comparison Electronically Signed On 10-25-2024 16:08:38 CDT by Mychal Bhatti M.D.
--- NOTE | 2024-10-25 12:16 | ED.LOWEXIN ---
HPI - Extremity Injury (Lower) General Chief Complaint: Extremity Injury, Lower <Dasha Romeo APRN - Last Filed: 10/25/24 21:30> Stated Complaint: R foot broken- ankle swollen/busted infected? <Dasha Romeo APRN - Last Filed: 10/25/24 21:30> Time Seen by Provider: 10/25/24 11:34 <Dasha Romeo APRN - Last Filed: 10/25/24 21:30> History of Present Illness HPI Narrative: Patient is a 79-year-old male who presents to the ER with a right foot ulcer. He reports 3-5 months ago he broke his ankle and went to [facility] for treatment. Patient is unsure how he broke his ankle in the 1st place, but he was admitted at that time for heart and kidney issues. He reports they were unable to do surgery at that time because they wanted to get the swelling down. Patient reports on , 3 days ago, he was moved from a cast to a walking boot. He reports his medial malleolus has been rubbing against the side of his walking boot, which has caused an open sore. Patient endorses pain from his ankle down to his toes. He endorses a history of diabetes, high blood pressure, chronic kidney disease, bypass surgery, aortic valve replacement and abnormal thyroid levels. Patient denies any recent fevers, calf pain, knee pain, or/and drainage from the site. <Dasha Rmoeo APRN - Last Filed: 10/25/24 21:30> Related Data Home Medications: Home Medications ?Medication ?Instructions ?Recorded ?Confirmed ?Last Taken ?Type aspirin 81 mg tablet,delayed 81 mg PO DAILY 01/21/19 10/25/24 10/24/24 History release (Yannick Low Dose Aspirin) cetirizine 10 mg tablet 10 mg PO DAILY PRN allergy symptoms 01/21/19 10/25/24 10/24/24 History cholestyramine-aspartame 4 gram 4 g PO DAILY PRN not specified 01/21/19 10/25/24 Unknown History oral powder (Cholestyramine Light) insulin glargine 100 unit/mL 15 unit subcut DAILY 01/21/19 10/25/24 10/24/24 History subcutaneous solution (Lantus U-100 Insulin) insulin lispro 100 unit/mL 10 unit subcut TIDWM 01/21/19 10/25/24 10/24/24 History subcutaneous cartridge (Humalog U-100 Insulin) pgjcfixn-wqohbpbb-cbgyd acid 400 1 tablet PO DAILY 01/21/19 10/25/24 10/24/24 History mcg-vit K 20 mcg-lycop 300 mcg tablet (Men's Multivitamin) nitroglycerin 0.4 mg sublingual 0.4 mg sublingual Q5M PRN Chest 01/21/19 10/25/24 Unknown History tablet (Nitrostat) Pain diphenoxylate-atropine 2.5 1 tablet PO QID PRN diarrhea 08/19/24 10/25/24 Unknown History mg-0.025 mg tablet ondansetron 4 mg disintegrating 4 mg PO Q6H PRN nausea and vomiting 08/19/24 10/25/24 Unknown History tablet albuterol sulfate 90 mcg/actuation 2 puff inhalation Q4-6H PRN 10/25/24 10/25/24 Unknown History aerosol inhaler shortness of breath or wheezing <Dasha Romeo APRN - Last Filed: 10/25/24 21:30> Allergies/Adverse Reactions: Allergies Allergy/AdvReac Type Severity Reaction Status Date / Time No Known Allergies Allergy Verified 10/25/24 10:54 <Dasha Romeo APRN - Last Filed: 10/25/24 21:30> Review of Systems Review of Systems: All systems reviewed & are unremarkable except as noted in HPI and below <Dasha Romeo APRN - Last Filed: 10/25/24 21:30> [facility] Past Medical History Medical History: Medical History BPH (benign prostatic hyperplasia) CKD (chronic kidney disease) Obesity hypoventilation syndrome Ischemic cardiomyopathy CAD (coronary artery disease) Hypothyroidism Diabetic neuropathy Diabetes <Dasha Romeo APRN - Last Filed: 10/25/24 21:30> Surgical History Surgical History: Surgical History Hx of CABG <Dasha Romeo APRN - Last Filed: 10/25/24 21:30> Family History Family History: Family History Father Acute myocardial infarction Sibling Diabetes mellitus Sibling Diabetes mellitus <Dasha Romeo APRN - Last Filed: 10/25/24 21:30> Social History Social History: Social History Smoking status: Never smoker Tobacco type: cigarettes Second hand tobacco smoke exposure: No Alcohol intake: never Substance use: never Do You Feel Safe in your Home?: Yes Lack of Transportation: No Lack of Food: Never True Current Housing: I Have Housing Concerned About Future Housing: No Difficulty Paying Gas/Electric Bills: No Difficulty Paying for Meds: No Currently Unemployed: No Education: High School Diploma/GED Difficulty w/ Childcare or Family Care: No Gender identity (if verbalized by the patient): Male Sexual Orientation (if Verbalized by the Patient): Straight or Heterosexual Spiritual care concerns: No Agree to blood products: Yes <Dasha Romeo APRN - Last Filed: 10/25/24 21:30> Exam Narrative: GENERAL: Well appearing, well-nourished, non-toxic, in no acute distress. HEAD: Normocephalic, atraumatic. NECK: Supple. No adenopathy, no masses. RESPIRATORY: Airway patent, respirations nonlabored. Clear to auscultation bilaterally, no rales, rhonchi, wheezing. CARDIOVASCULAR: Regular rate, + murmur. Pedal pulses stronger on L foot than R foot. ABDOMINAL: Soft, nontender, nondistended, no hepatosplenomegaly. Normoactive BS. MUSCULOSKELETAL: Moves all extremities. Strength/ROM intact without gross deformities. SKIN: Warm, dry, normal color. No rashes. + redness and swelling from mid-calf down through foot. -Josue's sign NEURO: A&O X3. Speech clear. Cranial nerves II-XII intact. No ataxic movements. PSYCHIATRIC: Appropriate mood and affect. Normal interaction. <Dasha Romeo APRN - Last Filed: 10/25/24 21:30> Course WELDER/FITTER/PA Physician Supervision This visit was performed by both a physician and an APC. I performed all aspects of the MDM as documented. <Noel Mao MD - Last Filed: 10/25/24 16:37> Vital Signs Vital signs: Vital Signs Temperature 36.4 C 10/25/24 10:54 Pulse Rate 75 10/25/24 10:54 Respiratory Rate 18 10/25/24 10:54 Blood Pressure 149/47 H 10/25/24 10:54 Pulse Oximetry 98 10/25/24 10:54 Oxygen Delivery Room Air 10/25/24 10:54 Temperature 36.4 C 10/25/24 10:54 Pulse Rate 83 10/25/24 17:28 Respiratory Rate 27 H 10/25/24 14:01 Blood Pressure 158/69 H 10/25/24 14:01 Pulse Oximetry 97 10/25/24 14:01 Oxygen Delivery Room Air 10/25/24 12:00 <Dasha Romeo, SYSTEMS ANALYSIS MANAGER - Last Filed: 10/25/24 21:30> Vital Signs Temperature 36.4 C 10/25/24 10:54 Pulse Rate 75 10/25/24 10:54 Respiratory Rate 18 10/25/24 10:54 Blood Pressure 149/47 H 10/25/24 10:54 Pulse Oximetry 98 10/25/24 10:54 Oxygen Delivery Room Air 10/25/24 10:54 Temperature 36.4 C 10/25/24 10:54 Pulse Rate 83 10/25/24 17:28 Respiratory Rate 27 H 10/25/24 14:01 Blood Pressure 158/69 H 10/25/24 14:01 Pulse Oximetry 97 10/25/24 14:01 Oxygen Delivery Room Air 10/25/24 12:00 <Noel Mao MD - Last Filed: 10/25/24 16:37> MDM - Extremity Injury (Lower) MDM Narrative Medical decision making narrative: Patient is a 79-year-old male who presents to the ER with a right foot ulcer. He reports 3-5 months ago he broke his ankle and went to [facility] for treatment. Patient is unsure how he broke his ankle in the 1st place, but he was admitted at that time for heart and kidney issues. He reports they were unable to do surgery at that time because they wanted to get the swelling down. Patient reports on , 3 days ago, he was moved from a cast to a walking boot. He reports his medial malleolus has been rubbing against the side of his walking boot, which has caused an open sore. Patient endorses pain from his ankle down to his toes. He endorses a history of diabetes, high blood pressure, chronic kidney disease, bypass surgery, aortic valve replacement and abnormal thyroid levels. Patient denies any recent fevers, calf pain, knee pain, or. And drainage from the site. Labs Ordered: CBC, CMP, PTT, INR, lactic acid, CRP Imaging Ordered: Right foot x-ray Medications Ordered: 1 L normal saline IV bolus, Flagyl IV, cefepime IV Results: Patient's CBC indicates hemoglobin of 12.5, hematocrit of 40.6%. His coags indicated PT of 16.2. Patient's chemistry indicates a BUN of 39, creatinine of 1.35, estimated GFR 51, alk-phos of 141. His CRP is 3.3. Patient's foot x-ray indicates Osteomyelitis detailed above. Contrast-enhanced MRI is suggested to further evaluate. Diagnosis: Osteomyelitis Less than 30ml/kg crystalloid bolus was ordered because it would be detrimental or harmful for the patient despite having risk for sepsis. The patient has a history of Heart failure and Renal failure. In place of the 30ml/kg crystalloid bolus, the patient is to receive NS 10ml/kg bolus. Will monitor and treat accordingly. CRITICAL CARE ADDENDUM: Indication: Concern for sepsis Time type: intermittent I provided a total of 55 minutes of critical care excluding separately billable procedures. This includes time w/ EMS, initial bedside evaluation, reviewing old records, review of testing done while under my care, discussion w/ the family, nurses, direct response consultant and guiding the patient?s care while in the emergency department. Approximate time distribution: 15 minutes ? Initial evaluation, d/w involved parties, attempting to gather old records. 10 minutes ? Documenting medical record 10 minutes ? Review of results (EKGs, labs, imaging) 10 minutes ? Serial repeat bedside evaluation 10 minutes ? Discussing case with multiple providers Please see main chart for details. Excludes separately billable procedures. Results of imaging and lab work shared with patient and their family. It was advised patient be admitted to the hospital for further evaluation and treatment. Patient and their family verbalized understanding and are in agreement with plan. 1345-spoke with Dr. Orlando, hospitalist, in agreement with plan for admission. Patient will be admitted to the med/surg floor for IV antibiotic administration. <Dashashirley Romeo, SYSTEMS ANALYSIS MANAGER - Last Filed: 10/25/24 21:30> Patient is a 79-year-old male who presents to the ER with a right foot ulcer. He reports 3-5 months ago he broke his ankle and went to [facility] for treatment. Patient is unsure how he broke his ankle in the 1st place, but he was admitted at that time for heart and kidney issues. He reports they were unable to do surgery at that time because they wanted to get the swelling down. Patient reports on , 3 days ago, he was moved from a cast to a walking boot. He reports his medial malleolus has been rubbing against the side of his walking boot, which has caused an open sore. Patient endorses pain from his ankle down to his toes. He endorses a history of diabetes, high blood pressure, chronic kidney disease, bypass surgery, aortic valve replacement and abnormal thyroid levels. Patient denies any recent fevers, calf pain, knee pain, or. And drainage from the site. Labs Ordered: CBC, CMP, PTT, INR, lactic acid, CRP Imaging Ordered: Right foot x-ray Medications Ordered: 1 L normal saline IV bolus, Flagyl IV, cefepime IV Results: Patient's CBC indicates hemoglobin of 12.5, hematocrit of 40.6%. His coags indicated PT of 16.2. Patient's chemistry indicates a BUN of 39, creatinine of 1.35, estimated GFR 51, alk-phos of 141. His CRP is 3.3. Patient's foot x-ray indicates Osteomyelitis detailed above. Contrast-enhanced MRI is suggested to further evaluate. Diagnosis: Osteomyelitis Less than 30ml/kg crystalloid bolus was ordered because it would be detrimental or harmful for the patient despite having risk for sepsis. The patient has a history of Heart failure and Renal failure. In place of the 30ml/kg crystalloid bolus, the patient is to receive NS 10ml/kg bolus. Will monitor and treat accordingly. CRITICAL CARE ADDENDUM: Indication: Concern for sepsis Time type: intermittent I provided a total of 55 minutes of critical care excluding separately billable procedures. This includes time w/ EMS, initial bedside evaluation, reviewing old records, review of testing done while under my care, discussion w/ the family, nurses, direct response consultant and guiding the patient?s care while in the emergency department. Approximate time distribution: 15 minutes ? Initial evaluation, d/w involved parties, attempting to gather old records. 10 minutes ? Documenting medical record 10 minutes ? Review of results (EKGs, labs, imaging) 10 minutes ? Serial repeat bedside evaluation 10 minutes ? Discussing case with multiple providers Please see main chart for details. Excludes separately billable procedures. Results of imaging and lab work shared with patient and their family. It was advised patient be admitted to the hospital for further evaluation and treatment. Patient and their family verbalized understanding and are in agreement with plan. 1345-spoke with Dr. Orlando, hospitalist, in agreement with plan for admission. Patient will be admitted to the med/surg floor for IV antibiotic administration. This visit was performed by both a physician and an APC. I performed all aspects of the MDM as documented. <Noel Mao MD - Last Filed: 10/25/24 16:37> Differential Diagnosis Differential diagnosis: Likely ankle fracture and other (Sepsis, osteomyelitis) <Dasha Romeo APRN - Last Filed: 10/25/24 21:30> Lab Data Attestation: I reviewed the patient's lab results. <Dasha Romeo APRN - Last Filed: 10/25/24 21:30> Result diagrams: 10/25/24 12:27 10/25/24 12:27 <Dasha Romeo APRN - Last Filed: 10/25/24 21:30> Labs: Lab Results 10/25/24 10/25/24 Range/Units 12:27 13:20 WBC 6.9 (4.5-10.0) K/mm3 RBC 4.69 (4.6-6.20) M/mm3 Hgb 12.5 L (14.0-18.0) g/dL Hct 40.6 L (42.0-52.0) % MCV 86.6 (80-100) fl MCH 26.7 (26-34) pg MCHC 30.8 L (32-36) g/dl RDW 16.9 H (11.5-14.5) % Plt Count 164 (150-375) k/mm3 MPV 9.6 (7.4-10.4) fl Immature Gran % (Auto) 0.1 (0-0.5) % Neut % (Auto) 52.6 (45.5-73.1) % Lymph % (Auto) 33.8 (18.3-44.2) % Harvey % (Auto) 9.5 H (2.6-8.5) % Eos % (Auto) 3.3 (0-4.4) % Baso % (Auto) 0.7 (0.2-1.2) % Lymph # (Auto) 2.32 (0.9-3.2) K/mm3 Harvey # (Auto) 0.7 H (0.1-0.6) K/mm3 Eos # (Auto) 0.2 (0-0.3) K/mm3 Baso # (Auto) 0.1 (0.0-0.1) K/mm3 Abs Immat Gran (auto) 0.01 (0.00-0.031) K/mm3 Absolute Neuts (auto) 3.6 (1.3-6.7) K/mm3 Absolute Nucleated RBC 0.000 (0.0-0.012) K/mm3 Nucleated RBC % 0.0 (0.0-0.2) % PT 16.2 H (11.1-14.7) Seconds INR 1.3 APTT 31.4 (22.3-36.8) Seconds Sodium 139 (137-145) mmol/L Potassium 4.0 (3.4-5.0) mmol/L Chloride 106 (98-107) mmol/L Carbon Dioxide 25 (22-30) mmol/L Anion Gap 8 (4-12) mmol/L BUN 39 H (9-20) mg/dL Creatinine 1.35 H (0.7-1.3) mg/dL Estim Creat Clear Calc 49 ml/min Estimated GFR 51 L (59 - ) Glucose 110 (65-110) mg/dL Lactic Acid 1.1 (0.7-2.0) mmol/L Calcium 8.9 (8.4-10.2) mg/dL Total Bilirubin 1.0 (0.2-1.3) mg/dL AST 32 (17-59) U/L ALT 16 (6-50) U/L Alkaline Phosphatase 141 H (38-126) U/L C-Reactive Protein 3.3 H (<1.0) mg/dL Total Protein 7.1 (6.3-8.2) g/dL Albumin 3.8 (3.5-5.1) g/dL Urine Color Yellow (Yellow) Urine Appearance Clear (Clear) Urine pH 5.5 (5.0-9.0) Ur Specific Edward 1.020 (1.001-1.035) Urine Protein 2+ H (Negative) mg/dL Urine Glucose (UA) 3+ H (Negative) mg/dL Urine Ketones Negative (Negative) mg/dL Ur Blood (Man) Trace-intact H (Negative) Urine Nitrate Negative (Negative) Urine Bilirubin Negative (Negative) Urine Urobilinogen 1.0 (<2.0) mg/dL Leukocyte Esterase Rfl Negative (Negative) JASSON/UL Urine RBC 0-2 (0-2) /hpf Urine WBC 0-5 (0-3) /hpf Ur Squamous Epith Cells None seen (Few) /hpf Urine Bacteria None seen /hpf Urine Casts 0-2 <Dasha Romeo, SYSTEMS ANALYSIS MANAGER - Last Filed: 10/25/24 21:30> Lab Results 10/25/24 10/25/24 Range/Units 12:27 13:20 WBC 6.9 (4.5-10.0) K/mm3 RBC 4.69 (4.6-6.20) M/mm3 Hgb 12.5 L (14.0-18.0) g/dL Hct 40.6 L (42.0-52.0) % MCV 86.6 (80-100) fl MCH 26.7 (26-34) pg MCHC 30.8 L (32-36) g/dl RDW 16.9 H (11.5-14.5) % Plt Count 164 (150-375) k/mm3 MPV 9.6 (7.4-10.4) fl Immature Gran % (Auto) 0.1 (0-0.5) % Neut % (Auto) 52.6 (45.5-73.1) % Lymph % (Auto) 33.8 (18.3-44.2) % Harvey % (Auto) 9.5 H (2.6-8.5) % Eos % (Auto) 3.3 (0-4.4) % Baso % (Auto) 0.7 (0.2-1.2) % Lymph # (Auto) 2.32 (0.9-3.2) K/mm3 Harvey # (Auto) 0.7 H (0.1-0.6) K/mm3 Eos # (Auto) 0.2 (0-0.3) K/mm3 Baso # (Auto) 0.1 (0.0-0.1) K/mm3 Abs Immat Gran (auto) 0.01 (0.00-0.031) K/mm3 Absolute Neuts (auto) 3.6 (1.3-6.7) K/mm3 Absolute Nucleated RBC 0.000 (0.0-0.012) K/mm3 Nucleated RBC % 0.0 (0.0-0.2) % PT 16.2 H (11.1-14.7) Seconds INR 1.3 APTT 31.4 (22.3-36.8) Seconds Sodium 139 (137-145) mmol/L Potassium 4.0 (3.4-5.0) mmol/L Chloride 106 (98-107) mmol/L Carbon Dioxide 25 (22-30) mmol/L Anion Gap 8 (4-12) mmol/L BUN 39 H (9-20) mg/dL Creatinine 1.35 H (0.7-1.3) mg/dL Estim Creat Clear Calc 49 ml/min Estimated GFR 51 L (59 - ) Glucose 110 (65-110) mg/dL Lactic Acid 1.1 (0.7-2.0) mmol/L Calcium 8.9 (8.4-10.2) mg/dL Total Bilirubin 1.0 (0.2-1.3) mg/dL AST 32 (17-59) U/L ALT 16 (6-50) U/L Alkaline Phosphatase 141 H (38-126) U/L C-Reactive Protein 3.3 H (<1.0) mg/dL Total Protein 7.1 (6.3-8.2) g/dL Albumin 3.8 (3.5-5.1) g/dL Urine Color Yellow (Yellow) Urine Appearance Clear (Clear) Urine pH 5.5 (5.0-9.0) Ur Specific Edward 1.020 (1.001-1.035) Urine Protein 2+ H (Negative) mg/dL Urine Glucose (UA) 3+ H (Negative) mg/dL Urine Ketones Negative (Negative) mg/dL Ur Blood (Man) Trace-intact H (Negative) Urine Nitrate Negative (Negative) Urine Bilirubin Negative (Negative) Urine Urobilinogen 1.0 (<2.0) mg/dL Leukocyte Esterase Rfl Negative (Negative) JASSON/UL Urine RBC 0-2 (0-2) /hpf Urine WBC 0-5 (0-3) /hpf Ur Squamous Epith Cells None seen (Few) /hpf Urine Bacteria None seen /hpf Urine Casts 0-2 <Noel Mao MD - Last Filed: 10/25/24 16:37> Imaging Data Attestation: I personally reviewed and interpreted this imaging study as follows: <Dasha Romeo APRN - Last Filed: 10/25/24 21:30> Radiologist's impression: Impressions Foot X-Ray 10/25/24 13:27 Impression: Osteomyelitis detailed above. Contrast-enhanced MRI is suggested to further evaluate. <Dasha Romeo APRN - Last Filed: 10/25/24 21:30> Critical Care Time Critical Care Time Critical Care Time: Yes <Dasha Romeo APRN - Last Filed: 10/25/24 21:30> Total Critical Care Time: 55 <Dasha Romeo APRN - Last Filed: 10/25/24 21:30> Discharge Plan Discharge Clinical Impression: Osteomyelitis, Osteomyelitis due to type 2 diabetes mellitus, Foot pain, right <Dasha Romeo APRN - Last Filed: 10/25/24 21:30> Patient Disposition: Still a Patient <Dasha Romeo APRN - Last Filed: 10/25/24 21:30> Condition: Guarded Prognosis <Dasha Romeo APRN - Last Filed: 10/25/24 21:30>
[2024-10-25 12:36] LABS: Hematocrit 40.6 % (42.0-52.0); Hemoglobin 12.5 g/dL (14.0-18.0); Immature Granulocyte Percent A 0.1 % (0-0.5); Lymphocytes Absolute Auto 2.32 K/mm3 (0.9-3.2); Mean Corpuscular HGB Conc 30.8 g/dl (32-36); Mean Corpuscular Hemoglobin 26.7 pg (26-34); Mean Corpuscular Volume 86.6 fl (80-100); Nucleated Red Blood Cells Absolute Auto 0.000 K/mm3 (0.0-0.012); Nucleated Red Blood Cells Perc 0.0 % (0.0-0.2); Platelet Count Result 164 k/mm3 (150-375); Red Blood Count 4.69 M/mm3 (4.6-6.20); White Blood Count 6.9 K/mm3 (4.5-10.0)
[2024-10-25] MEDS: CEFEPIME 2 GM in SODIUM CHLORIDE 0.9% IV 50 ML 100 ML IVPB (12:42)
[2024-10-25] MEDS: SODIUM CHLORIDE 0.9% IV 1,000 ML 999 ML IV CONT (12:46)
[2024-10-25 12:48] LABS: INR 1.3; Prothrombin Time 16.2 Seconds (11.1-14.7)
[2024-10-25 12:49] LABS: Partial Thromboplastin Time 31.4 Seconds (22.3-36.8)
[2024-10-25 12:50] LABS: Alanine Aminotransferase 16 U/L (6-50); Albumin Level 3.8 g/dL (3.5-5.1); Alkaline Phosphatase 141 U/L (38-126); Anion Gap 8 mmol/L (4-12); Aspartate Amino Transferase 32 U/L (17-59); Bilirubin,Total 1.0 mg/dL (0.2-1.3); Blood Urea Nitrogen 39 mg/dL (9-20); CRP 3.3 mg/dL (<1.0); Calcium 8.9 mg/dL (8.4-10.2); Carbon Dioxide 25 mmol/L (22-30); Chloride 106 mmol/L (98-107); Estimated CRCL calculation 49 ml/min; Estimated Glomerular Filt Rate 51; Glucose 110 mg/dL (65-110); Potassium 4.0 mmol/L (3.4-5.0); Sodium 139 mmol/L (137-145); Total Protein 7.1 g/dL (6.3-8.2)
[2024-10-25] MEDS: metroNIDAZOLE 500 MG/ISO 100ML 500 MG/100 ML BAG 100 MG IVPB (13:00)
[2024-10-25 14:01] LABS: Appearance Urine Clear (Clear)
[2024-10-25 14:02] LABS: Add Urine Microscopic? YES; Glucose Urine UA 3+ mg/dL (Negative); Leukocyte Esterase Ur Negative LEU/UL (Negative); Nitrate Urine Negative (Negative); Non Pathogenic Casts 0-2; Specific Grav Ur 1.020 (1.001-1.035)
[2024-10-25] MEDS: VANCOMYCIN 1,250 MG/NS 250 ML 1,250 MG/250 ML BAG 166.67 MG IVPB (14:15)
--- OUTSIDE RECORDS SUMMARY | 2024-10-25 15:03 | XMS_ITS | Encounter Summary ---
Author Organization [facility] Address [address] [place] [id number] Care Team Providers Care Hand Printed Circuit Board Assembler Name Role Phone Onur Melendrez MD Primary Care Provider [phone] Bereket Oquendo MD Unavailable [phone] Bettina Bansal PharmD Unavailable [phone] Yuli Ibarra MD Primary Care Provider [phone] Cesar Zuluaga MD Unavailable [phone] Alcides Molina MD Unavailable Unavailable LuisanaJim MD Unavailable [phone] Olivia Olguin RN Unavailable [phone] Jose Espinal MD Unavailable Tayla Tolbert RN Unavailable [phone] Jaqueline Burden MD Unavailable [phone] Reason for Referral * Surgical (Routine) - Closed Specialty Diagnoses / Procedures Referred By Giovanni t Referred To Contact Procedures Case request operating room: RADIOFREQUENCY LUMBAR l2, 3, 4 Aicha Son MD [address] [facility] [address] [place] [address] Phone: tel: fax: Referral ID Status Reason Start Date Expiration Date Visits Re quested Visits Authorized [id number] Closed 10/18/2017 11/17/2018 1 1 Encounter Details Date Type Department Care Team (Late Contact Info) Description 10/18/2017 Prep for Procedure [facility] [place] [address] [phone] Aicha Son MD Three [facility] [address] [place] [address] Social History Tobacco Use Types Packs/Day Years [...] Sexual Orientation Straight 01/06/2018 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 Occupation Industry Job Start Date Job End Date Not on file Not on file Not on file Not on file documented as of this encounter Plan of Treatment Upcoming Encounters Date Type Department Care Team (Late Contact Info) Description 11/19/2024 9:40 AM CDT Office Visit [facility] - [facility] [address] [facility] [address] [place] [address] Jamie Herrera DO [address] [facility] [address] [place] [address] 01/04/2025 10:30 AM 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 [address] [place] [address] 02/01/2025 2:40 PM OIL BURNER SERVICER AND INSTALLER Office Visit [facility] - [place] [address] [address] [place] [address] Yuli Ibarra MD [address] [address] Scheduled Orders Name Type Priority Associated Diagnoses Order Schedule Case request operating room: RADIOFREQUENCY LUMBAR l2, 3, 4 Case Request Routine Once for 1 Occurrences starting 10/18/2017 until 10/18/2017 documented as of this encounter Visit Diagnoses Not on filedocumented in this encounter Additional Health Concerns Infection Onset Date Last Indicated Resolved Time COVID-19 Rule Out 02/06/2024 02/06/2024 02/06/2024 2:41 PM 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 [facility] [address] [place] [address] [place] Reporting Lead CARDIOVASCULAR DISEASE 08/15/16 Bettina Bansal, PharmD [address] [place] [address] Pharmacist Pharmacist 02/28/18 01/10/21 Cesar Zuluaga MD [address] [address] Retina Ophthalmology 01/11/21 Alcides Molina MD [address] [address] Consulting Physician UROLOGY 01/11/21 04/29/22 Jim Lieberman MD [address] [place] [address] SURGERY 01/11/21 Olivia Olguin RN [address] [place], [place] [id number] Journeyman Pressman (Ambulatory) REGISTERED NURSE 03/14/22 03/28/22 Jose Espinal MD [address] [place] [address] Consulting Physician RADIATION ONCOLOGY 03/06/24 Tayla Tolbert RN [address] [place] [address] Journeyman Pressman (Ambulatory) REGISTERED NURSE 07/20/24 09/20/24 Jaqueline Burden MD [facility] [place] [address] Referring Physician GASTROENTEROLOGY 07/28/24 documented as of this encounter
--- OUTSIDE RECORDS SUMMARY | 2024-10-25 15:03 | XMS_ITS | Encounter Summary ---
Author Organization [facility] / [facility] Address [address] [place] [address] Care Team Providers Care Set Up Machinist Name Role Phone Onur Melendrez MD Primary Care Provider + [phone] Bereket Oquendo MD Unavailable [phone] eBttina Bansal PharmD Unavailable [phone] Yuli Ibarra MD Primary Care Provider [phone] Cesar Zuluaga MD Unavailable [phone] Alcides Molina MD Unavailable Unavailable LuisanaJim MD Unavailable [phone] Olivia Olguin RN Unavailable [phone] Jose Espinal MD Unavailable Tayla Tolbert RN Unavailable [phone] Jaqueline Burden MD Unavailable [phone] Encounter Details Date Type Department Care Team (Late st Contact Info) Description 08/24/2016 Abstract [facility] AT [address] [id number] Cherelle Avila MA Social History Tobacco Use [...] Sexual Orientation Straight 01/06/2018 12 :04 PM CENTRAL SUPPLY TECHNICIAN Occupation Industry Job Start Date Job End Date Not on file Not on file Not on file Not on file documented as of this encounter Plan of Treatment Upcoming Encounters Date Type Department Care Team (Late st Contact Info) Description 11/19/2024 9:40 AM CDT [facility] [address] [place] [address] Jamie Herrera DO [address] [place] [address] 01/04/2025 10:30 AM CENTRAL SUPPLY TECHNICIAN [facility] [address] [place] [address] Bereket Oquendo MD [facility] [address] [place] [address] 02/01/2025 2:40 PM CENTRAL SUPPLY TECHNICIAN [facility] [address] [address] [address] [place] [address] [place] [address] [place] [address] [address] [place] [address] documented as of this encounter Procedures Procedure [...] Final * CBC (OUTSIDE LAB) (11/26/2016) Pathologist [facility] WBC 9.5 HGB 12.1 HCT 38 PLT [...] * (ABNORMAL) HEPATIC FUNCTION PANEL (10/10/2016) Pathologist [facility] ALBUMIN S/P/B 2.9(A) 3.5 - 5.0 ALKALINE PHOSPHATASE S/P/B 58 ALT 24 AST 35 BILIRUBIN DIRECT S/P/B <0.20 BILIRUBIN TOTAL S/P/B 0.6 TOTAL PROTEIN S/P/B 5.4 10/10/2016 us Doc [facility] Abstract LABORATORY Final Result * CBC (OUTSIDE LAB) (10/08/2016) Pathologist [facility] WBC 11.8 HGB 10.5 HCT 31.6 PLT 284 10/08/2016 us Doc [facility] Abstract LAB-OUTSIDE/ABSTRACTED Final Result * BNP (08/07/2016) [facility] B TYPE NATRIURETIC PEPTIDE 84 08/07/2016 us Doc [facility] Abstract LABORATORY Final Result * CK (CPK) (08/07/2016) Pathologist [facility] CPK 147 08/07/2016 us Doc [facility] Abstract LABORATORY Final Result * MAGNESIUM (08/07/2016) Pathologist [facility] MAGNESIUM 1.8 08/07/2016 us Doc [facility] Abstract LABORATORY Final Result * COMPREHENSIVE METABOLIC PANEL (08/07/2016) Pathologist [facility] SODIUM S/P/B 137 POTASSIUM S/P/B 4.3 CO2 [...] Rule Out 02/06/2024 02/06/2024 02/06/2024 2:41 PM CENTRAL SUPPLY TECHNICIAN COVID-19 Confirmed 02/06/2024 02/06/2024 12:32 AM CENTRAL SUPPLY TECHNICIAN documented as of this encounter Care Teams Set Up Machinist Relationship Specialty Start Date End Date Onur Melendrez MD PCP - General INTERNAL MEDICINE 07/19/16 11/02/20 Yuli Ibarra MD [address] [facility] [address] [place], [place] [id number] PCP - General INTERNAL MEDICINE 11/03/20 Bereket Oquendo MD Three [address] [address] [place] [employer] Trainer CARDIOVASCULAR DISEASE 08/15/16 Bettina Bansal, PharmD [address] [place] [address] Pharmacist Pharmacist 02/28/18 01/10/21 Cesar Zuluaga MD [address] [place] [address] Retina Ophthalmology 01/11/21 Alcides Molina MD [address] [place] [address] Consulting Physician UROLOGY 01/11/21 04/29/22 Jim Lieberman MD [address] [place] [address] SURGERY 01/11/21 Olivia Olguin, RN [address] [place] [address] Serging Machine Operator Automatic (Ambulatory) REGISTERED NURSE 03/14/22 03/28/22 Jose Espinal MD [address] [place] [address] Consulting Physician RADIATION ONCOLOGY 03/06/24 Tayla Tolbert, RN [address] [place] [address] Serging Machine Operator Automatic (Ambulatory) REGISTERED NURSE 07/20/24 09/20/24 Jaqueline Burden MD [employer] [facility] [address] [place] [address] Referring Physician GASTROENTEROLOGY 07/28/24 documented as of this encounter
--- OUTSIDE RECORDS SUMMARY | 2024-10-25 15:03 | XMS_ITS | Encounter Summary ---
Author Organization [facility] - [facility] Address [address] [place] [address] Care Team Providers Care Chief Clerk Name Role Phone Bereket Oquendo MD Unavailable [phone] Yuli Ibarra MD Primary Care Provider [phone] Cesar Zuluaga MD Unavailable [phone] Alcides Molina MD Unavailable Unavailable LuisanaJim bowen MD Unavailable [phone] Olivia Olguin RN Unavailable [phone] Jose Espinal MD Unavailable Tayla Tolbert RN Unavailable [phone] Jaqueline Burden MD Unavailable [phone] Encounter Details Date Type Department Care Team (Late st Contact Info) Description 05/23/2021 [employer] Message Enc [facility] Mult[facility]ty Care - [address] [address] [address] [place] [address] [place] [address] [place] [address] [address] [place] [address] Refill Social History Tobacco Use Types Packs/Day Years Used Date Smoking Tobacco: Former Cigarettes 0.5 8 1 972 - 8604 Smokeless Tobacco: Never Comments:smoked socially for 40 [...] Sexual Orientation Straight 01/06/2018 12 :04 PM 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 [address] [place] [address] 02/01/2025 2:40 PM SPINE SUPERVISOR Office Visit [facility]ty Care - [address] [place] [address] Yuli Ibarra MD [address] [facility] [address] [place] [address] documented as of this encounter Visit Diagnoses Not on filedocumented in this encounter Additional Health Concerns Infection Onset Date Last Indicated Resolved Time COVID-19 Rule Out 02/06/2024 02/06/2024 02/06/2024 2:41 PM SPINE SUPERVISOR COVID-19 Confirmed 02/06/2024 02/06/2024 12:32 AM SPINE SUPERVISOR Assessment Noted Time PHQ-9 Depression Total Score: 0 04/05/19 9:32 AM SPINE SUPERVISOR documented as of this encounter Care Teams Chief Clerk Relationship Specialty Start Date End Date Yuli Ibarra MD [address] [facility] [address] [place] [address] PCP - General INTERNAL MEDICINE 11/03/20 Bereket Oquendo MD [address] [address] [place] Diamond Die Polisher CARDIOVASCULAR DISEASE 08/15/16 Cesar Zuluaga MD [address] [place] [address] Retina Ophthalmology 01/11/21 Alcides Molina MD [address] [place] [address] Consulting Physician UROLOGY 01/11/21 04/29/22 Jim Lieberman MD [address] [facility] [place] [address] SURGERY 01/11/21 Olivia Olguin RN [address] [place] [address] Grain Merchandiser (Ambulatory) REGISTERED NURSE 03/14/22 03/28/22 Jose Espinal MD [address] [place] [address] Consulting Physician RADIATION ONCOLOGY 03/06/24 Tayla Tolbert RN [address] [place] [address] Grain Merchandiser (Ambulatory) REGISTERED NURSE 07/20/24 09/20/24 Jaqueline Burden MD [address] [facility] [address] [place] [address] Referring Physician GASTROENTEROLOGY 07/28/24 documented as of this encounter
--- OUTSIDE RECORDS SUMMARY | 2024-10-25 15:03 | XMS_ITS | Clinical Summary ---
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 -Will switch to bumex 2mg PO [...] sent as misc lab test to [facility] for processing CTM volume status Assessment & [...] sent as misc lab test to [facility] for processing CTM volume status Fibula fracture [...] - 10/23/2024 11:59 PM CDT Hospital Encounter [facility] Radiology at [facility] [address] [place] [address] Pain in joint involving right ankle and foot Discharge Disposition: Discharge to home or self care 10/15/2024 9:00 AM CDT Office Visit [facility] Medicine Orthopaedic Surgery [address] [facility] 2nd Floor [address] [place] [address] Soraya Wong NP Pain in right foot (Primary Dx); Charcot's joint of right ankle 10/14/2024 Orders Only [facility] Medicine Orthopaedic Surgery [address] [facility] 1st Floor [address] [place] [address] Carlos Atwood MD Pain in joint involving right ankle and foot (Primary Dx) 10/06/2024 Orders Only [facility] Medicine Orthopaedic Surgery [address] [facility] 1[address] [place] [address] Deb Todd RMA 10/05/2024 12:34 PM CDT - 10/05/2024 11:59 PM CDT Hospital Encounter [facility] [address] [place] [address] Pain in joint involving right ankle and foot Discharge Disposition: Discharge to home or self care 10/05/2024 12:30 PM CDT - 10/05/2024 11:59 PM CDT Hospital Encounter [facility] [address] [place] [address] Pain in right foot Discharge Disposition: Discharge to home or self care 10/05/2024 12:20 PM CDT Office Visit [facility] Medicine Orthopaedic Surgery [address] [place] [address] [address] [place] [phone] Carlos Atwood MD Pain in joint involving right ankle and foot (Primary Dx); Pain in right foot 09/22/2024 2:45 PM CDT Office Visit [facility] Orthopaedic Surgery [address] [place] [address] 2nd [address] [place] [phone] Soraya Wong NP Charcot's joint of right ankle (Primary Dx) 09/09/2024 8:40 AM CDT Office Visit [facility] Medicine Orthopaedic Surgery [address] [place] [address] 2nd Floor [address] [place] [address] Carlos Atwood MD Charcot joint of right foot (Primary Dx) 08/26/2024 10:15 AM CDT Office Visit [facility] Medicine Orthopaedic Surgery [address] [facility] Medical Office Building 4 [address] [place] [address] Drake Ariza NP Pain in joint involving right ankle and foot (Primary Dx) 08/14/2024 Telephone [facility] Medicine Orthopaedic Surgery [address] Medical Office Building [address] [place] [phone] Kelley Devine RN 08/13/2024 11:40 AM CDT Ancillary Procedure [facility] IP [address] [facility] [address] [place] [address] 08/13/2024 Orders Only [facility] Orthopaedic Surgery [address] [facility] 6th [place] [address] [place] [phone] Annabella Barrera MD Charcot joint of right foot (Primary Dx) 08/12/2024 8:33 PM CDT - 08/19/2024 6:30 PM CDT Hospital Encounter [facility] [address] [place] [address] Dany Parker MD Serpe, MD Asa Menjivar, [...] Back Surgery - (Added by TW Conv) [place] UNLISTED PROCEDURE ABDOME N PERITONEUM & OMENTUM 1999 11 inches of colon removed, cyst formed and removed. 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 Gender Identity Not on file Sexual [...] 10:07 AM CDT Pain in right foot [place] CAST SUP SHRT LEG FIBERGLASS Routine 10/05/2024 1:44 PM CDT Pain in joint involving right ankle and foot [place] APPLICATION RIGID TOTAL CONTACT LEG CAST Routine [...] in joint involving right ankle and foot [place] CAST SUP SHRT LEG FIBERGLASS Routine 09/22/2024 6:56 PM CDT Charcot's joint of right ankle [place] APPLICATION RIGID TOTAL CONTACT LEG CAST Routine 09/22/2024 6:56 PM CDT Charcot's joint of right ankle [place] CAST SUP SHRT LEG FIBERGLASS Routine 09/09/2024 10:06 AM CDT Charcot joint of right foot [place] APPLICATION RIGID TOTAL CONTACT LEG CAST Routine 09/09/2024 10:06 AM CDT Charcot joint of right foot [place] CAST SUP SHT LEG SPLNT PLSTR Routine 08/26/2024 11:00 AM CDT Pain in joint involving right ankle and foot [place] APPLICATION SHORT LEG SPLINT CALF FOOT Routine [...] valgus deformity at the ankle. Dictated by: Mrako Scales MD The radiology attending physician has [...] Tolerated well, no immediate complications Soraya Wong CONSTRUCTION SAFETY MANAGER IN CLINIC/BEDSIDE ORDERABLES F inal Result * [place] APPLICATION RIGID TOTAL CONTACT LEG CAST, [place] CAST SUP SHRT LEG FIBERGLASS (10/05/2024 1:44 [...] IMG XR PROCEDURES Lashanda l Result * [place] APPLICATION RIGID TOTAL CONTACT LEG CAST, [place] CAST SUP SHRT LEG FIBERGLASS (09/22/2024 6:56 [...] IN CLINIC/BEDSIDE ORDERABLES F inal Result * [place] APPLICATION RIGID TOTAL CONTACT LEG CAST, [place] CAST SUP SHRT LEG FIBERGLASS (09/09/2024 10:06 [...] NAMRATA TAYLOR Edited Result - Final * [place] APPLICATION SHORT LEG SPLINT CALF FOOT, [place] CAST SUP SHT LEG SPLNT PLSTR (08/26/2024 11:00 AM CDT) Narrative Kishore Arevalo - 08/26/2024 11:00 AM CDT Kishore Arevalo 08/26/2024 11:02 AM Ortho Casting/Splinting Documentation Date/Time: 08/26/2024 11:00 AM Performed by: Kishore Arevalo Authorized by: Drake Ariza, CONSTRUCTION SAFETY MANAGER Sensation: Normal Skin Condition: Clean, dry, and [...] ORDERABLES - DEV ICE Final Result [facility] Department [place] [address] * POCT glucose (08/19/2024 7:55 AM CDT) Glucose, POC 135 70 - 199 mg/dL Blood 08/19/2024 7:55 AM CDT 08/19/2024 7:55 AM CDT Florentino Roldan MD LAB POCT ORDERABLES - DEV ICE Final Result Performing Organization Address [facility] Co de Phone Number TABATHA [facility] Department [place] [address] * (ABNORMAL) eGFR (08/18/2024 8:28 PM CDT) [...] BLOOD ORDERABLES Final Result Performing Organization Address City/[facility] Co de Phone Number [facility] Department [place] [address] * Differential, auto (08/18/2024 8:28 PM CDT) Neutrophil abs 3.45 1.50 - 6.50 K/cumm Imm gran abs 0.06 0.00 - 0.10 K/cumm [facility] Lymphocyte abs 1.66 0.80 - 3.30 K/cumm [facility] Monocyte abs 0.70 0.20 - 0.80 K/cumm [facility] Eosinophil abs 0.30 0.00 - 0.50 K/cumm [facility] Basophil abs 0.05 0.00 - 0.10 K/cumm [facility] Neutrophil pct 55.4 % [facility] Comment: Interpretive Data Percent cell count reference ranges are not reported, since discordance with absolute values may lead to misinterpretation of CBC data. Current Interpretive Data was last revised on 2017. Imm gran pct 1.0 % [facility] Comment: Interpretive Data Percent cell count reference ranges are not reported, since discordance with absolute values may lead to misinterpretation of CBC data. Current Interpretive Data was last revised on 2017. Lymphocyte pct 26.7 % [facility] Comment: Interpretive Data Percent cell count reference ranges are not reported, since discordance with absolute values may lead to misinterpretation of CBC data. Current Interpretive Data was last revised on 2017. Monocyte pct 11.3 % [facility] Comment: Interpretive Data Percent cell count reference ranges are not reported, since discordance with absolute values may lead to misinterpretation of CBC data. Current Interpretive Data was last revised on 2017. Eosinophil pct 4.8 % [facility] Comment: Interpretive Data Percent cell count reference ranges are not reported, since discordance with absolute values may lead to misinterpretation of CBC data. Current Interpretive Data was last revised on 2017. Basophil pct 0.8 % [facility] Comment: Interpretive Data Percent cell count reference ranges are not reported, since discordance with absolute values may lead to misinterpretation of CBC data. Current Interpretive Data was last revised on 2017. Blood 08/18/2024 8:28 PM CDT 08/18/2024 9:18 PM CDT us Shira Hodge MD LAB BLOOD ORDERABLES Final Result [facility] Department [place] [address] * (ABNORMAL) CBC with auto differential (08/18/2024 8:28 PM CDT) WBC 6.22 3.80 - 9.90 K/cumm Hgb 11.6(L) 13.0 - 17.5 g/dL [facility] Hct 37.5(L) 38.9 - 50.3 % [facility] Plt 183 150 - 400 K/cumm [facility] MPV 10.2 9.1 - 12.3 fL [facility] RBC 4.21(L) 4.30 - 5.80 M/cumm [facility] MCV 89.1 81.3 - 96.4 fL [facility] MCH 27.6 27.1 - 33.3 pg [facility] MCHC 30.9(L) 32.3 - 35.7 g/dL [facility] RDW CV 16.3(H) 11.1 - 14.9 % [facility] RDW SD 52.3(H) 35.7 - 48.1 fL [facility] NRBC abs 0.00 0.00 - 0.01 K/cumm [facility] Blood 08/18/2024 8:28 PM CDT 08/18/2024 9:18 PM CDT us Shira Hodge MD LAB BLOOD ORDERABLES Final Result [facility] Department [place] [address] * (ABNORMAL) Basic metabolic panel (08/18/2024 8:28 PM CDT) [facility] Sodium 140 135 - 145 mmol/L Potassium, pl 4.0 3.3 - 4.9 mmol/L [facility] Chloride 104 97 - 110 mmol/L [facility] CO2 26 22 - 32 mmol/L [facility] Anion gap 10 2 - 15 mmol/L [facility] BUN 33(H) 6 - 25 mg/dL [facility] Creatinine 2.00(H) 0.80 - 1.30 mg/dL [facility] Glucose 211(H) 70 - 199 mg/dL [facility] Comment: Interpretive Data Fasting glucose >/= 126 [...] 2022. Calcium 8.7 8.5 - 10.3 mg/dL [facility] Blood 08/18/2024 8:28 PM CDT 08/18/2024 9:18 PM CDT Shira Hodge MD LAB BLOOD ORDERABLES Final Result Performing Organization Address [facility] de Phone Number [facility] Department [place] [address] * (ABNORMAL) POCT glucose (08/18/2024 7:56 PM CDT) Glucose, POC 226(H) 70 - 199 mg/dL Blood 08/18/2024 7:56 PM CDT 08/18/2024 7:56 PM CDT Florentino Roldan MD LAB POCT ORDERABLES - DEV ICE Final Result Performing Organization Address [facility] de Phone Number [facility] [place] [address] * POCT glucose (08/18/2024 5:10 PM CDT) Glucose, POC 153 70 - 199 mg/dL Blood 08/18/2024 5:10 PM CDT 08/18/2024 5:10 PM CDT Florentino Roldan MD LAB POCT ORDERABLES - DEV ICE Final Result Performing Organization Address [facility] Co de Phone Number TABATHA [facility] Department [place] [address] * POCT glucose (08/18/2024 11:45 AM CDT) Glucose, POC 184 70 - 199 mg/dL Blood 08/18/2024 11:4 5 AM CDT 08/18/2024 11:45 AM CDT Florentino Roldan MD LAB POCT ORDERABLES - DEV ICE Final Result Performing Organization Address [facility] Co de Phone Number TABATHA [facility] [place] [address] * POCT glucose (08/18/2024 7:31 AM CDT) Glucose, POC 145 70 - 199 mg/dL Blood 08/18/2024 7:31 AM CDT 08/18/2024 7:31 AM CDT Florentino Roldan MD LAB POCT ORDERABLES - DEV ICE Final Result Performing Organization Address [facility] Co de Phone Number TABATHA [facility] Department [place] [address] * (ABNORMAL) eGFR (08/17/2024 8:30 PM CDT) [...] Hodge MD LAB BLOOD ORDERABLES Final Result [facility] Department [place] [address] * Differential, auto (08/17/2024 8:30 PM CDT) Neutrophil abs 3.97 1.50 - 6.50 K/cumm Imm gran abs 0.04 0.00 - 0.10 K/cumm [facility] Lymphocyte abs 1.79 0.80 - 3.30 K/cumm [facility] Monocyte abs 0.67 0.20 - 0.80 K/cumm [facility] Eosinophil abs 0.29 0.00 - 0.50 K/cumm [facility] Basophil abs 0.07 0.00 - 0.10 K/cumm [facility] Neutrophil pct 58.2 % [facility] Comment: Interpretive Data Percent cell count reference ranges are not reported, since discordance with absolute values may lead to misinterpretation of CBC data. Current Interpretive Data was last revised on 2017. Imm gran pct 0.6 % [facility] Comment: Interpretive Data Percent cell count reference ranges are not reported, since discordance with absolute values may lead to misinterpretation of CBC data. Current Interpretive Data was last revised on 2017. Lymphocyte pct 26.2 % [facility] Comment: Interpretive Data Percent cell count reference ranges are not reported, since discordance with absolute values may lead to misinterpretation of CBC data. Current Interpretive Data was last revised on 2017. Monocyte pct 9.8 % [facility] Comment: Interpretive Data Percent cell count reference ranges are not reported, since discordance with absolute values may lead to misinterpretation of CBC data. Current Interpretive Data was last revised on 2017. Eosinophil pct 4.2 % [facility] Comment: Interpretive Data Percent cell count reference ranges are not reported, since discordance with absolute values may lead to misinterpretation of CBC data. Current Interpretive Data was last revised on 2017. Basophil pct 1.0 % [facility] Comment: Interpretive Data Percent cell count reference ranges are not reported, since discordance with absolute values may lead to misinterpretation of CBC data. Current Interpretive Data was last revised on 2017. Blood 08/17/2024 8:30 PM CDT 08/17/2024 8:45 PM CDT us Shira Hodge MD LAB BLOOD ORDERABLES Final Result [facility] Department [place] [address] * (ABNORMAL) CBC with auto differential (08/17/2024 8:30 PM CDT) WBC 6.83 3.80 - 9.90 K/cumm Hgb 11.5(L) 13.0 - 17.5 g/dL [facility] Hct 37.2(L) 38.9 - 50.3 % [facility] Plt 184 150 - 400 K/cumm [facility] MPV 9.9 9.1 - 12.3 fL [facility] RBC 4.12(L) 4.30 - 5.80 M/cumm [facility] MCV 90.3 81.3 - 96.4 fL [facility] MCH 27.9 27.1 - 33.3 pg [facility] MCHC 30.9(L) 32.3 - 35.7 g/dL [facility] RDW CV 16.1(H) 11.1 - 14.9 % [facility] RDW SD 52.6(H) 35.7 - 48.1 fL [facility] NRBC abs 0.00 0.00 - 0.01 K/cumm [facility] Blood 08/17/2024 8:30 PM CDT 08/17/2024 8:45 PM CDT Shira Hodge MD LAB BLOOD ORDERABLES Final Result Performing Organization Address City/[facility]/ZIP Co de Phone Number [facility] [place] [address] * Magnesium (08/17/2024 8:30 PM CDT) [facility] Magnesium 2.0 1.4 - 2.5 mg/dL Blood 08/17/2024 8:30 PM CDT 08/17/2024 8:43 PM CDT Shira Hodge MD LAB BLOOD ORDERABLES Final Result Performing Organization Address [facility] de Phone Number [facility] [place] [address] * (ABNORMAL) Basic metabolic panel (08/17/2024 8:30 PM CDT) [facility] Sodium 141 135 - 145 mmol/L Potassium, pl 4.3 3.3 - 4.9 mmol/L [facility] Chloride 107 97 - 110 mmol/L [facility] CO2 26 22 - 32 mmol/L [facility] Anion gap 8 2 - 15 mmol/L [facility] BUN 33(H) 6 - 25 mg/dL [facility] Creatinine 1.92(H) 0.80 - 1.30 mg/dL [facility] Glucose 184 70 - 199 mg/dL [facility] Comment: Interpretive Data Fasting glucose >/= 126 [...] 2022. Calcium 8.7 8.5 - 10.3 mg/dL [facility] Blood 08/17/2024 8:30 PM CDT 08/17/2024 8:43 PM CDT Shira Hodge MD LAB BLOOD ORDERABLES Final Result [facility] [place] [address] * POCT glucose (08/17/2024 7:52 PM CDT) Glucose, POC 178 70 - 199 mg/dL Blood 08/17/2024 7:52 PM CDT 08/17/2024 7:52 PM CDT us Shira Hodge MD LAB POCT ORDERABLES - DEVICE Final Result Performing Organization Address City/[facility]/ZIP Co de Phone Number [facility] [place] [address] * POCT glucose (08/17/2024 4:58 PM CDT) Glucose, POC 174 70 - 199 mg/dL Blood 08/17/2024 4:58 PM CDT 08/17/2024 4:58 PM CDT Shira Hodge MD LAB POCT ORDERABLES - DEVICE Final Result Performing Organization Address [facility] Co de Phone Number [facility] [place] [address] * POCT glucose (08/17/2024 11:49 AM CDT) Glucose, POC 142 70 - 199 mg/dL Blood 08/17/2024 11:4 9 AM CDT 08/17/2024 11:49 AM CDT us Shira Hodge MD LAB POCT ORDERABLES - DEVICE Final Result Performing Organization Address City/State/[facility] Co de Phone Number [facility] Department [place] [address] * POCT glucose (08/17/2024 7:43 AM CDT) Glucose, POC 112 70 - 199 mg/dL Blood 08/17/2024 7:43 AM CDT 08/17/2024 7:43 AM CDT Shira Hodge MD LAB POCT ORDERABLES - DEVICE Final Result Performing Organization Address [facility] de Phone Number [facility] Department [place] [address] * (ABNORMAL) eGFR (08/16/2024 9:26 PM CDT) [...] Hodge MD LAB BLOOD ORDERABLES Final Result [facility] Department [place] [address] * Differential, auto (08/16/2024 9:26 PM CDT) Neutrophil abs 4.52 1.50 - 6.50 K/cumm Imm gran abs 0.03 0.00 - 0.10 K/cumm [facility] Lymphocyte abs 1.55 0.80 - 3.30 K/cumm [facility] Monocyte abs 0.65 0.20 - 0.80 K/cumm [facility] Eosinophil abs 0.28 0.00 - 0.50 K/cumm [facility] Basophil abs 0.06 0.00 - 0.10 K/cumm [facility] Neutrophil pct 63.8 % [facility] Comment: Interpretive Data Percent cell count reference ranges are not reported, since discordance with absolute values may lead to misinterpretation of CBC data. Current Interpretive Data was last revised on 2017. Imm gran pct 0.4 % [facility] Comment: Interpretive Data Percent cell count reference ranges are not reported, since discordance with absolute values may lead to misinterpretation of CBC data. Current Interpretive Data was last revised on 2017. Lymphocyte pct 21.9 % [facility] Comment: Interpretive Data Percent cell count reference ranges are not reported, since discordance with absolute values may lead to misinterpretation of CBC data. Current Interpretive Data was last revised on 2017. Monocyte pct 9.2 % [facility] Comment: Interpretive Data Percent cell count reference ranges are not reported, since discordance with absolute values may lead to misinterpretation of CBC data. Current Interpretive Data was last revised on 2017. Eosinophil pct 3.9 % [facility] Comment: Interpretive Data Percent cell count reference ranges are not reported, since discordance with absolute values may lead to misinterpretation of CBC data. Current Interpretive Data was last revised on 2017. Basophil pct 0.8 % [facility] Comment: Interpretive Data Percent cell count reference ranges are not reported, since discordance with absolute values may lead to misinterpretation of CBC data. Current Interpretive Data was last revised on 2017. Blood 08/16/2024 9:26 PM CDT 08/16/2024 9:48 PM CDT Shira Hodge MD LAB BLOOD ORDERABLES Final Result Performing Organization Address [facility] Co de Phone Number [facility] [place] [address] * Critical Result Callback Chemistry (08/16/2024 9:26 PM CDT) Date Notified [id number] Time Notified 807 [facility] TestName Vancomycin Dirk [facility] Called/Read Back Anita [facility] Credentials RN [facility] Called By [facility] Blood 08/16/2024 9:26 PM CDT 08/16/2024 9:47 PM CDT Shira Hodge MD LAB BLOOD ORDERABLES Final Result Performing Organization Address [facility] Co de Phone Number [facility] [place] [place] [address] * (ABNORMAL) CBC with auto differential (08/16/2024 9:26 PM CDT) WBC 7.09 3.80 - 9.90 K/cumm Hgb 11.9(L) 13.0 - 17.5 g/dL [facility] Hct 39.6 38.9 - 50.3 % [facility] Plt 196 150 - 400 K/cumm [facility] MPV 10.3 9.1 - 12.3 fL [facility] RBC 4.35 4.30 - 5.80 M/cumm [facility] MCV 91.0 81.3 - 96.4 fL [facility] MCH 27.4 27.1 - 33.3 pg [facility] MCHC 30.1(L) 32.3 - 35.7 g/dL [facility] RDW CV 16.0(H) 11.1 - 14.9 % [facility] RDW SD 52.4(H) 35.7 - 48.1 fL [facility] NRBC abs 0.00 0.00 - 0.01 K/cumm [facility] Blood 08/16/2024 9:26 PM CDT 08/16/2024 9:48 PM CDT Shira Hodge MD LAB BLOOD ORDERABLES Final Result Performing Organization Address [facility] Co de Phone Number [facility] Department [place] [address] * Magnesium (08/16/2024 9:26 PM CDT) Magnesium 1.7 1.4 - 2.5 mg/dL Blood 08/16/2024 9:26 PM CDT 08/16/2024 9:47 PM CDT Shira Hodge MD LAB BLOOD ORDERABLES Final Result Performing Organization Address [facility] Co de Phone Number [facility] Department [place] [address] * (ABNORMAL) Vancomycin level trough (08/16/2024 9:26 PM CDT) Vancomycin trough 29.2(C) 10.0 - 20.0 mcg/mL Blood 08/16/2024 9:26 PM CDT 08/16/2024 9:47 PM CDT Shira Hodge MD LAB BLOOD ORDERABLES Final Result Performing Organization Address [facility] Co de Phone Number [facility] Department of [place] [id number] * (ABNORMAL) Basic metabolic panel (08/16/2024 9:26 PM CDT) [facility] Sodium 141 135 - 145 mmol/L Potassium, pl 4.7 3.3 - 4.9 mmol/L [facility] Comment:Hemolyzed; Potassium value may be falsely elevated by as much as 0.3-0.5 mmol/L. Suggest redraw and reanalysis. Chloride 107 97 - 110 mmol/L [facility] CO2 25 22 - 32 mmol/L [facility] Anion gap 9 2 - 15 mmol/L [facility] BUN 31(H) 6 - 25 mg/dL [facility] Creatinine 1.87(H) 0.80 - 1.30 mg/dL [facility] Glucose 145 70 - 199 mg/dL [facility] Comment: Interpretive Data Fasting glucose >/= 126 [...] 2022. Calcium 8.4(L) 8.5 - 10.3 mg/dL [facility] Blood 08/16/2024 9:26 PM CDT 08/16/2024 9:47 PM CDT us Shira Hodge MD LAB BLOOD ORDERABLES Final Result TABATHA [facility] Department [place] [address] * POCT glucose (08/16/2024 8:05 PM CDT) [facility] Glucose, POC 148 70 - 199 mg/dL Blood 08/16/2024 8:05 PM CDT 08/16/2024 8:05 PM CDT us Shira Hodge MD LAB POCT ORDERABLES - DEVICE Final Result Performing Organization Address [facility] de Phone Number [facility] [place] [address] * POCT glucose (08/16/2024 4:38 PM CDT) Glucose, POC 165 70 - 199 mg/dL Blood 08/16/2024 4:38 PM CDT 08/16/2024 4:38 PM CDT us Shira Hodge MD LAB POCT ORDERABLES - DEVICE Final Result Performing Organization Address [facility] de Phone Number [facility] [place] [employer] [place] [address] * POCT glucose (08/16/2024 11:21 AM CDT) Glucose, POC 138 70 - 199 mg/dL Blood 08/16/2024 11:2 1 AM CDT 08/16/2024 11:21 AM CDT us Shira Hodge MD LAB POCT ORDERABLES - DEVICE Final Result Performing Organization Address [facility] [place] [address] * POCT glucose (08/16/2024 8:07 AM CDT) Glucose, POC 113 70 - 199 mg/dL Blood 08/16/2024 8:07 AM CDT 08/16/2024 8:07 AM CDT us Shira Hodge MD LAB POCT ORDERABLES - DEVICE Final Result Performing Organization Address City/[facility]/ZIP Co de Phone Number [facility] [place] [address] * (ABNORMAL) eGFR (08/15/2024 11:08 PM CDT) Pathologist [facility] eGFR 37(L) >=60 mL/min/1. 73 m2 Comment: [...] BLOOD ORDERABLES Final Result Performing Organization Address City/[facility]/ZIP Co de Phone Number TABATHA POSEY [facility] Department [place] [address] * Differential, auto (08/15/2024 11:08 PM CDT) Neutrophil abs 3.92 1.50 - 6.50 K/cumm Imm gran abs 0.05 0.00 - 0.10 K/cumm [facility] Lymphocyte abs 1.86 0.80 - 3.30 K/cumm [facility] Monocyte abs 0.58 0.20 - 0.80 K/cumm [facility] Eosinophil abs 0.33 0.00 - 0.50 K/cumm [facility] Basophil abs 0.04 0.00 - 0.10 K/cumm [facility] Neutrophil pct 57.8 % [facility] Comment: Interpretive Data Percent cell count reference ranges are not reported, since discordance with absolute values may lead to misinterpretation of CBC data. Current Interpretive Data was last revised on 2017. Imm gran pct 0.7 % [facility] Comment: Interpretive Data Percent cell count reference ranges are not reported, since discordance with absolute values may lead to misinterpretation of CBC data. Current Interpretive Data was last revised on 2017. Lymphocyte pct 27.4 % [facility] Comment: Interpretive Data Percent cell count reference ranges are not reported, since discordance with absolute values may lead to misinterpretation of CBC data. Current Interpretive Data was last revised on 2017. Monocyte pct 8.6 % [facility] Comment: Interpretive Data Percent cell count reference ranges are not reported, since discordance with absolute values may lead to misinterpretation of CBC data. Current Interpretive Data was last revised on 2017. Eosinophil pct 4.9 % [facility] Comment: Interpretive Data Percent cell count reference ranges are not reported, since discordance with absolute values may lead to misinterpretation of CBC data. Current Interpretive Data was last revised on 2017. Basophil pct 0.6 % [facility] Comment: Interpretive Data Percent cell count reference ranges are not reported, since discordance with absolute values may lead to misinterpretation of CBC data. Current Interpretive Data was last revised on 2017. Blood 08/15/2024 11:0 8 PM CDT 08/16/2024 12:00 AM CDT us Shira Hodge MD LAB BLOOD ORDERABLES Final Result TABATHA EMANUEL [facility] Department [place] [address] * Critical Result Callback Chemistry (08/15/2024 11:08 PM CDT) Date Notified [id number] Time Notified 30 [facility] TestName Vancomycin [facility] Called/Read Back Lillian Maguire [facility] Credentials RN [facility] Called By JUDY [facility] Blood 08/15/2024 11:0 8 PM CDT 08/16/2024 us Shira Hodge MD LAB BLOOD ORDERABLES Final Result [facility] Department [place] [address] * (ABNORMAL) CBC with auto differential (08/15/2024 11:08 PM CDT) [facility] WBC 6.78 3.80 - 9.90 K/cumm Hgb 11.8(L) 13.0 - 17.5 g/dL [facility] Hct 38.6(L) 38.9 - 50.3 % [facility] Plt 198 150 - 400 K/cumm [facility] MPV 10.0 9.1 - 12.3 fL [facility] RBC 4.22(L) 4.30 - 5.80 M/cumm [facility] MCV 91.5 81.3 - 96.4 fL [facility] MCH 28.0 27.1 - 33.3 pg [facility] MCHC 30.6(L) 32.3 - 35.7 g/dL [facility] RDW CV 15.9(H) 11.1 - 14.9 % [facility] RDW SD 52.7(H) 35.7 - 48.1 fL [facility] NRBC abs 0.00 0.00 - 0.01 K/cumm [facility] Blood 08/15/2024 11:0 8 PM CDT 08/16/2024 12:00 AM CDT us Shira Hodge MD LAB BLOOD ORDERABLES Final Result [facility] Department [place] [address] * (ABNORMAL) Vancomycin level trough Draw before the next vancomycin dose. (08/15/2024 11:08 PM CDT) [facility] Vancomycin trough 25.6(C) 10.0 - 20.0 mcg/mL Blood 08/15/2024 11:0 8 PM CDT 08/16/2024 12:00 AM CDT Narrative [facility] - 08/16/2024 12:28 AM CDT Draw before the next vancomycin dose. us Shira Hodge MD LAB BLOOD ORDERABLES Final Result [facility] Department [place] [address] * (ABNORMAL) Basic metabolic panel (08/15/2024 11:08 PM CDT) [facility] Sodium 141 135 - 145 mmol/L Potassium, pl 4.0 3.3 - 4.9 mmol/L [facility] Chloride 106 97 - 110 mmol/L [facility] CO2 24 22 - 32 mmol/L [facility] Anion gap 11 2 - 15 mmol/L [facility] BUN 29(H) 6 - 25 mg/dL [facility] Creatinine 1.84(H) 0.80 - 1.30 mg/dL [facility] Glucose 140 70 - 199 mg/dL [facility] Comment: Interpretive Data Fasting glucose >/= 126 [...] 2022. Calcium 8.6 8.5 - 10.3 mg/dL [facility] Blood 08/15/2024 11:0 8 PM CDT 08/16/2024 12:00 AM CDT Shira Hodge MD LAB BLOOD ORDERABLES Final Result Performing Organization Address [facility] Co de Phone Number [facility] [place] [employer] [place] [address] * POCT glucose (08/15/2024 7:55 PM CDT) Glucose, POC 140 70 - 199 mg/dL Blood 08/15/2024 7:55 PM CDT 08/15/2024 7:55 PM CDT Shira Hodge MD LAB POCT ORDERABLES - DEVICE Final Result Performing Organization Address [facility] Co de Phone Number [facility] Department [place] [address] * POCT glucose (08/15/2024 4:35 PM CDT) Glucose, POC 147 70 - 199 mg/dL Blood 08/15/2024 4:35 PM CDT 08/15/2024 4:35 PM CDT Result [facility] Shira Hodge MD LAB POCT ORDERABLES - DEVICE Final Result Performing Organization Address [facility] [place] [address] * (ABNORMAL) Calprotectin, fecal (08/15/2024 3:49 PM CDT) Calprotectin, fecal 63.6(H) <50.0 (Normal) mcg/g [facility] Comment: Interpretation: Borderline (50.0-120 mcg/g) Test Performed by: [facility] [address] [place] [address] [employer]: Liz Sarmiento Ph.D.; IA# [id number] Stool 08/15/2024 3:49 PM CDT 08/15/2024 5:42 PM CDT Vale Thorne MD LAB BODY FLUIDS AND STOOLS ORDERABLES Final Result Performing Organization Address City/[facility]/ZIP Co de Phone Number [facility] [place] [address] [facility] * Cryptosporidium and Giardia antigen assay Stool (08/15/2024 3:49 PM CDT) Giardia Ag Negative Negative Cryptosporidium Ag Negative Negative [facility] Comment: Interpretive data: Testing performed by the [facility] using an immunoassay that detects Cryptosporidium and Giardia antigens in stool specimens. If comprehensive examination for ova and parasites is required, please request Ova and Parasite Examination. Stool 08/15/2024 3:49 PM CDT 08/15/2024 5:17 PM CDT Vale Thorne MD LAB MICROBIOLOGY - GENERAL ORDERABLES Final Result Performing Organization Address [facility] Co de Phone Number [facility] [place] [address] * POCT glucose (08/15/2024 12:05 PM CDT) Glucose, POC 135 70 - 199 mg/dL Blood 08/15/2024 12:0 5 PM CDT 08/15/2024 12:05 PM CDT Shira Hodge MD LAB POCT ORDERABLES - [place] [address] * POCT glucose (08/15/2024 8:19 AM CDT) Glucose, POC 90 70 - 199 mg/dL Blood 08/15/2024 8:19 AM CDT 08/15/2024 8:19 AM CDT us Shira Hodge MD LAB POCT ORDERABLES - DEVICE Final Result Performing Organization Address City/[facility]/ZIP Co de Phone Number TABATHA [facility] Department [place] [address] * (ABNORMAL) eGFR (08/15/2024 3:56 AM CDT) [...] ORDERABLES Fin al Result Performing Organization Address City/[facility]/ZIP Co de Phone Number TABATHA [facility] Department [place] [address] * Differential, auto (08/15/2024 3:56 AM CDT) Pathologist [facility] Neutrophil abs 3.36 1.50 - 6.50 K/cumm Imm gran abs 0.02 0.00 - 0.10 K/cumm [facility] Lymphocyte abs 2.34 0.80 - 3.30 K/cumm [facility] Monocyte abs 0.56 0.20 - 0.80 K/cumm [facility] Eosinophil abs 0.28 0.00 - 0.50 K/cumm [facility] Basophil abs 0.07 0.00 - 0.10 K/cumm [facility] Neutrophil pct 50.7 % [facility] Comment: Interpretive Data Percent cell count reference ranges are not reported, since discordance with absolute values may lead to misinterpretation of CBC data. Current Interpretive Data was last revised on 2017. Imm gran pct 0.3 % [facility] Comment: Interpretive Data Percent cell count reference ranges are not reported, since discordance with absolute values may lead to misinterpretation of CBC data. Current Interpretive Data was last revised on 2017. Lymphocyte pct 35.3 % [facility] Comment: Interpretive Data Percent cell count reference ranges are not reported, since discordance with absolute values may lead to misinterpretation of CBC data. Current Interpretive Data was last revised on 2017. Monocyte pct 8.4 % [facility] Comment: Interpretive Data Percent cell count reference ranges are not reported, since discordance with absolute values may lead to misinterpretation of CBC data. Current Interpretive Data was last revised on 2017. Eosinophil pct 4.2 % [facility] Comment: Interpretive Data Percent cell count reference ranges are not reported, since discordance with absolute values may lead to misinterpretation of CBC data. Current Interpretive Data was last revised on 2017. Basophil pct 1.1 % [facility] Comment: Interpretive Data Percent cell count reference ranges are not reported, since discordance with absolute values may lead to misinterpretation of CBC data. Current Interpretive Data was last revised on 2017. Blood 08/15/2024 3:56 AM CDT 08/15/2024 4:22 AM CDT us Christy Bray MD LAB BLOOD ORDERABLES Fin al Result Performing Organization Address [facility] de Phone Number [facility] Department [place] [address] * (ABNORMAL) CBC with auto differential (08/15/2024 3:56 AM CDT) [facility] WBC 6.63 3.80 - 9.90 K/cumm Hgb 12.0(L) 13.0 - 17.5 g/dL [facility] Hct 39.5 38.9 - 50.3 % [facility] Plt 195 150 - 400 K/cumm [facility] MPV 10.1 9.1 - 12.3 fL [facility] RBC 4.32 4.30 - 5.80 M/cumm [facility] MCV 91.4 81.3 - 96.4 fL [facility] MCH 27.8 27.1 - 33.3 pg [facility] MCHC 30.4(L) 32.3 - 35.7 g/dL [facility] RDW CV 15.9(H) 11.1 - 14.9 % [facility] RDW SD 52.1(H) 35.7 - 48.1 fL [facility] NRBC abs 0.00 0.00 - 0.01 K/cumm [facility] Blood 08/15/2024 3:56 AM CDT 08/15/2024 4:22 AM CDT Christy Bray MD LAB BLOOD ORDERABLES Fin al Result Performing Organization Address [facility] Co de Phone Number [facility] Department [place] [address] * Sodium, urine, random (08/15/2024 3:56 AM CDT) Pathologist [facility] Sodium, ur 126 mmol/L Comment: Interpretive Data No reference range established. Current interpretive data was last revised 2018. Urine 08/15/2024 3:56 AM CDT 08/15/2024 4:21 AM CDT Narrative [facility] - 08/15/2024 4:41 AM CDT Please draw 2 hours after administering IV Lasix Vale Thorne MD LAB URINE ORDERABLES Final Result Performing Organization Address [facility]/ZIP Co de Phone Number [facility] Department [place] [address] * (ABNORMAL) Basic metabolic panel (08/15/2024 3:56 AM CDT) [facility] Sodium 141 135 - 145 mmol/L Potassium, pl 4.1 3.3 - 4.9 mmol/L [facility] Chloride 109 97 - 110 mmol/L [facility] CO2 22 22 - 32 mmol/L [facility] Anion gap 10 2 - 15 mmol/L [facility] BUN 25 6 - 25 mg/dL [facility] Creatinine 1.61(H) 0.80 - 1.30 mg/dL [facility] Glucose 99 70 - 199 mg/dL [facility] Comment: Interpretive Data Fasting glucose >/= 126 [...] 2022. Calcium 8.1(L) 8.5 - 10.3 mg/dL [facility] Blood 08/15/2024 3:56 AM CDT 08/15/2024 4:21 AM CDT us Christy Bray MD LAB BLOOD ORDERABLES Fin al Result Performing Organization Address [facility] Co de Phone Number [facility] Department [place] [address] * POCT glucose (08/14/2024 8:20 PM CDT) Glucose, POC 131 70 - 199 mg/dL Blood 08/14/2024 8:20 PM CDT 08/14/2024 8:20 PM CDT Shira Hodge MD LAB POCT ORDERABLES - DEVICE Final Result Performing Organization Address [facility] Co de Phone Number [facility] [place] [employer] [place] [address] * POCT glucose (08/14/2024 6:09 PM CDT) Glucose, POC 115 70 - 199 mg/dL Blood 08/14/2024 6:09 PM CDT 08/14/2024 6:09 PM CDT Shira Hodge MD LAB POCT ORDERABLES - DEVICE Final Result Performing Organization Address [facility] Co de Phone Number [facility] [place] [address] * POCT glucose (08/14/2024 2:08 PM CDT) Glucose, POC 128 70 - 199 mg/dL Blood 08/14/2024 2:08 PM CDT 08/14/2024 2:08 PM CDT Vale Thorne MD LAB POCT ORDERABLES - DEVIC E Final Result Performing Organization Address [facility] Co de Phone Number [facility] [place] [place] [address] * POCT glucose (08/14/2024 8:22 AM CDT) Glucose, POC 124 70 - 199 mg/dL Blood 08/14/2024 8:22 AM CDT 08/14/2024 8:22 AM CDT us Vale Thorne MD LAB POCT ORDERABLES - DEVIC E Final Result Performing Organization Address [facility] Co de Phone Number [facility] Department [place] [address] * (ABNORMAL) eGFR (08/13/2024 8:24 PM CDT) [...] ORDERABLES Fin al Result Performing Organization Address City[facility]/ZIP Co de Phone Number [facility] Department [place] [address] * Differential, auto (08/13/2024 8:24 PM CDT) Pathologist [facility] Neutrophil abs 4.18 1.50 - 6.50 K/cumm Imm gran abs 0.04 0.00 - 0.10 K/cumm [facility] Lymphocyte abs 0.95 0.80 - 3.30 K/cumm [facility] Monocyte abs 0.61 0.20 - 0.80 K/cumm [facility] Eosinophil abs 0.08 0.00 - 0.50 K/cumm [facility] Basophil abs 0.03 0.00 - 0.10 K/cumm [facility] Neutrophil pct 70.9 % [facility] Comment: Interpretive Data Percent cell count reference ranges are not reported, since discordance with absolute values may lead to misinterpretation of CBC data. Current Interpretive Data was last revised on 2017. Imm gran pct 0.7 % [facility] Comment: Interpretive Data Percent cell count reference ranges are not reported, since discordance with absolute values may lead to misinterpretation of CBC data. Current Interpretive Data was last revised on 2017. Lymphocyte pct 16.1 % [facility] Comment: Interpretive Data Percent cell count reference ranges are not reported, since discordance with absolute values may lead to misinterpretation of CBC data. Current Interpretive Data was last revised on 2017. Monocyte pct 10.4 % [facility] Comment: Interpretive Data Percent cell count reference ranges are not reported, since discordance with absolute values may lead to misinterpretation of CBC data. Current Interpretive Data was last revised on 2017. Eosinophil pct 1.4 % [facility] Comment: Interpretive Data Percent cell count reference ranges are not reported, since discordance with absolute values may lead to misinterpretation of CBC data. Current Interpretive Data was last revised on 2017. Basophil pct 0.5 % [facility] Comment: Interpretive Data Percent cell count reference ranges are not reported, since discordance with absolute values may lead to misinterpretation of CBC data. Current Interpretive Data was last revised on 2017. Blood 08/13/2024 8:24 PM CDT 08/13/2024 8:44 PM CDT us Christy Bray MD LAB BLOOD ORDERABLES Fin al Result [facility] Department [place] [address] * (ABNORMAL) CBC with auto differential (08/13/2024 8:24 PM CDT) [facility] WBC 5.89 3.80 - 9.90 K/cumm Hgb 10.9(L) 13.0 - 17.5 g/dL [facility] Hct 35.5(L) 38.9 - 50.3 % [facility] Plt 181 150 - 400 K/cumm [facility] MPV 9.9 9.1 - 12.3 fL [facility] RBC 3.90(L) 4.30 - 5.80 M/cumm [facility] MCV 91.0 81.3 - 96.4 fL [facility] MCH 27.9 27.1 - 33.3 pg [facility] MCHC 30.7(L) 32.3 - 35.7 g/dL [facility] RDW CV 15.9(H) 11.1 - 14.9 % [facility] RDW SD 52.6(H) 35.7 - 48.1 fL [facility] NRBC abs 0.00 0.00 - 0.01 K/cumm [facility] Blood 08/13/2024 8:24 PM CDT 08/13/2024 8:44 PM CDT us Christy Bray MD LAB BLOOD ORDERABLES Fin al Result [facility] [place] [address] * Gliadin antibody, IgG (08/13/2024 8:24 PM CDT) [facility] Anti-gliadin, IgG <0.4 <=14.9 units/mL Comment: Interpretive data Negative: <15 units/mL Positive: > or equal to 15 units/mL Current interpretive data was last revised on 2016. Blood 08/13/2024 8:24 PM CDT 08/13/2024 8:44 PM CDT us Vale Thorne MD LAB BLOOD ORDERABLES Final Result Performing Organization Address [facility] Co de Phone Number [facility] [place] [place] [address] * Gliadin antibody, IgA (08/13/2024 8:24 PM CDT) Anti-gliadin, IgA <0.5 <=14.9 units/mL Comment: Interpretive data Negative: <15 units/mL Positive: > or equal to 15 units/mL Current interpretive data was last revised on 2016. Blood 08/13/2024 8:24 PM CDT 08/13/2024 8:44 PM CDT Vale Thorne MD LAB BLOOD ORDERABLES Final Result Performing Organization Address [facility] de Phone Number [facility] [place] [address] * (ABNORMAL) Basic metabolic panel (08/13/2024 8:24 PM CDT) Pathologist [facility] Sodium 143 135 - 145 mmol/L Potassium, pl 4.6 3.3 - 4.9 mmol/L [facility] Comment:Repeated and Verifie d Chloride 111(H) 97 - 110 mmol/L [facility] CO2 22 22 - 32 mmol/L [facility] Anion gap 10 2 - 15 mmol/L [facility] BUN 25 6 - 25 mg/dL [facility] Creatinine 1.47(H) 0.80 - 1.30 mg/dL [facility] Glucose 122 70 - 199 mg/dL [facility] Comment: Interpretive Data Fasting glucose >/= 126 [...] 2022. Calcium 8.5 8.5 - 10.3 mg/dL [facility] Blood 08/13/2024 8:24 PM CDT 08/13/2024 8:44 PM CDT Christy Bray MD LAB BLOOD ORDERABLES Fin al Result Performing Organization Address [facility]/ZIP Co de Phone Number [facility] [place] [address] * POCT glucose (08/13/2024 8:05 PM CDT) Pathologist [facility] Glucose, POC 117 70 - 199 mg/dL Blood 08/13/2024 8:05 PM CDT 08/13/2024 8:05 PM CDT Vale Thorne MD LAB POCT ORDERABLES - DEVIC E Final Result Performing Organization Address [facility] de Phone Number [facility] [place] [employer] [place] [address] * C. difficile testing Stool (08/13/2024 6:32 PM CDT) Pathologist [facility] Result Negative Negative Toxin Result Negative Negative [facility] C. diff result Negative, free toxin Negative, free toxin [facility] C. diff interp Negative for toxigenic Clostridioides (Clostridium) difficile. Analysis was performed using a glutamate dehydrogenase antigen detection assay combined with a C. difficile toxin detection assay. [facility] Stool 08/13/2024 6:32 PM CDT 08/13/2024 6:40 PM CDT Christy Bray MD LAB MICROBIOLOGY - GENER AL ORDERABLES Final Result Performing Organization Address [facility] Co de Phone Number [facility] [place] [address] * POCT glucose (08/13/2024 4:43 PM CDT) Glucose, POC 119 70 - 199 mg/dL Blood 08/13/2024 4:43 PM CDT 08/13/2024 4:43 PM CDT Vale Thorne MD LAB POCT ORDERABLES - DEVIC E Final Result Performing Organization Address [facility] [place] [address] * POCT glucose (08/13/2024 1:10 PM CDT) Glucose, POC 137 70 - 199 mg/dL Blood 08/13/2024 1:10 PM CDT 08/13/2024 1:10 PM CDT us Christy Bray MD LAB POCT ORDERABLES - DE VICE Final Result Performing Organization Address [facility] [place] [address] * US Vein Duplex Lower Extremity Bilateral Complete (08/13/2024 12:54 PM CDT) Anatomical Region Laterality Modality Vascular Bilateral Ultrasound 08/13/2024 12:0 0 PM CDT Narrative 08/13/2024 2:42 PM CDT [facility] - Department of Vascular Surgery, Vascular Laboratory [address] [place] [address] Lower Extremity Venous Ultrasound Report Patient Name: [...] compression maneuvers. INDICATIONS: Localized edema. FINDINGS: Performing Reporting Lead: Vesta Ventura RDMS, RVT. Bilateral: Venous Doppler [...] above. Electronically Signed By: Kishore Alvarenga MD [facility] [phone] 08/13/2024 1:28:32 PM CDT Procedure Note Kishore Alvarenga MD - 08/13/2024 [facility] - Department of Vascular Surgery,Vascular Laboratory [address] [place] [address] Lower Extremity Venous Ultrasound Report Patient Name: [...] with compressionmaneuvers. INDICATIONS: Localized edema. FINDINGS: Performing Reporting Lead: Vesta Ventura RDMS, INDRA. Bilateral: Venous Doppler [...] above. Electronically Signed By: Kishore Alvarenga MD [facility] [phone] 08/13/2024 1:28:32 PM CDT Christy Bray MD [facility] US PROCEDURES Final Result * (ABNORMAL) Erythrocyte sedimentation rate (08/13/2024 9:30 AM CDT) Erythrocyte sedimentation rate 21(H) 1 - 20 mm/hr Blood 08/13/2024 9:30 AM CDT 08/13/2024 9:44 AM CDT Christy Bray MD LAB BLOOD ORDERABLES [place] il Result Performing Organization Address City/State/[facility] Co de Phone Number [facility] [place] [address] * (ABNORMAL) CRP (acute phase) (08/13/2024 9:30 AM CDT) Pathologist [facility] CRP 43.6(H) <=10.0 mg/L Blood 08/13/2024 9:30 AM CDT 08/13/2024 9:44 AM CDT Christy Bray MD LAB BLOOD ORDERABLES Fin al Result Performing Organization Address [facility] Co de Phone Number [facility] [place] [address] * POCT glucose (08/13/2024 8:31 AM CDT) Glucose, POC 112 70 - 199 mg/dL Blood 08/13/2024 8:31 AM CDT 08/13/2024 8:31 AM CDT us Christy Bray MD LAB POCT ORDERABLES - DE VICE Final Result Performing Organization Address [facility] Co de Phone Number [facility] [place] [address] * POCT glucose (08/13/2024 5:06 AM CDT) Glucose, POC 116 70 - 199 mg/dL Blood 08/13/2024 5:06 AM CDT 08/13/2024 5:06 AM CDT us Luz Maria Vicente MD LAB POCT ORDERABLES - DEVICE Final Result Performing Organization Address [facility] Co de Phone Number [facility] Department [place] [address] * XR Ankle Right 3 or More [...] Goldberg MD LAB BLOOD ORDERABLES Final Result [facility] Department [place] [address] * POCT glucose (08/13/2024 12:25 AM CDT) Glucose, POC 109 70 - 199 mg/dL Blood 08/13/2024 12:2 5 AM CDT 08/13/2024 12:25 AM CDT us Luz Maria Vicente MD LAB POCT ORDERABLES - DEVICE Final Result TABATHA POSEY [facility] [place] [address] * CT Entire Lower Extremity Right W [...] POCT ORDERABLES - DEV ICE Final Result [facility] [place] [address] * (ABNORMAL) eGFR (08/12/2024 9:59 PM CDT) [...] MD LAB BLOOD ORDERABLES Fin al Result [facility] [place] [address] * Differential, auto (08/12/2024 9:59 PM CDT) Neutrophil abs 5.44 1.50 - 6.50 K/cumm Imm gran abs 0.04 0.00 - 0.10 K/cumm [facility] Lymphocyte abs 1.48 0.80 - 3.30 K/cumm [facility] Monocyte abs 0.53 0.20 - 0.80 K/cumm [facility] Eosinophil abs 0.03 0.00 - 0.50 K/cumm [facility] Basophil abs 0.06 0.00 - 0.10 K/cumm [facility] Neutrophil pct 71.8 % [facility] Comment: Interpretive Data Percent cell count reference ranges are not reported, since discordance with absolute values may lead to misinterpretation of CBC data. Current Interpretive Data was last revised on 2017. Imm gran pct 0.5 % [facility] Comment: Interpretive Data Percent cell count reference ranges are not reported, since discordance with absolute values may lead to misinterpretation of CBC data. Current Interpretive Data was last revised on 2017. Lymphocyte pct 19.5 % [facility] Comment: Interpretive Data Percent cell count reference ranges are not reported, since discordance with absolute values may lead to misinterpretation of CBC data. Current Interpretive Data was last revised on 2017. Monocyte pct 7.0 % [facility] Comment: Interpretive Data Percent cell count reference ranges are not reported, since discordance with absolute values may lead to misinterpretation of CBC data. Current Interpretive Data was last revised on 2017. Eosinophil pct 0.4 % [facility] Comment: Interpretive Data Percent cell count reference ranges are not reported, since discordance with absolute values may lead to misinterpretation of CBC data. Current Interpretive Data was last revised on 2017. Basophil pct 0.8 % [facility] Comment: Interpretive Data Percent cell count reference ranges are not reported, since discordance with absolute values may lead to misinterpretation of CBC data. Current Interpretive Data was last revised on 2017. Blood 08/12/2024 9:59 PM CDT 08/12/2024 10:10 PM CDT us Juliet Chin MD LAB BLOOD ORDERABLES Fin al Result [facility] [place] [address] * (ABNORMAL) CBC with auto differential (08/12/2024 9:59 PM CDT) WBC 7.58 3.80 - 9.90 K/cumm Hgb 12.4(L) 13.0 - 17.5 g/dL [facility] Hct 39.8 38.9 - 50.3 % [facility] Plt 249 150 - 400 K/cumm [facility] MPV 11.5 9.1 - 12.3 fL [facility] RBC 4.38 4.30 - 5.80 M/cumm [facility] MCV 90.9 81.3 - 96.4 fL [facility] MCH 28.3 27.1 - 33.3 pg [facility] MCHC 31.2(L) 32.3 - 35.7 g/dL [facility] RDW CV 15.9(H) 11.1 - 14.9 % [facility] RDW SD 52.3(H) 35.7 - 48.1 fL [facility] NRBC abs 0.00 0.00 - 0.01 K/cumm [facility] Blood 08/12/2024 9:59 PM CDT 08/12/2024 10:10 PM CDT us Juliet Chin MD LAB BLOOD ORDERABLES Fin al Result Performing Organization Address [facility] de Phone Number [facility] [place] [address] * (ABNORMAL) Hemoglobin A1c (08/12/2024 9:59 PM CDT) Hgb A1C 7.0(H) 4.0 - 5.6 % Estimated Average Glucose 154 mg/dL [facility] Comment: The ADA recommends reporting an estimated [...] ORDERABLES Fin al Result Performing Organization Address [facility] de Phone Number [facility] [place] [address] * (ABNORMAL) Lipid panel (08/12/2024 9:59 PM [...] revised on 2017. Triglycerides 77 <=149 mg/dL [facility] Comment: Hemolyzed; result may be falsely elevated [...] revised on 2023. Non-HDL Cholesterol 32 mg/dL [facility] Comment: Interpretive Data Ages < or = [...] last revised on 2017. Chol/HDL ratio 2 [facility] Blood 08/12/2024 9:59 PM CDT 08/12/2024 10:10 PM CDT Christy Bray MD LAB BLOOD ORDERABLES Fin al Result [facility] [place] [address] * (ABNORMAL) Comprehensive metabolic panel (08/12/2024 9:59 PM CDT) Sodium 141 135 - 145 mmol/L Potassium, pl See Comment 3.3 - 4.9 mmol/L [facility] Comment:Credited; Hemolyzed Specimen Chloride 110 97 - 110 mmol/L [facility] CO2 22 22 - 32 mmol/L [facility] Anion gap 9 2 - 15 mmol/L [facility] BUN 26(H) 6 - 25 mg/dL [facility] Creatinine 1.43(H) 0.80 - 1.30 mg/dL [facility] Glucose 121 70 - 199 mg/dL [facility] Comment: Interpretive Data Fasting glucose >/= 126 [...] Calcium 8.7 8.5 - 10.3 mg/dL [facility] Bilirubin, total 0.9 0.1 - 1.2 mg/dL [facility] Protein, pl 6.8 6.5 - 8.5 g/dL [facility] Albumin 3.5 3.5 - 5.0 g/dL [facility] Alk phos 148(H) 40 - 130 Units/L [facility] Comment:Hemolyzed; result ma y be falsely decreased ALT See Comment 7 - 55 Units/L [facility] Comment:Credited; Hemolyzed Specimen AST See Comment 10 - 50 Units/L [facility] Comment:Credited; Hemolyzed Specimen Blood 08/12/2024 9:59 PM CDT 08/12/2024 10:10 PM CDT us Juliet Chin MD LAB BLOOD ORDERABLES Fin al Result [facility] [place] [address] * (ABNORMAL) POCT ketone, blood (08/12/2024 9:17 PM CDT) Beta-Hydroxybut yrate, POC 2.3(H) 0.0 - 0.5 mmol/L Blood 08/12/2024 9:17 PM CDT 08/12/2024 9:17 PM CDT us Vale Thorne MD LAB POCT ORDERABLES - DEVIC E Final Result [facility] Department [place] [address] * POCT glucose (08/12/2024 8:51 PM CDT) Glucose, POC 113 70 - 199 mg/dL Blood 08/12/2024 8:51 PM CDT 08/12/2024 8:51 PM CDT us Notinfile Unknown LAB POCT ORDERABLES - DEVICE F inal Result [facility] [place] [address] * Colonoscopy (06/26/2024 11:50 AM CDT) Anatomical Region Laterality Modality Other Narrative Procedure Note Jaqueline Burden MD - 06/26/2024 11:50 AM CDT [facility] ENDOSCOPY Patient Name: John Mtz Procedure Date: 06/26/2024 11:50 AM Date of : 1945 Admit Type: Outpatient Age: 79 Gender: Male Attending MD: Jaqueline Burden M.D. Room: [facility] ENDOSCOPY ROOM 05 Note Status: Finalized [...] The scope was passed under direct vision.The [id number]-[id number] colonoscope was introduced through theanus and advanced [...] On: 06/26/2024 11:50 AM Recognized by the [employer] G[employer]intestinal [employer] for promoting quality in endoscopy Jaqueline Burden MD ENDOSCOPY PROCEDURES Lashanda l Result * Serum Hepatitis C ab (09/07/2013 5:17 AM CDT) HCV ab Negative NEG HISTORICAL RESULTS Comment: Interpretive Data If confirmation is required, call Laboratory Customer Service to request sample to be sent to [facility] for Hepatitis C Virus (HCV) RNA Detection and Quantitation by Real-Time Reverse Powder Compounder-PCR (RT-PCR). Current interpretive data was last revised on 2011 Serum 09/07/2013 5:17 AM CDT Narrative HISTORICAL RESULTS - 09/08/2013 7:15 AM CDT Test performed at [facility], [address] [facility],, [place], [place], [facility], [address]. Chris Montemayor MD LAB BLOOD ORDERABLES F inal Result HISTORICAL RESULTS from Last 3 Months or Most Recently Relevant to Health Maintenance Insurance MEDICARE Etable MEDICARE FOR LIFE Advance Directives For more information, please contact: [phone] * Full Code (Latest Code Status on File) Date Activated Date Inactivated Comments 08/13/2024 12:51 PM 08/19/2024 10:37 PM Care Teams Mexican Food Maker Relationship Specialty Start Date End Date Yuli Ibarra MD [address] [place] [address] PCP - General Internal Medicine 06/25/24
--- OUTSIDE RECORDS SUMMARY | 2024-10-25 15:03 | XMS_ITS | Encounter Summary ---
Author Organization [facility] - [facility] Address [address] [place] [address] Care Team Providers Care Awning Hanger Helper Name Role Phone Bereket Oquendo MD Unavailable [phone] Yuli Ibarra MD Primary Care Provider [phone] Cesar Zuluaga MD Unavailable [phone] Alcides Molina MD Unavailable Unavailable LuisanaJim bowen MD Unavailable [phone] Olivia Olguin RN Unavailable [phone] Jose Espinal MD Unavailable Tayla Tolbert RN Unavailable [phone] Jaqueline Burden MD Unavailable [phone] Encounter Details Date Type Department Care Team (Latest Contact Info) Description 11/08/2021 mascotsecret Message Enc [facility] Medical Group Multispecialty Care - [place] [address] [address] [place] [address] [place] [address] [place] [address] [address] [place] [address] Medication refill Social History Tobacco Use Types Packs/Day Years Used Date Smoking Tobacco: Former Cigarettes 0.5 8 1 202 - 8551 Smokeless Tobacco: Never Comments:smoked socially for 40 [...] Sexual Orientation Straight 01/06/2018 12 :04 PM SCHOOL INSPECTOR Occupation Industry Job Start Date Job [...] Description 11/19/2024 9:40 AM CDT [facility] [address] [facility], [address] [place] [address] Jamie Herrera DO [address] [facility] [address] [place] [address] 01/04/2025 10:30 AM SCHOOL INSPECTOR Office Visit [facility] [address] [place] [address] Bereket Oquendo MD [address] [facility] [address] [place] [address] 02/01/2025 2:40 PM SCHOOL INSPECTOR [facility] [place] [address] [address] [place] [address] [place] [address] [place] [address] documented as of this encounter Visit Diagnoses Not on filedocumented in this encounter Additional Health Concerns Infection Onset Date Last Indicated Resolved Time COVID-19 Rule Out 02/06/2024 02/06/2024 02/06/2024 2:41 PM SCHOOL INSPECTOR COVID-19 Confirmed 02/06/2024 02/06/2024 12:32 AM SCHOOL INSPECTOR Assessment Noted Time PHQ-9 Depression Total Score: 0 04/05/19 22 9:32 AM SCHOOL INSPECTOR documented as of this encounter Care Teams Awning Hanger Helper Relationship Specialty Start Date End Date Yuli Ibarra MD [address] [place] [address] PCP - General INTERNAL MEDICINE 11/03/20 Bereket Oquendo MD [facility] [address] [place] [address] [employer] Oil Plant Operator CARDIOVASCULAR DISEASE 08/15/16 Cesar Zuluaga MD [address] [address] Retina Ophthalmology 01/11/21 Alcides Molina MD [address] [address] Consulting Physician UROLOGY 01/11/21 04/29/22 Jim Lieberman MD [address] [facility] [address] [place] [address] SURGERY 01/11/21 Olivia Olguin RN [address] [place] [address] Spa Assistant Manager (Ambulatory) REGISTERED NURSE 03/14/22 03/28/22 Jose Espinal MD 1 [place] [address] Consulting Physician RADIATION ONCOLOGY 03/06/24 Tayla Tolbert, RN [address] [place] [address] Spa Assistant Manager (Ambulatory) REGISTERED NURSE 07/20/24 09/20/24 Jaqueline Burden MD [address] [facility] [address] [place] [address] Referring Physician GASTROENTEROLOGY 07/28/24 documented as of this encounter
--- OUTSIDE RECORDS SUMMARY | 2024-10-25 15:03 | XMS_ITS | Encounter Summary ---
Author Organization [facility] Address [address] [place] [address] Care Team Providers Care Oil Well Gun Perforator Operator Name Role Phone Bereket Oquendo MD Unavailable [phone] Yuli Ibarra MD Primary Care Provider [phone] Cesar Zuluaga MD Unavailable [phone] Alcides Molina MD Unavailable Unavailable LuisanaJim bowen MD Unavailable [phone] Olivia Olguin RN Unavailable [phone] Jose Espinal MD Unavailable Tayla Tolbert RN Unavailable [phone] Jaqueline Burden MD Unavailable [phone] Encounter Details Date Type Department Care Team (Late st Contact Info) Description 12/12/2021 evocatal Message Enc [facility], [address] [address] [facility] Blood pressure Social History Tobacco Use Types Packs/Day Years Used Date Smoking Tobacco: Former Cigarettes 0.5 8 1 972 - 5792 Smokeless Tobacco: Never Comments:smoked socially for 40 [...] Sexual Orientation Straight 01/06/2018 12 :04 PM SENIOR 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 [address] [place] [address] 02/01/2025 2:40 PM SENIOR JAVA WEB DEVELOPER Office Visit [facility] Multispecialty Care - [address] [place] [address] Yuli Ibarra MD [address] [facility] [address] [place] [address] documented as of this encounter Visit Diagnoses Not on filedocumented in this encounter Additional Health Concerns Infection Onset Date Last Indicated Resolved Time COVID-19 Rule Out 02/06/2024 02/06/2024 02/06/2024 2:41 PM SENIOR JAVA WEB DEVELOPER COVID-19 Confirmed 02/06/2024 02/06/2024 12:32 AM SENIOR JAVA WEB DEVELOPER Assessment Noted Time PHQ-9 Depression Total Score: 0 04/05/19 9:32 AM SENIOR JAVA WEB DEVELOPER documented as of this encounter Care Teams Oil Well Gun Perforator Operator Relationship Specialty Start Date End Date Yuli Ibarra MD [address] [address] PCP - General INTERNAL MEDICINE 11/03/20 Bereket Oquendo MD [facility] [address] [place] [address] [place] Shipping Point Inspector CARDIOVASCULAR DISEASE 08/15/16 Cesar Zuluaga MD [address] [place] [address] Retina Ophthalmology 01/11/21 Alcides Molina MD [address] [place] [address] Consulting Physician UROLOGY 01/11/21 04/29/22 Jim Lieberman MD [address] [facility] [address] [place] [address] SURGERY 01/11/21 Olivia Olguin, RN [address] [place] [address] Upper Tier (Ambulatory) REGISTERED NURSE 03/14/22 03/28/22 Jose Espinal MD 1 [place] [address] Consulting Physician RADIATION ONCOLOGY 03/06/24 Tayla Tolbert, RN [address] [place] [address] Upper Tier (Ambulatory) REGISTERED NURSE 07/20/24 09/20/24 Jaqueline Burden MD [address] [facility] [address] [place], [place] [address] Referring Physician GASTROENTEROLOGY 07/28/24 documented as of this encounter
--- OUTSIDE RECORDS SUMMARY | 2024-10-25 15:03 | XMS_ITS | Encounter Summary ---
Author Organization [facility] - [facility] Address [address] [place] [address] Care Team Providers Care Receiving Supervisor Name Role Phone Bereket Oquendo MD Unavailable [phone] Bettina Bansal PharmD Unavailable [phone] Yuli Ibarra MD Primary Care Provider [phone] Cesar Zuluaga MD Unavailable [phone] Alcides Molina MD Unavailable Unavailable LuisanaJim bowen MD Unavailable [phone] Olivia Olguin RN Unavailable [phone] Jose Espinal MD Unavailable Tayla Tolbert RN Unavailable [phone] Jaqueline Burden MD Unavailable [phone] Encounter Details Date Type Department Care Team (Latest Contact Info) Description 11/04/2020 [employer]CMilestone Scientifict Message Enc [facility] Medical Group Multispecialty Care - [address] [place] [address] Yuli Ibarra MD [address] [place] [address] [address] [place] [address] lab and medication change Social [...] Sexual Orientation Straight 01/06/2018 12 :04 PM DANDY TENDER Occupation Industry Job Start Date Job End [...] Description 11/19/2024 9:40 AM CDT Office Visit [facility] [address] [facility], [address] [place] [address] Jamie Herrera DO 3 [facility] [address] [place] [address] 01/04/2025 10:30 AM DANDY TENDER [facility] [address] [place] [address] Bereket Oquendo MD Three [facility] [address] [place] [address] 02/01/2025 2:40 PM DANDY TENDER Office Visit [facility] Multispecialty Care - [place] [address] [address] [place] [address] [place] [address] [place] [address] documented as of this encounter Visit Diagnoses Not on filedocumented in this encounter Additional Health Concerns Infection Onset Date Last Indicated Resolved Time COVID-19 Rule Out 02/06/2024 02/06/2024 02/06/2024 2:41 PM DANDY TENDER COVID-19 Confirmed 02/06/2024 02/06/2024 12:32 AM DANDY TENDER Assessment Noted Time PHQ-9 Depression Total Score: 3 11/04/19 21 9:40 AM CDT documented as of this encounter Care Teams Receiving Supervisor Relationship Specialty Start Date End Date Yuli Ibarra MD [address] [place] [address] PCP - General INTERNAL MEDICINE 11/03/20 Bereket Oquendo MD [facility] [address] [place], [place] [phone] [place] Auricular Therapist CARDIOVASCULAR DISEASE 08/15/16 Bettina Bansal, PharmD [address] [place], [place] [address] Pharmacist Pharmacist 02/28/18 01/10/21 Cesar Zuluaga MD [address] [place] [address] Retina Ophthalmology 01/11/21 Alcides Molina MD [address] [place] [address] Consulting Physician UROLOGY 01/11/21 04/29/22 [place] [address] [place] [address] [place], [place] [address] SURGERY 01/11/21 Olivia Olguin RN [address] [place] [address] Oven Heater (Ambulatory) REGISTERED NURSE 03/14/22 03/28/22 Jose Espinal MD 1 [place] [address] Consulting Physician RADIATION ONCOLOGY 03/06/24 Tayla Tolbert RN [address] [place] [address] Oven Heater (Ambulatory) REGISTERED NURSE 07/20/24 09/20/24 Jaqueline Burden MD [address] [facility] [address] [place] [address] Referring Physician GASTROENTEROLOGY 07/28/24 documented as of this encounter
--- OUTSIDE RECORDS SUMMARY | 2024-10-25 15:03 | XMS_ITS | Clinical Summary ---
Author Organization [facility] Address Critical access hospital[address] [place] [address] Care Team Providers Care Bootmaker Name Role Phone Bereket Oquendo MD Unavailable [phone] Yuli Ibarra MD Primary Care Provider [phone] Cesar Zuluaga MD Unavailable Jim Lieberman MD Unavailable [phone] oJse Espinal MD Unavailable Jaqueline Burden MD Unavailable [phone] Allergies No known active allergies Medications [...] Date Diagnosed Date CHF (congestive heart failure) ([facility]) 07/19/2024 Diarrhea, unspecified type 06/19/2024 Acute on chronic diastolic c ongestive heart failure ([facility]) 03/26/2023 Congestive heart failure, un specified HF chronicity, unspecified heart failure type ([facility]) 03/26/2023 Severe aortic valve stenosis 03/01/2022 Assessment & Plan (05/04/2022 1:07 PM CDT): He is status post transfemoral TAVR. Continue antibiotic prophylaxis prior to dental procedures. His echocardiogram was not performed prior to today's visit and I will review it. He will need an echo in 1 year. Assessment & Plan (03/23/2022 10:51 AM [employer] INTERNSH[employer]): He underwent Successful transcatheter aortic valve replacement with Medtronic Evolut Pro FX #29 mm on 03/14/22 Post op echo revealed mean gradient of 18mmHg Asa 81mg daily continued abx prior to any dental cleaning or procedure discussed Plan on repeating echo in 1 month with appt following Assessment & Plan (03/01/2022 8:17 AM A[employer] INTERNSH[employer]): He has symptomatic severe aortic valve stenosis. [...] CT scan and surgical evaluation. Prostate cancer ([facility]) 02/23/2022 Chronic kidney disease, stage III (moderate) [...] with circu latory disorder causing erectile dysfunction (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 Continue current treatment. Acquired external rotation of foot 11/26/2016 Impairment of balance 11/26/2016 Gait abnormality 11/26/2016 Atherosclerotic heart diseas e of [place] coronary artery with other forms of angina [...] surgery. Assessment & Plan (03/01/2022 8:17 AM A[employer] INTERNSHIP): He has a history of coronary artery [...] time. Assessment & Plan (03/06/2018 8:54 AM [employer] INTERNSH[employer]): Patient with stable cardiovascular disease, with routine [...] today. Assessment & Plan (03/06/2018 9:10 AM [employer] INTERNSH[employer]): Well-controlled at last fasting lipid panel 10/04. Continues on atorvastatin and cholestyramine without side effects or intolerances. Should get a repeat fasting lipid panel with next visit. 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 Seeing Dr. Son, using tramadol with reasonable effect. [place] Prescription Monitoring Program website reviewed, no indication of misuse or abuse. Myofascial pain 07/11/2016 Vitreous hemorrhage, left eye 05/18/2016 Overview (11/03/2020): Annotation - 18May2016: Lizandro Florez MD - [id number] Regular follow up with ophthalmology Stable proliferative diabeti c retinopathy of both eyes associated with type 2 diabetes mellitus ([facility]) 05/18/2016 Overview (11/03/2020): Cesar Zuluaga MD - [facility] Type 2 diabetes mellitus with proliferative diabetic retinopathy with macular edema, bilaterally Long-term use of insulin Other secondary cataract, left eye Vitreous hemorrhage, left eye [id number] 2-month follow-up. Diabetes controlled on insulin and metformin Following regularly with ophthalmology Neuropathic pain syndrome (non-herpetic) 017 Assessment & Plan (05/04/2018 6:53 AM CDT): Stable, on current dosing of gabapentin, as well as tramadol. No change to present treatment. Chronic pain 05/11/2016 Sensory peripheral neuropathy 03/13/2016 Controlled type 2 diabetes m ellitus with retinopathy, with long-term current use of insulin ([facility]) 02/14/2016 Overview (11/03/2020): - controlled - diabetic [...] monitoring. Assessment & Plan (03/06/2018 9:13 AM A[employer] INTERNSHIP): Checking routine labs at follow-up for ongoing medication monitoring. Allergic rhinitis 01/05/2016 Posterior vitreous detachment 02/01/2015 Acquired hypothyroidism 09/07/2013 Assessment & Plan (05/04/2018 6:59 AM CDT): No signs or symptoms of over or under replacement of thyroid hormone. Check TSH today and adjust medication as indicated. Assessment & Plan (03/06/2018 9:12 AM [employer] INTER[employer]): Mildly elevated thyroid stimulating hormone at last [...] 03/12/2020 Overview (01/02/2018): Description: esophagastroduodenoscopy with biopsy; [id number] GERD (gastroesophageal reflux disease) 02/01/2017 06/27/2020 Assessment & Plan (03/06/2018 8:56 AM A[employer] INTERNSHIP): Diet-controlled at this time. Continue to monitor. Edema of right lower extremity 11/26/2016 03/12/2020 Arteriosclerotic cardiovascular disease 10/23/2016 07/13/2019 Abnormal EKG 09/25/2016 10/29/2016 Hernia of anterior abdominal wall 04/09/2013 06/27/2020 Encounters Date Type Department Care Team Description 10/12/2024 [facility] [address] [facility] [address] [place] [address] Yuli Ibarra MD Medication Request 10/12/2024 Telephone [facility] [address] [facility] [address] [place] [address] Yuli Ibarra MD Medication Information 10/09/2024 Telephone [facility] [place] [address] [facility] [address] [place] [address] Yuli Ibarra MD Medication 10/09/2024 Telephone [facility] [address] [facility] [place] [address] Luis Angel Mccurdy MD FYI 10/07/2024 Results [facility]-Up [facility] [place] [address] [facility] [address] [place] [address] Yuli Ibarra MD BASIC METABOLIC PANEL, CBC W/DIFF AUTOMATED, BASIC METABOLIC PANEL 10/06/2024 2:00 PM CDT Laboratory Only [facility] [place] [address] [facility] [address] [place] [address] Yuli Ibarra MD 10/06/2024 Travel 10/05/2024 Scan [facility] INFO SRVCS Scanned, Doc Med [facility] 10/01/2024 12:15 PM CDT Telemedicine [facility] [address] [place] [id number] Bettina Marinelli, EVENING SITTER CHF; Hospital Follow Up 09/30/2024 11:00 AM CDT [facility]medicine [facility] [address] [place] [address] [address] [place] [address] Yuli Ibarra MD Follow Up (Pt is having trouble getting farxiga, pt is requesting 90 days go to [facility]. Also states he needs pain meds. ); Diabetes (States ); Sleep Problem; Prostate Cancer; Diarrhea; Hyperlipidemia; Hypertension; CHF; Back Pain 09/30/2024 Orders Only [facility] [place] [address] [place] [address] [address] [place] [address] Yuli Ibarra MD 09/30/2024 Telephone [facility] [place] [address] [place] [address] [address] [place] [address] Yuli Ibarra MD Medication Information 09/24/2024 Telephone [facility] [place] [address] [place] [address] [address] [place] [address] Yuli Ibarra MD Information 09/23/2024 10:30 AM CDT Home Care Visit [facility] Home Care [address] [place] [address] Annabella Bernard LPN SN HOME VISIT 09/22/2024 Scan [facility] INFO SRVCS Scanned, [facility] 09/21/2024 Telephone [place] [address] [address] [place] [address] Yuli Ibarra MD Called To Cancel Office Appt. 09/21/2024 Patient Outreach [place] [address] [place] [address] [address] [place] [address] Tayla Tolbert, SYD Hospital Follow Up (TCM #1) 09/15/2024 Scan [facility] INFO SRVCS Scanned, Doc [facility] 09/14/2024 11:00 AM CDT Home Care Visit [address] [place] [address] Dyana Whtaley RN SN HOME VISIT 09/10/2024 Telephone [place] [address] [address] [place] [address] Yuli Ibarra MD Medication 09/10/[address], [address] [place] [phone] Luis Angel Mccurdy MD Prior Authorization (Colonoscopy [id number]) 09/09/2024 Scan [facility] INFO SRVCS Scanned, [facility] 09/08/2024 Results Follow-Up [place] [address] [address] [place] [address] Yuli Ibarra MD COMPREHENSIVE METABOLIC PANEL, CBC W/DIFF AUTOMATED 09/07/2024 4:20 PM CDT Office Visit [place] [address] [address] [place] [address] Yuli Ibarra MD TCM (Needs refill on Dapagliflozin, norco, Zyrtec, Dicyclomine, tramadol) 09/07/2024 8:45 AM CDT Home Care Visit [facility] [address] [place] [address] [place] [address] Karla Love, SYD SN OASIS RESUMPTION OF CARE 09/07/2024 Travel 09/07/2024 Plan of Care Documentation [facility] Care [address] [place] [address] [place] [address] 09/04/2024 Telephone [place] [address] [place] [address] Yuli Ibarra MD Medication; Follow Up Call 09/04/2024 Patient Outreach [place] [address] [place] [address] Tayla Tolbert, SYD [facility] ([facility] 08/12-08/19, [facility] 08/19-09/03) 09/03/2024 Telephone [place] [address] [address] [place] [address] Yuli Ibarra MD Error 09/02/2024 Patient Outreach [place] [address] [place] [address] Tayla Tolbert, RN Hospital Follow Up 08/26/2024 Scan [facility] INFO SRVCS Scanned, Doc Med Group 08/25/2024 Patient Outreach [place] [address] [address] [place] [address] Tayla Tolbert, RN Hospital Follow Up 08/20/2024 Patient Outreach [place] [address] [place] [address] [address] [place] [address] Tayla Tolbert, RN Hospital Follow Up (Admit to [facility]. ) 08/19/2024 Scan [facility] [employer] SRVCS Scanned, Doc Med Group 08/19/2024 Patient Outreach [facility] [address] [place] [address] [address] [address] [place] [address] Tayla Tolbert, SYD Hospital Follow Up 08/19/2024 Home Care Visit [address] [place] [address] [place] [address] Zohra Rosas RN SN OASIS TRANSFER W/OUT DC 08/17/2024 10:15 AM CDT Home Care Visit [facility] Care [address] [place] [address] [place] [address] Krista Cesar CASE COMMUNICATION 08/13/2024 1:00 PM CDT Home Care Visit [address] [place] [address] [place] [address] Carissa tMz, MANAGEMENT SME CASE COMMUNICATION 08/12/2024 Scan [facility] INFO SRVCS Scanned, Doc Med Group 08/10/2024 9:00 AM CDT Home Care Visit [facility] [address] [place] [address] Carissa Mtz, MANAGEMENT SME AIDE HOME VISIT 08/07/2024 10:00 AM CDT Home Care Visit [facility] [address] [place] [address] [place] [address] Negra Gandhi LPN SN HOME VISIT 08/06/2024 2:00 PM CDT Home Care Visit [facility] [address] [place] [address] [place] [address] Carissa Mtz, MANAGEMENT SME AIDE HOME VISIT 08/05/2024 Telephone [facility] Medical [facility] Multispecialty Care - [place] [address] [place] [address] Yuli Ibarra MD Leg Pain 08/05/2024 Patient Outreach [facility] Medical [facility] Mult[facility]pecialty Care - [place] [address] [place] [address] Tayla Tolbert, RN Hospital Follow Up (TCM #1) 08/04/2024 12:00 PM CDT Home Care Visit [facility] Home Care [address] [place] [address] [place] [address] Dyana Whatley, RN SN HOME VISIT 08/03/2024 3:00 PM CDT Home Care Visit [facility] Home Care [address] [place] [address] [place] [address] Jayne Wick, PT PT INITIAL EVALUATION 08/03/2024 2:00 PM CDT Home Care Visit [facility] Home Care [address] [place] [address] [place] [address] Lyubov Camacho, OT OT INITIAL EVALUATION 08/03/2024 11:15 AM CDT Home Care Visit [facility] Care [address] [place] [address] [place] [address] Carissa Mtz, MANAGEMENT SME AIDE HOME VISIT 08/03/2024 Telephone [facility] Medical Group Multispecialty Care - [address] [place] [address] Yuli Ibarra MD Results 07/31/2024 1:15 PM CDT Home Care Visit [facility] Care [address] [place] [address] [place] [address] Carissa Mtz, MANAGEMENT SME AIDE HOME VISIT 07/31/2024 Telephone [facility], [address] [address] Bettina Marinelli, EVENING SITTER Follow Up; Results 07/30/2024 12:48 PM CDT - 07/30/2024 11:59 PM CDT Hospital Encounter [facility] [address] [place] [address] Bereket Oquendo MD Discharge Disposition: Home or Self Care (Routine Discharge) 07/30/2024 12:15 PM CDT Office Visit [facility] [address] [place] [address] Bettina Marinelli FNP Hospital Follow Up (syncope); Coronary Artery Disease; CHF 07/30/2024 Telephone [facility] [place] [address] [address] [place] [address] [address] [place] [address] Yuli Ibarra MD Follow Up Call 07/30/2024 Results [facility]Up [facility] [place] [address] [place] [address] [address] [place] [address] Yuli Ibarra MD CBC W/DIFF AUTOMATED, COMPREHENSIVE METABOLIC PANEL, C-REACTIVE PROTEIN, MAGNESIUM 07/30/2024 Plan of Care Documentation [facility] Home Care [address] [place] [address] [place] [address] 07/29/2024 2:00 PM CDT [facility] [place] [address] [place] [address] [place] [address] Yuli Ibarra MD TCM (Pts has a question about diarrhea medication ) 07/29/2024 11:00 AM CDT Home Care Visit [address] [place] [address] [place] [address] Dyana Whatley RN SN OASIS START OF CARE 07/29/2024 Travel 07/29/2024 Telephone [facility] [place] [address] [address] [place] [address] [place] [address] Yuli Ibarra MD Follow Up Call 07/28/2024 Telephone [facility] Home [address] [place] [address] [place] [address] Yuli Ibarra MD Advise 07/28/2024 Telephone [facility] [place] [address] [place] [address] [place] [address] Yuli Ibarra MD Appointment Request 07/28/2024 Telephone [facility] [place] [address] [address] [place] [address] [address] [place] [address] Yuli Ibarra MD Orders 07/28/2024 Telephone [facility] [place] [address] [facility] [address] [place] [address] Yuli Ibarra MD Referral 07/27/2024 Telephone [facility] [place] [address] [facility] [address] [place] [address] Yuli Ibarra MD [facility] 07/27/2024 Telephone [facility] [place] [address] [address] [facility] [address] [place] [address] Yuli Ibarra MD Appointment Request 07/27/2024 Patient Outreach [facility] [place] [address] [address] [facility] [address] [place] [address] Tayla Tolbert RN TCM ([facility] 07/19-07/25) 07/27/2024 Telephone [facility] [place] [address] [address] [facility] [address] [place] [address] Yuli Ibarra MD Follow Up Call 07/19/2024 3:54 PM CDT - 07/25/2024 12:46 PM CDT Hospital Encounter [facility] Med/Surg [address] [place] [address] Zack Christina MD Harris, Michael, MD Dodt, [...] MCG/ 0.5 ML DOSE 04/29/2020,04/01/2020 [facility] COVID-19 (ALLERGIST/MD NATALIA ASTRID), MRNA, LNP-S, PF, 50 MCG/ [...] materials from doctor or pharmacy Never 09/07/2024 [facility] Utilities Answer Date Recorded In the past 12 months has th e [employer], gas, oil, or water [employer] threatened to shut off services in your [...] place to sleep or slept in a assisted (including now)? No 03/14/2022 Housing Stability Vital [...] were you homeless or living in a assisted (including now)? No 07/19/2024 Sex and Gender Information Value Date Recorded Sex Assigned at Male 07/01/2019 11:12 AM CDT Legal Sex Male 1:25 PM CDT Gender Identity Male 07/01/2019 11:12 AM CDT Sexual Orientation Straight 01/06/2018 12 :04 PM [employer] Occupation Industry Job Start Date Job End [...] Description 11/19/2024 9:40 AM CDT Office Visit [facility] Medical Group Multispecialty Care - [facility] [address] [facility] [address] [place] [phone] Jamie Herrera DO [address] [place], [place] [id number] 01/04/2025 10:30 AM [employer] INTER[employer] Office Visit [facility] [address] [place] [address] Bereket Oquendo MD [facility]. [address] [address] 02/01/2025 2:40 PM [employer] INTERNS[employer] Office Visit [facility] Medical Group Multispecialty [facility] [place] [address] [place] [address] [address] [place] [address] Yuli Ibarra MD [address] [facility] [address] [place], [place] [address] Health Maintenance Due Date Last Done Comments [...] 60+ Years Completed 12/04/2023, 11/27/2023 PHQ-2 (Physician Isabela) Completed 06/19/2024 Colorectal Cancer Screening Colonoscopy (10 [...] this topic Medical Devices Implanted Type Area Dumpcart Driver Device Identifier Shelf Expiration Date Model / Serial / Lot Aortic Valve 29mm (Tavr) Implant-03/14 Implanted:Qt y: 1 on 03/14/2022 by Jeremy Pastor MD Valve Implant Aorta [employer] 10/10/2023 [id number] -[id number] / [id number] / Space Oar Lewis System Implanted:Qt y: 1 on 01/12/2022 by Alban Cervantes MD at [facility] N/A: Prostate [employer] [id number] 06/08/2023 [id number] / / [id number] Visicoil Mr [place] Fudicial Marker Implanted:Qt y: 3 on 01/12/2022 by Alban Cervantes MD at [facility] N/A: Prostate [employer] [id number] 09/17/[id number] / / [id number] Procedures Procedure Name Priority Date/Time Associated Diagnosis [...] included. GLUCOSE 214(H) 65 - 99 mg/dL [place] Comment: Fasting reference interval For someone without known diabetes, a glucose value >125 mg/dL indicates that they may have diabetes and this should be confirmed with a follow-up test. BUN 24 7 - 25 mg/dL [place] CREATININE S/P/B 1.24 0.70 - 1.28 mg/dL [place] GFR ESTIMATE 60 > OR = 60 mL/min/1.7 3m2 [place] BUN CREATININE RATIO SEE NOTE: 6 - 22 (calc) [place] Comment: Not Reported: BUN and Creatinine are within reference range. SODIUM S/P/B 142 135 - 146 mmol/L [place] POTASSIUM S/P/B 4.9 3.5 - 5.3 mmol/L [place] CHLORIDE S/P/B 105 98 - 110 mmol/L [place] CO2 30 20 - 32 mmol/L [place] CALCIUM S/P/B 8.9 8.6 - 10.3 mg/dL [place] 10/13/2024 1:33 PM CDT 10/13/2024 1:33 PM CDT Narrative Resulting Agency Comment Performing Organization Information: Site ID: [place] [facility] Address: [address] [place] [address] Director: Oumou Cheek us Yuli Ibarra MD LABORATORY Final Result [facility] [place] Money ForwardBAKER, [place] [address] [place] [address], * (ABNORMAL) CBC W/DIFF AUTOMATED (10/06/2024 1:50 [...] Performing Organization Information: Site ID: [place] Name: [facility] Address: [address] [place] [address] [place] [address] Director: Oumou Cheek MD Yuli Ibarra MD LABORATORY Final Result [facility] [place] [facility] [place] [address] [place] [address], * (ABNORMAL) COMPREHENSIVE METABOLIC PANEL (09/07/2024 5:28 PM CDT) Only the most recent of2 resultswithin the time period is included. GLUCOSE 118(H) 65 - 99 mg/dL [employer] [facility] [place] Comment: Fasting reference interval For someone without known diabetes, a glucose value between 100 and 125 mg/dL is consistent with prediabetes and should be confirmed with a follow-up test. BUN 38(H) 7 - 25 mg/dL [facility] [place] CREATININE S/P/B 1.59(H) 0.70 - 1.28 mg/dL [facility] [place] GFR ESTIMATE 44(L) > OR = 60 mL/min/1. 73m2 [facility] [place] BUN CREATININE RATIO 24(H) 6 - 22 (calc) [facility] [place] SODIUM S/P/B 140 135 - 146 mmol/L [facility] [place] POTASSIUM S/P/B 4.5 3.5 - [...] [place] AST 20 10 - 35 U/L [facility] [place] ALT 12 9 - 46 U/L [facility] [place] 09/07/2024 5:28 PM CDT 09/08/2024 6:30 AM CDT Narrative Resulting Agency Comment Performing Organization Information: Site ID: [id number] Name: Kimmy Rueda Address: [address] [address] Director: Oumou Cheek MD Yuli Ibarra MD LABORATORY Final Result [facility] [place] [address] [place] [address], [place] * XR CHEST PA+LAT (07/30/2024 1:17 PM CDT) Anatomical Region Laterality Modality Chest Radiographic Criselda ging 07/30/2024 1:39 PM CDT Impressions 07/30/2024 1:39 PM CDT IMPRESSION: No acute findings Ordered By: BETTINA MARINELLI Interpreted By: Terrance Murdock MD, 07/30/2024 1:39 PM Narrative 07/30/2024 1:39 PM CDT [address] [place] [address] 2 VIEWS OF THE CHEST Clinical history: Dry cough Comparison: July 19, 2024 2 views of the chest demonstrate the cardiac silhouette to be mildly enlarged but stable. Sternotomy changes are again noted. Elevation of the right hemidiaphragm is unchanged. The Lungs are clear. No consolidations or effusions are seen. Procedure Note Terrance Murdock MD - 07/30/[address] [place] [id number] 2 VIEWS OF THE CHEST Clinical history: [...] Murdock MD, 07/30/2024 1:39 PM Bettina Marinelli EVENING SITTER GENERAL IMAGING Final Result * (ABNORMAL) C-REACTIVE PROTEIN (07/29/2024 2:48 PM CDT) C-REACTIVE PROTEIN 10.4(H) <8.0 mg/L [facility] 07/29/2024 2:48 PM CDT 07/30/2024 4:24 AM CDT Narrative Resulting Agency Comment Performing Organization Information: Site ID: [id number] [facility] Address: [address] [place] [phone] Director: Oumou Cheek MD Yuli Ibarra MD LABORATORY Final Result Performing Organization Address City/[facility] Co de Phone Number [employer] [facility] [employer] [address] [address], * MAGNESIUM (07/29/2024 2:48 PM CDT) [facility] MAGNESIUM 1.9 1.5 - 2.5 mg/dL [facility] 07/29/2024 2:48 PM CDT 07/30/2024 4:24 AM CDT Narrative Resulting Agency Comment Performing Organization Information: Site ID: [id number] [facility]: [facility] Address: [address] [place] [phone] Director: Oumou Cheek MD Yuli Ibarra MD LABORATORY Final Result Performing Organization Address [facility] [place] Co de Phone Number [employer] [facility] [employer] [id number] [place] [address] * POCT glucose (07/25/2024 7:33 AM CDT) Pathologist [facility] GLUCOSE POC 103 70 - 110 mg/dL 07/25/2024 7:57 AM CDT [facility] 07/25/2024 7:33 AM CDT us Lalit Najera MD POCT ORDERABLES - DEVICE Fin al Result [facility] [address] [place] [address], * LIPID PANEL (07/21/2024 5:26 AM CDT) CHOLESTEROL 88 <200.0 MG/DL 07/21/2024 6:27 AM CDT [facility] TRIGLYCERIDES 42 <150 MG/DL 07/21/2024 6:27 AM CDT [facility] HDL 43 >40.0 MG/DL 07/21/2024 6:27 AM T [facility] LDL (CALCULATED) 37 <100 MG/DL 07/22/19 6:27 AM T [facility] NON HDL CHOLESTEROL 45 <130 MG/DL 07/21 6:27 AM T [facility] CHOL/HDL RATIO 2.0 0.0 - 4.5 07/21/2024 6:27 AM T [facility] VLDL CALCULATION 8 5 - 55 MG/DL 07/21/2024 6:27 AM T [facility] LIPID INTERPRETATION 07/21/2024 6:27 AM T [facility] Comment: NIH CONCENSUS REPORT RECOMMENDATIONS: ADULT CHILD LOW RISK: CHOLESTEROL <200 <170 TRIGLYCERIDE <150 --- HDL >=60 --- LDL <100 <110 BORDERLINE: CHOLESTEROL 200-239 170-199 TRIGLYCERIDE 150-199 --- HDL 40-59 --- LDL 100-159 110-129 HIGH RISK: CHOLESTEROL >=240 >=200 TRIGLYCERIDE >=200 --- HDL <40 --- LDL >=160 >=130 07/21/2024 5:26 AM CDT Eriberto Ricardo APRN LABORATORY Final Result Performing Organization Address [facility] Co de Phone Number [facility] [address] [facility] [phone], * COLONOSCOPY GENERIC (SCAN ORDER) (06/26/2024) 06/26/2024 [employer] Scanned SCANNING Final Resu lt * DIABETIC RETINOPATHY EXAM (POSITIVE) (02/05/2024) [employer] Scanned SCANNING Final Resu lt Performing Organization Address [facility] [place] Co de Phone Number [facility] [employer] * HEPATITIS C ANTIBODY (11/03/2020 9:09 AM CDT) HEPATITIS C AB NON-REACTI VE NON-REACT PARAS 11/03/2020 7:10 PM CDT [facility] Comment: ANTIBODIES TO HCV NOT DETECTED. DOES NOT EXCLUDE THE POSSIBILITY OF EXPOSURE TO HCV. 11/03/2020 9:09 AM CDT Yuli Ibarra MD LABORATORY Final Result Performing Organization Address [facility] Co de Phone Number [facility] [address] [place] [address], [place] [phone] from Last 3 Months or Most Recently Relevant to Health Maintenance Insurance [facility] MEDICARE Member Subscriber Plan / Payer (Ef fective 2012-Present) Name:John Mtz Relation to Subscriber:Self Name:John Mtz Payer ID:Not on file Group ID:Not on file Type:Indemnity Address: ATTN CLAIMS [address] Advance Directives * Full Code (Latest [...] 10:33 AM 03/01/2022 5:55 PM Care Teams Bootmaker Relationship Specialty Start Date End Date Yuli Ibarra MD [address] [facility] [address] [place] [address] PCP - General INTERNAL MEDICINE 11/03/20 Bereket Oquendo MD Three [facility] [address] [place] [address] [place] [employer] Cameraman CARDIOVASCULAR DISEASE 08/15/16 Cesar Zuluaga MD [address] [place] [address] Retina Ophthalmology 01/11/21 Jim Lieberman MD [address] [facility] [address] [address] SURGERY 01/11/21 Jose Espinal MD 1 [place] [address] Consulting Physician RADIATION ONCOLOGY 03/06/24 Jaqueline Burden MD [address] [facility] [address] [place] [address] Referring Physician GASTROENTEROLOGY 07/28/24
--- OUTSIDE RECORDS SUMMARY | 2024-10-25 15:03 | XMS_ITS | Encounter Summary ---
Author Organization [facility] Address [address] [place] [address] Care Team Providers Care Head Buyer Tobacco Name Role Phone Bereket Oquendo MD Unavailable [phone] Yuli Ibarra MD Primary Care Provider [phone] Cesar Zuluaga MD Unavailable [phone] Alcides Molina MD Unavailable Unavailable Jim Lieberman MD Unavailable [phone] Olivia Olguin RN Unavailable [phone] Jose Espinal MD Unavailable Tayla Tolbert RN Unavailable [phone] Jaqueline Burden MD Unavailable [phone] Encounter Details Date Type Department Care Team (Late st Contact Info) Description 08/10/2021 TeraView Message Enc [facility] Multispecialty Care - [address] [place] [address] [facility] Provider medication Social History Tobacco Use [...] Sexual Orientation Straight 01/06/2018 12 :04 PM PSYCHOLOGY DEPARTMENT CHAIR Occupation Industry Job Start Date Job End [...] Description 11/19/2024 9:40 AM CDT [facility] [address] [facility] [address] [place] [phone] Jamie Herrera DO 3 [facility] [address] [place] [address] 01/04/2025 10:30 AM PSYCHOLOGY DEPARTMENT CHAIR [facility] [address] [place] [address] Bereket Oquendo MD [facility] [address] [place] [address] 02/01/2025 2:40 PM PSYCHOLOGY DEPARTMENT CHAIR Office Visit [facility] Multispecialty Care - [place] [address] [address] [place], [place] [id number] Yuli Ibarra MD [address] [place] [address] [address] [place] [address] documented as of this encounter Visit Diagnoses Not on filedocumented in this encounter Additional Health Concerns Infection Onset Date Last Indicated Resolved Time COVID-19 Rule Out 02/06/2024 02/06/2024 02/06/2024 2:41 PM PSYCHOLOGY DEPARTMENT CHAIR COVID-19 Confirmed 02/06/2024 02/06/2024 12:32 AM PSYCHOLOGY DEPARTMENT CHAIR Assessment Noted Time PHQ-9 Depression Total Score: 0 04/05/19 22 9:32 AM PSYCHOLOGY DEPARTMENT CHAIR documented as of this encounter Care Teams Head Buyer Tobacco Relationship Specialty Start Date End Date Yuli Ibarra MD [address] [facility] [address] [place] [address] PCP - General INTERNAL MEDICINE 11/03/20 Bereket Oquendo MD [address] [address] [employer] CARDIOVASCULAR DISEASE 08/15/16 Cesar Zuluaga MD [address] [place] [address] Retina Ophthalmology 01/11/21 Alcides Molina MD [address] [place] [address] Consulting Physician UROLOGY 01/11/21 04/29/22 Jim Lieberman MD [address] [facility] [address] [place] [address] SURGERY 01/11/21 Olivia Olguin, RN [address] [place] [address] Manager Operations (Ambulatory) REGISTERED NURSE 03/14/22 03/28/22 Jose Espinal MD 1 [place] [address] Consulting Physician RADIATION ONCOLOGY 03/06/24 Tayla Tolbert, RN [address] [place] [address] Manager Operations (Ambulatory) REGISTERED NURSE 07/20/24 09/20/24 Jaqueline Burden MD [address] [facility] [address] [place] [address] Referring Physician GASTROENTEROLOGY 07/28/24 documented as of this encounter
--- OUTSIDE RECORDS SUMMARY | 2024-10-25 15:03 | XMS_ITS ---
Author Organization [facility] Address [address] [place] [address] Care Team Providers Care Advertising Solicitor Name Role Phone Bereket Oquendo MD Unavailable [phone] Yuli Ibarra MD Primary Care Provider [phone] Cesar Zuluaga MD Unavailable [phone] Jim Lieberman MD Unavailable [phone] Jose Espinal MD Unavailable Jaqueline Burden MD Unavailable [phone] Active Problems Problem Noted Date Diagnosed Date CHF (congestive heart failure) ([facility]) 07/19/2024 Diarrhea, unspecified type 06/19/2024 Acute on chronic diastolic c ongestive heart failure ([facility]) 03/26/2023 Congestive heart failure, un specified HF chronicity, unspecified heart failure type ([facility]) 03/26/2023 Severe aortic valve stenosis 03/01/2022 Assessment & Plan (05/04/2022 1:07 PM CDT): He is status post transfemoral TAVR. Continue antibiotic prophylaxis prior to dental procedures. His echocardiogram was not performed prior to today's visit and I will review it. He will need an echo in 1 year. Assessment & Plan (03/23/2022 10:51 AM SOLDER MAKING SUPERVISOR): He underwent Successful transcatheter aortic valve replacement with Medtronic Evolut Pro FX #29 mm on 03/14/22 Post op echo revealed mean gradient of 18mmHg Asa 81mg daily continued abx prior to any dental cleaning or procedure discussed Plan on repeating echo in 1 month with appt following Assessment & Plan (03/01/2022 8:17 AM SOLDER MAKING SUPERVISOR): He has symptomatic severe aortic valve stenosis. [...] CT scan and surgical evaluation. 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 Continue current treatment. Acquired external rotation of foot 11/26/2016 Impairment of balance 11/26/2016 Gait abnormality 11/26/2016 Atherosclerotic heart diseas e of [place] coronary artery with other forms of angina [...] surgery. Assessment & Plan (03/01/2022 8:17 AM SOLDER MAKING SUPERVISOR): He has a history of coronary artery [...] time. Assessment & Plan (03/06/2018 8:54 AM SOLDER MAKING SUPERVISOR): Patient with stable cardiovascular disease, with routine [...] today. Assessment & Plan (03/06/2018 9:10 AM SOLDER MAKING SUPERVISOR): Well-controlled at last fasting lipid panel 10/04. Continues on atorvastatin and cholestyramine without side effects or intolerances. Should get a repeat fasting lipid panel with next visit. 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 Seeing Dr. Son, using tramadol with reasonable effect. [place] Prescription Monitoring Program website reviewed, no indication of misuse or abuse. Myofascial pain 07/11/2016 Vitreous hemorrhage, left eye 05/18/2016 Overview (11/03/2020): Annotation - 18May2016: Lizandro Florez MD - [id number] Regular follow up with ophthalmology Stable proliferative diabeti c retinopathy of both eyes associated with type 2 diabetes mellitus ([facility]) 05/18/2016 Overview (11/03/2020): Cesar Zuluaga MD - [facility] Type 2 diabetes mellitus with proliferative diabetic retinopathy with macular edema, bilaterally Long-term use of insulin Other secondary cataract, left eye Vitreous hemorrhage, left eye [id number] 2-month follow-up. Diabetes controlled on insulin and metformin Following regularly with ophthalmology Neuropathic pain syndrome (non-herpetic) 017 Assessment & Plan (05/04/2018 6:53 AM CDT): Stable, on current dosing of gabapentin, as well as tramadol. No change to present treatment. Chronic pain 05/11/2016 Sensory peripheral neuropathy 03/13/2016 Controlled type 2 diabetes m kate with retinopathy, with long-term current use of insulin ([facility]) 02/14/2016 Overview (11/03/2020): - controlled [...] monitoring. Assessment & Plan (03/06/2018 9:13 AM SOLDER MAKING SUPERVISOR): Checking routine labs at follow-up for ongoing medication monitoring. Allergic rhinitis 01/05/2016 Posterior vitreous detachment 02/01/2015 Acquired hypothyroidism 09/07/2013 Assessment & Plan (05/04/2018 6:59 AM CDT): No signs or symptoms of over or under replacement of thyroid hormone. Check TSH today and adjust medication as indicated. Assessment & Plan (03/06/2018 9:12 AM SOLDER MAKING SUPERVISOR): Mildly elevated thyroid stimulating hormone at last [...] - 03/21/2022 70 Treatment Summaries Prostate cancer ([facility])* Images from the original note were not included. Survivorship Care Plan Patient Name John Mtz Date of 1945 Plan Completed By Yasmin VELARDE on 08/16/[address] Molina [phone] Lowery [phone] Primary Care Physician YULI IBARRA MD [phone] Nurse Navigator Yasmin VELARDE [phone] Diagnosis Prostate cancer ([facility]) Age at diagnosis 76-year-old Pertinent past medical history Past Medical History: Diagnosis Date Allergic rhinitis Aortic stenosis, moderate Chronic gastritis without bleeding, unspecified gastritis type 06/25/2017 Description: esophagastroduodenoscopy with biopsy; [id number] Chronic kidney disease (CKD), stage III (moderate) [...] radiation treatment for prostate carcinoma. In frequent chcf side effects can include blood in the [...] advance care planning, appointing a power of commercial litigation attorney and completing a will) Please discuss [...] Resources National USTOO for Prostate cancer https://www.ustoo.org https://www.cancer.org/cancer/prostate-cancer/about/ynxk-ov-hdzbkitd-cancer.html Go to Our Services on this site, then Support You can join a Phone Support group Join an Online Support Group Get one to one support Helpline Financial assistance help National Comprehensive Cancer Network https://www.cancer.org/cancer/prostate-cancer/about/yfri-yv-jenbopnx-cancer.html Prostate cancer National Comprehensive Cancer Network https://www.nccn.org/patients/guidelines/prostate/index.html National [facility] [place] www.cancer.gov [place] Society of Clinical Oncology (ASCO) www.cancer.net National Coalition for Cancer Survivorship (NCCS) www.canceradvocacy.org Needy Meds www.[employer]box.Koality Urology http://urologyhealth.org/educational-materials Visit Cancer.Net's survivorship section provides helpful information for cancer survivors and theirfriends and family. Download the ASCO Answers Guide to Cancer Survivorship for free as a printable pdf National Coalition for Cancer Survivorship (NCCS) www.canceradvocacy.org Survivorship: What Happens After Active Treatment Ends (View Video) https://youtu.be/YJIr6Lx0T2s Guidelines for Prostate cancer Treatment Patient Booklet https://www.nccn.org/patients/guidelines/prostate/index.html Urology http://urologyhealth.org/educational-materials www.Spring[employer] GmbHation.org Saavn Information and resources, and suport,plus access to helpful forums and chat rooms. www.Dalia Research Aging and Disability Resource Center https://www.dhs.[place].gov/adrc/consumer/index.htm (ADRC) [place] Cancer Society www.cancer.org Cancer Care, Inc www.cancercare.org Cancer Support Community www.cancersupportcommunity.org [employer] http://www.livestrong.org/what-we-do/our-actions/livestrong-programs/ymca/ Resolved Problems Problem Noted Date Diagnosed Date Resolved Date Status post incision and drainage 04/20/2019 07/01/2019 Perianal abscess 04/20/2019 07/01/2019 Wears glasses 07/10/2017 10/30/2019 Chronic gastritis without bl eeding, unspecified gastritis type 06/25/2017 03/12/2020 Overview (01/02/2018): Description: esophagastroduodenoscopy with biopsy; [id number] GERD (gastroesophageal reflux disease) 02/01/2017 06/27/2020 Assessment & Plan (03/06/2018 8:56 AM SOLDER MAKING SUPERVISOR): Diet-controlled at this time. Continue to monitor. Edema of right lower extremity 11/26/2016 03/12/2020 Arteriosclerotic cardiovascular disease 10/23/2016 07/13/2019 Abnormal EKG 09/25/2016 10/29/2016 Hernia of anterior abdominal wall 04/09/2013 06/27/2020
--- OUTSIDE RECORDS SUMMARY | 2024-10-25 15:04 | XMS_ITS | Clinical Summary ---
Author Organization [facility] Address [address] [place] [address] Care Team Providers Care Textile Machinery Instructor Name Role Phone Unavailable Primary Care Provider Unavailabl e Source Comments [facility],non-owned Affiliates and Associated Physician Practices is amultiple site organization consisting of ambulatory clinics and hospital sitesin [place], [place], [place] and [place]. This disclosure is being madepursuant to the Care Everywhere program and may not contain all information available regarding this patient. Last updated 17.[facility] Immunizations Immunization Administration Dates Next Due INFLUENZA VACCINE, HIGH-DOSE , QUADR. (FLUZONE HIGH-DOSE QUADRIVALENT; 65Y+), 0.7 ML (HD-IIV4) 12/03/2019 Social History Tobacco Use Types Packs/Day Years Used Date Smoking Tobacco: Never Assessed Sex and Gender Information Value Date Recorded Sex Assigned at Not on file Legal Sex Male 6:22 AM EXECUTIVE TEAM LEADER Gender Identity Not on file Sexual Orientation [...]
--- OUTSIDE RECORDS SUMMARY | 2024-10-25 15:04 | XMS_ITS | Encounter Summary ---
Author Organization [facility] Address [address] [place] [address] Care Team Providers Care Gelatin Plant Supervisor Name Role Phone Bereket Oquendo MD Unavailable [phone] Yuli Ibarra MD Primary Care Provider [phone] Cesar Zuluaga MD Unavailable [phone] Alcides Molina MD Unavailable Unavailable LuisanaJim bowen MD Unavailable [phone] Olivia Olguin RN Unavailable [phone] Jose Espinal MD Unavailable Tayla Tolbert RN Unavailable [phone] Jaqueline Burden MD Unavailable [phone] Encounter Details Date Type Department Care Team (Late st Contact Info) Description 02/09/2022 Ayalogic Message Enc [facility] [address] [place] [address] Bereket Oquendo MD [address] [address] Lisinopril Social History Tobacco Use Types Packs/Day Years Used Date Smoking Tobacco: Former Cigarettes 0.5 8 1 972 - 2323 Smokeless Tobacco: Never Comments:smoked socially for 40 [...] Sexual Orientation Straight 01/06/2018 12 :04 PM MENTAL HEALTH CLINICIAN Occupation Industry Job Start Date Job End Date Not on file Not on file Not on file Not on file COVID-19 Exposure Response Date Recorded In the last 10 days, have yo u been in contact with someone who was confirmed or suspected to have Coronavirus/COVID-19? No / Unsure 02/02/2022 12:31 PM MENTAL HEALTH CLINICIAN documented as of this encounter Plan of Treatment Upcoming Encounters Date Type Department Care Team (Late st Contact Info) Description 11/19/2024 9:40 AM CDT [facility] [address] [facility] [address] [place] [address] Jamie Herrera DO [address] [facility] [address] [place] [address] 01/04/2025 10:30 AM MENTAL HEALTH CLINICIAN Office Visit [facility] [address] [place] [phone] Bereket Oquendo MD Three [facility] [address] [place] [address] 02/01/2025 2:40 PM MENTAL HEALTH CLINICIAN Office Visit [facility] Multispecialty [facility] - [address] [place] [address] Yuli Ibarra MD [address] [address] documented as of this encounter Visit Diagnoses Not on filedocumented in this encounter Additional Health Concerns Infection Onset Date Last Indicated Resolved Time COVID-19 Rule Out 02/06/2024 02/06/2024 02/06/2024 2:41 PM MENTAL HEALTH CLINICIAN COVID-19 Confirmed 02/06/2024 02/06/2024 12:32 AM MENTAL HEALTH CLINICIAN Assessment Noted Time PHQ-9 Depression Total Score: 0 04/05/19 22 9:32 AM MENTAL HEALTH CLINICIAN documented as of this encounter Care Teams Gelatin Plant Supervisor Relationship Specialty Start Date End Date Yuli Ibarra MD [facility] [address] PCP - General INTERNAL MEDICINE 11/03/20 Bereket Oquendo MD [facility] [address] [place], [place] [address] [place] Scientific Process Operator CARDIOVASCULAR DISEASE 08/15/16 Cesar Zuluaga MD [address] [place] [address] Retina Ophthalmology 01/11/21 Alcides Molina MD [address] [place] [address] Consulting Physician UROLOGY 01/11/21 04/29/22 Jim Lieberman MD [address] [facility] [address] [place] [address] SURGERY 01/11/21 Olivia Olguin RN [address] [place] [address] Cushion Gum Applicator (Ambulatory) REGISTERED NURSE 03/14/22 03/28/22 Jose Espinal MD 1 [place] [address] Consulting Physician RADIATION ONCOLOGY 03/06/24 Tayla Tolbert, RN [address] [place] [address] Cushion Gum Applicator (Ambulatory) REGISTERED NURSE 07/20/24 09/20/24 Jaqueline Burden MD [facility] [address] [place] [address] Referring Physician GASTROENTEROLOGY 07/28/24 documented as of this encounter
--- NOTE | 2024-10-25 15:10 | ADMGEN ---
This patient, John Mtz, was admitted to 3 Medical Room 346-01. Patient/family oriented to hospital policies and general routines including ID bracelet, bed and alarms, visiting hours, pain management, procedures, bathroom and other care routines, personal items, smoking policy, room service/diet, and visiting hours. Information on how to activate the Rapid Response Team has been discussed. Patient/Family are encouraged to report perceived risks to care and to ask questions if they do not understand what they are told or what they should do. Report was received given by Brenda in ED
--- NOTE | 2024-10-25 15:51 | PM.IMHP ---
H&P: HPI History of Present Illness Date/Time: 10/25/24 15:51 Chief Complaint: Right foot infection Narrative: 79 years old male with history of hypertension, high cholesterol, insulin-dependent diabetes, hypothyroidism was admitted through the emergency room with complaints of having infection in the right foot area growing last few days. According to the patient he has fracture of the right foot few months ago and then was put in the cast to a few months. Few days ago cost was removed and patient was given a boot to wear. According to the patient he started having infection in the right foot few days ago since he started wearing boot. Patient denies any fever. Patient denies any shortness breath or chest pain. Patient has appointment to see his surgeon tomorrow. Patient was seen in the ER. And was started on IV antibiotics. Patient x-ray showed osteomyelitis. Patient is admitted for further evaluation treatment. Review of Systems Review of Systems: All systems reviewed & are unremarkable except as noted in HPI and below PMFSH Past Medical History Medical History BPH (benign prostatic hyperplasia) CKD (chronic kidney disease) Obesity hypoventilation syndrome Ischemic cardiomyopathy CAD (coronary artery disease) Hypothyroidism Diabetic neuropathy Diabetes Surgical History Surgical History Hx of CABG Family History Family History Father Acute myocardial infarction Sibling Diabetes mellitus Sibling Diabetes mellitus Social History Social History Smoking status: Never smoker Tobacco type: cigarettes Second hand tobacco smoke exposure: No Alcohol intake: never Substance use: never Do You Feel Safe in your Home?: Yes Lack of Transportation: No Lack of Food: Never True Current Housing: I Have Housing Concerned About Future Housing: No Difficulty Paying Gas/Electric Bills: No Difficulty Paying for Meds: No Currently Unemployed: No Education: High School Diploma/GED Difficulty w/ Childcare or Family Care: No Gender identity (if verbalized by the patient): Male Sexual Orientation (if Verbalized by the Patient): Straight or Heterosexual Spiritual care concerns: No Agree to blood products: Yes Meds Home Medications and Allergies Home Medications ?Medication ?Instructions ?Recorded ?Confirmed ?Type aspirin 81 mg tablet,delayed 81 mg PO DAILY 01/21/19 10/25/24 History release (Yannick Low Dose Aspirin) cetirizine 10 mg tablet 10 mg PO DAILY PRN allergy symptoms 01/21/19 10/25/24 History cholestyramine-aspartame 4 gram 4 g PO DAILY PRN not specified 01/21/19 10/25/24 History oral powder (Cholestyramine Light) insulin glargine 100 unit/mL 15 unit subcut DAILY 01/21/19 10/25/24 History subcutaneous solution (Lantus U-100 Insulin) insulin lispro 100 unit/mL 10 unit subcut TIDWM 01/21/19 10/25/24 History subcutaneous cartridge (Humalog U-100 Insulin) svvoxphs-sqcnzmie-wijui acid 400 1 tablet PO DAILY 01/21/19 10/25/24 History mcg-vit K 20 mcg-lycop 300 mcg tablet (Men's Multivitamin) nitroglycerin 0.4 mg sublingual 0.4 mg sublingual Q5M PRN Chest 01/21/19 10/25/24 History tablet (Nitrostat) Pain diphenoxylate-atropine 2.5 1 tablet PO QID PRN diarrhea 08/19/24 10/25/24 History mg-0.025 mg tablet ondansetron 4 mg disintegrating 4 mg PO Q6H PRN nausea and vomiting 08/19/24 10/25/24 History tablet atorvastatin 40 mg tablet (Lipitor) 40 mg PO DAILY #30 tabs 09/02/24 10/25/24 Rx dapagliflozin propanediol 10 mg 10 mg PO DAILY #30 tabs 09/02/24 10/25/24 Rx tablet dicyclomine 10 mg capsule 10 mg PO TID #90 caps 09/02/24 10/25/24 Rx gabapentin 600 mg tablet 600 mg PO BID #60 tabs 09/02/24 10/25/24 Rx hydrochlorothiazide 12.5 mg tablet 12.5 mg PO DAILY #30 tabs 09/02/24 10/25/24 Rx levothyroxine 50 mcg capsule 50 mcg PO DAILY #30 caps 09/02/24 10/25/24 Rx lisinopril 10 mg tablet 10 mg PO DAILY #30 tabs 09/02/24 10/25/24 Rx metoprolol tartrate 25 mg tablet 12.5 mg (1/2 x 25 mg) PO BID #60 09/02/24 10/25/24 Rx tabs sacubitril 24 mg-valsartan 26 mg 1 tablet PO BID #60 tabs 09/02/24 10/25/24 Rx tablet (Entresto) tamsulosin 0.4 mg capsule 0.4 mg PO HS #30 caps 09/02/24 10/25/24 Rx bumetanide 1 mg tablet 1 mg PO TuThSa@0900 #30 tabs 09/03/24 10/25/24 Rx oxycodone-acetaminophen 5 mg-325 1 tablet PO Q4H PRN Pain Rated 09/03/24 10/25/24 Rx mg tablet 7-10 #12 tabs albuterol sulfate 90 mcg/actuation 2 puff inhalation Q4-6H PRN 10/25/24 10/25/24 History aerosol inhaler shortness of breath or wheezing Allergies Allergy/AdvReac Type Severity Reaction Status Date / Time No Known Allergies Allergy Verified 10/25/24 10:54 Vital Signs Vital Signs - 24 hr 10/25/24 10:54 10/25/24 12:00 10/25/24 12:31 Temperature 36.4 C Pulse Rate 75 78 74 Respiratory Rate 18 19 19 Blood Pressure 149/47 H 151/69 H 120/95 H Pulse Oximetry 98 100 97 Oxygen Delivery Room Air Room Air 10/25/24 13:20 10/25/24 14:01 Temperature Pulse Rate 75 74 Respiratory Rate 19 27 H Blood Pressure 155/69 H 158/69 H Pulse Oximetry 99 97 Oxygen Delivery Exam Narrative: GENERAL: Well appearing, well-nourished, non-toxic, in no acute distress. HEAD: Normocephalic, atraumatic. NECK: Supple. No adenopathy, no masses. RESPIRATORY: Airway patent, respirations nonlabored. Clear to auscultation bilaterally, no rales, rhonchi, wheezing. CARDIOVASCULAR: Regular rate, + murmur. Pedal pulses stronger on L foot than R foot. ABDOMINAL: Soft, nontender, nondistended, no hepatosplenomegaly. Normoactive BS. MUSCULOSKELETAL: Moves all extremities. Strength/ROM intact without gross deformities. SKIN: Warm, dry, normal color. No rashes. + redness and swelling from mid-calf down through foot. Open sore in right medial malleolus area NEURO: A&O X3. Speech clear. Cranial nerves II-XII intact. No ataxic movements. PSYCHIATRIC: Appropriate mood and affect. Normal interaction. H&P: Results Labs Labs: Short CBC 10/25/24 Range/Units 12:27 WBC 6.9 (4.5-10.0) K/mm3 Hgb 12.5 L (14.0-18.0) g/dL Hct 40.6 L (42.0-52.0) % Plt Count 164 (150-375) k/mm3 BMP 10/25/24 12:27 Sodium 139 Potassium 4.0 Chloride 106 Carbon Dioxide 25 BUN 39 H Creatinine 1.35 H Glucose 110 Calcium 8.9 Liver Function 10/25/24 Range/Units 12:27 Total Bilirubin 1.0 (0.2-1.3) mg/dL AST 32 (17-59) U/L ALT 16 (6-50) U/L Alkaline Phosphatase 141 H (38-126) U/L Albumin 3.8 (3.5-5.1) g/dL Urine 10/25/24 Range/Units 13:20 Urine Color Yellow (Yellow) Urine Appearance Clear (Clear) Urine pH 5.5 (5.0-9.0) Ur Specific [place] 1.020 (1.001-1.035) Urine Protein 2+ H (Negative) mg/dL Urine Glucose (UA) 3+ H (Negative) mg/dL Assessment and Plan Assessment and plan (1) Osteomyelitis of right foot: Code(s): M86.9 - Osteomyelitis, unspecified Status: Acute Assessment and Plan: Blood culture and start IV antibiotics. (2) CHF (congestive heart failure): Code(s): I50.9 - Heart failure, unspecified Status: Chronic Assessment and Plan: Stable on current medication, continue current treatment. (3) T2DM (type 2 diabetes mellitus): Code(s): E11.9 - Type 2 diabetes mellitus without complications Status: Chronic Assessment and Plan: Stable on current medication, continue current treatment (4) Hypothyroidism: Code(s): E03.9 - Hypothyroidism, unspecified Status: Chronic Assessment and Plan: Stable on current medication, continue current treatment (5) CKD (chronic kidney disease): Code(s): N18.9 - Chronic kidney disease, unspecified Status: Acute Assessment and Plan: Stable on current medication, continue current treatment (6) BPH (benign prostatic hyperplasia): Code(s): N40.0 - Benign prostatic hyperplasia without lower urinary tract symptoms Status: Chronic Assessment and Plan: Stable on current medication, continue current treatment Plan Admit patient for IV antibiotic as a full admission. Case discussed with family in detail. Code status full. DVT prophylaxis Lovenox. Quality VTE Prophylaxis VTE prophylaxis: pharmacologic ordered
[2024-10-25] MEDS: VANCOMYCIN 1,250 MG/NS 250 ML 1,250 MG/250 ML BAG 167 MG IVPB (16:10)
[2024-10-25] MEDS: SACUBITRIL/VALSARTAN 24-26 MG TABLET 1 TAB PO (17:28)
[2024-10-25] MEDS: GABAPENTIN 300 MG CAPSULE 600 MG PO (17:28)
[2024-10-25] MEDS: DICYCLOMINE HCL 10 MG CAPSULE PO (17:28)
[2024-10-25] MEDS: METOPROLOL TARTRATE 12.5 MG TABLET PO (17:28)
[2024-10-25] MEDS: PIPERACILLIN/TAZOBACTAM SOD 2.25 GM in SODIUM CHLORIDE 0.9% IV 50 ML 100 ML IVPB ×2 (18:17→23:44)
[2024-10-25] MEDS: TAMSULOSIN HCL 0.4 MG CAPSULE PO (20:25)
[2024-10-25] MEDS: HYDROcodone/acetaminophen (*CRX) 5-325 MG TABLET 1 TAB PO (21:46)
[2024-10-26 05:05] VITALS: BP 147/59; PULSE 85; RESP 16; TEMP 36.9; O2SAT 97
[2024-10-26] MEDS: HYDROcodone/acetaminophen (*CRX) 5-325 MG TABLET 1 TAB PO (05:11)
[2024-10-26 05:12] LABS: Hematocrit 39.0 % (42.0-52.0); Hemoglobin 11.8 g/dL (14.0-18.0); Mean Corpuscular HGB Conc 30.3 g/dl (32-36); Mean Corpuscular Hemoglobin 26.6 pg (26-34); Mean Corpuscular Volume 87.8 fl (80-100); Platelet Count Result 146 k/mm3 (150-375); Red Blood Count 4.44 M/mm3 (4.6-6.20); White Blood Count 6.0 K/mm3 (4.5-10.0)
[2024-10-26 05:26] LABS: Alanine Aminotransferase 12 U/L (6-50); Albumin Level 3.4 g/dL (3.5-5.1); Alkaline Phosphatase 122 U/L (38-126); Anion Gap 5 mmol/L (4-12); Aspartate Amino Transferase 28 U/L (17-59); Bilirubin,Total 1.2 mg/dL (0.2-1.3); Blood Urea Nitrogen 31 mg/dL (9-20); Calcium 8.5 mg/dL (8.4-10.2); Carbon Dioxide 26 mmol/L (22-30); Chloride 105 mmol/L (98-107); Estimated CRCL calculation 51 ml/min; Estimated Glomerular Filt Rate 58; Glucose 122 mg/dL (65-110); Potassium 4.4 mmol/L (3.4-5.0); Sodium 136 mmol/L (137-145); Total Protein 6.4 g/dL (6.3-8.2)
[2024-10-26] MEDS: LEVOTHYROXINE SODIUM 50 MCG TABLET PO (05:45)
--- NOTE | 2024-10-26 07:36 | PM.IMPN ---
Progress Note: A&P Assessment and Plan (1) Osteomyelitis of right foot: Code(s): M86.9 - Osteomyelitis, unspecified Status: Acute Assessment and Plan: Blood cultures IV antibiotics general surgery consult (2) CHF (congestive heart failure): Code(s): I50.9 - Heart failure, unspecified Status: Chronic Assessment and Plan: Stable on current medication, continue current treatment. (3) T2DM (type 2 diabetes mellitus): Code(s): E11.9 - Type 2 diabetes mellitus without complications Status: Chronic Assessment and Plan: Stable on current medication, continue current treatment (4) Hypothyroidism: Code(s): E03.9 - Hypothyroidism, unspecified Status: Chronic Assessment and Plan: Stable on current medication, continue current treatment (5) CKD (chronic kidney disease): Code(s): N18.9 - Chronic kidney disease, unspecified Status: Acute Assessment and Plan: Stable on current medication, continue current treatment (6) BPH (benign prostatic hyperplasia): Code(s): N40.0 - Benign prostatic hyperplasia without lower urinary tract symptoms Status: Chronic Assessment and Plan: Stable on current medication, continue current treatment Plan Patient left AMA to attend an appointment in [place] with a surgeon from [facility]. Risks explained and patient still wants to attend appointment and will provide him with the information from this admission. Subjective Date/time seen: 10/26/24 07:36 Interval history: 79 years old male with history of hypertension, high cholesterol, insulin-dependent diabetes, hypothyroidism was admitted through the emergency room with complaints of having infection in the right foot area growing last few days.Patient has a known fracture of the right foot. Patient's x-ray showed osteomyelitis. Patient was admitted for IV antibiotics and podiatry consult. Patient seen in his room, sitting on the bed, in no acute distress. patient reports he has an appointment with a surgeon in [place] today with [facility]. The patient reports he is going to leave to go to this appointment. I explained to the patient that this is against medical advice as he has osteomyelitis and needs IV antibiotics. The patient understands the risks of leaving and not being provided the treatments recommended. The patient left AMA. Review of Systems Review of Systems: All systems reviewed & are unremarkable except as noted in HPI and below Exam Narrative: GENERAL: Well appearing, well-nourished, non-toxic, in no acute distress. HEAD: Normocephalic, atraumatic. NECK: Supple. No adenopathy, no masses. RESPIRATORY: Airway patent, respirations nonlabored. Clear to auscultation bilaterally, no rales, rhonchi, wheezing. CARDIOVASCULAR: Regular rate, + murmur. Pedal pulses stronger on L foot than R foot. ABDOMINAL: Soft, nontender, nondistended, no hepatosplenomegaly. Normoactive BS. MUSCULOSKELETAL: Moves all extremities. Strength/ROM intact without gross deformities. SKIN: Warm, dry, normal color. No rashes. + redness and swelling from mid-calf down through foot. Open sore in right medial malleolus area NEURO: A&O X3. Speech clear. Cranial nerves II-XII intact. No ataxic movements. PSYCHIATRIC: Appropriate mood and affect. Normal interaction. Objective Data Vital Signs Vital Signs: Vital Signs - 24 hr 10/25/24 10:54 10/25/24 12:00 10/25/24 12:31 Temperature 97.6 F Pulse Rate 75 78 74 Respiratory Rate 18 19 19 Blood Pressure 149/47 H 151/69 H 120/95 H Pulse Oximetry 98 100 97 Oxygen Delivery Room Air Room Air 10/25/24 13:20 10/25/24 14:01 10/25/24 17:28 Temperature Pulse Rate 75 74 83 Respiratory Rate 19 27 H Blood Pressure 155/69 H 158/69 H Pulse Oximetry 99 97 Oxygen Delivery 10/25/24 20:00 10/25/24 22:00 10/26/24 05:05 Temperature 97.5 F L 98.4 F Pulse Rate 80 80 85 Respiratory Rate 18 18 16 Blood Pressure 133/93 H 147/59 H Pulse Oximetry 100 100 97 Oxygen Delivery Room Air Intake/Output Intake/Output: Intake & Output 10/23/24 10/24/24 10/25/24 10/26/24 23:59 23:59 23:59 23:59 Intake Total 1540 Balance 1540 Meds/Results Medications: Active Medications Generic Name Dose Route Start Last Admin Trade Name Freq PRN Reason Stop Dose Admin Hydrocodone Bitart/Acetaminophen 1 tab 10/25/24 14:06 10/26/24 05:11 Hydrocodone/Acetaminophen (*Crx) 5-325 Mg Tablet PO 1 tab Q4H PRN Administration Pain Rated 4-6 Albuterol 2 puff 10/25/24 15:28 Albuterol Sulfate (*Sp) Aerosol 1 Puff INHALATION Q4-6H PRN Shortness Of Breath Or Wheezing Aspirin 81 mg 10/26/24 09:00 Aspirin 81 Mg Enteric Tablet PO DAILY [facility] Atorvastatin Calcium 40 mg 10/26/24 09:00 Atorvastatin 40 Mg Tablet PO DAILY [facility] Bumetanide 1 mg 10/27/24 09:00 Bumetanide 1 Mg Tablet PO TuThSa@0900 [facility] Dicyclomine HCl 10 mg 10/25/24 17:00 10/25/24 17:28 Dicyclomine Hcl 10 Mg Capsule PO 10 mg TID VILMA Administration Diphenoxylate HCl/Atropine 1 tablet 10/25/24 15:28 Diphenoxylate/Atropine (*Crx) 2.5 Mg Tablet PO QID PRN Diarrhea Empagliflozin 10 mg 10/26/24 09:00 Empagliflozin 10 Mg Tablet BY MOUTH DAILY [facility] Enoxaparin Sodium 40 mg 10/25/24 09:00 10/25/24 16:54 Enoxaparin 40 Mg/0.4 Ml Syringe SUB-Q Not Given DAILY [facility] Gabapentin 600 mg 10/25/24 17:00 10/25/24 17:28 Gabapentin 300 Mg Capsule PO 600 mg BID [facility] Administration Hydrochlorothiazide 12.5 mg 10/26/24 09:00 Hydrochlorothiazide 12.5 Mg Capsule PO DAILY [facility] Vancomycin HCl 1,500 mg in 500 mls @ 250 mls/hr 10/26/24 14:00 Vancomycin 1,500 Mg/Ns 500 Ml IVPB Q24H [facility] Piperacillin Sod/Tazobactam 50 mls @ 100 mls/hr 10/25/24 16:00 10/25/24 23:44 Sod 2.25 gm/ Sodium Chloride IVPB 100 mls/hr Q8H [facility] Administration Insulin Aspart 10 units 10/25/24 17:00 10/25/24 17:29 Insulin Aspart (*Bkc) 100 Units/Ml SUB-Q Not Given TIDWM [facility] Insulin Glargine 15 units 10/26/24 09:00 Insulin Glargine (*Bkc) 100 Units/Ml SUB-Q DAILY [facility] Levothyroxine Sodium 50 mcg 10/26/24 06:30 10/26/24 05:45 Levothyroxine Sodium 50 Mcg Tablet PO 50 mcg DAILY@0630 [facility] Administration Lisinopril 10 mg 10/26/24 09:00 Lisinopril 10 Mg Tablet PO DAILY [facility] Loratadine 10 mg 10/25/24 15:36 Loratadine 10 Mg Tablet PO DAILY PRN allergy symptoms Metoprolol Tartrate 12.5 mg 10/25/24 17:00 10/25/24 17:28 Metoprolol Tartrate 12.5 Mg Tablet PO 12.5 mg BID [facility] Administration Miscellaneous Information 1 each 10/25/24 00:01 What Is Prn Indication For Cholestyramine? XX 11/24/24 00:00 CLARIFY [facility] Multivitamins/Calcium 1 tablet 10/26/24 09:00 Therapeutic Multivitamins/Minerals Tab (*Bkc) PO DAILY [facility] Nitroglycerin 0.4 mg 10/25/24 15:28 Nitroglycerin Sl 0.4 Mg Tablet SUBLINGUAL Q5M PRN Chest Pain Non-Formulary Medication 4 gm 10/25/24 15:28 Cholestyramine-Aspartame [Cholestyramine Light] PO DAILY PRN not specified Ondansetron HCl 4 mg 10/25/24 15:28 Ondansetron Hcl Odt 4 Mg Tablet PO Q6H PRN Nausea And Vomiting Oxycodone/Acetaminophen 1 tablet 10/25/24 15:28 Oxycodone/Acetaminophen (*Crx) 5-325 Mg Tablet PO Q4H PRN Pain Rated 7-10 Sacubitril/Valsartan 1 tab 10/25/24 17:00 10/25/24 17:28 Sacubitril/Valsartan 24-26 Mg Tablet PO 1 tab BID [facility] Administration Tamsulosin HCl 0.4 mg 10/25/24 21:00 10/25/24 20:25 Tamsulosin Hcl 0.4 Mg Capsule PO 0.4 mg HS [facility] Administration Radiology Results: ITS Impressions Foot X-Ray 10/25/24 13:27 Impression: Osteomyelitis detailed above. Contrast-enhanced MRI is suggested to further evaluate. Labs Labs: Laboratory Results - last 24 hr 10/25/24 10/25/24 10/25/24 12:27 13:20 17:10 WBC 6.9 RBC 4.69 Hgb 12.5 L Hct 40.6 L MCV 86.6 MCH 26.7 MCHC 30.8 L RDW 16.9 H Plt Count 164 MPV 9.6 Immature Gran % (Auto) 0.1 Neut % (Auto) 52.6 Lymph % (Auto) 33.8 [place] % (Auto) 9.5 H Eos % (Auto) 3.3 Baso % (Auto) 0.7 Lymph # (Auto) 2.32 [place] # (Auto) 0.7 H Eos # (Auto) 0.2 Baso # (Auto) 0.1 Abs Immat Gran (auto) 0.01 Absolute Neuts (auto) 3.6 Absolute Nucleated RBC 0.000 Nucleated RBC % 0.0 PT 16.2 H INR 1.3 APTT 31.4 Sodium 139 Potassium 4.0 Chloride 106 Carbon Dioxide 25 Anion Gap 8 BUN 39 H Creatinine 1.35 H Estim Creat Clear Calc 49 Estimated GFR 51 L Glucose 110 POC Capillary Glucose 111 H Lactic Acid 1.1 Calcium 8.9 Total Bilirubin 1.0 AST 32 ALT 16 Alkaline Phosphatase 141 H C-Reactive Protein 3.3 H Total Protein 7.1 Albumin 3.8 Urine Color Yellow Urine Appearance Clear Urine pH 5.5 Ur Specific [place] 1.020 Urine Protein 2+ H Urine Glucose (UA) 3+ H Urine Ketones Negative Ur Blood (Man) Trace-intact H Urine Nitrate Negative Urine Bilirubin Negative Urine Urobilinogen 1.0 Leukocyte Esterase Rfl Negative Urine RBC 0-2 Urine WBC 0-5 Ur Squamous Epith Cells None seen Urine Bacteria None seen Urine Casts 0-2 10/25/24 10/26/24 10/26/24 20:24 05:01 05:14 WBC 6.0 RBC 4.44 L Hgb 11.8 L Hct 39.0 L MCV 87.8 MCH 26.6 MCHC 30.3 L RDW 16.8 H Plt Count 146 L MPV 9.8 Immature Gran % (Auto) Neut % (Auto) Lymph % (Auto) [place] % (Auto) Eos % (Auto) Baso % (Auto) Lymph # (Auto) [place] # (Auto) Eos # (Auto) Baso # (Auto) Abs Immat Gran (auto) Absolute Neuts (auto) Absolute Nucleated RBC Nucleated RBC % PT INR APTT Sodium 136 L Potassium 4.4 Chloride 105 Carbon Dioxide 26 Anion Gap 5 BUN 31 H Creatinine 1.22 Estim Creat Clear Calc 51 Estimated GFR 58 L Glucose 122 H POC Capillary Glucose 209 H 119 H Lactic Acid Calcium 8.5 Total Bilirubin 1.2 AST 28 ALT 12 Alkaline Phosphatase 122 C-Reactive Protein Total Protein 6.4 Albumin 3.4 L Urine Color Urine Appearance Urine pH Ur Specific [place] Urine Protein Urine Glucose (UA) Urine Ketones Ur Blood (Man) Urine Nitrate Urine Bilirubin Urine Urobilinogen Leukocyte Esterase Rfl Urine RBC Urine WBC Ur Squamous Epith Cells Urine Bacteria Urine Casts Quality VTE Prophylaxis VTE prophylaxis: pharmacologic ordered
[2024-10-26] MEDS: PIPERACILLIN/TAZOBACTAM SOD 2.25 GM in SODIUM CHLORIDE 0.9% IV 50 ML 100 ML IVPB (09:11)
[2024-10-26 09:13] VITALS: PULSE 72
[2024-10-26] MEDS: SACUBITRIL/VALSARTAN 24-26 MG TABLET 1 TAB PO (09:13)
[2024-10-26] MEDS: METOPROLOL TARTRATE 12.5 MG TABLET PO (09:13)
[2024-10-26] MEDS: EMPAGLIFLOZIN 10 MG TABLET BY MOUTH (09:13)
[2024-10-26] MEDS: ENOXAPARIN 40 MG/0.4 ML SYRINGE SUB-Q (09:13)
[2024-10-26] MEDS: ATORVASTATIN 40 MG TABLET PO (09:13)
[2024-10-26] MEDS: DICYCLOMINE HCL 10 MG CAPSULE PO (09:14)
[2024-10-26] MEDS: GABAPENTIN 300 MG CAPSULE 600 MG PO (09:14)
[2024-10-26] MEDS: ASPIRIN 81 MG ENTERIC TABLET PO (09:14)
[2024-10-26] MEDS: THERAPEUTIC MULTIVITAMINS/MINERALS TAB (*BKC) 1 TABLET PO (09:14)
[2024-10-26] MEDS: INSULIN ASPART (*BKC) 100 UNITS/ML 10 UNITS SUB-Q (09:15)
--- NOTE | 2024-10-26 10:49 | P.CDI_ITS ---
CDI Query Clarification Request Please clarify if patients osteomyelitis is related to diabetes? * osteomyelitis of right foot due to diabetes * osteomyelitis of right foot not related to diabetes * other, please clarify * clinically undetermined ER: Clinical Impression: Osteomyelitis, Osteomyelitis due to type 2 diabetes mellitus, Foot pain, right Hospitalist: Assessment and Plan (1) Osteomyelitis of right foot: Code(s): M86.9 - Osteomyelitis, unspecified Status: Acute Assessment and Plan: Blood culture and start IV antibiotics. (2) CHF (congestive heart failure): Code(s): I50.9 - Heart failure, unspecified Status: Chronic Assessment and Plan: Stable on current medication, continue current treatment. (3) T2DM (type 2 diabetes mellitus): Code(s): E11.9 - Type 2 diabetes mellitus without complications Status: Chronic Assessment and Plan: Stable on current medication, continue current treatment (4) Hypothyroidism: Code(s): E03.9 - Hypothyroidism, unspecified Status: Chronic Assessment and Plan: Stable on current medication, continue current treatment (5) CKD (chronic kidney disease): Code(s): N18.9 - Chronic kidney disease, unspecified Status: Acute Assessment and Plan: Stable on current medication, continue current treatment (6) BPH (benign prostatic hyperplasia): Code(s): N40.0 - Benign prostatic hyperplasia without lower urinary tract symptoms Status: Chronic Assessment and Plan: Stable on current medication, continue current treatment xray: Impression: Osteomyelitis detailed above. Contrast-enhanced MRI is suggested to further evaluate <Licha Alcala RN - Last Filed: 10/26/24 10:53> Clarified Diagnosis Clarified Diagnosis: Osteomyelitis, Osteomyelitis due to type 2 diabetes mellitus <Shanda Ruiz APRN - Last Filed: 10/27/24 15:16>
--- NOTE | 2024-10-26 10:57 | PM.CNGS ---
Assessment and Plan Assessment and plan (1) Osteomyelitis of right foot: Code(s): M86.9 - Osteomyelitis, unspecified Status: Acute Assessment and Plan: Patient presented with ulcer to right medial malleolus that he 1st noted roughly 3 days ago. He has been following up with orthopedic surgeon at [facility] for the past 3-5 after breaking his ankle. He states that on October 15 he was switched from a cast to a walking boot. This likely rubbed on the area and caused skin breakdown. X-ray demonstrated destructive changes of the 5th metatarsal head and the proximal phalanx 5th digit. Age-indeterminate fracture proximal phalanx 5th digit. Moderate to severe degenerative changes noted to the ankle joint, abnormal talus. Underlying osteonecrosis or osteomyelitis not excluded. After seeing the patient today and recommending further imaging such as MRI and antibiotic treatment, he decided to leave AMA this morning to go to follow-up appointment with orthopedic surgeon. (2) T2DM (type 2 diabetes mellitus): Code(s): E11.9 - Type 2 diabetes mellitus without complications Status: Chronic (3) CKD (chronic kidney disease): Code(s): N18.9 - Chronic kidney disease, unspecified Status: Acute Plan Discussed patient's case and plan of care with Dr. Cotton. History of Present Illness Consult details Consult date: 10/26/24 Reason for consult: other (Right foot osteomyelitis) Requesting physician: Shanda Ruiz, LISBETH Narrative: Patient is a 79 year old male with past medical history including HTN, diabetes, CKD, aortic valve replacement, bypass surgery, and hypothyroidism who we have been asked to see in surgical consultation for right foot osteomyelitis. Patient presented to the ED yesterday with concerns for a worsening right medial malleolus ulcer. Patient states that roughly 3-5 months ago he passed out and presented to an outside ED. When he was consious he was informed that he had a broken ankle that was beleived to be chronic and not from this episode of syncope. Patient endorses having several other episode of syncope prior to this one. After being informed of his broken ankle, patient was placed in a splint and sent to Dr. Ferguson with [facility] Orthopedic team. . He followed with him and was switched to a cast. Patient states he was not initially operated on due to his heart and kidney issues. He then states that the surgeon wanted to wait for swelling to go down and for bone to regenerate before operating. Patient states that on October 15, he went in for a follow up appointment and was switched from the cast to a boot. Just this past Monday 10/23, patient states that he was having his exfoliate the dry skin on his leg when she noticed the ulcer to his right medial malleolus. He has an appointment scheduled for today 10/26 with orthopedics at [facility], but due to increasing severity, he presented to [facility] yesterday. Upon admission, labs revealed a normal WBC count. A foot Xray was obtained and demonstrated destructive changes questioned of the 5th metatarsal head and proximal phalanx of the 5th digit. Age indeterminate fracture proximal phalanx 5th digit. Moderate to severe degenerative changes to ankle joint, abnormal talus, underlying osteonecrosis or osteomyelitis not excluded. Patient denies any fevers or any other systemic symptoms. He has mobility of his ankle and all of his toes. Sensation intact, however, patient does endorse diabetic neuropathy. [facility] Past Medical History Medical History BPH (benign prostatic hyperplasia) CKD (chronic kidney disease) Obesity hypoventilation syndrome Ischemic cardiomyopathy CAD (coronary artery disease) Hypothyroidism Diabetic neuropathy Diabetes Surgical History Surgical History Hx of CABG Family History Family History Father Acute myocardial infarction Sibling Diabetes mellitus Sibling Diabetes mellitus Social History Social History Smoking status: Never smoker Tobacco type: cigarettes Second hand tobacco smoke exposure: No Alcohol intake: never Substance use: never Do You Feel Safe in your Home?: Yes Lack of Transportation: No Lack of Food: Never True Current Housing: I Have Housing Concerned About Future Housing: No Difficulty Paying Gas/Electric Bills: No Difficulty Paying for Meds: No Currently Unemployed: No Education: High School Diploma/GED Difficulty w/ Childcare or Family Care: No Gender identity (if verbalized by the patient): Male Sexual Orientation (if Verbalized by the Patient): Straight or Heterosexual Spiritual care concerns: No Agree to blood products: Yes Meds Home Medications and Allergies Home Medications ?Medication ?Instructions ?Recorded ?Confirmed ?Type aspirin 81 mg tablet,delayed 81 mg PO DAILY 01/21/19 10/25/24 History release (Yannick Low Dose Aspirin) cetirizine 10 mg tablet 10 mg PO DAILY PRN allergy symptoms 01/21/19 10/25/24 History cholestyramine-aspartame 4 gram 4 g PO DAILY PRN not specified 01/21/19 10/25/24 History oral powder (Cholestyramine Light) insulin glargine 100 unit/mL 15 unit subcut DAILY 01/21/19 10/25/24 History subcutaneous solution (Lantus U-100 Insulin) insulin lispro 100 unit/mL 10 unit subcut TIDWM 01/21/19 10/25/24 History subcutaneous cartridge (Humalog U-100 Insulin) acmwzbck-gpfweopc-knyii acid 400 1 tablet PO DAILY 01/21/19 10/25/24 History mcg-vit K 20 mcg-lycop 300 mcg tablet (Men's Multivitamin) nitroglycerin 0.4 mg sublingual 0.4 mg sublingual Q5M PRN Chest 01/21/19 10/25/24 History tablet (Nitrostat) Pain diphenoxylate-atropine 2.5 1 tablet PO QID PRN diarrhea 08/19/24 10/25/24 History mg-0.025 mg tablet ondansetron 4 mg disintegrating 4 mg PO Q6H PRN nausea and vomiting 08/19/24 10/25/24 History tablet atorvastatin 40 mg tablet (Lipitor) 40 mg PO DAILY #30 tabs 09/02/24 10/25/24 Rx dapagliflozin propanediol 10 mg 10 mg PO DAILY #30 tabs 09/02/24 10/25/24 Rx tablet dicyclomine 10 mg capsule 10 mg PO TID #90 caps 09/02/24 10/25/24 Rx gabapentin 600 mg tablet 600 mg PO BID #60 tabs 09/02/24 10/25/24 Rx hydrochlorothiazide 12.5 mg tablet 12.5 mg PO DAILY #30 tabs 09/02/24 10/25/24 Rx levothyroxine 50 mcg capsule 50 mcg PO DAILY #30 caps 09/02/24 10/25/24 Rx lisinopril 10 mg tablet 10 mg PO DAILY #30 tabs 09/02/24 10/25/24 Rx metoprolol tartrate 25 mg tablet 12.5 mg (1/2 x 25 mg) PO BID #60 09/02/24 10/25/24 Rx tabs sacubitril 24 mg-valsartan 26 mg 1 tablet PO BID #60 tabs 09/02/24 10/25/24 Rx tablet (Entresto) tamsulosin 0.4 mg capsule 0.4 mg PO HS #30 caps 09/02/24 10/25/24 Rx bumetanide 1 mg tablet 1 mg PO TuThSa@0900 #30 tabs 09/03/24 10/25/24 Rx oxycodone-acetaminophen 5 mg-325 1 tablet PO Q4H PRN Pain Rated 09/03/24 10/25/24 Rx mg tablet 7-10 #12 tabs albuterol sulfate 90 mcg/actuation 2 puff inhalation Q4-6H PRN 10/25/24 10/25/24 History aerosol inhaler shortness of breath or wheezing Allergies Allergy/AdvReac Type Severity Reaction Status Date / Time No Known Allergies Allergy Verified 10/25/24 10:54 Vital Signs Vital Signs - 24 hr 10/25/24 12:00 10/25/24 12:31 10/25/24 13:20 Temperature Pulse Rate 78 74 75 Respiratory Rate 19 19 19 Blood Pressure 151/69 H 120/95 H 155/69 H Pulse Oximetry 100 97 99 Oxygen Delivery Room Air 10/25/24 14:01 10/25/24 17:28 10/25/24 20:00 Temperature Pulse Rate 74 83 80 Respiratory Rate 27 H 18 Blood Pressure 158/69 H Pulse Oximetry 97 100 Oxygen Delivery Room Air 10/25/24 22:00 10/26/24 05:05 10/26/24 09:13 Temperature 97.5 F L 98.4 F Pulse Rate 80 85 72 Respiratory Rate 18 16 Blood Pressure 133/93 H 147/59 H Pulse Oximetry 100 97 Oxygen Delivery Exam Const: General: comfortable and no acute distress Eyes: General: appearance normal, both eyes and all related structures Neck: Neck: supple and no JVD Resp: Effort & Inspection: normal respiratory effort Cardio: Rate: regular rate Skin: General skin exam: normal color Extrem: Other: Right lower extremity medial malleolus with dry 3.7 x 3.5 superficial wound. Middle is black eschar with surrounding pink tissue. Surrounding skin is erythematous, edematous, and warm. foot is deformed resembling Charcot foot. Results Labs 10/26/24 05:01 10/26/24 05:01 Labs: Abnormal lab results 10/25/24 10/25/24 10/25/24 Range/Units 12:27 13:20 17:10 RBC (4.6-6.20) M/mm3 Hgb 12.5 L (14.0-18.0) g/dL Hct 40.6 L (42.0-52.0) % MCHC 30.8 L (32-36) g/dl RDW 16.9 H (11.5-14.5) % Plt Count (150-375) k/mm3 Mcmullen % (Auto) 9.5 H (2.6-8.5) % Mcmullen # (Auto) 0.7 H (0.1-0.6) K/mm3 PT 16.2 H (11.1-14.7) Seconds Sodium (137-145) mmol/L BUN 39 H (9-20) mg/dL Creatinine 1.35 H (0.7-1.3) mg/dL Estimated GFR 51 L (59 - ) Glucose (65-110) mg/dL POC Capillary Glucose 111 H (65-105) mg/dl Alkaline Phosphatase 141 H (38-126) U/L C-Reactive Protein 3.3 H (<1.0) mg/dL Albumin (3.5-5.1) g/dL Urine Protein 2+ H (Negative) mg/dL Urine Glucose (UA) 3+ H (Negative) mg/dL Ur Blood (Man) Trace-intact H (Negative) 10/25/24 10/26/24 10/26/24 Range/Units 20:24 05:01 05:14 RBC 4.44 L (4.6-6.20) M/mm3 Hgb 11.8 L (14.0-18.0) g/dL Hct 39.0 L (42.0-52.0) % MCHC 30.3 L (32-36) g/dl RDW 16.8 H (11.5-14.5) % Plt Count 146 L (150-375) k/mm3 Mcmullen % (Auto) (2.6-8.5) % Mcmullen # (Auto) (0.1-0.6) K/mm3 PT (11.1-14.7) Seconds Sodium 136 L (137-145) mmol/L BUN 31 H (9-20) mg/dL Creatinine (0.7-1.3) mg/dL Estimated GFR 58 L (59 - ) Glucose 122 H (65-110) mg/dL POC Capillary Glucose 209 H 119 H (65-105) mg/dl Alkaline Phosphatase (38-126) U/L C-Reactive Protein (<1.0) mg/dL Albumin 3.4 L (3.5-5.1) g/dL Urine Protein (Negative) mg/dL Urine Glucose (UA) (Negative) mg/dL Ur Blood (Man) (Negative) 10/26/24 Range/Units 08:20 RBC (4.6-6.20) M/mm3 Hgb (14.0-18.0) g/dL Hct (42.0-52.0) % MCHC (32-36) g/dl RDW (11.5-14.5) % Plt Count (150-375) k/mm3 Mcmullen % (Auto) (2.6-8.5) % Mcmullen # (Auto) (0.1-0.6) K/mm3 PT (11.1-14.7) Seconds Sodium (137-145) mmol/L BUN (9-20) mg/dL Creatinine (0.7-1.3) mg/dL Estimated GFR (59 - ) Glucose (65-110) mg/dL POC Capillary Glucose 120 H (65-105) mg/dl Alkaline Phosphatase (38-126) U/L C-Reactive Protein (<1.0) mg/dL Albumin (3.5-5.1) g/dL Urine Protein (Negative) mg/dL Urine Glucose (UA) (Negative) mg/dL Ur Blood (Man) (Negative) Diabetes panel 10/25/24 10/26/24 Range/Units 12:27 05:01 Sodium 139 136 L (137-145) mmol/L Potassium 4.0 4.4 (3.4-5.0) mmol/L Chloride 106 105 (98-107) mmol/L Carbon Dioxide 25 26 (22-30) mmol/L BUN 39 H 31 H (9-20) mg/dL Creatinine 1.35 H 1.22 (0.7-1.3) mg/dL Glucose 110 122 H (65-110) mg/dL Calcium 8.9 8.5 (8.4-10.2) mg/dL AST 32 28 (17-59) U/L ALT 16 12 (6-50) U/L Alkaline Phosphatase 141 H 122 (38-126) U/L Total Protein 7.1 6.4 (6.3-8.2) g/dL Albumin 3.8 3.4 L (3.5-5.1) g/dL Calcium panel 10/25/24 10/26/24 Range/Units 12:27 05:01 Calcium 8.9 8.5 (8.4-10.2) mg/dL Albumin 3.8 3.4 L (3.5-5.1) g/dL Pituitary panel 10/25/24 10/26/24 Range/Units 12:27 05:01 Sodium 139 136 L (137-145) mmol/L Potassium 4.0 4.4 (3.4-5.0) mmol/L Chloride 106 105 (98-107) mmol/L Carbon Dioxide 25 26 (22-30) mmol/L BUN 39 H 31 H (9-20) mg/dL Creatinine 1.35 H 1.22 (0.7-1.3) mg/dL Glucose 110 122 H (65-110) mg/dL Calcium 8.9 8.5 (8.4-10.2) mg/dL Adrenal panel 10/25/24 10/26/24 Range/Units 12:27 05:01 Sodium 139 136 L (137-145) mmol/L Potassium 4.0 4.4 (3.4-5.0) mmol/L Chloride 106 105 (98-107) mmol/L Carbon Dioxide 25 26 (22-30) mmol/L BUN 39 H 31 H (9-20) mg/dL Creatinine 1.35 H 1.22 (0.7-1.3) mg/dL Glucose 110 122 H (65-110) mg/dL Calcium 8.9 8.5 (8.4-10.2) mg/dL Total Bilirubin 1.0 1.2 (0.2-1.3) mg/dL AST 32 28 (17-59) U/L ALT 16 12 (6-50) U/L Alkaline Phosphatase 141 H 122 (38-126) U/L Total Protein 7.1 6.4 (6.3-8.2) g/dL Albumin 3.8 3.4 L (3.5-5.1) g/dL All other labs normal.
--- NOTE | 2024-10-26 15:29 | PCCDE ---
10/26/24: - attempted to see patient for DM consult late this morning. Patient already DC'd. Per RN and hospitalist note: Patient left AMA to attend an appointment in [place] with a surgeon from [facility].
--- OUTSIDE RECORDS SUMMARY | 2024-11-02 11:40 | XMS_ITS | Encounter Summary ---
Author Organization [facility] Address [address] [facility] [address] [place] [address] Phone Care Team Providers Care Document Processor Name Role Phone Yuli Ibarra MD Primary Care Provider [phone] Reason for Referral * Consultation (Routine) - Pending Review Specialty Diagnoses / Procedures Referred By Giovanni aparicio Referred To Contact Vascular Surgery Diagnoses Charcot's joint of right ankle Pain and swelling of lower extremity, [place] [address] [place] [address] Phone: tel: fax: Colby Webber MD [address] [facility] [id number] [place] [address] Phone: tel: fax: Referral ID Status Reason Start Date Expiration Date Visits Requested Visits Authorized [id number] Pending Review Specialty Services Required 11/02/2024 12/02/2025 1 1 Question Answer Please select the performing region: [facility] (All Locations) [[id number]] To Provider NOTE: we will do our best to honor your provider preference, but scheduling the patient in a timely manner in our clinic will take precedence. COLBY WEBBER [[id number]] # of visits: 1 Comments Abnormal ANGELITA's Reason for Visit * Reason Comments Pain Encounter Details Date Type Department Care Team (Late st Contact Info) Description 11/02/2024 11:40 AM CDT Office Visit [facility] Medicine Orthopaedic Surgery [address] [place] [address] [place] [address] [facility] [address] [place] [address] Charcot's joint of right ankle (Primary Dx); Pain and swelling of lower extremity, unspecified laterality Social History Tobacco Use Types Packs/Day Years [...] on file 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 Gender Identity Not on file Sexual Orientation Not on file documented as of this encounter Progress Notes * Zcahary Barrera - 11/02/2024 11:40 AM CDTAssociated Order(s): Ortho Casting/Splinting Documentation Post-Procedure Diagnose(s): Charcot's joint of right ankle; Pain and swelling of lower extremity, unspecified laterality Ortho Casting/Splinting Documentation Date/Time: 11/02/2024 1:09 PM Performed by: Zachary Barrera Authorized by: Carlos Atwood MD Sensation: Normal Skin Condition: Clean, dry, and intact Gloria/Sutures Removed: No Pin Pulled: No Cast Removed: Yes Cast Applied: Yes Location: Ankle Ankle: R ankle Cast type: Total contact non weightbearing cast (windowed the medial side of his right ankle) Supplies: Fiberglass Additional Supplies: Cotton padding, cotton stocking/sleeve, felt tibia pads, felt malleolar pads and gauze Number of fiberglass rolls used: 5 Capillary Refill: Normal Patient tolerance of procedure: Tolerated well, no immediate complications documented in this encounter Plan of Treatment Scheduled Referrals Name Type Priority Associated Diagnoses Orde r Schedule Ambulatory referral to Vascular Surgery Outpatient Referral Routine Charcot's joint of right ankle Pain and swelling of lower extremity, unspecified laterality Expected: 01/02/2025 (Approximate), Expires: 11/02/2025 documented as of this encounter Procedures Procedure Name Priority Date/Time Associated Diagnosis Comments NM CAST SUP SHRT LEG FIBERGLASS Routine 11/02/2024 1:09 PM CDT Charcot's joint of right ankle Pain and swelling of lower extremity, unspecified laterality NM APPLICATION RIGID TOTAL CONTACT LEG CAST Routine 11/02/2024 1:09 PM CDT Charcot's joint of right ankle Pain and swelling of lower extremity, unspecified laterality documented in this encounter Results * NM APPLICATION RIGID TOTAL CONTACT LEG CAST, NM CAST SUP SHRT LEG FIBERGLASS (11/02/2024 1:09 PM CDT) Narrative Zachary Barrera - 11/02/2024 1:09 PM CDT Zachary Barrera 11/02/2024 1:10 PM Ortho Casting/Splinting Documentation Date/Time: 11/02/2024 1:09 PM Performed by: Zachary Barrera Authorized by: Carlos Atwood MD Sensation: Normal Skin Condition: Clean, dry, and intact [place]/Sutures Removed: No Pin Pulled: No Cast Removed: Yes Cast Applied: Yes Location: Ankle Ankle: R ankle Cast type: Total contact non weightbearing cast (windowed the medial side of his right ankle) Supplies: Fiberglass Additional Supplies: Cotton padding, cotton stocking/sleeve, felt tibia pads, felt malleolar pads and gauze Number of fiberglass rolls used: 5 Capillary Refill: Normal Patient tolerance of procedure: Tolerated well, no immediate complications us Carlos Atwood MD IN CL[facility] Final Result documented in this encounter Visit Diagnoses Diagnosis Charcot's joint of right ankle- Primary Pain and swelling of lower extremity, unspecified laterality documented in this encounter Care Teams Document Processor Relationship Specialty Start Date End Date Yuli Ibarra MD [address] [place] [id number] PCP - General Internal Medicine 06/25/24 documented as of this encounter
--- OUTSIDE RECORDS SUMMARY | 2024-11-03 10:31 | XMS_ITS | Clinical Summary ---
Author Organization [facility] Address [address] [place] [address] Care Team Providers Care Hairspring Truer Name Role Phone Unavailable Primary Care Provider Unavailabl e Source Comments [facility],non-owned Affiliates and Associated Physician Practices is amultiple site organization consisting of ambulatory clinics and hospital sitesin [place], [place], [place] and [place]. This disclosure is being madepursuant to the Care Everywhere program and may not contain all information available regarding this patient. Last updated 17.[facility] Immunizations Immunization Administration Dates Next Due INFLUENZA VACCINE, HIGH-DOSE , QUADR. 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
--- OUTSIDE RECORDS SUMMARY | 2024-11-03 10:31 | XMS_ITS | Clinical Summary ---
Author Organization [facility] Address [address] [place] [address] Care Team Providers Care Instrument Fitter Name Role Phone Yuli Ibarra MD Primary Care Provider [phone] Allergies No known active allergies Medications aspirin [...] by mouth 2 (two) times a day 02/24/19 25 Active dapagliflozin propanediol (FARXIGA) 10 mg tablet Take 1 tablet (10 mg total) by mouth daily 03/21/19 25 Active tamsulosin (FLOMAX) 0.4 mg extended release capsule Take 1 capsule (0.4 mg total) by mouth nightly 02/24/19 25 Active nitroglycerin (NITROSTAT) 0.[address] 1 tablet (0.4 mg total) under the tongue every 5 (five) minutes as needed for chest pain 09/24/19 24 Active albuterol HFA (PROVENTIL HFA,VENTOLIN HFA,PROAIR HFA) 90 mcg/actuation inhaler Inhale 2 puffs every 6 (six) hours as needed for wheezing Active ztbgkvxr-kps-zfmow -vit K-lycop 400-20-300 mcg tablet Take 1 tablet by mouth daily Active ondansetron ODT (ZOFRAN-ODT) 4 mg disintegrating tablet Take 1 tablet (4 mg total) by mouth every 6 (six) hours as needed for nausea or vomiting Active acetaminophen 500 mg capsule Take 2 capsules (1,000 mg total) by mouth every 8 (eight) hours 08/20/19 25 Active loperamide (IMODIUM) 2 mg capsuleIndications :diarrhea Take 2 capsules (4 mg total) by mouth 4 (four) times a day 08/20/19 25 Active oxyCODONE (ROXICODONE) 5 mg immediate release tabletIndications: Pain Take 1 tablet (5 mg total) by mouth every 4 (four) hours as needed for pain 08/20/19 25 Active gabapentin (NEURONTIN) 600 mg tablet Take 1 tablet (600 mg total) by mouth 3 (three) times a day 08/20/19 25 026 Active insulin lispro (HumaLOG, ADMELOG) 100 unit/mL vial for injection Inject 2-10 units under the skin 3 (three) times a day with meals. Blood glucose mg/dL 150-199: 2 units, 200-249: 4 units, 250-299: 6 units, 300-349: 8 units, 350 or greater: 10 units. Notify provider for blood glucose greater than 299 mg/dL. Refer to After Visit Summary for Sliding Scale Insulin Instructions. 08/20/19 25 Active insulin lispro (HumaLOG, ADMELOG) 100 unit/mL vial for injection Inject 0-5 Units under the skin 3 (three) times a day with meals 08/20/19 25 Active cetirizine (ZyrTEC) 10 mg tablet Take 0.5 tablets (5 mg total) by mouth as needed for allergies 08/20/19 25 Active bumetanide (BUMEX) 1 mg tablet Take 1 tablet (1 mg total) by mouth 3 (three) times a week 09/08/19 25 Active cholestyramine (QUESTRAN) 4 gram packet Indications: Diarrhea MIX 1 PACKET AND DRINK DAILY NEEDED (USUALLY MID-DAY) 09/05/19 25 Active dicyclomine (BENTYL) 10 mg capsule TAKE ONE CAPSULE BY MOUTH THREE TIMES DAILY NEEDED FOR CHANGE IN BOWEL HABITS Active famotidine (PEPCID) 40 mg tablet 07/01/19 25 Active mupirocin (BACTROBAN) 2 % ointment APPLY TOPICALLY TO THE AFFECTED AREA DAILY FOR 7 DAYS 09/09/19 25 Active oxyCODONE-acetamin ophen (PERCOCET) 5-325 mg per tablet Take 1 tablet by mouth 2 (two) times a day as needed 09/08/19 25 Active sacubitriL-valsart an (ENTRESTO) 24-26 mg tablet Take 1 tablet by mouth 2 (two) times a day 09/08/19 25 Active sulfamethoxazole-t rimethoprim (BACTRIM DS) 800-160 mg per tablet Take 1 tablet (160 mg of trimethoprim total) by mouth 2 (two) times a day for 10 days 20 tablet 10/27/19 25 025 Active HYDROcodone-acetam inophen (NORCO) 5-325 mg per tabletIndications: Pain Take 1 tablet by mouth every 6 (six) hours as needed for pain for up to 3 days 8 tablet 10/27/19 25 025 Discontin ued(Dupli cole order) Active Problems Problem Noted Date Diagnosed Date Pain and swelling of right lower extremity 10/29 Cellulitis of right lower extremity 08/13/2024 Assessment [...] [facility]Will [facility] to bumex 2mg PO PID [...] for 24 hours prior to discharge to [facility] -Will switch to bumex 2mg PO [...] electrolyte and osmolality gap - [facility] for processing CTM volume status Assessment & [...] electrolyte and osmolality gap - [facility] for processing CTM volume status Fibula fracture [...] Encounters Date Type Department Care Team Description 11/02/2024 11:40 AM CDT Office Visit [facility] Orthopaedic Surgery [address] 2nd Floor [address] [place] [address] Vidhya Chicas MD Charcot's joint of right ankle (Primary Dx); Pain and swelling of lower extremity, unspecified laterality 10/30/2024 8:45 AM CDT Ancillary Procedure [facility] Surgery [address] [facility] [address] [place] [address] Pain in right foot; Charcot's joint of right ankle; Pain in joint involving right ankle and foot; Pain and swelling of lower extremity, unspecified laterality 10/30/2024 8:00 AM CDT Office Visit [facility] Orthopaedic Surgery [address] [facility] 1st Floor [address] [place] [address] Soraya Wong NP Neuropathic ulcer, 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); Charcot's joint of right ankle 10/29/2024 Telephone [facility] Orthopaedic Surgery [address] [place] [address] 2nd Floor [address] [place] [address] Hannah Mahmood CMA 10/26/2024 2:43 PM CDT - 10/26/2024 11:59 PM CDT Hospital Encounter [facility] ([facility]) [address] [place] [address] Discharge Disposition: Discharge to home or self care 10/26/2024 1:10 PM CDT Office Visit [facility] Orthopaedic Surgery [id number] [place] [address] 2nd [address] [place] [address] Vidhya Chicas MD Pain in right foot (Primary Dx); Charcot's joint of right ankle; Pain in joint involving right ankle and foot; Pain and swelling of lower extremity, unspecified laterality 10/23/2024 2:12 PM CDT - 10/23/2024 11:59 PM CDT Hospital Encounter [facility] [address] [place] [address] Pain in joint involving right ankle and foot Discharge Disposition: Discharge to home or self care 10/15/2024 9:00 AM CDT Office Visit [facility] Orthopaedic Surgery [address] [place] [address] 2nd Floor [address] [place] [phone] Soraya Wong NP Pain in right foot (Primary Dx); Charcot's joint of right ankle 10/14/2024 Orders Only [facility] Orthopaedic Surgery [address] [facility] [address] [facility] 1st Floor [address] [place] [address] Vidhya Chicas MD Pain in joint involving right ankle and foot (Primary Dx) 10/06/2024 Orders Only [facility] Orthopaedic Surgery [address] [facility] 1st Floor [address] [place] [address] Deb Todd RMEloina 10/05/2024 12:34 PM CDT - 10/05/2024 11:59 PM CDT Hospital Encounter [facility] [address] [place] [address] Pain in joint involving right ankle and foot Discharge Disposition: Discharge to home or self care 10/05/2024 12:30 PM CDT - 10/05/2024 11:59 PM CDT Hospital Encounter [facility] [address] [place] [address] Pain in right foot Discharge Disposition: Discharge to home or self care 10/05/2024 12:20 PM CDT Office Visit [facility] Orthopaedic Surgery [address] [place] [address] [place] [phone] Vidhya Chicas MD Pain in joint involving right ankle and foot (Primary Dx); Pain in right foot 09/22/2024 2:45 PM CDT Office Visit [facility] Orthopaedic Surgery [address] [place] [address] [place] [phone] Soraya Wong NP Charcot's joint of right ankle (Primary Dx) 09/09/2024 8:40 AM CDT Office Visit [facility] Orthopaedic Surgery [address] [place] [address] Floor [address] [place] [phone] Vidhya Chicas MD Charcot joint of right foot (Primary Dx) 08/26/2024 10:15 AM CDT Office Visit [facility] Orthopaedic Surgery [address] [facility] Medical Office Building [address] [place] [phone] Drake Ariza NP Pain in joint involving right ankle and foot (Primary Dx) 08/14/2024 Telephone [facility] Orthopaedic Surgery [address] [facility] Medical Office Building [address] [place] [phone] Kelley Devine RN 08/13/2024 11:40 AM CDT Ancillary Procedure [facility] Vascular Lab IP [address] [facility] [address] [place] [address] 08/13/2024 Orders Only [facility] Orthopaedic Surgery [address] [facility] 6th [place] [address] [place] [phone] Annabella Barrera MD Charcot joint of right foot (Primary Dx) 08/12/2024 8:33 PM CDT - 08/19/2024 6:30 PM CDT Hospital Encounter [facility] [address] [place] [address] Dany Parker MD Serpe, MD Asa Menjivar, [...] Back Surgery - (Added by TW Conv) OK UNLISTED PROCEDURE ABDOME N PERITONEUM & OMENTUM 1999 11 inches of colon removed, cyst formed and removed. 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 Gender Identity Not on file Sexual Orientation [...] - - Weight 117.9 kg (260 lb) 10/30/2024 7:37 AM CDT Height 170.2 cm (5' 7) 10/30/2024 7:37 AM CDT Body Mass Index 40.72 10/30/2024 7:37 AM CDT Plan of Treatment Health Maintenance Due Date Last Done Comments Albumin Creatinine Ratio, Urine 1945 Depression Screening 1945 Dilated Eye Exam 1945 Foot Exam 1945 Hepatitis B Screening 1965 Well Visit 65+ 2012 Covid-19 Vaccine (5 - 2024-2 6 season) 2024 10/13/2021, 02/28/2021, 04/29/2020, Additional [...] Procedure Name Priority Date/Time Associated Diagnosis Comments OK CAST SUP SHRT LEG FIBERGLASS Routine 11/02/2024 1:09 PM CDT Charcot's joint of right ankle Pain and swelling of lower extremity, unspecified laterality OK APPLICATION RIGID TOTAL CONTACT LEG CAST Routine 11/02/2024 1:09 PM CDT Charcot's joint of right ankle Pain and swelling of lower extremity, unspecified laterality OK CAST SUP SHRT LEG FIBERGLASS Routine 10/30/2024 8:56 AM CDT Neuropathic ulcer, 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) Charcot's joint of right ankle OK APPLICATION RIGID TOTAL CONTACT LEG CAST Routine 10/30/2024 8:56 AM CDT Neuropathic ulcer, 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) Charcot's joint of right ankle US ARTERIAL DOPPLER LOWER EXTREMITY BILATERAL Schedule Routine, Read Routine (OP Routine) 10/30/2024 8:32 AM CDT Pain in right foot Charcot's joint of right ankle Pain in joint involving right ankle and foot Pain and swelling of lower extremity, unspecified laterality OK CAST SUP SHRT LEG FIBERGLASS Routine 10/26/2024 7:05 PM CDT Pain in right foot Charcot's joint of right ankle OK APPLICATION RIGID TOTAL CONTACT LEG CAST Routine 10/26/2024 7:05 PM CDT Pain in right foot Charcot's joint of right ankle XR TRANSFER OF OUTSIDE FILMS Routine 10/26/2024 2:[address] ANKLE RIGHT WO CONTRAST Schedule Routine, Read Routine (OP Routine) 10/23/2024 2:56 PM CDT Pain in joint involving right ankle and foot ORTHO CASTING/SPLINTING Routine 10/15/2024 10:07 AM CDT Pain in right foot OK CAST SUP SHRT LEG FIBERGLASS Routine 10/05/2024 1:44 PM CDT Pain in joint involving right ankle and foot OK APPLICATION RIGID TOTAL CONTACT LEG CAST Routine [...] in joint involving right ankle and foot OK CAST SUP SHRT LEG FIBERGLASS Routine 09/22/2024 6:56 PM CDT Charcot's joint of right ankle OK APPLICATION RIGID TOTAL CONTACT LEG CAST Routine 09/22/2024 6:56 PM CDT Charcot's joint of right ankle OK CAST SUP SHRT LEG FIBERGLASS Routine 09/09/2024 10:06 AM CDT Charcot joint of right foot OK APPLICATION RIGID TOTAL CONTACT LEG CAST Routine 09/09/2024 10:06 AM CDT Charcot joint of right foot OK CAST SUP SHT LEG SPLNT PLSTR Routine 08/26/2024 11:00 AM CDT Pain in joint involving right ankle and foot OK APPLICATION SHORT LEG SPLINT CALF FOOT Routine 08/26/2024 11:00 AM CDT Pain in joint involving right ankle and foot POCT GLUCOSE DEVICE Routine 08/19/2024 11:54 AM CDT POCT GLUCOSE DEVICE Routine 08/19/2024 [...] PM CDT POCT GLUCOSE DEVICE Routine 08/18/2024 11:45 AM CDT POCT GLUCOSE DEVICE Routine 08/18/2024 [...] PM CDT POCT GLUCOSE DEVICE Routine 08/17/2024 11:49 AM CDT POCT GLUCOSE DEVICE Routine 08/17/2024 [...] PM CDT POCT GLUCOSE DEVICE Routine 08/16/2024 11:21 AM CDT POCT GLUCOSE DEVICE Routine 08/16/2024 8 :07 AM CDT EGFR Routine 08/15/2024 11:08 PM CDT CRITICAL RESULT CALLBACK CHEMISTRY Timed 08/15/2024 11:08 PM CDT DIFFERENTIAL AUTO Routine 08/15/2024 11:08 PM CDT VANCOMYCIN LEVEL TROUGH Timed 08/15/2024 [...] PM CDT POCT GLUCOSE DEVICE Routine 08/15/2024 12:05 PM CDT POCT GLUCOSE DEVICE Routine 08/15/2024 [...] AM CDT POCT GLUCOSE DEVICE Routine 08/13/2024 12:[address] ENTIRE LOWER EXTREMITY RIGHT [...] Recently Relevant to Health Maintenance Results * OK APPLICATION RIGID TOTAL CONTACT LEG CAST, OK CAST SUP SHRT LEG FIBERGLASS (11/02/2024 1:09 PM CDT) Narrative Zachary Barrera - 11/02/2024 1:09 PM CDT Zachary Barrera 11/02/2024 1:10 PM Ortho Casting/Splinting Documentation Date/Time: 11/02/2024 1:09 PM Performed by: Zachary Barrera Authorized by: Vidhya Chicas MD Sensation: Normal Skin Condition: Clean, dry, [...] procedure: Tolerated well, no immediate complications us Vidhya Chicas MD IN CLINIC/BEDSIDE NAMRATA TAYLOR Final Result * OK APPLICATION RIGID TOTAL CONTACT LEG CAST, OK CAST SUP SHRT LEG FIBERGLASS (10/30/2024 8:56 AM CDT) Narrative Igor Villatoro 10/30/2024 8:56 AM CDT Igor Villatoro 10/30/2024 8:58 AM Ortho Casting/Splinting Documentation Date/Time: 10/30/2024 8:56 AM Performed by: Igor Villatoro Authorized by: Soraya Wong NP Sensation: Normal Skin Condition: Clean, dry, and intact Gloria/Sutures Removed: No Pin Pulled: No Cast Removed: Yes Cast Applied: Yes Overwrap: No Location: Ankle Ankle: R ankle Cast type: Total contact non weightbearing cast Supplies: Fiberglass Additional Supplies: Cotton padding, cotton stocking/sleeve, felt malleolar pads, silvadene and adaptic Number of fiberglass rolls used: 5 Capillary Refill: Normal Patient tolerance of procedure: Tolerated well, no immediate complications Window cut, silvadene and adaptic us Soraya Wong NP IN CLINIC/BEDSIDE ORDERABLES F inal Result * US Arterial Doppler Lower Extremity Bilateral (10/30/2024 8:32 AM CDT) Anatomical Region Laterality Modality Vascular Bilateral Ultrasound 10/30/2024 7:52 AM CDT Narrative 10/31/2024 10:40 AM CDT [facility] - Department of Vascular Surgery, Vascular Laboratory [address] [place] [address] Lower Extremity Arterial Doppler Report Patient Name: JOHN MTZ : 1945 Study Date: 10/30/2024 7:52:00 AM Sex: M Tech: Zahida Escoto [facility] Location: [facility] Provider: VIDHYA CHICAS Quality: Adequate Order Provider: VIDHYA CHICAS PROCEDURES: Arterial Report: Bilateral lower extremity arterial Doppler exam at rest. INDICATIONS: M79.671 Pain in right foot, M14.671 Charcot's joint, right ankle and foot, M25.571 Pain in right ankle and joints of right foot, M79.606 Pain in leg, unspecified, and M79.89 Other specified soft tissue disorders. Pain and swelling of lower extremity, unspecified laterality. MEASUREMENTS: Right Value Units Left Value Units Rt Brachial Pressure 129 mmHg Lt Brachial Pressure 120 mmHg Rt FORMSTONE FITTER Pressure 90 mmHg Lt FORMSTONE FITTER Pressure 77 mmHg Rt DPA Pressure >254 mmHg Lt DPA Pressure >254 mmHg Rt 1st Digit Pressure 36 mmHg Lt 1st Digit Pressure 55 mmHg Rt PT ANGELITA Resting 0.7 Lt PT ANGELITA Resting 0.6 Rt AT ANGELITA Resting N/C Lt AT ANGELITA Resting N/C Rt Digit/Arm Index 0.28 Lt Digit/Arm Index 0.43 Right Value Units Left Value Units FINDINGS: Performing [employer] Law Professor: Zahida Escoto RVT. Right Common Femoral Artery Analysis: The common femoral artery waveform is multiphasic. Right Popliteal Artery Analysis: The popliteal waveform is monophasic. Right Posterior Tibial Artery Analysis: The posterior tibial waveform is monophasic. Right Anterior Tibial Artery Analysis: The anterior tibial waveform is monophasic. The right ankle pressure is non-compressible. Right Digits: The right digit waveform is dampened. Left Common Femoral Artery Analysis: The common femoral artery waveform is multiphasic. Left Popliteal Artery Analysis: The popliteal waveform is multiphasic. Left Posterior Tibial Artery Analysis: The posterior tibial waveform is monophasic. Left Anterior Tibial Artery Analysis: The anterior tibial waveform is monophasic. The left ankle segmental pressure is non-compressible. Left Digits: The left digit waveform is dampened. CONCLUSIONS: 1. The above listed Ankle/Brachial Indicies at rest are consistent with moderate peripheral arterial disease - claudication, bilaterally (for reference, claudication range is 0.50 -0.89). 2. Bilateral Digit/Arm Indices are abnormal (for reference, abnormal EJANETTE is <0.6). 3. There is evidence of right leg arterial insufficiency at the level of femoral-popliteal arteries. 4. There is evidence of left leg arterial insufficiency at the level of infrapopliteal arteries. HISTORY: Pain in right foot. Charcot's joint of right ankle. Diabetes mellitus. PREVIOUS STUDIES: No previous studies for comparison. DISCLAIMER: The study images and the final [...] that is provided above. Electronically Signed By: Colby Webber MD FACS 10/31/2024 10:00:06 AM CDT Procedure Note Colby Webber MD - 10/31/2024 [facility] - Department of Vascular Surgery,Vascular Laboratory [address] [place] [address] Lower Extremity Arterial Doppler Report Patient Name: JOHN MTZ : 1945 Study Date: 10/30/2024 7:52:00 AM Sex: M Tech: Zahida Escoto [facility] Location: [facility] Provider: VIDHYA CHICAS Quality: Adequate Order Provider: VIDHYA CHICAS PROCEDURES: Arterial Report: Bilateral lower extremity arterial Doppler exam at rest. INDICATIONS: M79.671 Pain in right foot, M14.671 Charcot's joint, right ankle and foot,M25.571 Pain in right ankle and joints of right foot, M79.606 Pain in leg, unspecified,and M79.89 Other specified soft tissue disorders. Pain and swelling of lowerextremity, unspecified laterality. MEASUREMENTS: Right Value Units Left Value Units Rt Brachial Pressure 129 mmHg Lt Brachial Pressure 120 mmHg Rt FORMSTONE FITTER Pressure 90 mmHg Lt FORMSTONE FITTER Pressure 77 mmHg Rt DPA Pressure >254 mmHg Lt DPA Pressure >254 mmHg Rt 1st Digit Pressure 36 mmHg Lt 1st Digit Pressure 55 mmHg Rt PT ANGELITA Resting 0.7 Lt PT ANGELITA Resting 0.6 Rt AT ANGELITA Resting N/C Lt AT ANGELITA Resting N/C Rt Digit/Arm Index 0.28 Lt Digit/Arm Index 0.43 Right Value Units Left Value Units FINDINGS: Performing [employer] Law Professor: Zahida Escoto RVT. Right Common Femoral Artery Analysis: The common femoral artery waveform is multiphasic. Right Popliteal Artery Analysis: The popliteal waveform is monophasic. Right Posterior Tibial Artery Analysis: The posterior tibial waveform is monophasic. Right Anterior Tibial Artery Analysis: The anterior tibial waveform is monophasic. The right ankle pressure isnon-compressible. Right Digits: The right digit waveform is dampened. Left Common Femoral Artery Analysis: The common femoral artery waveform is multiphasic. Left Popliteal Artery Analysis: The popliteal waveform is multiphasic. Left Posterior Tibial Artery Analysis: The posterior tibial waveform is monophasic. Left Anterior Tibial Artery Analysis: The anterior tibial waveform is monophasic. The left ankle segmentalpressure is non-compressible. Left Digits: The left digit waveform is dampened. CONCLUSIONS: 1. The above listed Ankle/Brachial Indicies at rest are consistent withmoderate peripheral arterial disease - claudication, bilaterally (for reference,claudication range is 0.50 -0.89). 2. Bilateral Digit/Arm Indices are abnormal (for reference, abnormal DAIis <0.6). 3. There is evidence of right leg arterial insufficiency at the level of femoral-popliteal arteries. 4. There is evidence of left leg arterial insufficiency at the level ofinfrapopliteal arteries. HISTORY: Pain in right foot. Charcot's joint of right ankle. Diabetes mellitus. PREVIOUS STUDIES: No previous studies for comparison. DISCLAIMER: The study images and the final report will be retained in the patientchart by the Vascular Laboratory for the legally required time period. This chartconstitutes the legal record of any testing performed. ATTESTATION: I have reviewed and interpreted the pertinent images and measurements ofthis study. I attest to the conclusions in the final report that is provided above. Electronically Signed By: Colby Webber MD, FACS 10/31/2024 10:00:06 AM CDT us Vidhya Chicas MD IMG US PROCEDURES Lashanda l Result * OK APPLICATION RIGID TOTAL CONTACT LEG CAST, OK CAST SUP SHRT LEG FIBERGLASS (10/26/2024 7:05 PM CDT) Narrative Zachary Barrera - 10/26/2024 7:05 PM CDT Zachary Barrera 10/26/2024 7:07 PM Ortho Casting/Splinting Documentation Date/Time: 10/26/2024 7:05 PM Performed by: Zachary Barrera Authorized by: Vidhya Chicas MD Sensation: Normal Skin Condition: Clean, dry, and intact Gloria/Sutures Removed: No Pin Pulled: No Cast Removed: Yes Cast Applied: Yes Location: Ankle Ankle: R ankle Cast type: Total contact non weightbearing cast (Windowed lateral part of the cast) Supplies: Fiberglass Additional Supplies: Cotton padding, cotton stocking/sleeve, felt tibia pads, felt malleolar pads and gauze Number of fiberglass rolls used: 5 Capillary Refill: Normal Patient tolerance of procedure: Tolerated well, no immediate complications us Vidhya Chicas MD IN CLINIC/BEDSIDE NAMRATA TAYLOR Final Result * XR Outside Reference (10/26/2024 2:43 PM CDT) Impressions [facility] - 10/26/2024 2:43 PM CDT These images are for Reference purposes only and have not been reviewed by [facility]. There will be no report generated by a [facility] Radiologist. Narrative [facility] - 10/26/2024 2:43 PM CDT EXAMINATION: Images For Reference Purposes Only us Vidhya Chicas MD IMG XR PROCEDURES Lashanda l Result [facility] * CT Ankle Right WO Contrast (10/23/2024 [...] it. Electronically signed by: Aung Gregorio MD us Vidhya Chicas MD IMG CT PROCEDURES Lashanda l Result [...] of procedure: Tolerated well, no immediate complications Result [facility] Soraya Wong TRIAL LAWYER IN CLINIC/BEDSIDE ORDERABLES F inal Result * OK APPLICATION RIGID TOTAL CONTACT LEG CAST, OK CAST SUP SHRT LEG FIBERGLASS (10/05/2024 1:44 PM CDT) Narrative Vidhya Chicas MD - 10/05/2024 1:44 PM CDT Vidhya Chicas MD 10/11/2024 10:17 PM Ortho Casting/Splinting Documentation Date/Time: 10/05/2024 1:44 PM Performed by: Jennifer Dean, MS Authorized by: Vidhya Chicas MD Sensation: Normal Skin Condition: Clean, dry, [...] of procedure: Tolerated well, no immediate complications Vidhya Chicas MD IN CLINIC/BEDSIDE NAMRATA TAYLOR Edited Result [...] Electronically signed by: Andres Lua M.D. us Vidhya Chicas MD IMG XR PROCEDURES Lashanda l Result [...] it. Electronically signed by: Andres Lua M.D. Vidhya Chicas MD IMG XR PROCEDURES Lashanda l Result * OK APPLICATION RIGID TOTAL CONTACT LEG CAST, OK CAST SUP SHRT LEG FIBERGLASS (09/22/2024 6:56 PM CDT) Narrative Zachary Barrera - 09/22/2024 6:56 PM CDT Zachary Barrera 09/22/2024 6:56 PM Ortho Casting/Splinting Documentation Date/Time: 09/22/2024 6:56 PM Performed by: Zachary Barrera Authorized by: Soraya Wong NP Sensation: Normal Skin Condition: Clean, dry, and intact [employer]/Sutures Removed: No Pin Pulled: No Cast Removed: [...] IN CLINIC/BEDSIDE ORDERABLES F inal Result * OK APPLICATION RIGID TOTAL CONTACT LEG CAST, OK CAST SUP SHRT LEG FIBERGLASS (09/09/2024 10:06 AM CDT) Narrative Vidhya Chicas MD - 09/09/2024 10:06 AM CDT Vidhya Chicas MD 09/11/2024 1:11 AM Ortho Casting/Splinting Documentation Date/Time: 09/09/2024 10:06 AM Performed by: Gm Shaver Authorized by: Vidhya Chicas MD Sensation: Normal Skin Condition: Clean, dry, and intact [employer]/Sutures Removed: No Pin Pulled: No Cast Removed: Yes Cast Applied: Yes Location: Ankle Ankle: R ankle Cast type: Total contact non weightbearing cast Supplies: Fiberglass Additional Supplies: Cotton padding, cotton stocking/sleeve and felt padding Number of fiberglass rolls used: 3 Capillary Refill: Normal Patient tolerance of procedure: Tolerated well, no immediate complications us Vidhya Chicas MD IN CLINIC/BEDSIDE NAMRATA TAYLOR Edited Result - Final * OK APPLICATION SHORT LEG SPLINT CALF FOOT, OK CAST SUP SHT LEG SPLNT PLSTR (08/26/2024 11:00 AM CDT) Narrative Kishore Arevalo - 08/26/2024 11:00 AM CDT Kishore Arevalo 08/26/2024 11:02 AM Ortho Casting/Splinting Documentation Date/Time: 08/26/2024 11:00 AM Performed by: Kishore Arevalo Authorized by: Drake Ariza, TRIAL LAW[employer]ER Sensation: Normal Skin Condition: Clean, dry, and intact [place]/Sutures Removed: No Pin Pulled: No Cast Removed: Yes (BULKY SANTOS) Overwrap: No Location: Ankle Ankle: R ankle Splint type: Bulky santos splint Supplies: Plaster Additional Supplies: Cotton padding, cotton stocking/sleeve and elastic bandage(s) Capillary Refill: Normal Patient tolerance of procedure: Tolerated well, no immediate complications us Drake Ariza [employer] LAWYER IN CLINIC/BEDSIDE ORDERABL ES Final Result * (ABNORMAL) POCT glucose (08/19/2024 11:54 AM CDT) Glucose, POC 208(H) 70 - 199 mg/dL Blood 08/19/2024 11:5 4 AM CDT 08/19/2024 11:54 AM CDT Florentino Roldan MD LAB POCT ORDERABLES - DEV ICE Final Result Performing Organization Address City/[facility]/ZIP Co de Phone Number [facility] [place] [address] * POCT glucose (08/19/2024 7:55 AM CDT) Glucose, POC 135 70 - 199 mg/dL Blood 08/19/2024 7:55 AM CDT 08/19/2024 7:55 AM CDT Florentino Roldan MD LAB POCT ORDERABLES - DEV ICE Final Result Performing Organization Address City/[facility] Co de Phone Number [facility] [place] [address] * (ABNORMAL) eGFR (08/18/2024 8:28 PM CDT) [...] MD LAB BLOOD ORDERABLES Final Result [facility] Department [place] [address] * Differential, auto (08/18/2024 8:28 PM CDT) Pathologist [facility] [place] Neutrophil abs 3.45 1.50 - 6.50 K/cumm Imm gran abs 0.06 0.00 - 0.10 K/cumm [facility] Lymphocyte abs 1.66 0.80 - 3.30 K/cumm [facility] Monocyte abs 0.70 0.20 - 0.80 K/cumm [facility] Eosinophil abs 0.30 0.00 - 0.50 K/cumm [facility] Basophil abs 0.05 0.00 - 0.10 K/cumm [facility] Neutrophil pct 55.4 % [facility] Comment: Interpretive Data Percent cell count reference ranges are not reported, since discordance with absolute values may lead to misinterpretation of CBC data. Current Interpretive Data was last revised on 2017. Imm gran pct 1.0 % [facility] Comment: Interpretive Data Percent cell count reference ranges are not reported, since discordance with absolute values may lead to misinterpretation of CBC data. Current Interpretive Data was last revised on 2017. Lymphocyte pct 26.7 % [facility] Comment: Interpretive Data Percent cell count reference ranges are not reported, since discordance with absolute values may lead to misinterpretation of CBC data. Current Interpretive Data was last revised on 2017. Monocyte pct 11.3 % [facility] Comment: Interpretive Data Percent cell count reference ranges are not reported, since discordance with absolute values may lead to misinterpretation of CBC data. Current Interpretive Data was last revised on 2017. Eosinophil pct 4.8 % [facility] Comment: Interpretive Data Percent cell count reference ranges are not reported, since discordance with absolute values may lead to misinterpretation of CBC data. Current Interpretive Data was last revised on 2017. Basophil pct 0.8 % [facility] Comment: Interpretive Data Percent cell count reference ranges are not reported, since discordance with absolute values may lead to misinterpretation of CBC data. Current Interpretive Data was last revised on 2017. Blood 08/18/2024 8:28 PM CDT 08/18/2024 9:18 PM CDT us Shira Hodge MD LAB BLOOD ORDERABLES Final Result [facility] Department [place] [address] * (ABNORMAL) CBC with auto differential (08/18/2024 8:28 PM CDT) WBC 6.22 3.80 - 9.90 K/cumm Hgb 11.6(L) 13.0 - 17.5 g/dL [facility] Hct 37.5(L) 38.9 - 50.3 % [facility] Plt 183 150 - 400 K/cumm [facility] MPV 10.2 9.1 - 12.3 fL [facility] RBC 4.21(L) 4.30 - 5.80 M/cumm [facility] MCV 89.1 81.3 - 96.4 fL [facility] MCH 27.6 27.1 - 33.3 pg [facility] MCHC 30.9(L) 32.3 - 35.7 g/dL [facility] RDW CV 16.3(H) 11.1 - 14.9 % [facility] RDW SD 52.3(H) 35.7 - 48.1 fL [facility] NRBC abs 0.00 0.00 - 0.01 K/cumm [facility] Blood 08/18/2024 8:28 PM CDT 08/18/2024 9:18 PM CDT us Shira Hodge MD LAB BLOOD ORDERABLES Final Result [facility] Department [place] [address] * (ABNORMAL) Basic metabolic panel (08/18/2024 8:28 PM CDT) Sodium 140 135 - 145 mmol/L Potassium, pl 4.0 3.3 - 4.9 mmol/L [facility] Chloride 104 97 - 110 mmol/L [facility] CO2 26 22 - 32 mmol/L [facility] Anion gap 10 2 - 15 mmol/L [facility] BUN 33(H) 6 - 25 mg/dL [facility] Creatinine 2.00(H) 0.80 - 1.30 mg/dL [facility] Glucose 211(H) 70 - 199 mg/dL [facility] Comment: Interpretive Data Fasting glucose [...] Calcium 8.7 8.5 - 10.3 mg/dL [facility] Blood 08/18/2024 8:28 PM CDT 08/18/2024 9:18 PM CDT Shira Hodge MD LAB BLOOD ORDERABLES Final Result Performing Organization Address City/[facility] Co de Phone Number [facility] [place] [address] * (ABNORMAL) POCT glucose (08/18/2024 7:56 PM CDT) Glucose, POC 226(H) 70 - 199 mg/dL Blood 08/18/2024 7:56 PM CDT 08/18/2024 7:56 PM CDT Florentino Roldan MD LAB POCT ORDERABLES - DEV ICE Final Result Performing Organization Address [facility] Co de Phone Number [facility] [place] [address] * POCT glucose (08/18/2024 5:10 PM CDT) Glucose, POC 153 70 - 199 mg/dL Blood 08/18/2024 5:10 PM CDT 08/18/2024 5:10 PM CDT Florentino Roldan MD LAB POCT ORDERABLES - DEV ICE Final Result Performing Organization Address City/[facility] Co de Phone Number [facility] [place] [address] * POCT glucose (08/18/2024 11:45 AM CDT) Glucose, POC 184 70 - 199 mg/dL Blood 08/18/2024 11:4 5 AM CDT 08/18/2024 11:45 AM CDT Florentino Roldan MD LAB POCT ORDERABLES - DEV ICE Final Result Performing Organization Address City/[facility] Co de Phone Number [facility] [place] [address] * POCT glucose (08/18/2024 7:31 AM CDT) Glucose, POC 145 70 - 199 mg/dL Blood 08/18/2024 7:31 AM CDT 08/18/2024 7:31 AM CDT Florentino Roldan MD LAB POCT ORDERABLES - DEV ICE Final Result Performing Organization Address [facility] de Phone Number TABATHA [facility] [place] [address] * (ABNORMAL) eGFR (08/17/2024 8:30 PM CDT) [...] MD LAB BLOOD ORDERABLES Final Result [facility] Department [place] [address] * Differential, auto (08/17/2024 8:30 PM CDT) Neutrophil abs 3.97 1.50 - 6.50 K/cumm Imm gran abs 0.04 0.00 - 0.10 K/cumm [facility] Lymphocyte abs 1.79 0.80 - 3.30 K/cumm [facility] Monocyte abs 0.67 0.20 - 0.80 K/cumm [facility] Eosinophil abs 0.29 0.00 - 0.50 K/cumm [facility] Basophil abs 0.07 0.00 - 0.10 K/cumm [facility] Neutrophil pct 58.2 % [facility] Comment: Interpretive Data Percent cell count reference ranges are not reported, since discordance with absolute values may lead to misinterpretation of CBC data. Current Interpretive Data was last revised on 2017. Imm gran pct 0.6 % [facility] Comment: Interpretive Data Percent cell count reference ranges are not reported, since discordance with absolute values may lead to misinterpretation of CBC data. Current Interpretive Data was last revised on 2017. Lymphocyte pct 26.2 % [facility] Comment: Interpretive Data Percent cell count reference ranges are not reported, since discordance with absolute values may lead to misinterpretation of CBC data. Current Interpretive Data was last revised on 2017. Monocyte pct 9.8 % [facility] Comment: Interpretive Data Percent cell count reference ranges are not reported, since discordance with absolute values may lead to misinterpretation of CBC data. Current Interpretive Data was last revised on 2017. Eosinophil pct 4.2 % [facility] Comment: Interpretive Data Percent cell count reference ranges are not reported, since discordance with absolute values may lead to misinterpretation of CBC data. Current Interpretive Data was last revised on 2017. Basophil pct 1.0 % [facility] Comment: Interpretive Data Percent cell count reference ranges are not reported, since discordance with absolute values may lead to misinterpretation of CBC data. Current Interpretive Data was last revised on 2017. Blood 08/17/2024 8:30 PM CDT 08/17/2024 8:45 PM CDT us Shira Hodge MD LAB BLOOD ORDERABLES Final Result Performing Organization Address City/[facility]/ZIP Co de Phone Number [facility] Department [place] [address] * (ABNORMAL) CBC with auto differential (08/17/2024 8:30 PM CDT) WBC 6.83 3.80 - 9.90 K/cumm Hgb 11.5(L) 13.0 - 17.5 g/dL [facility] Hct 37.2(L) 38.9 - 50.3 % [facility] Plt 184 150 - 400 K/cumm [facility] MPV 9.9 9.1 - 12.3 fL [facility] RBC 4.12(L) 4.30 - 5.80 M/cumm [facility] MCV 90.3 81.3 - 96.4 fL [facility] MCH 27.9 27.1 - 33.3 pg [facility] MCHC 30.9(L) 32.3 - 35.7 g/dL [facility] RDW CV 16.1(H) 11.1 - 14.9 % [facility] RDW SD 52.6(H) 35.7 - 48.1 fL [facility] NRBC abs 0.00 0.00 - 0.01 K/cumm [facility] Blood 08/17/2024 8:30 PM CDT 08/17/2024 8:45 PM CDT us Shira Hodge MD LAB BLOOD ORDERABLES Final Result Performing Organization Address City/[facility]/ZIP Co de Phone Number [facility] Department [place] [address] * Magnesium (08/17/2024 8:30 PM CDT) Pathologist [facility] [place] Magnesium 2.0 1.4 - 2.5 mg/dL Blood 08/17/2024 8:30 PM CDT 08/17/2024 8:43 PM CDT Shira Hodge MD LAB BLOOD ORDERABLES Final Result [facility] Department [place] [address] * (ABNORMAL) Basic metabolic panel (08/17/2024 8:30 PM CDT) [facility] [address] Sodium 141 135 - 145 mmol/L Potassium, pl 4.3 3.3 - 4.9 mmol/L [facility] Chloride 107 97 - 110 mmol/L [facility] CO2 26 22 - 32 mmol/L [facility] Anion gap 8 2 - 15 mmol/L [facility] BUN 33(H) 6 - 25 mg/dL [facility] Creatinine 1.92(H) 0.80 - 1.30 mg/dL [facility] Glucose 184 70 - 199 mg/dL [facility] Comment: Interpretive Data Fasting glucose [...] Calcium 8.7 8.5 - 10.3 mg/dL [facility] Blood 08/17/2024 8:30 PM CDT 08/17/2024 8:43 PM CDT Shira Hodge MD LAB BLOOD ORDERABLES Final Result Performing Organization Address [facility] Co de Phone Number [facility] [place] [address] * POCT glucose (08/17/2024 7:52 PM CDT) Glucose, POC 178 70 - 199 mg/dL Blood 08/17/2024 7:52 PM CDT 08/17/2024 7:52 PM CDT us Shira Hodge MD LAB POCT ORDERABLES - DEVICE Final Result Performing Organization Address [facility] Co de Phone Number [facility] [place] [address] * POCT glucose (08/17/2024 4:58 PM CDT) Glucose, POC 174 70 - 199 mg/dL Blood 08/17/2024 4:58 PM CDT 08/17/2024 4:58 PM CDT us Shira Hodge MD LAB POCT ORDERABLES - DEVICE Final Result Performing Organization Address [facility] Co de Phone Number [facility] [place] [address] * POCT glucose (08/17/2024 11:49 AM CDT) Glucose, POC 142 70 - 199 mg/dL Blood 08/17/2024 11:4 9 AM CDT 08/17/2024 11:49 AM CDT us Shira Hodge MD LAB POCT ORDERABLES - DEVICE Final Result Performing Organization Address [facility] Co de Phone Number [facility] [place] [address] * POCT glucose (08/17/2024 7:43 AM CDT) Glucose, POC 112 70 - 199 mg/dL Blood 08/17/2024 7:43 AM CDT 08/17/2024 7:43 AM CDT Shira Hodge MD LAB POCT ORDERABLES - DEVICE Final Result Performing Organization Address City/[facility] de Phone Number TAB[facility] Department [place] [address] * (ABNORMAL) eGFR (08/16/2024 9:26 PM CDT) Pathologist [facility] [place] eGFR 37(L) >=60 mL/min/1. 73 m2 Comment: [...] BLOOD ORDERABLES Final Result Performing Organization Address City/[facility]/ZIP Co de Phone Number [facility] Department [place] [address] * Differential, auto (08/16/2024 9:26 PM CDT) Neutrophil abs 4.52 1.50 - 6.50 K/cumm Imm gran abs 0.03 0.00 - 0.10 K/cumm [facility] Lymphocyte abs 1.55 0.80 - 3.30 K/cumm [facility] Monocyte abs 0.65 0.20 - 0.80 K/cumm [facility] Eosinophil abs 0.28 0.00 - 0.50 K/cumm [facility] Basophil abs 0.06 0.00 - 0.10 K/cumm [facility] Neutrophil pct 63.8 % [facility] Comment: Interpretive Data Percent cell count reference ranges are not reported, since discordance with absolute values may lead to misinterpretation of CBC data. Current Interpretive Data was last revised on 2017. Imm gran pct 0.4 % [facility] Comment: Interpretive Data Percent cell count reference ranges are not reported, since discordance with absolute values may lead to misinterpretation of CBC data. Current Interpretive Data was last revised on 2017. Lymphocyte pct 21.9 % [facility] Comment: Interpretive Data Percent cell count reference ranges are not reported, since discordance with absolute values may lead to misinterpretation of CBC data. Current Interpretive Data was last revised on 2017. Monocyte pct 9.2 % [facility] Comment: Interpretive Data Percent cell count reference ranges are not reported, since discordance with absolute values may lead to misinterpretation of CBC data. Current Interpretive Data was last revised on 2017. Eosinophil pct 3.9 % [facility] Comment: Interpretive Data Percent cell count reference ranges are not reported, since discordance with absolute values may lead to misinterpretation of CBC data. Current Interpretive Data was last revised on 2017. Basophil pct 0.8 % [facility] Comment: Interpretive Data Percent cell count reference ranges are not reported, since discordance with absolute values may lead to misinterpretation of CBC data. Current Interpretive Data was last revised on 2017. Blood 08/16/2024 9:26 PM CDT 08/16/2024 9:48 PM CDT us Shira Hodge MD LAB BLOOD ORDERABLES Final Result Performing Organization Address City/[facility] Co de Phone Number [facility] [place] [address] * Critical Result Callback Chemistry (08/16/2024 9:26 PM CDT) Date Notified [id number] Time Notified 807 [facility] TestName Vancomycin Dirk [facility]YS [facility] Called/Read Back Anita MAYS [facility] Credentials RN TABATHA [facility] Called By TP TABATHA [facility] Blood 08/16/2024 9:26 PM CDT 08/16/2024 9:47 PM CDT Shira Hodge MD LAB BLOOD ORDERABLES Final Result Performing Organization Address [facility] Co de Phone Number [facility] Department [place] [address] * (ABNORMAL) CBC with auto differential (08/16/2024 9:26 PM CDT) [facility] [address] WBC 7.09 3.80 - 9.90 K/cumm Hgb 11.9(L) 13.0 - 17.5 g/dL [facility] Hct 39.6 38.9 - 50.3 % [facility] Plt 196 150 - 400 K/cumm [facility] MPV 10.3 9.1 - 12.3 fL [facility] RBC 4.35 4.30 - 5.80 M/cumm [facility] MCV 91.0 81.3 - 96.4 fL [facility] MCH 27.4 27.1 - 33.3 pg [facility] MCHC 30.1(L) 32.3 - 35.7 g/dL [facility] RDW CV 16.0(H) 11.1 - 14.9 % [facility] RDW SD 52.4(H) 35.7 - 48.1 fL [facility] NRBC abs 0.00 0.00 - 0.01 K/cumm [facility] Blood 08/16/2024 9:26 PM CDT 08/16/2024 9:48 PM CDT Shira Hodge MD LAB BLOOD ORDERABLES Final Result Performing Organization Address [facility] de Phone Number [facility] [place] [address] * Magnesium (08/16/2024 9:26 PM CDT) [facility] [address] Magnesium 1.7 1.4 - 2.5 mg/dL Blood 08/16/2024 9:26 PM CDT 08/16/2024 9:47 PM CDT Shira Hodge MD LAB BLOOD ORDERABLES Final Result Performing Organization Address [facility] de Phone Number [facility] [place] [address] * (ABNORMAL) Vancomycin level trough (08/16/2024 9:26 PM CDT) [facility] [address] Vancomycin trough 29.2(C) 10.0 - 20.0 mcg/mL Blood 08/16/2024 9:26 PM CDT 08/16/2024 9:47 PM CDT Shira Hodge MD LAB BLOOD ORDERABLES Final Result Performing Organization Address [facility] [place] [address] * (ABNORMAL) Basic metabolic panel (08/16/2024 9:26 PM CDT) [facility] [address] Sodium 141 135 - 145 mmol/L Potassium, pl 4.7 3.3 - 4.9 mmol/L [facility] Comment:Hemolyzed; Potassium value may be falsely elevated by as much as 0.3-0.5 mmol/L. Suggest redraw and reanalysis. Chloride 107 97 - 110 mmol/L [facility] CO2 25 22 - 32 mmol/L [facility] Anion gap 9 2 - 15 mmol/L [facility] BUN 31(H) 6 - 25 mg/dL [facility] Creatinine 1.87(H) 0.80 - 1.30 mg/dL [facility] Glucose 145 70 - 199 mg/dL [facility] Comment: Interpretive Data Fasting glucose [...] Calcium 8.4(L) 8.5 - 10.3 mg/dL [facility] Blood 08/16/2024 9:26 PM CDT 08/16/2024 9:47 PM CDT us Shira Hodge MD LAB BLOOD ORDERABLES Final Result Performing Organization Address City/[facility]/ZIP Co de Phone Number [facility] [place] [address] * POCT glucose (08/16/2024 8:05 PM CDT) [facility] Signature Glucose, POC 148 70 - 199 mg/dL Blood 08/16/2024 8:05 PM CDT 08/16/2024 8:05 PM CDT Shira Hodge MD LAB POCT ORDERABLES - DEVICE Final Result Performing Organization Address [facility]/ZIP Co de Phone Number [facility] [place] [address] * POCT glucose (08/16/2024 4:38 PM CDT) Glucose, POC 165 70 - 199 mg/dL Blood 08/16/2024 4:38 PM CDT 08/16/2024 4:38 PM CDT Shira Hodge MD LAB POCT ORDERABLES - DEVICE Final Result Performing Organization Address City/[facility] Co de Phone Number [facility] [place] [address] * POCT glucose (08/16/2024 11:21 AM CDT) Glucose, POC 138 70 - 199 mg/dL Blood 08/16/2024 11:2 1 AM CDT 08/16/2024 11:21 AM CDT Shira Hodge MD LAB POCT ORDERABLES - DEVICE Final Result Performing Organization Address [facility] Co de Phone Number [facility] [place] [address] * POCT glucose (08/16/2024 8:07 AM CDT) Glucose, POC 113 70 - 199 mg/dL Blood 08/16/2024 8:07 AM CDT 08/16/2024 8:07 AM CDT Shira Hodge MD LAB POCT ORDERABLES - DEVICE Final Result Performing Organization Address City/[facility] Co de Phone Number [facility] [place] [address] * (ABNORMAL) eGFR (08/15/2024 11:08 PM CDT) Pathologist [facility] [place] eGFR 37(L) >=60 mL/min/1. 73 m2 Comment: [...] MD LAB BLOOD ORDERABLES Final Result [facility] Department [place] [address] * Differential, auto (08/15/2024 11:08 PM CDT) Neutrophil abs 3.92 1.50 - 6.50 K/cumm Imm gran abs 0.05 0.00 - 0.10 K/cumm [facility] Lymphocyte abs 1.86 0.80 - 3.30 K/cumm [facility] Monocyte abs 0.58 0.20 - 0.80 K/cumm [facility] Eosinophil abs 0.33 0.00 - 0.50 K/cumm [facility] Basophil abs 0.04 0.00 - 0.10 K/cumm [facility] Neutrophil pct 57.8 % [facility] Comment: Interpretive Data Percent cell count reference ranges are not reported, since discordance with absolute values may lead to misinterpretation of CBC data. Current Interpretive Data was last revised on 2017. Imm gran pct 0.7 % [facility] Comment: Interpretive Data Percent cell count reference ranges are not reported, since discordance with absolute values may lead to misinterpretation of CBC data. Current Interpretive Data was last revised on 2017. Lymphocyte pct 27.4 % [facility] Comment: Interpretive Data Percent cell count reference ranges are not reported, since discordance with absolute values may lead to misinterpretation of CBC data. Current Interpretive Data was last revised on 2017. Monocyte pct 8.6 % TABATHA EMANUEL Comment: Interpretive Data Percent cell count reference ranges are not reported, since discordance with absolute values may lead to misinterpretation of CBC data. Current Interpretive Data was last revised on 2017. Eosinophil pct 4.9 % TABATHA EMANUEL Comment: Interpretive Data Percent cell count reference ranges are not reported, since discordance with absolute values may lead to misinterpretation of CBC data. Current Interpretive Data was last revised on 2017. Basophil pct 0.6 % TABATHA EMANUEL Comment: Interpretive Data Percent cell count reference ranges are not reported, since discordance with absolute values may lead to misinterpretation of CBC data. Current Interpretive Data was last revised on 2017. Blood 08/15/2024 11:0 8 PM CDT 08/16/2024 12:00 AM CDT us Shira Hodge MD LAB BLOOD ORDERABLES Final Result TABATHA [facility] Department [place] [address] * Critical Result Callback Chemistry (08/15/2024 11:08 PM CDT) Date Notified [id number] Time Notified 30 TABATHA EMANUEL TestName Saige POSEY Called/Read Back Lillian POSEY Credentials RN TABATHA POSEY Called By JUDY POSEY Blood 08/15/2024 11:0 8 PM CDT 08/16/2024 us Shira Hodge MD LAB BLOOD ORDERABLES Final Result Performing Organization Address [facility] Co de Phone Number [facility] Department [place] [address] * (ABNORMAL) CBC with auto differential (08/15/2024 11:08 PM CDT) WBC 6.78 3.80 - 9.90 K/cumm Hgb 11.8(L) 13.0 - 17.5 g/dL [facility] Hct 38.6(L) 38.9 - 50.3 % [facility] Plt 198 150 - 400 K/cumm [facility] MPV 10.0 9.1 - 12.3 fL [facility] RBC 4.22(L) 4.30 - 5.80 M/cumm [facility] MCV 91.5 81.3 - 96.4 fL [facility] MCH 28.0 27.1 - 33.3 pg [facility] MCHC 30.6(L) 32.3 - 35.7 g/dL [facility] RDW CV 15.9(H) 11.1 - 14.9 % [facility] RDW SD 52.7(H) 35.7 - 48.1 fL [facility] NRBC abs 0.00 0.00 - 0.01 K/cumm [facility] Blood 08/15/2024 11:0 8 PM CDT 08/16/2024 12:00 AM CDT Shira Hodge MD LAB BLOOD ORDERABLES Final Result Performing Organization Address [facility] Co de Phone Number [facility] Department [place] [address] * (ABNORMAL) Vancomycin level trough Draw before the next vancomycin dose. (08/15/2024 11:08 PM CDT) Pathologist [facility] [place] Vancomycin trough 25.6(C) 10.0 - 20.0 mcg/mL Blood 08/15/2024 11:0 8 PM CDT 08/16/2024 12:00 AM CDT Narrative [facility] - 08/16/2024 12:28 AM CDT Draw before the next vancomycin dose. Shira Hodge MD LAB BLOOD ORDERABLES Final Result Performing Organization Address City/[facility]/ZIP Co de Phone Number [facility] Department [place] [address] * (ABNORMAL) Basic metabolic panel (08/15/2024 11:08 PM CDT) [facility] [address] Sodium 141 135 - 145 mmol/L Potassium, pl 4.0 3.3 - 4.9 mmol/L [facility] Chloride 106 97 - 110 mmol/L [facility] CO2 24 22 - 32 mmol/L [facility] Anion gap 11 2 - 15 mmol/L [facility] BUN 29(H) 6 - 25 mg/dL [facility] Creatinine 1.84(H) 0.80 - 1.30 mg/dL [facility] Glucose 140 70 - 199 mg/dL [facility] Comment: Interpretive Data Fasting glucose [...] Calcium 8.6 8.5 - 10.3 mg/dL [facility] Blood 08/15/2024 11:0 8 PM CDT 08/16/2024 12:00 AM CDT Shira Hodge MD LAB BLOOD ORDERABLES Final Result Performing Organization Address [facility] Co de Phone Number [facility] Department [place] [address] * POCT glucose (08/15/2024 7:55 PM CDT) Glucose, POC 140 70 - 199 mg/dL Blood 08/15/2024 7:55 PM CDT 08/15/2024 7:55 PM CDT Shira Hodge MD LAB POCT ORDERABLES - DEVICE Final Result Performing Organization Address [facility] de Phone Number [facility] Department [place] [address] * POCT glucose (08/15/2024 4:35 PM CDT) Glucose, POC 147 70 - 199 mg/dL Blood 08/15/2024 4:35 PM CDT 08/15/2024 4:35 PM CDT Shira Hodge MD LAB POCT ORDERABLES - DEVICE Final Result Performing Organization Address [facility] de Phone Number [facility] [place] [address] * (ABNORMAL) Calprotectin, fecal (08/15/2024 3:49 PM CDT) Calprotectin, fecal 63.6(H) <50.0 (Normal) mcg/g [facility] Comment: Interpretation: Borderline (50.0-120 mcg/g) Test Performed by: [facility] [address] [id number] [employer] Operator: Liz Sarmiento Ph.D.; CLIA# [id number] Stool 08/15/2024 3:49 PM CDT 08/15/2024 5:42 PM CDT Vale Thorne MD LAB BODY FLUIDS AND STOOLS ORDERABLES Final Result Performing Organization Address [facility] Co de Phone Number [facility] Department [place] [address] [facility] * Cryptosporidium and Giardia antigen assay Stool (08/15/2024 3:49 PM CDT) Giardia Ag Negative Negative Cryptosporidium Ag Negative Negative [facility] Comment: Interpretive data: Testing performed by the [facility] using an immunoassay that detects Cryptosporidium and Giardia antigens in stool specimens. If comprehensive examination for ova and parasites is required, please request Ova and Parasite Examination. Stool 08/15/2024 3:49 PM CDT 08/15/2024 5:17 PM CDT Vale Thorne MD LAB MICROBIOLOGY - GENERAL ORDERABLES Final Result Performing Organization Address City/[facility] Co de Phone Number [facility] [place] [address] * POCT glucose (08/15/2024 12:05 PM CDT) Glucose, POC 135 70 - 199 mg/dL Blood 08/15/2024 12:0 5 PM CDT 08/15/2024 12:05 PM CDT Shira Hodge MD LAB POCT ORDERABLES - DEVICE Final Result Performing Organization Address City/[facility]/ZIP Co de Phone Number [facility] Department [place] [address] * POCT glucose (08/15/2024 8:19 AM CDT) Glucose, POC 90 70 - 199 mg/dL Blood 08/15/2024 8:19 AM CDT 08/15/2024 8:19 AM CDT Shira Hodge MD LAB POCT ORDERABLES - DEVICE Final Result Performing Organization Address City/[facility] Co de Phone Number [facility] Department [place] [address] * (ABNORMAL) eGFR (08/15/2024 3:56 AM CDT) Pathologist [facility] [place] eGFR 44(L) >=60 mL/min/1. 73 m2 Comment: [...] MD LAB BLOOD ORDERABLES Fin al Result [facility] Department [place] [address] * Differential, auto (08/15/2024 3:56 AM CDT) Pathologist [facility] [place] Neutrophil abs 3.36 1.50 - 6.50 K/cumm Imm gran abs 0.02 0.00 - 0.10 K/cumm [facility] Lymphocyte abs 2.34 0.80 - 3.30 K/cumm [facility] Monocyte abs 0.56 0.20 - 0.80 K/cumm [facility] Eosinophil abs 0.28 0.00 - 0.50 K/cumm [facility] Basophil abs 0.07 0.00 - 0.10 K/cumm [facility] Neutrophil pct 50.7 % [facility] Comment: Interpretive Data Percent cell count reference ranges are not reported, since discordance with absolute values may lead to misinterpretation of CBC data. Current Interpretive Data was last revised on 2017. Imm gran pct 0.3 % [facility] Comment: Interpretive Data Percent cell count reference ranges are not reported, since discordance with absolute values may lead to misinterpretation of CBC data. Current Interpretive Data was last revised on 2017. Lymphocyte pct 35.3 % [facility] Comment: Interpretive Data Percent cell count reference ranges are not reported, since discordance with absolute values may lead to misinterpretation of CBC data. Current Interpretive Data was last revised on 2017. Monocyte pct 8.4 % [facility] Comment: Interpretive Data Percent cell count reference ranges are not reported, since discordance with absolute values may lead to misinterpretation of CBC data. Current Interpretive Data was last revised on 2017. Eosinophil pct 4.2 % [facility] Comment: Interpretive Data Percent cell count reference ranges are not reported, since discordance with absolute values may lead to misinterpretation of CBC data. Current Interpretive Data was last revised on 2017. Basophil pct 1.1 % [facility] Comment: Interpretive Data Percent cell count reference ranges are not reported, since discordance with absolute values may lead to misinterpretation of CBC data. Current Interpretive Data was last revised on 2017. Blood 08/15/2024 3:56 AM CDT 08/15/2024 4:22 AM CDT us Christy Bray MD LAB BLOOD ORDERABLES Fin al Result [facility] Department of Laboratories [place], [place] [id number] * (ABNORMAL) CBC with auto differential (08/15/2024 3:56 AM CDT) WBC 6.63 3.80 - 9.90 K/cumm Hgb 12.0(L) 13.0 - 17.5 g/dL [facility] Hct 39.5 38.9 - 50.3 % [facility] Plt 195 150 - 400 K/cumm [facility] MPV 10.1 9.1 - 12.3 fL [facility] RBC 4.32 4.30 - 5.80 M/cumm [facility] MCV 91.4 81.3 - 96.4 fL [facility] MCH 27.8 27.1 - 33.3 pg [facility] MCHC 30.4(L) 32.3 - 35.7 g/dL [facility] RDW CV 15.9(H) 11.1 - 14.9 % [facility] RDW SD 52.1(H) 35.7 - 48.1 fL [facility] NRBC abs 0.00 0.00 - 0.01 K/cumm [facility] Blood 08/15/2024 3:56 AM CDT 08/15/2024 4:22 AM CDT us Christy Bray MD LAB BLOOD ORDERABLES Fin al Result Performing Organization Address [facility] Co de Phone Number [facility] Department [place] [address] * Sodium, urine, random (08/15/2024 3:56 AM CDT) Sodium, ur 126 mmol/L Comment: Interpretive Data No reference range established. Current interpretive data was last revised 2018. Urine 08/15/2024 3:56 AM CDT 08/15/2024 4:21 AM CDT Narrative [facility] - 08/15/2024 4:41 AM CDT Please draw 2 hours after administering IV Lasix us Vale Thorne MD LAB URINE ORDERABLES Final Result Performing Organization Address City/[facility]/ZIP Co de Phone Number [facility] Department [place] [address] * (ABNORMAL) Basic metabolic panel (08/15/2024 3:56 AM CDT) Sodium 141 135 - 145 mmol/L Potassium, pl 4.1 3.3 - 4.9 mmol/L [facility] Chloride 109 97 - 110 mmol/L [facility] CO2 22 22 - 32 mmol/L [facility] Anion gap 10 2 - 15 mmol/L [facility] BUN 25 6 - 25 mg/dL [facility] Creatinine 1.61(H) 0.80 - 1.30 mg/dL [facility] Glucose 99 70 - 199 mg/dL [facility] Comment: Interpretive Data Fasting glucose [...] Calcium 8.1(L) 8.5 - 10.3 mg/dL [facility] Blood 08/15/2024 3:56 AM CDT 08/15/2024 4:21 AM CDT us Christy Bray MD LAB BLOOD ORDERABLES Fin al Result Performing Organization Address City/[facility]/ZIP Co de Phone Number [facility] Department [place] [address] * POCT glucose (08/14/2024 8:20 PM CDT) Glucose, POC 131 70 - 199 mg/dL Blood 08/14/2024 8:20 PM CDT 08/14/2024 8:20 PM CDT us Shira Hodge MD LAB POCT ORDERABLES - DEVICE Final Result Performing Organization Address [facility]/State/[place] [address] * POCT glucose (08/14/2024 6:09 PM CDT) Glucose, POC 115 70 - 199 mg/dL Blood 08/14/2024 6:09 PM CDT 08/14/2024 6:09 PM CDT us Shira Hodge MD LAB POCT ORDERABLES - DEVICE Final Result Performing Organization Address [facility] [place] [address] * POCT glucose (08/14/2024 2:08 PM CDT) Glucose, POC 128 70 - 199 mg/dL Blood 08/14/2024 2:08 PM CDT 08/14/2024 2:08 PM CDT Vale Thorne MD LAB POCT ORDERABLES - DEVIC E Final Result Performing Organization Address [facility] [place] [address] * POCT glucose (08/14/2024 8:22 AM CDT) Glucose, POC 124 70 - 199 mg/dL Blood 08/14/2024 8:22 AM CDT 08/14/2024 8:22 AM CDT Vale Thorne MD LAB POCT ORDERABLES - DEVIC E Final Result Performing Organization Address [facility] Co de Phone Number [facility] [place] [address] * (ABNORMAL) eGFR (08/13/2024 8:24 PM CDT) Pathologist [facility] [place] eGFR 49(L) >=60 mL/min/1. 73 m2 Comment: [...] LAB BLOOD ORDERABLES Fin al Result [facility] Department [place] [address] * Differential, auto (08/13/2024 8:24 PM CDT) [facility] [address] Neutrophil abs 4.18 1.50 - 6.50 K/cumm Imm gran abs 0.04 0.00 - 0.10 K/cumm [facility] Lymphocyte abs 0.95 0.80 - 3.30 K/cumm [facility] Monocyte abs 0.61 0.20 - 0.80 K/cumm [facility] Eosinophil abs 0.08 0.00 - 0.50 K/cumm [facility] Basophil abs 0.03 0.00 - 0.10 K/cumm [facility] Neutrophil pct 70.9 % [facility] Comment: Interpretive Data Percent cell count reference ranges are not reported, since discordance with absolute values may lead to misinterpretation of CBC data. Current Interpretive Data was last revised on 2017. Imm gran pct 0.7 % [facility] Comment: Interpretive Data Percent cell count reference ranges are not reported, since discordance with absolute values may lead to misinterpretation of CBC data. Current Interpretive Data was last revised on 2017. Lymphocyte pct 16.1 % [facility] Comment: Interpretive Data Percent cell count reference ranges are not reported, since discordance with absolute values may lead to misinterpretation of CBC data. Current Interpretive Data was last revised on 2017. Monocyte pct 10.4 % [facility] Comment: Interpretive Data Percent cell count reference ranges are not reported, since discordance with absolute values may lead to misinterpretation of CBC data. Current Interpretive Data was last revised on 2017. Eosinophil pct 1.4 % [facility] Comment: Interpretive Data Percent cell count reference ranges are not reported, since discordance with absolute values may lead to misinterpretation of CBC data. Current Interpretive Data was last revised on 2017. Basophil pct 0.5 % [facility] Comment: Interpretive Data Percent cell count reference ranges are not reported, since discordance with absolute values may lead to misinterpretation of CBC data. Current Interpretive Data was last revised on 2017. Blood 08/13/2024 8:24 PM CDT 08/13/2024 8:44 PM CDT us Christy Bray MD LAB BLOOD ORDERABLES Fin al Result [facility] Department [place] [address] * (ABNORMAL) CBC with auto differential (08/13/2024 8:24 PM CDT) WBC 5.89 3.80 - 9.90 K/cumm Hgb 10.9(L) 13.0 - 17.5 g/dL [facility] Hct 35.5(L) 38.9 - 50.3 % [facility] Plt 181 150 - 400 K/cumm [facility] MPV 9.9 9.1 - 12.3 fL [facility] RBC 3.90(L) 4.30 - 5.80 M/cumm [facility] MCV 91.0 81.3 - 96.4 fL [facility] MCH 27.9 27.1 - 33.3 pg [facility] MCHC 30.7(L) 32.3 - 35.7 g/dL [facility] RDW CV 15.9(H) 11.1 - 14.9 % [facility] RDW SD 52.6(H) 35.7 - 48.1 fL [facility] NRBC abs 0.00 0.00 - 0.01 K/cumm [facility] Blood 08/13/2024 8:24 PM CDT 08/13/2024 8:44 PM CDT Christy Bray MD LAB BLOOD ORDERABLES Fin al Result Performing Organization Address [facility] Co de Phone Number [facility] Department [place] [address] * Gliadin antibody, IgG (08/13/2024 8:24 PM CDT) Anti-gliadin, IgG <0.4 <=14.9 units/mL Comment: Interpretive data Negative: <15 units/mL Positive: > or equal to 15 units/mL Current interpretive data was last revised on 2016. Blood 08/13/2024 8:24 PM CDT 08/13/2024 8:44 PM CDT Vale Thorne MD LAB BLOOD ORDERABLES Final Result Performing Organization Address [facility] Co de Phone Number [facility] [place] [address] * Gliadin antibody, IgA (08/13/2024 8:24 PM CDT) Anti-gliadin, IgA <0.5 <=14.9 units/mL Comment: Interpretive data Negative: <15 units/mL Positive: > or equal to 15 units/mL Current interpretive data was last revised on 2016. Blood 08/13/2024 8:24 PM CDT 08/13/2024 8:44 PM CDT us Vale Thorne MD LAB BLOOD ORDERABLES Final Result [facility] Department [place] [address] * (ABNORMAL) Basic metabolic panel (08/13/2024 8:24 PM CDT) Sodium 143 135 - 145 mmol/L Potassium, pl 4.6 3.3 - 4.9 mmol/L [facility] Comment:Repeated and Verifie d Chloride 111(H) 97 - 110 mmol/L [facility] CO2 22 22 - 32 mmol/L [facility] Anion gap 10 2 - 15 mmol/L [facility] BUN 25 6 - 25 mg/dL [facility] Creatinine 1.47(H) 0.80 - 1.30 mg/dL [facility] Glucose 122 70 - 199 mg/dL [facility] Comment: Interpretive Data Fasting glucose [...] Calcium 8.5 8.5 - 10.3 mg/dL [facility] Blood 08/13/2024 8:24 PM CDT 08/13/2024 8:44 PM CDT us Christy Bray MD LAB BLOOD ORDERABLES Fin al Result Performing Organization Address [facility] de Phone Number [facility] [place] [address] * POCT glucose (08/13/2024 8:05 PM CDT) Glucose, POC 117 70 - 199 mg/dL Blood 08/13/2024 8:05 PM CDT 08/13/2024 8:05 PM CDT Vale Thorne MD LAB POCT ORDERABLES - DEVIC E Final Result Performing Organization Address [facility] de Phone Number [facility] [place] [address] * C. difficile testing Stool (08/13/2024 6:32 PM CDT) [facility] Result Negative Negative Toxin Result Negative Negative [facility] C. diff result Negative, free toxin Negative, free toxin [facility] C. diff interp Negative for toxigenic Clostridioides (Clostridium) difficile. Analysis was performed using a glutamate dehydrogenase antigen detection assay combined with a C. difficile toxin detection assay. [facility] Stool 08/13/2024 6:32 PM CDT 08/13/2024 6:40 PM CDT Christy Bray MD LAB MICROBIOLOGY - GENER AL ORDERABLES Final Result Performing Organization Address [facility] Co de Phone Number [facility] Department [place] [address] * POCT glucose (08/13/2024 4:43 PM CDT) [facility] [address] Glucose, POC 119 70 - 199 mg/dL Blood 08/13/2024 4:43 PM CDT 08/13/2024 4:43 PM CDT Vale Thorne MD LAB POCT ORDERABLES - DEVIC E Final Result Performing Organization Address City/[facility] Co de [place] [address] * POCT glucose (08/13/2024 1:10 PM CDT) Glucose, POC 137 70 - 199 mg/dL Blood 08/13/2024 1:10 PM CDT 08/13/2024 1:10 PM CDT Christy Bray MD LAB POCT ORDERABLES - DE VICE Final Result Performing Organization Address [facility] de Phone Number [facility] [place] [address] * US Vein Duplex Lower Extremity Bilateral Complete (08/13/2024 12:54 PM CDT) Anatomical Region Laterality Modality Vascular Bilateral Ultrasound 08/13/2024 12:0 0 PM CDT Narrative 08/13/2024 2:42 PM CDT [facility] - Department of Vascular Surgery, Vascular Laboratory [address] [place] [id number] Lower Extremity Venous Ultrasound Report Patient Name: JOHN MTZ : 1945 (79y 4m) Study Date: 08/13/2024 12:00:35 PM Gender: M Tech: Location: Ref Provider: CHRISTY BRAY Quality: Limited Order Provider: CHRISTY BRAY PROCEDURES: Vascular Report: Venous Duplex imaging was performed bilaterally in the lower extremities. The common femoral, femoral, popliteal, posterior tibial, peroneal veins were evaluated for patency, spontaneity and phasicity with Doppler, compression and augmentation maneuvers. Great saphenous vein proximal at the junction was evaluated with compression maneuvers. INDICATIONS: Localized edema. FINDINGS: Performing [employer] Law Professor: Vesta Ventura RDMS, RVT. Bilateral: Venous Doppler [...] Electronically Signed By: Kishore Alvarenga MD [facility] [phone] 08/13/2024 1:28:32 PM CDT Procedure Note Kishore Alvarenga MD - 08/13/2024 [facility] - Department of Vascular Surgery,Vascular Laboratory [address] [place] [id number] Lower Extremity Venous Ultrasound Report Patient Name: JOHN MTZ : 1945 (79y 4m) Study Date: 08/13/2024 12:00:35 PM Gender: M Tech: Location: ED2 Ref Provider: CHRISTY BRAY Quality: Limited Order Provider: CHRISTY BRAY PROCEDURES: Vascular Report: Venous Duplex imaging was performed bilaterally in the lower extremities.The common femoral, femoral, popliteal, posterior tibial, peroneal veins wereevaluated for patency, spontaneity and phasicity with Doppler, compression and augmentationmaneuvers. Great saphenous vein proximal at the junction was evaluated with compressionmaneuvers. INDICATIONS: Localized edema. FINDINGS: Performing [employer] Law Professor: Vesta Ventura RDMS, RVT. Bilateral: Venous Doppler [...] Electronically Signed By: Kishore Alvarenga MD [facility] [phone] 08/13/2024 1:28:32 PM CDT Christy Bray MD IMG US PROCEDURES Final Result * (ABNORMAL) Erythrocyte sedimentation rate (08/13/2024 9:30 AM CDT) Erythrocyte sedimentation rate 21(H) 1 - 20 mm/hr Blood 08/13/2024 9:30 AM CDT 08/13/2024 9:44 AM CDT Christy Bray MD LAB BLOOD ORDERABLES Fin al Result [facility] Department [place] [address] * (ABNORMAL) CRP (acute phase) (08/13/2024 9:30 AM CDT) CRP 43.6(H) <=10.0 mg/L Blood 08/13/2024 9:30 AM CDT 08/13/2024 9:44 AM CDT Christy Bray MD LAB BLOOD ORDERABLES Fin al Result [facility] Department [place] [address] * POCT glucose (08/13/2024 8:31 AM CDT) Glucose, POC 112 70 - 199 mg/dL Blood 08/13/2024 8:31 AM CDT 08/13/2024 8:31 AM CDT us Christy Bray MD LAB POCT ORDERABLES - DE VICE Final Result Performing Organization Address City/[facility]/ZIP Co de Phone Number [facility] [place] [address] * POCT glucose (08/13/2024 5:06 AM CDT) Glucose, POC 116 70 - 199 mg/dL Blood 08/13/2024 5:06 AM CDT 08/13/2024 5:06 AM CDT us Luz Maria Vicente MD LAB POCT ORDERABLES - DEVICE Final Result Performing Organization Address [facility] Co de Phone Number [facility] [place] [address] * XR Ankle Right 3 or More [...] Electronically signed by: Carmela Mendoza M.D. Iwona Chris Goldberg MD IMG XR PROCEDURES Fin al [...] Goldberg MD LAB BLOOD ORDERABLES Final Result Performing Organization Address City/[facility]/ZIP Co de Phone Number [facility] Department [place] [address] * POCT glucose (08/13/2024 12:25 AM CDT) Glucose, POC 109 70 - 199 mg/dL Blood 08/13/2024 12:2 5 AM CDT 08/13/2024 12:25 AM CDT Luz Maria Vicente MD LAB POCT ORDERABLES - DEVICE Final Result Performing Organization Address City/[facility]/ZIP Co de Phone Number [facility] Department [place] [address] * CT Entire Lower Extremity Right W [...] it. Electronically signed by: Jose Raymond M.D. us Dany Parker MD IMG CT PROCEDURES Final [...] it. Electronically signed by: Carmela Mendoza M.D. Juliet Chin MD IMG XR PROCEDURES Final Result * POCT creatinine (08/12/2024 11:33 PM CDT) Creatinine POC 1.3 0.8 - 1.3 mg/dL Blood 08/12/2024 11:3 3 PM CDT 08/12/2024 11:33 PM CDT Dany Parker MD LAB POCT ORDERABLES - DEV ICE Final Result [facility] Department [place] [address] * (ABNORMAL) eGFR (08/12/2024 9:59 PM CDT) [...] 9:59 PM CDT 08/12/2024 10:10 PM CDT Juliet Chin MD LAB BLOOD ORDERABLES Fin al Result [facility] Department [place] [address] * Differential, auto (08/12/2024 9:59 PM CDT) Neutrophil abs 5.44 1.50 - 6.50 K/cumm Imm gran abs 0.04 0.00 - 0.10 K/cumm [facility] Lymphocyte abs 1.48 0.80 - 3.30 K/cumm [facility] Monocyte abs 0.53 0.20 - 0.80 K/cumm [facility] Eosinophil abs 0.03 0.00 - 0.50 K/cumm [facility] Basophil abs 0.06 0.00 - 0.10 K/cumm [facility] Neutrophil pct 71.8 % [facility] Comment: Interpretive Data Percent cell count reference ranges are not reported, since discordance with absolute values may lead to misinterpretation of CBC data. Current Interpretive Data was last revised on 2017. Imm gran pct 0.5 % [facility] Comment: Interpretive Data Percent cell count reference ranges are not reported, since discordance with absolute values may lead to misinterpretation of CBC data. Current Interpretive Data was last revised on 2017. Lymphocyte pct 19.5 % [facility] Comment: Interpretive Data Percent cell count reference ranges are not reported, since discordance with absolute values may lead to misinterpretation of CBC data. Current Interpretive Data was last revised on 2017. Monocyte pct 7.0 % [facility] Comment: Interpretive Data Percent cell count reference ranges are not reported, since discordance with absolute values may lead to misinterpretation of CBC data. Current Interpretive Data was last revised on 2017. Eosinophil pct 0.4 % [facility] Comment: Interpretive Data Percent cell count reference ranges are not reported, since discordance with absolute values may lead to misinterpretation of CBC data. Current Interpretive Data was last revised on 2017. Basophil pct 0.8 % [facility] Comment: Interpretive Data Percent cell count reference ranges are not reported, since discordance with absolute values may lead to misinterpretation of CBC data. Current Interpretive Data was last revised on 2017. Blood 08/12/2024 9:59 PM CDT 08/12/2024 10:10 PM CDT us Juliet Chin MD LAB BLOOD ORDERABLES Fin al Result Performing Organization Address City/[facility]/ZIP Co de Phone Number [facility] [place] [address] * (ABNORMAL) CBC with auto differential (08/12/2024 9:59 PM CDT) WBC 7.58 3.80 - 9.90 K/cumm Hgb 12.4(L) 13.0 - 17.5 g/dL [facility] Hct 39.8 38.9 - 50.3 % [facility] Plt 249 150 - 400 K/cumm [facility] MPV 11.5 9.1 - 12.3 fL [facility] RBC 4.38 4.30 - 5.80 M/cumm [facility] MCV 90.9 81.3 - 96.4 fL [facility] MCH 28.3 27.1 - 33.3 pg [facility] MCHC 31.2(L) 32.3 - 35.7 g/dL [facility] RDW CV 15.9(H) 11.1 - 14.9 % [facility] RDW SD 52.3(H) 35.7 - 48.1 fL [facility] NRBC abs 0.00 0.00 - 0.01 K/cumm [facility] Blood 08/12/2024 9:59 PM CDT 08/12/2024 10:10 PM CDT us Juliet Chin MD LAB BLOOD ORDERABLES Fin al Result Performing Organization Address City/[facility]/ZIP Co de Phone Number [facility] [place] [address] * (ABNORMAL) Hemoglobin A1c (08/12/2024 9:59 PM CDT) Hgb A1C 7.0(H) 4.0 - 5.6 % Estimated Average Glucose 154 mg/dL [facility] Comment: The ADA recommends reporting [...] LAB BLOOD ORDERABLES Fin al Result [facility] Department [place] [address] * (ABNORMAL) Lipid panel (08/12/2024 9:59 PM [...] revised on 2017. Triglycerides 77 <=149 mg/dL [facility] Comment: Hemolyzed; result may be [...] on 2017. HDL 38(L) >=40 mg/dL [facility] Comment: Interpretive Data Ages < [...] 2017. LDL, calculated 16 <=129 mg/dL [facility] Comment: Interpretive Data Ages < [...] NCEP Expert Panel. Circulation 2004;110:227 3. Carlito Benítez al. PREM Cardiol. 2020 June 18;5(5):540-548. doi: 10.1001/jamacardio.2020.0013 Current Interpretive Data was last revised on 2023. Non-HDL Cholesterol 32 mg/dL [facility] Comment: Interpretive Data Ages < [...] revised on 2017. Chol/HDL ratio 2 [facility] Blood 08/12/2024 9:59 PM CDT 08/12/2024 10:10 PM CDT us Christy Bray MD LAB BLOOD ORDERABLES Fin al Result [facility] Department [place] [address] * (ABNORMAL) Comprehensive metabolic panel (08/12/2024 9:59 PM CDT) Sodium 141 135 - 145 mmol/L Potassium, pl See Comment 3.3 - 4.9 mmol/L [facility] Comment:Credited; Hemolyzed Specimen Chloride 110 97 - 110 mmol/L [facility] CO2 22 22 - 32 mmol/L [facility] Anion gap 9 2 - 15 mmol/L [facility] BUN 26(H) 6 - 25 mg/dL [facility] Creatinine 1.43(H) 0.80 - 1.30 mg/dL [facility] Glucose 121 70 - 199 mg/dL [facility] Comment: Interpretive Data Fasting glucose [...] Calcium 8.7 8.5 - 10.3 mg/dL [facility] Bilirubin, total 0.9 0.1 - 1.2 mg/dL [facility] Protein, pl 6.8 6.5 - 8.5 g/dL [facility] Albumin 3.5 3.5 - 5.0 g/dL [facility] Alk phos 148(H) 40 - 130 Units/L [facility] Comment:Hemolyzed; result ma y be falsely decreased ALT See Comment 7 - 55 Units/L [facility] Comment:Credited; Hemolyzed Specimen AST See Comment 10 - 50 Units/L [facility] Comment:Credited; Hemolyzed Specimen Blood 08/12/2024 9:59 PM CDT 08/12/2024 10:10 PM CDT Juliet Chin MD LAB BLOOD ORDERABLES Fin al Result Performing Organization Address [facility] Co de Phone Number [facility] Department [place] [address] * (ABNORMAL) POCT ketone, blood (08/12/2024 9:17 PM CDT) Beta-Hydroxybut yrate, POC 2.3(H) 0.0 - 0.5 mmol/L Blood 08/12/2024 9:17 PM CDT 08/12/2024 9:17 PM CDT Vale Thorne MD LAB POCT ORDERABLES - DEVIC E Final Result Performing Organization Address [facility] de Phone Number [facility] Department [place] [address] * POCT glucose (08/12/2024 8:51 PM CDT) Glucose, POC 113 70 - 199 mg/dL Blood 08/12/2024 8:51 PM CDT 08/12/2024 8:51 PM CDT Notinfile Unknown LAB POCT ORDERABLES - DEVICE F inal Result Performing Organization Address [facility] Co de Phone Number [facility] Department [place] [address] * Colonoscopy (06/26/2024 11:50 AM CDT) Anatomical Region Laterality Modality Other Narrative Procedure Note Jaqueline Burden MD - 06/26/2024 11:50 AM CDT [facility] GI ENDOSCOPY Patient Name: John Mtz Procedure Date: 06/26/2024 11:50 AM Date of : 1945 Admit Type: Outpatient Age: 79 Gender: Male Attending MD: Jaqueline Burden M.D. Room: [facility] ENDOSCOPY ROOM 05 Note Status: Finalized [...] The scope was passed under direct vision.The [id number]-HB805M colonoscope was introduced through theanus and advanced [...] On: 06/26/2024 11:50 AM Recognized by the [employer] for promoting quality in endoscopy Jaqueline Burden MD ENDOSCOPY PROCEDURES Lashanda silva Result * Serum Hepatitis C ab (09/07/2013 5:17 AM CDT) HCV ab Negative NEG HISTORICAL RESULTS Comment: Interpretive Data If confirmation is required, call Laboratory Customer Service to request sample to be sent to [facility] for Hepatitis C Virus (HCV) RNA Detection and Quantitation by Real-Time Reverse Life Skills Coach-PCR (RT-PCR). Current interpretive data was last revised on 2011 Serum 09/07/2013 5:17 AM CDT Narrative HISTORICAL RESULTS - 09/08/2013 7:15 AM CDT Test performed at [facility], [address] [facility] [address],, [place], [place], [facility], [address]. Chris Montemayor MD LAB BLOOD ORDERABLES F inal Result HISTORICAL RESULTS from Last 3 Months or Most Recently Relevant to Health Maintenance Insurance MEDICARE [employer] MEDICARE FOR LIFE Advance Directives For more information, please contact: [phone] * Full Code (Latest Code Status on File) Date Activated Date Inactivated Comments 08/13/2024 12:51 PM 08/19/2024 10:37 PM Care Teams Instrument Fitter Relationship Specialty Start Date End Date Yuli Ibarra MD [address] [place] [id number] PCP - General Internal Medicine 06/25/24
--- NOTE | 2024-11-04 16:03 | PCCDE ---
DM Educator attempt at courtesy follow up call - message left including call back number
== END 2024-10-26 10:15 | disposition left against medical advice (07) | DRG 638 ==
LOC: ANHED 13:53 → ANH3MED 15:01
PROVIDERS: Admitting Provider Internal Medicine; Emergency Provider Registered Nurse; PCP Internal Medicine; Visit Provider Nurse Practitioner Adult Health
DX: E11.69 Type 2 diabetes mellitus with other specified complication (principal); M86.171 Other acute osteomyelitis, right ankle and foot; E66.2 Morbid (severe) obesity with alveolar hypoventilation; I13.0 Hypertensive heart and chronic kidney disease with heart failure and stage 1 through stage 4 chronic kidney disease, or unspecified chronic kidney disease; I25.10 Atherosclerotic heart disease of native coronary artery without angina pectoris; E11.42 Type 2 diabetes mellitus with diabetic polyneuropathy; E11.22 Type 2 diabetes mellitus with diabetic chronic kidney disease; I12.9 Hypertensive chronic kidney disease with stage 1 through stage 4 chronic kidney disease, or unspecified chronic kidney disease; I50.9 Heart failure, unspecified; N18.9 Chronic kidney disease, unspecified; E03.9 Hypothyroidism, unspecified; N40.0 Benign prostatic hyperplasia without lower urinary tract symptoms; Z95.2 Presence of prosthetic heart valve; Z95.1 Presence of aortocoronary bypass graft; Z68.34 Body mass index [BMI] 34.0-34.9, adult
CPT/HCPCS: 36415; 73630; 80053; 81001; 82948; 83605; 85025; 85027; 85610; 85730; 86140; 93005; 96365; 96366; 96367; 99285; A9270; J0692; J1650; J1815; J1836; J2543; J3373; J7030